=== PATIENT | female | born 1975 | race Caucasian/White ===

== ENCOUNTER 2019-05-02 00:39 | Day surgery (SDC) | payer OTHER, SELFPAY ==
[2019-04-18 10:05] VITALS: BMI 33.3
--- NOTE | 2019-04-30 13:47 | HP_ITS ---
DATE OF SERVICE: 05/02/2019 DIAGNOSIS: Bilateral carpal tunnel syndrome. HISTORY: This patient is 43. She is referred by Dr. Lee. She has had a nerve conduction test by Dr. Mcclain from February of 2017 indicating severe bilateral carpal tunnel syndrome, right worse than left. She says more lately her complaints have been decreased considerably and the left is worse. She has pain in both hands and elbow pain, the radial 4 digits are numb. It rarely involves the little finger. Her back wedger power is diminished. She drops things. She is awakened through the night. Her hands swell and she has cramping in both hands. She understands that surgery for this involves incision in the palm, possible nerve or tendon injury. The possibility of wound infection, bruising, hematoma, and in this case, the anesthetic risks, which can be explained to her by her anesthesia attendant. ALLERGIES: SHE HAS NO ALLERGIES TO MEDICATIONS. MEDICATIONS: Current medicines include 1. Meloxicam. 2. Flexeril. 3. Sertraline. 4. Montelukast. 5. Ranitidine. 6. Losartan. 7. Hydrocodone for back. She gets 60 every month. 8. Gabapentin for her neck. 9. Phentermine. 10. Topiramate. 11. Sumatriptan. PAST SURGICAL HISTORY: Prior surgeries include cholecystectomy in 2009, neck surgery in 2016 and 17 for ruptured disk and she has had laparoscopic surgeries. She is a smoker. REVIEW OF SYSTEMS: Indicates the high blood pressure, emphysema, gastric reflux, history of pancreatitis with fatty liver disease, arthritis with joint replacement, history of peeling sunburns. FAMILY HISTORY: Noncontributory. SOCIAL HISTORY: She lives in [place]. She works for [employer]. Patient of Dr. Lee. PHYSICAL EXAMINATION: GENERAL: She is 5 feet 5 inches, 203 pounds. She is alert, cooperative, and informative. HEENT: Unremarkable. CHEST: Clear to auscultation. HEART: Regular rate and rhythm by palpation. ABDOMEN: Soft, nontender. EXTREMITIES: Reveal findings on both sides consistent with compression neuropathy and on the left, specifically difficulty flexing the thumb across the palm, provocative pain in the forearm, and Tinel's at the elbow. ASSESSMENT: Bilateral carpal tunnel syndrome. PLAN: Left open carpal tunnel release under MAC anesthetic. Incidentally she receives hydrocodone 10/325, 60 each month. She had her last fill date on April 15, 2019. D I MT: Karina
--- NOTE | 2019-05-02 07:27 | WPDHPUPDATE1 ---
History and Physical Update Update Date/Time: 05/02/19 07:27 History and Physical has been reviewed, including an updated exam of the patient. There are NO changes in the patient's condition. Risks, benefits, and alternatives have been discussed and questions answered. Patient agrees to proceed with procedure.
[2019-05-02] MEDS: LACTATED RINGERS 1,000 ML 30 ML IV CONT (07:54)
[2019-05-02 08:13] VITALS: BP 109/60; PULSE 73; RESP 20; TEMP 36.3; O2SAT 96
--- NOTE | 2019-05-02 08:53 | WPDANESEPPF ---
Anes - Initial Pre Proc Eval Procedure: Operation Date: 05/02/19 09:00 Proposed Procedures p Left Open Carpal Tunnel Release - Abdullahi Mckenzie MD Date/Time: 05/02/19 08:53 Surgeon: Abdullahi Mckenzie MD Pre Op Diagnosis: Left Carpal Tunnel Syndrome Patient Data Age: 43 Gender: F Height: 5 ft 5 in Weight: 97.1 kg Last Vital Signs Temp 36.3 C L 05/02/19 08:13 Pulse 73 05/02/19 08:13 Resp 20 05/02/19 08:13 BP 109/60 05/02/19 08:13 Pulse Ox 96 05/02/19 08:13 Allergies Allergy/AdvReac Type Severity Reaction Status Date / Time No Known Allergies Allergy Verified 05/02/19 08:43 Home Medications Medication Instructions Recorded Confirmed Type albuterol sulfate 2 - 3 puff INHALATION QID 04/18/19 05/02/19 History cetirizine 10 mg PO DAILY 04/18/19 05/02/19 History cyclobenzaprine 10 mg PO TID 04/18/19 05/02/19 History gabapentin 600 mg PO TID 04/18/19 05/02/19 History hydrochlorothiazide 12.5 mg PO DAILY 04/18/19 05/02/19 History hydrocodone-acetaminophen 1 tablet PO Q4-6H PRN 04/18/19 05/02/19 History losartan 50 mg PO DAILY 04/18/19 05/02/19 History meloxicam 7.5 mg PO BID 04/18/19 05/02/19 History montelukast 10 mg PO DAILY 04/18/19 05/02/19 History phentermine 37.5 mg PO DAILY 04/18/19 05/02/19 History ranitidine HCl 150 mg PO BID 04/18/19 05/02/19 History sertraline 200 mg PO DAILY 04/18/19 05/02/19 History sumatriptan succinate 100 mg PO DIRECTED PRN 04/18/19 05/02/19 History topiramate 50 mg PO HS 04/18/19 05/02/19 History Patient hx anesthesia problems: none Family hx anesthesia problems: none PMFSH Past Medical History Medical History Anxiety Obesity Smoker Tobacco abuse Family History Family History Father Hypertension Family history of type 2 diabetes mellitus Grandparent Hypertension Family history of type 2 diabetes mellitus Mother Hypertension Sibling Family history of type 2 diabetes mellitus Other Family history of congenital heart disease Social History Social History Smoking status: Light tobacco smoker Second hand tobacco smoke exposure: Yes Alcohol intake: current Anes - Eval Final PreProcedure Day of Procedure 05/02/19 08:53 Patient weight: obese Heart: regular rate and rhythm Lungs: decreased breath sounds Airway: Mallampati scale class II Neurological: alert and oriented Last oral intake: >/= 8 hours ASA classification: III Emergent: no Anesthetic plan: proceed Anesthesia type and monitoring: general GIVS and standard monitoring Informed Consent: The patient's anesthetic plan and its attendant risks and benefits were discussed with the patient/family/POA. Questions were solicited and answers provided to the satisfaction of the patient/family/POA.
[2019-05-02] MEDS: LIDO 1%/EPINEPHRINE 1:100,000 20 ML VIAL 7 ML INFILTRATE (09:23)
--- NOTE | 2019-05-02 09:24 | PM.OP ---
Procedure Note - Brief Procedure Note - Brief Date of procedure: 05/02/19 Pre-op diagnosis: Left Carpal Tunnel Syndrome Post-op diagnosis: same Procedure performed: L OCTR Anesthesia: MAC Surgeon: Abdullahi Mckenzie MD Estimated blood loss (mL): 0 Complications: No immediate complications Condition: stable Disposition: same day
[2019-05-02 09:28] VITALS: BP 127/76; PULSE 68; RESP 16; O2SAT 97
[2019-05-02 09:55] VITALS: BP 109/69; PULSE 68
[2019-05-02 10:15] VITALS: BP 118/72; PULSE 66
[2019-05-02 10:45] VITALS: BP 114/64; PULSE 60
--- NOTE | 2019-05-02 14:29 | PM.PROC ---
Procedure Note - Detailed Date of procedure: 05/02/19 Pre-op diagnosis: Left Carpal Tunnel Syndrome Post-op diagnosis: same Procedure performed: Left open carpal tunnel release Description of procedure: The site over the left carpal tunnel was marked with the patient in preop period. She was then taken to the operating room and placed supine on the operating table. A time-out was held and confirmed. She was given IV sedation. The extremity was prepped and draped in usual fashion. The marking was reconfirmed and the site locally infiltrated with 1% lidocaine with epinephrine. The tourniquet was inflated to 250 mmHg the incision was made as marked in the palm. Dissection was carried bluntly through the subcutaneous tissue to the palmar fascia. This and the carpal ligament were incised with a 15. blade. Under 3 point retraction the ligament was divided distally and proximally to completely release it. No unusual anatomy was noted. The skin wound was closed with interrupted 5 0 nylon suture. The usual bandage with Amandeep wrap was applied the tourniquet was released. Estimated blood loss was 0 milliliter. The patient was discharged with instructions in wound care and follow-up. She has hydrocodone 01/03/2025 at home and was instructed that she could take additional ibuprofen if she normally tolerates that. Surgeon: Abdullahi Mckenzie MD
== END 2019-05-02 10:49 | disposition home or self-care (01) ==
PROVIDERS: PCP Internal Medicine; Visit Provider Plastic Surgery
PROC: (CPT 64721; principal; 2019-05-02 09:00)
DX: G56.02 Carpal tunnel syndrome, left upper limb (principal); F41.9 Anxiety disorder, unspecified; F17.210 Nicotine dependence, cigarettes, uncomplicated; E66.9 Obesity, unspecified; Z68.35 Body mass index [BMI] 35.0-35.9, adult
CPT/HCPCS: 64721; A9270; J2250; J2704; J3010; J7120

== ENCOUNTER 2019-07-01 10:51 | Outpatient (RCR) | payer OTHER, SELFPAY ==
--- NOTE | 2019-07-01 13:44 | OTOPEVAL ---
Thank you for referring this patient to [facility] Please review, sign, date and return this plan of care AMAURY. I agree with and certify that the following plan of care is medically necessary. Referring Physician Date Admitting Provider: Attending Provider: PHYSICIAN NOT ON STAFF Referring Provider: *OT Outpatient Evaluation Start: 07/01/19 10:25 Freq: Status: Active Protocol: Document 07/01/19 10:52 MBS (Rec: 07/01/19 11:50 MBS [id number]) Therapy Assessment Status Assessment Status Assessment Status Evaluation Outpatient Past Medical History Neurological History Hx Migraine Yes Cardiovascular History Hx Hypertension Yes Respiratory History Hx Chronic Obstructive Pulmonary Disease Yes (COPD) Gastrointestinal History Hx Cholecystectomy Yes Genitourinary History Hx Genitourinary Disorders No Significant History Musculoskeletal History Hx Arthritis Yes Hx Back Pain Yes Hx Spinal Surgery Yes: NECK SURGERY WITH HARDWARE Hematological History Hx Hematological Disorders No Significant History Endocrine History Hx Endocrine Disorders No Significant History HEENT History Hx Sinus Problems Yes Integumentary History Hx Other Skin Disorders Yes: RASH ON ARMS Reproductive History Hx Endometriosis Yes Psychosocial History Hx Anxiety Yes Hx Depression Yes Pain History Has Past Pain Affected Your Daily Life Yes: BACK/NECK PAIN History of Long-Term Prescription Pain Yes Medication Use (Opiates) Anesthesia History Hx Anesthesia Reactions No Significant History Evaluation Information Problem Diagnosis wrist pain and hand weakness Onset 05/02/19 Cause L carpal tunnel release Subjective Information Patient reports that since her Query Text:As Reported By Patient/ surgery in April her thumb, Family middle, and index fingers dont work and feel like they should. The tingling and numbness has been better. Scar is sensitive to touch and reports wrist pain. Patient reports that she is not able to lift a gallon of milk secondary to pain. Patient works at [employer] and is required to do lifting and using her hands quite a bit. Patient reports that she
== END 2019-08-20 13:30 | disposition home or self-care (01) ==
LOC: CHSOT 10:51
PROVIDERS: PCP Internal Medicine
DX: Z98.890 Other specified postprocedural states (principal)
CPT/HCPCS: 97035; 97110; 97140; 97165

== ENCOUNTER 2019-09-06 14:16 | Emergency (ER) | payer OTHER, SELFPAY ==
[2019-09-06 14:45] VITALS: BP 152/86; PULSE 69; RESP 20; TEMP 37.1; O2SAT 97
[2019-09-06 14:52] LABS: Add Urine Microscopic? YES; Appearance Urine Sl Cloudy (Clear); Bilirubin Urine Negative (Negative); Blood Urine Negative (Negative); Color Urine Yellow (Yellow); Glucose Urine UA Negative (Negative); Ketones Urine Negative (Negative); Leukocyte Esterase Ur Negative LEU/UL (Negative); Nitrate Urine Negative (Negative); Protein Urine Negative (Negative); Specific Grav Ur >= 1.030 (1.010-1.020); pH Urine 5.5 (5.0-8.0)
[2019-09-06 14:52] LABS: Basophils Absolute Auto 0.03 K/mm3 (0.00-0.10); Basophils Percent Auto 0.3 % (0.0-1.0); Eosinophils Absolute Auto 0.09 K/mm3 (0.02-0.50); Hematocrit 40.9 % (35.0-49.0); Hemoglobin 13.4 g/dL (12.0-15.0); Immature Granulocyte Absolute 0.01 K/mm3 (0.00-0.00); Immature Granulocyte Percent A 0.1 % (0.0-0.0); Lymphocytes Absolute Auto 3.48 K/mm3 (1.10-4.50); Lymphocytes Percent Auto 38.3 % (18.0-42.0); Mean Corpuscular HGB Conc 32.8 g/dL (32.0-36.0); Mean Corpuscular Hemoglobin 29.5 pg (27.0-31.0); Mean Corpuscular Volume 90.1 fL (78.0-102.0); Mean Platelet Volume 8.9 fl (9.2-11.8); Monocytes Absolute Auto 0.81 K/mm3 (0.10-0.90); Monocytes Percent Auto 8.9 % (2.0-11.0); Neutrophils Absolute Auto 4.7 K/mm3 (1.7-7.2); Neutrophils Percent Auto 51.4 % (50.0-70.0); Platelet Count Result 349 K/mm3 (150-420); Red Blood Count 4.54 M/mm3 (4.20-5.40); Red Cell Distribution Width 13.9 % (11.6-14.4); White Blood Count 9.1 K/mm3 (4.8-10.8)
--- NOTE | 2019-09-06 14:57 | ED.ABDPAIN ---
HPI - Abdominal Pain General Chief Complaint: Nausea/Vomiting/Diarrhea Stated Complaint: Vomiting,Hot cold chills,Headache Source: patient Mode of arrival: ambulatory History of Present Illness HPI narrative: This 44-year-old female began feeling ill 2 days ago with persistent epigastric pain, nausea and vomiting. The vomiting finally subsided this morning about the time she started having diarrhea x 7 episodes. The stool is mucousy. She has persistent nausea. She has no new onset of back pain. There has been no recent antibiotic use. She has no appetite. Nothing makes the pain better or worse. Yesterday she developed a bitemporal headache rated 8/10 associated with photophobia. This resembles her typical migraine headaches which are normally treated with sumatriptan. She had chills yesterday, no known fever. She has a history of cholecystectomy , denies history of peptic ulcer disease.. She has had 1 episode of pancreatitis. No melena. Related Data Home Medications Medication Instructions Recorded Confirmed albuterol sulfate 2 - 3 puff INHALATION QID 04/18/19 09/06/19 cetirizine 10 mg PO DAILY 04/18/19 09/06/19 cyclobenzaprine 10 mg PO TID 04/18/19 09/06/19 gabapentin 600 mg PO TID 04/18/19 09/06/19 hydrochlorothiazide 12.5 mg PO DAILY 04/18/19 09/06/19 hydrocodone-acetaminophen 1 tablet PO Q4-6H PRN 04/18/19 09/06/19 losartan 50 mg PO DAILY 04/18/19 09/06/19 meloxicam 7.5 mg PO BID 04/18/19 09/06/19 montelukast 10 mg PO DAILY 04/18/19 09/06/19 phentermine 37.5 mg PO DAILY 04/18/19 09/06/19 ranitidine HCl 150 mg PO BID 04/18/19 09/06/19 sertraline 200 mg PO DAILY 04/18/19 09/06/19 sumatriptan succinate 100 mg PO DIRECTED PRN 04/18/19 09/06/19 topiramate 50 mg PO HS 04/18/19 09/06/19 Allergies Allergy/AdvReac Type Severity Reaction Status Date / Time No Known Allergies Allergy Verified 05/02/19 08:43 Review of Systems Constitutional: Constitutional: Reports no additional constitutional complaints Cardiovascular: Cardiovascular: Denies chest pain Respiratory: Respiratory: Reports cough (chronic low grade cough, no recent change. ) Gastrointestinal: Comments: Heartburn after she started vomiting yesterday Genitourinary: Genitourinary: Denies dysuria Musculoskeletal: Musculoskeletal: Reports back pain (chronic low back pain) Comments: myalgia Neurologic: Denies focal weakness and Denies numbness PMFSH Past Medical History Medical History (Updated 09/06/19 @ 22:39 by Gerry Gtz MD) Anxiety Obesity Smoker Tobacco abuse Surgical History Surgical History (Updated 09/06/19 @ 15:04 by Gerry Gtz MD) Hx of cholecystectomy Social History Social History (Updated 09/06/19 @ 15:27 by Gerry Gtz MD) Smoking status: Current some day smoker Second hand tobacco smoke exposure: Yes Alcohol intake: former Exam Narrative: Exam Narrative: Sitting semi-upright in bed. No obvious distress. No photophobia. Const: Orientation/consciousness: patient oriented x3 HENMT: Mouth: Yes moist mucous membranes Eyes: Pupils: Equal, round and reactive pupils present EOM: EOMs intact bilaterally Neck: Neck: no lymphadenopathy Chest: Chest palpation & inspection: normal inspection of the chest Resp: Effort & Inspection: normal respiratory effort Cardio: Rate: regular rate Rhythm: regular rhythm GI: GI Palp: Yes Soft to palpation and Yes Tenderness to palpation present (GI) (epigastrium) : General: Yes no CVA tenderness Skin: General skin exam: normal color Neuro: General: patient oriented x3 Course Course Emergency Course: Pt's headache and abdominal pain went from 8/10 to 10 after Reglan 10 mg and Benadryl 25 mg. She has no nausea. She is hungry. She wants to go home. Dx. of pancreatitis discussed. She is aware of the importance of hydration and that her symptoms could worsen but agrees to come back if she is unable to drink fluids or pain is not controlled
[2019-09-06 14:59] LABS: Bacteria Urine 3+ /hpf; RBC Urine 0-2 /hpf (0-2); Squamous Epithelial Cell Urine Few /hpf (Few); WBC Urine 0-3 /hpf (0-3)
[2019-09-06 15:00] LABS: Mucus Urine Moderate /lpf
[2019-09-06] MEDS: SODIUM CHLORIDE 0.9% IV 500 ML 999 ML IV CONT (15:00)
[2019-09-06] MEDS: METOCLOPRAMIDE HCL INJ 10 MG/2 ML VIAL IV PUSH (15:00)
[2019-09-06 15:27] LABS: Alanine Aminotransferase 36 U/L (14-59); Albumin Level 3.8 g/dL (3.4-5.0); Alkaline Phosphatase 126 U/L (46-116); Anion Gap 13.7 mmol/L (7-16); Aspartate Amino Transferase 19 U/L (15-37); Bilirubin,Total 0.3 mg/dL (0.00-1.00); Blood Urea Nitrogen 12 mg/dL (7-18); Calcium 8.6 mg/dL (8.5-10.1); Carbon Dioxide 23 mmol/L (21-32); Chloride 102 mmol/L (98-108); Estimated Glomerular Filt Rate > 60; Glucose 115 mg/dL (70-99); Osmolality Calculated 280 mOsm/kg (285-295); Potassium 3.7 mmol/L (3.5-5.1); Sodium 135 mmol/L (136-145); Total Protein 7.7 g/dL (6.4-8.2)
[2019-09-06 15:28] LABS: Beta HCG Quantitative < 1.00 mIU/mL (0-6); Lipase 558 U/L (73-393)
[2019-09-06] MEDS: SODIUM CHLORIDE 0.9% IV 1,000 ML 999 ML IV CONT (15:30)
[2019-09-06 16:07] VITALS: BP 139/84
== END 2019-09-06 16:10 | disposition home or self-care (01) ==
PROVIDERS: Emergency Provider Family Medicine; PCP Internal Medicine
DX: K85.90 Acute pancreatitis without necrosis or infection, unspecified (principal)
CPT/HCPCS: 36415; 80053; 81001; 83690; 84702; 85025; 96361; 96374; 96375; 99282; 99284; J1200; J2765; J7030; J7040

== ENCOUNTER 2019-09-24 09:31 | Outpatient (CLI) | payer OTHER, SELFPAY ==
--- NOTE | ~2019-09-24 | US_ITS ---
EXAMINATION: US right upper quadrant EXAM DATE: 09/24/2019 09:55 INDICATION: Epigastric pain, nausea. Cholecystectomy. Pancreatitis. TECHNIQUE: Multiple grayscale and Doppler images of the abdomen right upper quadrant were obtained (b y a technologist who performed the scan) and subsequently reviewed. Comparison is made to prior exami nation from 07/06/2006. FINDINGS: The pancreatic head and body are normal in appearance. The pancreatic tail is not visualized. The l iver has normal echogenicity and contour. There are no focal liver lesions identified. There is no evidence of intrahepatic biliary duct dilation. Portal venous flow was seen in the hepatopedal, nor mal direction and has normal Doppler waveform. No right-sided hydronephrosis. Common bile duct measures 3 mm, which is normal. The gallbladder fossa is unremarkable. IMPRESSION: 1. Unremarkable abdominal ultrasound exam. Reviewed, dictated and finalized at location B.
== END 2019-09-24 09:32 | disposition home or self-care (01) ==
PROVIDERS: PCP Internal Medicine; Visit Provider Internal Medicine
DX: K85.90 Acute pancreatitis without necrosis or infection, unspecified (principal)
CPT/HCPCS: 76705

== ENCOUNTER 2019-10-18 15:24 | Emergency (ER) | payer OTHER, SELFPAY ==
[2019-10-18 15:35] VITALS: BP 127/88; PULSE 92; RESP 16; TEMP 37; O2SAT 99
--- NOTE | 2019-10-18 16:15 | ED.SKABFB ---
HPI - Skin/Abscess/Foreign Bdy General Chief complaint: Skin/Abscess/Foreign Body Stated complaint: splinter under fingernail Time Seen by Provider: 10/18/19 16:05 Source: patient Mode of arrival: ambulatory Limitations: no limitations History of Present Illness HPI narrative: 44-year-old female patient is here with the splinter from old food paneling under the nail bed of her left index finger. The patient states that she was vacuuming and suddenly brittani hand went along the paddling and she tried to remove the splinter at home unsuccessfully. She is not sure of her tetanus status . patient denies being diabetic. Related Data Home Medications Medication Instructions Recorded Confirmed albuterol sulfate 2 - 3 puff INHALATION QID 04/18/19 10/18/19 cetirizine 10 mg PO DAILY 04/18/19 10/18/19 cyclobenzaprine 10 mg PO TID 04/18/19 10/18/19 gabapentin 600 mg PO TID 04/18/19 10/18/19 hydrochlorothiazide 12.5 mg PO DAILY 04/18/19 10/18/19 hydrocodone-acetaminophen 1 tablet PO Q4-6H PRN 04/18/19 10/18/19 losartan 50 mg PO DAILY 04/18/19 10/18/19 meloxicam 7.5 mg PO BID 04/18/19 10/18/19 montelukast 10 mg PO DAILY 04/18/19 10/18/19 ranitidine HCl 150 mg PO BID 04/18/19 10/18/19 sertraline 200 mg PO DAILY 04/18/19 10/18/19 sumatriptan succinate 100 mg PO DIRECTED PRN 04/18/19 10/18/19 topiramate 50 mg PO HS 04/18/19 10/18/19 Allergies Allergy/AdvReac Type Severity Reaction Status Date / Time No Known Allergies Allergy Verified 10/18/19 15:50 Review of Systems Review of Systems: All systems reviewed & are unremarkable except as noted in HPI and below PMFSH Past Medical History Medical History Anxiety Obesity Smoker Tobacco abuse Surgical History Surgical History Hx of cholecystectomy Family History Family History Father Hypertension Family history of type 2 diabetes mellitus Grandparent Hypertension Family history of type 2 diabetes mellitus Mother Hypertension Sibling Family history of type 2 diabetes mellitus Other Family history of congenital heart disease Social History Social History (Updated 09/06/19 @ 15:27 by Gerry Gtz MD) Smoking status: Current some day smoker Second hand tobacco smoke exposure: Yes Alcohol intake: former Exam Const: General: no acute distress Resp: Effort & Inspection: normal respiratory effort Skin: Other: A linear splinter is noted in the subungual area on the left index finger nail. No active bleeding is noted. No other injuries to the finger are noted. Neuro: General: patient oriented x3 and moves all extremities Psych: Affect: Anxious affect present Course Course Emergency Course: Patient's condition has been stable splint has been removed. She will be updated on her tetanus status and discharged home Procedures Foreign Body Removal Foreign Body #1: Foreign Body Removal Date: 10/18/19 Foreign Body Removal Time: 16:07 Time Out Performed: yes Site: left and hand ( Left index finger nail) Foreign Body Removal Narrative: a digital block was given to the left index finger with 1% lidocaine and the linear wooden splinter was removed with forceps without any difficulty. No bleeding is encountered. Discharge Plan Discharge Prescriptions: No Action cyclobenzaprine 10 mg tablet 10 mg PO TID RF: 0 cetirizine 10 mg tablet 10 mg PO DAILY RF: 0 sertraline 100 mg tablet 200 mg PO DAILY RF: 0 hydrocodone-acetaminophen 10-325 mg tablet 1 tablet PO Q4-6H PRN (Reason: Pain) RF: 0 meloxicam 7.5 mg tablet 7.5 mg PO BID RF: 0 ranitidine HCl 150 mg tablet 150 mg PO BID RF: 0 gabapentin 300 mg capsule 600 mg PO TID RF: 0 montelukast 10 mg tablet 10 mg PO DAILY RF: 0 hydrochlorothiazide 25 mg tablet 12.5 mg
[2019-10-18] MEDS: TETANUS,DIPHTHERIA,AC PERTUSSIS ADULT 0.5 ML (ADACEL) IM (16:36)
[2019-10-18] MEDS: IBUPROFEN 400 MG TABLET 800 MG PO (16:38)
== END 2019-10-18 16:40 | disposition home or self-care (01) ==
PROVIDERS: Emergency Provider Emergency Medicine; PCP Internal Medicine
DX: S60.451A Superficial foreign body of left index finger, initial encounter (principal)
CPT/HCPCS: 90471; 90715; 99282; A9270

== ENCOUNTER 2019-11-30 10:13 | Outpatient (CLI) | payer OTHER, SELFPAY ==
[2019-11-30 10:38] LABS: Add Urine Microscopic? YES; Appearance Urine Cloudy (Clear); Bilirubin Urine Negative (Negative); Blood Urine 3+ (Negative); Color Urine Yellow (Yellow); Glucose Urine UA Negative (Negative); Ketones Urine Negative (Negative); Leukocyte Esterase Ur Negative (Negative); Nitrate Urine Negative (Negative); Protein Urine Negative (Negative); Specific Grav Ur >= 1.030 (1.010-1.020); Urobilinogen Urine 0.2 mg/dL (0.2-1.0); pH Urine 5.5 (5.0-8.0)
[2019-11-30 10:42] LABS: Bacteria Urine Trace /hpf; RBC Urine >75 /hpf (0-2); Squamous Epithelial Cell Urine Few /hpf (Few); WBC Urine None seen /hpf (0-3)
[2019-11-30 11:28] LABS: Alanine Aminotransferase 37 U/L (14-59); Albumin Level 3.6 g/dL (3.4-5.0); Alkaline Phosphatase 131 U/L (46-116); Anion Gap 6 mmol/L (8-16); Aspartate Amino Transferase 22 U/L (15-37); Bilirubin,Total 0.1 mg/dL (0.00-1.00); Blood Urea Nitrogen 13 mg/dL (7-18); Calcium 8.5 mg/dL (8.5-10.1); Carbon Dioxide 29 mmol/L (21-32); Chloride 105 mmol/L (98-108); Cholesterol 205 mg/dL (0-200); Estimated Glomerular Filt Rate > 60; Glucose 95 mg/dL (70-99); HDL Direct 30 mg/dL (40-60); LDL Cholesterol Calculated 144 mg/dL (<130); Osmolality Calculated 290 mOsm/kg (285-295); Potassium 4.2 mmol/L (3.5-5.1); Sodium 140 mmol/L (136-145); Triglycerides 156 mg/dL (0-150)
== END 2019-11-30 10:14 | disposition home or self-care (01) ==
LOC: CHSLAB 10:15
PROVIDERS: PCP Internal Medicine; Visit Provider Internal Medicine
DX: E78.2 Mixed hyperlipidemia (principal); I10 Essential (primary) hypertension
CPT/HCPCS: 36415; 80053; 80061; 81001

== ENCOUNTER 2019-12-03 13:00 | Outpatient (CLI) | payer OTHER, SELFPAY ==
--- NOTE | ~2019-12-03 | MM_ITS ---
EXAMINATION: MM screening lucy BI w carolyn HISTORY: Screening TECHNIQUE: Craniocaudal and mediolateral oblique 3-D tomosynthesis images were obtained and synthetic 2-D images were generated. CAD analysis was submitted and interpreted. COMPARISON: Comparison to multiple prior studies sequentially, with oldest reviewed study dated 04/2013. BREAST PARENCHYMAL COMPOSITION: There are scattered areas of fibroglandular density. FINDINGS: There is no evidence of suspicious mass, calcification, or architectural distortion to sugg est malignancy in either breast. There has been no suspicious interval change. IMPRESSION: 1. No mammographic evidence of malignancy. 2. Recommend routine screening mammography in one year. BI-RADS Category 1: Negative Reviewed, dictated and finalized at location A.
== END 2019-12-03 13:01 | disposition home or self-care (01) ==
LOC: CHSIMG 13:02
PROVIDERS: PCP Internal Medicine; Visit Provider Internal Medicine
DX: Z12.31 Encounter for screening mammogram for malignant neoplasm of breast (principal)
CPT/HCPCS: 77063; 77067

== ENCOUNTER 2019-12-31 14:50 | Outpatient (CLI) | payer OTHER, SELFPAY ==
[2019-12-31 14:59] LABS: Basophils Absolute Auto 0.03 K/mm3 (0.00-0.10); Basophils Percent Auto 0.3 % (0.0-1.0); Hematocrit 35.3 % (35.0-49.0); Hemoglobin 11.3 g/dL (12.0-15.0); Immature Granulocyte Absolute 0.04 K/mm3 (0.00-0.00); Immature Granulocyte Percent A 0.4 % (0.0-0.0); Lymphocytes Absolute Auto 3.43 K/mm3 (1.10-4.50); Lymphocytes Percent Auto 34.8 % (18.0-42.0); Mean Corpuscular Hemoglobin 29.2 pg (27.0-31.0); Mean Corpuscular Volume 91.2 fL (78.0-102.0); Mean Platelet Volume 8.5 fl (9.2-11.8); Monocytes Absolute Auto 0.83 K/mm3 (0.10-0.90); Monocytes Percent Auto 8.4 % (2.0-11.0); Neutrophils Absolute Auto 5.3 K/mm3 (1.7-7.2); Neutrophils Percent Auto 54.1 % (50.0-70.0); Platelet Count Result 369 K/mm3 (150-420); Red Blood Count 3.87 M/mm3 (4.20-5.40); Red Cell Distribution Width 13.8 % (11.6-14.4); White Blood Count 9.9 K/mm3 (4.8-10.8)
[2019-12-31 15:02] LABS: Add Urine Microscopic? YES; Appearance Urine Clear (Clear); Bilirubin Urine Negative (Negative); Blood Urine 3+ (Negative); Color Urine Yellow (Yellow); Glucose Urine UA Negative (Negative); Ketones Urine Negative (Negative); Leukocyte Esterase Ur Negative LEU/UL (Negative); Nitrate Urine Negative (Negative); Protein Urine Negative (Negative); Specific Grav Ur >= 1.030 (1.010-1.020); Urobilinogen Urine 0.2 mg/dL (0.2-1.0)
[2019-12-31 15:08] LABS: RBC Urine 21-50 /hpf (0-2); WBC Urine 0-3 /hpf (0-3)
[2019-12-31 15:09] LABS: Amorphous Sediment Urine Few; Bacteria Urine Trace /hpf; Squamous Epithelial Cell Urine Few /hpf (Few)
[2019-12-31 15:28] LABS: Alanine Aminotransferase 42 U/L (14-59); Albumin Level 3.6 g/dL (3.4-5.0); Alkaline Phosphatase 140 U/L (46-116); Amylase 47 U/L (25-115); Anion Gap 7 mmol/L (8-16); Aspartate Amino Transferase 23 U/L (15-37); Bilirubin,Total 0.1 mg/dL (0.00-1.00); Blood Urea Nitrogen 16 mg/dL (7-18); Calcium 8.9 mg/dL (8.5-10.1); Carbon Dioxide 28 mmol/L (21-32); Chloride 105 mmol/L (98-108); Estimated Glomerular Filt Rate > 60; Glucose 86 mg/dL (70-99); Lipase 146 U/L (73-393); Osmolality Calculated 290 mOsm/kg (285-295); Potassium 3.9 mmol/L (3.5-5.1); Sodium 140 mmol/L (136-145); Total Protein 6.9 g/dL (6.4-8.2)
== END 2019-12-31 14:51 | disposition home or self-care (01) ==
LOC: CHSLAB 14:51
PROVIDERS: PCP Internal Medicine; Visit Provider Internal Medicine
DX: R10.9 Unspecified abdominal pain (principal)
CPT/HCPCS: 36415; 80053; 81001; 82150; 83690; 85025

== ENCOUNTER 2020-01-14 10:46 | Outpatient (CLI) | payer OTHER, SELFPAY ==
--- NOTE | ~2020-01-14 | US_ITS ---
EXAMINATION: US pelvic complete DATE: 01/14/2020 11:31 INDICATION: Diffuse abdominal pain, hematuria TECHNIQUE: Multiple transabdominal sonographic images of the pelvis were obtained. COMPARISON: 10/23/2017 FINDINGS: The uterus measures 6.7 x 3.5 x 5.0 cm. The endometrial complex measures 8 mm. The right ov peter measures 3.0 x 1.8 x 2.1 cm. The left ovary measures 2.4 x 2.1 x 1.9 cm. A 2.3 cm cyst of the lef t ovary previously measured 3.3 cm. There is normal vascular flow in the ovaries. There is no free fl uid in the pelvis. IMPRESSION: 1. No sonographic correlate for the patient's symptoms. Reviewed, dictated and finalized at location A.
--- NOTE | ~2020-01-14 | US_ITS ---
EXAMINATION: US abdomen complete DATE: 01/14/2020 11:30 INDICATION: Diffuse abdominal pain TECHNIQUE: Multiple grayscale and Doppler ultrasound images of the abdomen were obtained. COMPARISON: 09/24/2019, 09/25/2017 FINDINGS: The head and and body of the pancreas are normal. The pancreatic tail is obscured by bowel gas. The liver is normal with normal echogenicity and echotexture. No surface nodularity. Normal hepa topetal flow in the main portal vein. The gallbladder is surgically absent. The normal common bile du ct measures 5 mm. The visualized portions of the aorta and inferior vena cava are normal. The right kidney measures 10.8 x 5.3 x 5.1 cm. The left kidney measures 11.7 x 5.5 x 5.2 cm. The kidn eys demonstrate normal parenchymal echogenicity. There is no hydronephrosis. The spleen is normal in appearance and measures 10.4 cm. IMPRESSION: 1. No sonographic correlate for the patient's symptoms. Reviewed, dictated and finalized at location A.
== END 2020-01-14 10:47 | disposition home or self-care (01) ==
LOC: CHSIMG 10:48
PROVIDERS: PCP Internal Medicine; Visit Provider Internal Medicine
DX: R31.9 Hematuria, unspecified (principal); R10.9 Unspecified abdominal pain
CPT/HCPCS: 76700; 76856; 88112

== ENCOUNTER 2020-03-24 11:07 | Outpatient (RCR) | payer OTHER, SELFPAY ==
--- NOTE | 2020-03-24 13:10 | PTOPEVAL ---
Thank you for referring Marcio Torres to [facility] The patient is scheduled to be seen for therapy? ____x/week for ___ weeks. Please review, sign, date and return this plan of care AMAURY. I agree with and certify that the following plan of care is medically necessary. Referring Physician Date Admitting Provider: Attending Provider: Sandra Manley, LEAD FRONT DESK AGENT Referring Provider: *PT Outpatient Evaluation Start: 03/24/20 11:21 Freq: Status: Active Protocol: Document 03/24/20 11:20 [facility] (Rec: 03/24/20 12:39 [facility] [id number]) Therapy Assessment Status Assessment Status Assessment Status Evaluation Outpatient Past Medical History Neurological History Hx Migraine Yes Hx Other Neurological Disorders Yes: NERVE DAMAGE TO NECK/ CHRONIC NERVE PAIN Cardiovascular History Hx Hypertension Yes Respiratory History Hx Bronchitis Yes Hx Chronic Obstructive Pulmonary Disease Yes (COPD) Gastrointestinal History Hx Cholecystectomy Yes Genitourinary History Hx Genitourinary Disorders No Significant History Musculoskeletal History Hx Arthritis Yes Hx Back Pain Yes Hx Spinal Surgery Yes: NECK SURGERY WITH HARDWARE Hematological History Hx Hematological Disorders No Significant History Endocrine History Hx Endocrine Disorders No Significant History HEENT History Hx Sinus Problems Yes Integumentary History Hx Other Skin Disorders Yes: RASH ON ARMS Reproductive History Hx Endometriosis Yes Psychosocial History Hx Anxiety Yes Hx Depression Yes Pain History Has Past Pain Affected Your Daily Life Yes: BACK/NECK PAIN History of Long-Term Prescription Pain Yes Medication Use (Opiates) Anesthesia History Hx Anesthesia Reactions No Significant History Evaluation Information Problem Diagnosis spinal stenosis Onset 03/17/20 Additional Evaluation Detail oswestry = 72% functionally declined Subjective Information patient reports she has been Query Text:As Reported By Patient/ having pain in the back for Family about 5 years. she reports she has had an MRI of the lumbar spine back in April. she reports she has increased pain in the back with work. 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 she reports she has increased pain
== END 2020-04-23 17:40 | disposition home or self-care (01) ==
LOC: CHSPT 11:07
PROVIDERS: PCP Nurse Practitioner Adult Health; Visit Provider Nurse Practitioner Adult Health
DX: M48.07 Spinal stenosis, lumbosacral region (principal)
CPT/HCPCS: 97014; 97110; 97161; G0283

== ENCOUNTER 2020-04-25 09:56 | Outpatient (CLI) | payer OTHER, SELFPAY ==
--- NOTE | ~2020-04-25 | MR_ITS ---
EXAMINATION: MR cervical spine wo con EXAM DATE: 04/25/2020 11:13 INDICATION: Cervical radiculopathy. Left shoulder pain, symptoms 3 weeks. TECHNIQUE: Multi-sequential, multiplanar MR images of the cervical spine were obtained without contra st. Axial T2, axial T2 MERGE sequence. Sagittal T1, T2, T2 fat saturation images also obtained. Com parison is made to prior examination from 11/24/2018. FINDINGS: There is anterior and interbody fusion C5-6. Mild disc disease at C4-5. The vertebral body and disc heights are otherwise well maintained. The vertebral bodies are aligned in the AP dimension . There are no suspicious marrow signal abnormalities. The spinal cord signal intensity and intrinsic morphology is normal. Cervicomedullary junction is normal in appearance. Paraspinal soft tissue is u nremarkable. Level by level evaluation: C2-C3: Disc does not extend beyond the endplate margin. Uncovertebral joint arthropathy: Mild right. Facet joint arthropathy: Mild bilateral. Neural foraminal stenosis: Mild right. Central canal stenosis: No stenosis. C3-C4: Disc does not extend beyond the endplate margin. Uncovertebral joint arthropathy: Mild bilateral. Facet joint arthropathy: Mild bilateral. Neural foraminal stenosis: Mild bilateral. Central canal stenosis: No stenosis. C4-C5: There is a minimal diffuse disc bulge. Uncovertebral joint arthropathy: Mild bilateral. Facet joint arthropathy: Mild bilateral. Neural foraminal stenosis: Mild bilateral. Central canal stenosis: No stenosis. C5-C6: Motion limiting evaluation. This level is fused. Uncovertebral joint arthropathy: Mild bilateral. Facet joint arthropathy: Mild bilateral. Neural foraminal stenosis: No stenosis. Central canal stenosis: No stenosis. C6-C7: Motion limiting evaluation. Small right central protrusion. Uncovertebral joint arthropathy: Mild to moderate right, mild left. Facet joint arthropathy: Mild bilateral. Neural foraminal stenosis: Mild to moderate right. Central canal stenosis: No stenosis. C7-T1: Small left central disc extrusion, inferior migration toward the C8 nerve root in lateral rece ss. Uncovertebral joint arthropathy: None. Facet joint arthropathy: Mild bilateral. Neural foraminal stenosis: No stenosis. Central canal stenosis: No stenosis. Compared to 2019 the C7-T1 left central protrusion has developed. Otherwise difficult to appreciate a ny significant interval change, although there is some motion limiting evaluation of this study. IMPRESSION: 1. C5-6 cervical fusion. 2. C6-7 mild to moderate right neural foraminal stenosis, most narrowed level. 3. C7-T1 new small left central extrusion, potentially could be causing some mass effect on traversi ng C8 nerve root. Reviewed, dictated and finalized at location A. IDER CONTRACTING CONSULTANT IMPRESSION: 1. C5-6 cervical fusion. 2. C6-7 mild to moderate right neural foraminal stenosis, most narrowed level. 3. C7-T1 new small left central extrusion, potentially could be causing some m ass effect on traversing C8 nerve root.
== END 2020-04-25 09:57 | disposition home or self-care (01) ==
PROVIDERS: PCP Internal Medicine; Visit Provider Internal Medicine
DX: M54.12 Radiculopathy, cervical region (principal)
CPT/HCPCS: 72141

== ENCOUNTER 2020-04-27 15:03 | Outpatient (RCR) | payer OTHER, SELFPAY ==
--- NOTE | 2020-04-27 16:00 | PTOPEVAL ---
Thank you for referring Marcio Torres to [facility].? The patient is scheduled to be seen for therapy? ____x/week for ___ weeks. Please review, sign, date and return this plan of care AMAURY. I agree with and certify that the following plan of care is medically necessary. 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/ CHRONIC NERVE PAIN Cardiovascular History Hx Hypertension Yes Respiratory History Hx Bronchitis Yes Hx Chronic Obstructive Pulmonary Disease Yes (COPD) Gastrointestinal History Hx Cholecystectomy Yes Genitourinary History Hx Genitourinary Disorders No Significant History Musculoskeletal History Hx Arthritis Yes Hx Back Pain Yes Hx Spinal Surgery Yes: NECK SURGERY WITH HARDWARE Hematological History Hx Hematological Disorders No Significant History Endocrine History Hx Endocrine Disorders No Significant History HEENT History Hx Sinus Problems Yes Integumentary History Hx Other Skin Disorders Yes: RASH ON ARMS Reproductive History Hx Endometriosis Yes Psychosocial History Hx Anxiety Yes Hx Depression Yes Pain History Has Past Pain Affected Your Daily Life Yes: BACK/NECK PAIN History of Long-Term Prescription Pain Yes Medication Use (Opiates) Anesthesia History Hx Anesthesia Reactions No Significant History Evaluation Information Problem Diagnosis L cervical radiculopathy Onset 04/22/20 Additional Evaluation Detail NDI = 64% functionally declined Subjective Information patient reports she was Query Text:As Reported By Patient/ recently in therapy for pain Family in her lower back. however, now for 2 weeks she is having bad nec pain that radiates down into the L shoulder blade and down the L arm to the elbow. she reports she will occasionally have issues writing (index finger not cooperating). p
--- NOTE | 2020-07-06 07:44 | PCPTNOTE ---
07/06/20 - patient has not been to therapy in over 2 months. as of this date, she will be dc'd from skilled PT services and all progress towards goals be taken from her most recent evaluation/note. ZURDO
== END 2020-05-13 09:57 | disposition home or self-care (01) ==
LOC: CHSPT 15:03
PROVIDERS: PCP Internal Medicine; Visit Provider Internal Medicine
DX: M48.07 Spinal stenosis, lumbosacral region (principal); M54.12 Radiculopathy, cervical region; M54.2 Cervicalgia
CPT/HCPCS: 97014; 97110; 97140; 97161; G0283

== ENCOUNTER 2020-07-08 17:17 | Outpatient (CLI) | payer OTHER, SELFPAY ==
[2020-07-08 18:59] LABS: SARS-CoV-2 RNA PCR Negative (Negative)
== END 2020-07-08 17:18 | disposition home or self-care (01) ==
LOC: CHSLAB 17:28
PROVIDERS: PCP Internal Medicine; Visit Provider Internal Medicine
DX: R09.81 Nasal congestion (principal); Z20.822 Contact with and (suspected) exposure to COVID-19
CPT/HCPCS: C9803; U0003; U0005

== ENCOUNTER 2020-12-22 12:11 | Outpatient (CLI) | payer OTHER, SELFPAY ==
--- NOTE | ~2020-12-22 | XR_ITS ---
EXAMINATION: XR lumbar spine 2-3V EXAM DATE: 12/22/2020 12:34 INDICATION: Lower back pain. No known injury. Chronic pain. TECHNIQUE: Lumber spine frontal, lateral, lateral L5-S1 projections for interpretation. Comparison is made to prior examination from 09/21/2017. FINDINGS: Mild to moderate L3-4 disc disease, mild at L4-5 and L5-S1. There is mild lumbar facet arth ropathy. The vertebral bodies are aligned in the AP dimension. Vertebral body heights are maintained. Sacrum, sacroiliac joints, sacral arcuate lines are intact. Paraspinal soft tissue is unremarkable. There are cholecystectomy clips. IMPRESSION: L3-4 mild to moderate disc disease. Mild lumbar facet arthropathy. Reviewed, dictated and finalized at location B.
== END 2020-12-22 12:12 | disposition home or self-care (01) ==
LOC: CHSIMG 12:15
PROVIDERS: PCP Internal Medicine; Visit Provider Nurse Practitioner Adult Health
DX: M47.816 Spondylosis without myelopathy or radiculopathy, lumbar region (principal)
CPT/HCPCS: 72100

== ENCOUNTER 2020-12-23 16:59 | Outpatient (CLI) | payer OTHER, SELFPAY ==
[2020-12-23 18:17] LABS: SARS-CoV-2 RNA PCR Negative (Negative)
== END 2020-12-23 17:00 | disposition home or self-care (01) ==
LOC: CHSLAB 17:00
PROVIDERS: PCP Internal Medicine; Visit Provider Internal Medicine
DX: Z20.822 Contact with and (suspected) exposure to COVID-19 (principal)
CPT/HCPCS: C9803; U0003; U0005

== ENCOUNTER 2021-03-13 14:06 | Emergency (ER) | payer OTHER, SELFPAY ==
--- NOTE | ~2021-03-13 | XR_ITS ---
EXAMINATION: XR foot LT 2V EXAM DATE: 03/13/2021 14:55 INDICATION: Foot injury TECHNIQUE: Frontal and lateral projections of the left foot Comparison is made to prior examination from 09/09/2014. FINDINGS: Small to moderate size inferior calcaneal spur. Acute closed posttraumatic fracture at the base of the left 5th proximal phalanx, finding indicated. There is a few millimeters of distraction. There is overlying soft tissue swelling. IMPRESSION: 1. Left 5th distal phalangeal base intra-articular fracture. Reviewed, dictated and finalized at location A. MOBILE INSPECTOR
[2021-03-13 14:20] VITALS: BP 146/96; PULSE 91; RESP 16; TEMP 36.4; O2SAT 98
[2021-03-13] MEDS: KETOROLAC (*BKC) 60 MG/2 ML VIAL IM (14:58)
--- NOTE | 2021-03-13 15:09 | ED.LOWEXIN ---
HPI - Extremity Injury (Lower) General Chief Complaint: Extremity Injury, Lower Stated Complaint: foot and toe injury left Source: patient Mode of arrival: ambulatory Limitations: no limitations History of Present Illness HPI Narrative: this is a 45-year-old female that presents with left 5th toe injury after she stubbed it yesterday causing pain some bruising and swelling with decreased range of motion secondary to swelling and pain with a good brisk pedal pulse on the left with no numbness or tingling. complaint: foot injury Onset (ago): day(s) Injury: Left: foot ( 5th toe) Type of Injury: blunt Place: home Severity: moderate Severity scale (1-10): 6 Relieving factors: NSAID Related Data Home Medications Medication Instructions Recorded Confirmed albuterol sulfate 2 - 3 puff INHALATION QID 04/18/19 03/13/21 cetirizine 10 mg PO DAILY 04/18/19 03/13/21 cyclobenzaprine 10 mg PO TID 04/18/19 03/13/21 gabapentin 600 mg PO TID 04/18/19 03/13/21 hydrochlorothiazide 12.5 mg PO DAILY 04/18/19 03/13/21 hydrocodone-acetaminophen 1 tablet PO Q4-6H PRN 04/18/19 03/13/21 losartan 50 mg PO DAILY 04/18/19 03/13/21 meloxicam 7.5 mg PO BID 04/18/19 03/13/21 montelukast 10 mg PO DAILY 04/18/19 03/13/21 ranitidine HCl 150 mg PO BID 04/18/19 03/13/21 sertraline 200 mg PO DAILY 04/18/19 03/13/21 sumatriptan succinate 100 mg PO DIRECTED PRN 04/18/19 03/13/21 topiramate 50 mg PO HS 04/18/19 03/13/21 Allergies Allergy/AdvReac Type Severity Reaction Status Date / Time No Known Allergies Allergy Verified 03/13/21 14:22 Review of Systems Review of Systems: All systems reviewed & are unremarkable except as noted in HPI and below PMFSH Past Medical History Medical History (Updated 03/13/21 @ 15:13 by Rubio Joyce MD) Anxiety Obesity Smoker Tobacco abuse Surgical History Surgical History Hx of cholecystectomy Family History Family History Father Hypertension Family history of type 2 diabetes mellitus Grandparent Hypertension Family history of type 2 diabetes mellitus Mother Hypertension Sibling Family history of type 2 diabetes mellitus Other Family history of congenital heart disease Social History Social History Smoking status: Current some day smoker Second hand tobacco smoke exposure: Yes Alcohol intake: former Exam Const: General: no acute distress Orientation/consciousness: patient oriented x3 HENMT: Head: normal to inspection Eyes: Conjunctivae: conjunctivae normal Pupils: Equal, round and reactive pupils present Neck: Neck: normal visual inspection, no lymphadenopathy and no meningeal signs Chest: Chest palpation & inspection: normal inspection of the chest Resp: Effort & Inspection: normal respiratory effort Cardio: Rate: regular rate Rhythm: regular rhythm GI: GI Palp: Yes Soft to palpation : General: Yes no CVA tenderness Back/Spine/Pelvis: Back: no CVA tenderness Skin: Rashes: no rashes Other: Bruising the lateral aspect of her left foot Neuro: General: patient oriented x3, moves all extremities and no meningeal signs Extrem: General: normal to inspection and no pedal edema Psych: Mental Status: mental status grossly normal Course Course Emergency Course: x-ray reviewed with patient and patient had received IM Toradol. Vital Signs Vital signs: Vital Signs Temperature 36.4 C 03/13/21 14:20 Pulse Rate 91 03/13/21 14:20 Respiratory Rate 16 03/13/21 14:20 Blood Pressure 146/96 H 03/13/21 14:20 Pulse Oximetry 98 03/13/21 14:20 Temperature 36.4 C 03/13/21 14:20 Pulse Rate 91 03/13/21 14:20 Respiratory Rate 16 03/13/21 14:20 Blood Pressure 146/96 H 03/13/21 14:20 Pulse Oximetry 98 03/13/21 14:20 Critical Care Time Critical Care Time Meghann
== END 2021-03-13 15:18 | disposition home or self-care (01) ==
PROVIDERS: Emergency Provider Emergency Medicine; PCP Internal Medicine
DX: S92.515A Nondisplaced fracture of proximal phalanx of left lesser toe(s), initial encounter for closed fracture (principal); W22.8XXA Striking against or struck by other objects, initial encounter
CPT/HCPCS: 73620; 96372; 99283; J1885

== ENCOUNTER 2021-03-23 18:43 | Outpatient (CLI) | payer OTHER, SELFPAY ==
[2021-03-23 20:24] LABS: Influenza A QL RT-PCR Negative (Negative); Influenza B QL RT-PCR Negative (Negative); SARS-CoV-2 RNA PCR Positive (Negative)
== END 2021-03-23 18:44 | disposition home or self-care (01) ==
LOC: CHSLAB 18:47
PROVIDERS: PCP Internal Medicine; Visit Provider Internal Medicine
DX: U07.1 COVID-19 (principal); J06.9 Acute upper respiratory infection, unspecified
CPT/HCPCS: 87081; 87502; 87880; C9803; U0003; U0005

== ENCOUNTER 2021-05-08 15:21 | Emergency (ER) | payer OTHER, SELFPAY ==
--- NOTE | ~2021-05-08 | XR_ITS ---
EXAMINATION: XR chest 1V portable EXAM DATE: 05/08/2021 16:07 INDICATION: chest congestion TECHNIQUE: Portable AP frontal chest x-ray was obtained. Comparison is made to prior examination from 08/29/2018. FINDINGS: The lungs are clear. There are no pleural effusions. The cardiomediastinal silhouette is within normal limits. There is no pneumothorax suspected. The bones and soft tissues are unremarkab le. Cervical fusion hardware. IMPRESSION: No acute cardiopulmonary findings. Reviewed, dictated and finalized at location G. UNT SERVICE REPRESENTATIVE
[2021-05-08 15:25] VITALS: BP 130/80; PULSE 81; RESP 18; TEMP 36.3; O2SAT 97
--- NOTE | 2021-05-08 16:02 | ED.URI ---
HPI - URI/Sore Throat General Chief Complaint: Upper Respiratory Infection Stated Complaint: covid end of dec,coughing Time Seen by Provider: 05/08/21 16:02 Source: patient Mode of arrival: ambulatory Limitations: no limitations History of Present Illness HPI Narrative: This is a 45-year-old female with history of COPD/bronchitis presents with some some mild shortness of breath with cough that is nonproductive with no fever chills no chest pain no nausea or vomiting no abdominal pain. MD elicited complaint: cough and nasal congestion Pertinent past history: COPD Onset (ago): day(s) Consistency: constant Severity: mild Description of mucous: clear and watery Exacerbating factors: nothing Relieving factors: OTC cold medicine Context: sick contacts Related Data Home Medications Medication Instructions Recorded Confirmed albuterol sulfate 2 - 3 puff INHALATION QID 04/18/19 05/08/21 cetirizine 10 mg PO DAILY 04/18/19 05/08/21 cyclobenzaprine 10 mg PO TID 04/18/19 05/08/21 gabapentin 600 mg PO TID 04/18/19 05/08/21 hydrochlorothiazide 12.5 mg PO DAILY 04/18/19 05/08/21 hydrocodone-acetaminophen 1 tablet PO Q4-6H PRN 04/18/19 05/08/21 losartan 50 mg PO DAILY 04/18/19 05/08/21 montelukast 10 mg PO DAILY 04/18/19 05/08/21 sertraline 200 mg PO DAILY 04/18/19 05/08/21 sumatriptan succinate 100 mg PO DIRECTED PRN 04/18/19 05/08/21 topiramate 50 mg PO HS 04/18/19 05/08/21 bupropion HCl 300 mg PO DAILY 05/08/21 05/08/21 celecoxib [Celebrex] 200 mg PO DAILY 05/08/21 05/08/21 pregabalin 200 mg PO DAILY 05/08/21 05/08/21 Allergies Allergy/AdvReac Type Severity Reaction Status Date / Time No Known Allergies Allergy Verified 03/13/21 14:22 Review of Systems Review of Systems: All systems reviewed & are unremarkable except as noted in HPI and below PMFSH Past Medical History Medical History (Updated 05/08/21 @ 17:09 by Rubio Joyce MD) Anxiety Obesity Smoker Tobacco abuse Surgical History Surgical History Hx of cholecystectomy Family History Family History Father Hypertension Family history of type 2 diabetes mellitus Grandparent Hypertension Family history of type 2 diabetes mellitus Mother Hypertension Sibling Family history of type 2 diabetes mellitus Other Family history of congenital heart disease Social History Social History Smoking status: Current some day smoker Second hand tobacco smoke exposure: Yes Alcohol intake: former Exam Const: General: no acute distress Orientation/consciousness: patient oriented x3 HENMT: Head: normal to inspection Eyes: Conjunctivae: conjunctivae normal Pupils: Equal, round and reactive pupils present EOM: EOMs intact bilaterally Neck: Neck: normal visual inspection, no lymphadenopathy and no meningeal signs Chest: Chest palpation & inspection: normal inspection of the chest Resp: Effort & Inspection: normal respiratory effort Auscultation: clear to auscultation bilaterally Cardio: Rate: regular rate Rhythm: regular rhythm GI: GI Palp: Yes Soft to palpation Percussion: Yes normal to percussion : General: Yes no CVA tenderness Urinary Catheter: Urinary Catheter: patent and draining and urine clear Back/Spine/Pelvis: Back: no CVA tenderness Skin: General skin exam: normal color Rashes: no rashes Neuro: General: patient oriented x3, moves all extremities, no meningeal signs and no focal motor deficits Extrem: General: normal to inspection and no pedal edema Psych: Mental Status: mental status grossly normal Course Course Emergency Course: Patient receiving IV fluids, chest x-ray and labs reviewed with patient. Vital Signs Vital signs: Vital Signs Temperature 36.3 C L 05/08/21 15:25 Pulse Rate 81 05/08/21 15:25 Respiratory Rate 18 05/08/21 1
[2021-05-08] MEDS: SODIUM CHLORIDE 0.9% IV 1,000 ML 999 ML IV CONT (16:08)
[2021-05-08 16:25] LABS: Basophils Absolute Auto 0.04 K/mm3 (0.00-0.10); Basophils Percent Auto 0.4 % (0.0-1.0); Eosinophils Absolute Auto 0.11 K/mm3 (0.02-0.50); Eosinophils Percent Auto 1.2 % (1.0-6.0); Hemoglobin 10.9 g/dL (12.0-15.0); Immature Granulocyte Absolute 0.02 K/mm3 (0.00-0.00); Immature Granulocyte Percent A 0.2 % (0.0-0.0); Lymphocytes Absolute Auto 4.01 K/mm3 (1.10-4.50); Lymphocytes Percent Auto 42.2 % (18.0-42.0); Mean Corpuscular HGB Conc 30.3 g/dL (32.0-36.0); Mean Corpuscular Hemoglobin 24.7 pg (27.0-31.0); Mean Corpuscular Volume 81.4 fL (78.0-102.0); Mean Platelet Volume 9.3 fl (9.2-11.8); Monocytes Absolute Auto 0.57 K/mm3 (0.10-0.90); Neutrophils Absolute Auto 4.8 K/mm3 (1.7-7.2); Platelet Count Result 388 K/mm3 (150-420); Red Blood Count 4.42 M/mm3 (4.20-5.40); Red Cell Distribution Width 16.9 % (11.6-14.4); White Blood Count 9.5 K/mm3 (4.8-10.8)
[2021-05-08 16:42] LABS: Alanine Aminotransferase 46 U/L (14-59); Albumin Level 3.6 g/dL (3.4-5.0); Alkaline Phosphatase 137 U/L (46-116); Anion Gap 9 mmol/L (8-16); Aspartate Amino Transferase 22 U/L (15-37); Bilirubin,Total 0.1 mg/dL (0.00-1.00); Blood Urea Nitrogen 12 mg/dL (7-18); Calcium 8.6 mg/dL (8.5-10.1); Carbon Dioxide 25 mmol/L (21-32); Chloride 102 mmol/L (98-108); Estimated CRCL calculation 76 ml/min; Estimated Glomerular Filt Rate > 60; Glucose 92 mg/dL (70-99); Osmolality Calculated 281 mOsm/kg (285-295); Potassium 3.8 mmol/L (3.5-5.1); Sodium 136 mmol/L (136-145); Total Protein 7.5 g/dL (6.4-8.2)
[2021-05-08 17:03] LABS: SARS-CoV-2 RNA PCR Negative (Negative)
--- NOTE | 2021-05-08 17:05 | PC.NURSE ---
Pt resting on stretcher watching tv at this time. Pts IVF almost complete. No acute distress noted. Will continue to monitor.
[2021-05-08 17:30] VITALS: BP 106/94; PULSE 76; RESP 18; TEMP 36.1; O2SAT 98
== END 2021-05-08 17:30 | disposition home or self-care (01) ==
PROVIDERS: Emergency Provider Emergency Medicine; PCP Internal Medicine
DX: J40 Bronchitis, not specified as acute or chronic (principal); Z20.822 Contact with and (suspected) exposure to COVID-19
CPT/HCPCS: 36415; 71045; 80053; 85025; 96360; 99283; C9803; J7030; U0003; U0005

== ENCOUNTER 2021-07-06 12:33 | Outpatient (CLI) | payer OTHER, SELFPAY ==
--- NOTE | ~2021-07-06 | US_ITS ---
EXAMINATION: US pelvic complete DATE: 07/06/2021 12:58 INDICATION: Menorrhagia TECHNIQUE: Multiple transabdominal sonographic images of the pelvis were obtained. COMPARISON: None. FINDINGS: The uterus measures 6.9 x 3.3 x 4.7 cm. The endometrial complex measures 7 mm in thickness. The righ t ovary measures 3.0 x 1.5 x 2.3 cm. The left ovary measures 3.1 x 2.1 x 2.7 cm. Small anechoic cysts /follicles are seen in both ovaries measuring 1.1 cm on the right and 1.6 cm on the left. There is no rmal vascular flow with both arterial and venous waveforms in both ovaries. There is no free fluid in the pelvis. IMPRESSION: 1. Small bilateral ovarian cysts/follicles. Otherwise normal pelvic ultrasound.. Reviewed, dictated and finalized at location B. IMPRESSION: 1. Small bilateral ovarian cysts/follicles. Otherwise normal pelvic ultrasound. .
--- NOTE | ~2021-07-06 | MM_ITS ---
EXAMINATION: MM screening [facility] BI w carolyn HISTORY: Screening TECHNIQUE: Craniocaudal and mediolateral oblique 3-D tomosynthesis images were obtained and synthetic 2-D images were generated. CAD analysis was submitted and interpreted. COMPARISON: Comparison to multiple prior studies sequentially, with oldest reviewed study dated 04/2013. BREAST PARENCHYMAL COMPOSITION: There are scattered areas of fibroglandular density. FINDINGS: There is no evidence of suspicious mass, calcification, or architectural distortion to sugg est malignancy in either breast. There has been no suspicious interval change. IMPRESSION: 1. No mammographic evidence of malignancy. 2. Recommend routine screening mammography in one year. BI-RADS Category 1: Negative Reviewed, dictated and finalized at location A.
== END 2021-07-06 12:34 | disposition home or self-care (01) ==
LOC: CHSIMG 12:36
PROVIDERS: PCP Internal Medicine; Visit Provider Internal Medicine
DX: Z12.31 Encounter for screening mammogram for malignant neoplasm of breast (principal); N92.0 Excessive and frequent menstruation with regular cycle
CPT/HCPCS: 76856; 77063; 77067

== ENCOUNTER 2021-08-16 08:21 | Outpatient (CLI) | payer OTHER, SELFPAY ==
--- NOTE | ~2021-08-16 | CT_ITS ---
EXAMINATION: CT soft tissue neck w con DATE: 08/16/2021 09:23 INDICATION: Cervical lymphadenopathy. TECHNIQUE: Computed tomography (CT) of the neck was performed with 75 mL Omnipaque 300 intravenous co ntrast. Automated exposure control and iterative reconstruction technique were employed. The dose-tosha gth product was 523.17 mGy-cm. COMPARISON: CT cervical spine 01/13/2013 FINDINGS: There is a skin marker at the lateral aspect of the left neck. There are no pathologically enlarged lymph nodes. There is plaque in the proximal internal carotid arteries with 0% stenosis rela tive to normal diameter distal artery lumen diameters. There are changes of anterior fusion procedure at C5-C6. IMPRESSION: 1. No lymphadenopathy. Reviewed, dictated and finalized at location B. IMPRESSION: 1. No lymphadenopathy.
[2021-08-16 09:02] LABS: Estimated Glomerular Filt Rate > 60
== END 2021-08-16 08:22 | disposition home or self-care (01) ==
LOC: CHSIMG 08:22
PROVIDERS: PCP Internal Medicine; Visit Provider Internal Medicine
DX: R59.9 Enlarged lymph nodes, unspecified (principal)
CPT/HCPCS: 36415; 70491; Q9967

== ENCOUNTER 2021-10-15 16:00 | Outpatient (CLI) | payer OTHER, SELFPAY ==
--- NOTE | ~2021-10-15 | XR_ITS ---
XR shoulder RT min 2V DATE: 10/15/2021 16:57 INDICATION: Right shoulder pain TECHNIQUE: 5 views COMPARISON: None FINDINGS: No fracture or dislocation, periosteal reaction or bone destruction or abnormal soft tissue calcification. IMPRESSION: Negative Reviewed, dictated and finalized at location A. IMPRESSION: Negative
--- NOTE | ~2021-10-15 | XR_ITS ---
XR cervical spine 4-5V 10/15/2021 16:57 Indication: Neck pain with limited movement Procedure: 5 views of the cervical spine Comparison: 11/06/2018 Findings: There are surgical changes of anterior fusion at C5-6 was possible fracture of one of the C 6 screws. There is a interbody device at C5-6. Straightening of cervical or no stenosis. Vertebral sandip dy heights are maintained. Odontoid process within normal limits. Mild disc narrowing at C4-5 and C6- 7. Lung apices are normal. Impression: 1: Mild cervical spondylosis. 2: Status post anterior fusion at C5-6 with possible fracture of one of the C6 screws. Reviewed, dictated and finalized at location A. Impression: 1: Mild cervical spondylosis. 2: Status post anterior fusion at C5-6 with possible fracture of one of the C6 screws.
== END 2021-10-15 16:01 | disposition home or self-care (01) ==
LOC: CHSIMG 16:04
PROVIDERS: PCP Internal Medicine; Visit Provider Nurse Practitioner Adult Health
DX: M96.1 Postlaminectomy syndrome, not elsewhere classified (principal); M25.511 Pain in right shoulder
CPT/HCPCS: 72050; 73030

== ENCOUNTER 2021-10-27 17:00 | Outpatient (RCR) | payer OTHER, SELFPAY ==
--- NOTE | 2021-10-27 17:31 | PTOPEVAL ---
Thank you for referring Marcio Torres to [facility].? The patient is scheduled to be seen for therapy? __3__x/week for 12 visits. Please review, sign, date and return this plan of care AMAURY. I agree with and certify that the following plan of care is medically necessary. Referring Physician Date Admitting Provider: Attending Provider: Sandra Manley, DEVELOPMENT DIRECTOR Referring Provider: *PT Outpatient Evaluation Start: 10/27/21 17:03 Freq: Status: Active Protocol: Document 10/27/21 17:03 [facility] (Rec: 10/27/21 17:31 [facility] [id number]) Therapy Assessment Status Assessment Status Assessment Status Evaluation Outpatient Past Medical History Neurological History Hx Migraine Yes Hx Other Neurological Disorders Yes: NERVE DAMAGE TO NECK/ CHRONIC NERVE PAIN Cardiovascular History Hx Hypertension Yes Respiratory History Hx Bronchitis Yes Hx Chronic Obstructive Pulmonary Disease Yes (COPD) Gastrointestinal History Hx Cholecystectomy Yes Genitourinary History Hx Genitourinary Disorders No Significant History Musculoskeletal History Hx Arthritis Yes Hx Back Pain Yes Hx Spinal Surgery Yes: NECK SURGERY WITH HARDWARE Hematological History Hx Hematological Disorders No Significant History Endocrine History Hx Endocrine Disorders No Significant History HEENT History Hx Sinus Problems Yes Integumentary History Hx Other Skin Disorders Yes: RASH ON ARMS Reproductive History Hx Endometriosis Yes Psychosocial History Hx Anxiety Yes Hx Depression Yes Pain History Has Past Pain Affected Your Daily Life Yes: BACK/NECK PAIN History of Long-Term Prescription Pain Yes Medication Use (Opiates) Anesthesia History Hx Anesthesia Reactions No Significant History Evaluation Information Problem Diagnosis lumbar spondylosis Onset 10/13/21 Subjective Information Pt. reports that she has had Query Text:As Reported By Patient/ on/off back pain for awhile. Family she has had injections which did help to reduce her pain. She reports that she was having pain into the l.e., but is no longer having that pain . She describes pain going across both sides of the low back. She reports that pain is worsened with standing or sitting too long. She cannot
--- NOTE | 2021-12-15 15:16 | PTOPEVAL1 ---
Assessment and note entered by Rubio White Evaluation Information Assessment Status Progress Diagnosis lumbar spondylosis Subjective Information Pt. reports that she has not been able to attend therapy due to recently getting Covid. She reports that she was noticing increasing pain following her last session. She continues to note shocking sensation going down the right leg to the knee. She reports that sleep is still difficult. Reported Pain Level Pain Score 7: Self Report Assessment PT Clinical Summary Pt. returns to the clinic to address LBP. She has not been able to attend therapy due to developing Covid. She currently demonstrates little change in pain reports or objective findings, likely due to lack of compliance due to recent illness. At this time we will continue skilled PT focusing on advancing core stabilization to allow for improved comfort with IADL performance. Plan of Care Interventions Electrical Stimulation,Hot Pack/Cold Pack,Manual Therapy,Therapeutic Activities,Therapeutic Exercise PT Services Indicated Yes Treatment Frequency and 2x/week x 6 visits Duration These treatments will address the objective and functional deficits as defined above. The patient will be advanced safely and appropriately in order for the patient to progress towards his/her prior level of function. Additional exercises will be introduced and as well as a comprehensive home exercise program upon discharge, if needed, ?to ensure carryover of functional gains achieved in the clinic. This treatment plan has been reviewed and agreement upon by the patient.
--- NOTE | 2022-03-06 12:38 | PCPTNOTE ---
patient has not been to therapy in over 2 months. as of this date, she will be dc'd from skilled PT services, and all progress towards goals will be taken from her most recent evaluation/note.
== END 2021-12-28 18:00 | disposition home or self-care (01) ==
LOC: CHSPT 17:00
PROVIDERS: PCP Internal Medicine; Visit Provider Nurse Practitioner Adult Health
DX: M47.816 Spondylosis without myelopathy or radiculopathy, lumbar region (principal)
CPT/HCPCS: 97014; 97110; 97140; 97161; 97530; G0283

== ENCOUNTER 2021-12-14 08:37 | Outpatient (CLI) | payer OTHER, SELFPAY ==
--- NOTE | ~2021-12-14 | MR_ITS ---
EXAMINATION: MR lumbar spine wo con DATE: 12/14/2021 10:38 INDICATION: Lumbar spondylosis with radiculopathy TECHNIQUE: Magnetic resonance imaging (MRI) of the lumbar spine was performed without intravenous con trast. Sequences included sagittal T2-weighted FSE, sagittal T2-weighted FS FSE, sagittal T1-weighted FSE, and axial T2-weighted FSE. COMPARISON: None FINDINGS: Alignment is normal. Vertebral body heights are normal. Normal marrow signal. Mild to moderate disc height loss at L3-L4 and mild disc height loss at L4-L5 and L5-S1. There are annular fissures at each of these levels. The conus medullaris terminates at L1-L2. There is normal signal in the caudal spin al cord. Paravertebral soft tissues are unremarkable. The following disc levels are specifically disc ussed: L1-L2: The disc does not extend beyond the endplate margin. There is mild bilateral facet joint osteo arthritis. There is no neural foraminal stenosis. There is no central canal stenosis. L2-L3: Disc is minimally bulging. There is mild bilateral facet joint osteoarthritis. There is mild b ilateral neural foraminal stenosis. There is no central canal stenosis. L3-L4: Disc is bulging with annular fissure. There is hypertrophy of the ligamentum flavum. There is bilateral facet joint osteoarthritis. There is moderate bilateral neural foraminal stenosis. There i s moderate central canal stenosis. L4-L5: Disc is bulging with annular fissure. There is mild right and mild to moderate left facet join t osteoarthritis. There is moderate bilateral neural foraminal stenosis. There is mild central canal stenosis. L5-S1: Disc is mildly bulging with annular fissure and small central disc protrusion. There is mild b ilateral facet joint osteoarthritis. There is mild left and minimal right neural foraminal stenosis. There is mild central canal stenosis. IMPRESSION: 1. Mild to moderate lumbar spondylosis most notable for moderate central canal and bilateral neural f oraminal stenosis at L3-L4. Reviewed, dictated and finalized at location A. IMPRESSION: 1. Mild to moderate lumbar spondylosis most notable for moderate central canal and bilateral neural foraminal stenosis at L3-L4.
== END 2021-12-14 08:38 | disposition home or self-care (01) ==
LOC: CHSIMG 08:39
PROVIDERS: PCP Internal Medicine; Visit Provider Nurse Practitioner Adult Health
DX: M47.26 Other spondylosis with radiculopathy, lumbar region (principal)
CPT/HCPCS: 72148

== ENCOUNTER 2022-03-03 09:11 | Outpatient (CLI) | payer OTHER, SELFPAY ==
--- NOTE | ~2022-03-03 | MR_ITS ---
EXAMINATION: MR cervical spine wo con DATE: 03/03/2022 10:03 INDICATION: Spinal stenosis, cervical region. TECHNIQUE: Magnetic resonance imaging (MRI) of the cervical spine was performed without intravenous c ontrast. COMPARISON: Cervical spine MRI 04/25/2020 FINDINGS: There is 4 degrees levocurvature of cervicothoracic spine. There is hypolordosis of cervica l spine. Vertebral body heights and intervertebral disc heights are normal. There are changes of ante rior fusion procedure at C5-C6 with interbody device and anterior plate and screws. The spinal cord s ignal intensity is normal. The following disc levels are specifically discussed: C2-C3: The disc does not extend beyond the endplate margin. There is no uncovertebral joint osteoarth ritis. There is mild bilateral facet joint osteoarthritis. There is no neural foraminal stenosis. The re is no central canal stenosis. C3-C4: The disc does not extend beyond the endplate margin. There is mild bilateral uncovertebral carmella nt osteoarthritis. There is mild bilateral facet joint osteoarthritis. There is mild left neural fora balaji stenosis. There is no central canal stenosis. C4-C5: The disc does not extend beyond the endplate margin. There is no uncovertebral joint osteoarth ritis. There is mild bilateral facet joint osteoarthritis. There is no neural foraminal stenosis. The re is no central canal stenosis. C5-C6: The disc does not extend beyond the endplate margin. There is mild bilateral uncovertebral carmella nt hypertrophy. There is mild bilateral facet joint osteoarthritis. There is mild bilateral neural fo raminal stenosis. There is no central canal stenosis. C6-C7: The disc does not extend beyond the endplate margin. There is moderate right uncovertebral carmella nt osteoarthritis. There is mild bilateral facet joint osteoarthritis. There is mild right neural for aminal stenosis. There is no central canal stenosis. C7-T1: There is a left central and foraminal zone extrusion. There is mild bilateral uncovertebral svetlana int osteoarthritis. There is mild bilateral facet joint osteoarthritis. There is mild bilateral neura l foraminal stenosis. There is mild central canal stenosis. There is moderate stenosis of left latera l recess. IMPRESSION: 1. Mild cervical spondylosis, stable from 04/25/2020. 2. Anterior fusion procedure at C5-C6. Reviewed, dictated and finalized at location A. 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
== END 2022-03-03 09:12 | disposition home or self-care (01) ==
PROVIDERS: PCP Internal Medicine; Visit Provider Anesthesiology Pain Medicine
DX: M48.02 Spinal stenosis, cervical region (principal)
CPT/HCPCS: 72141

== ENCOUNTER 2022-03-22 09:28 | Outpatient (CLI) | payer OTHER, SELFPAY ==
[2022-03-22 10:25] LABS: Strep Group A RT-PCR NOT DETECTED (Negative)
[2022-03-22 10:50] LABS: Influenza A QL RT-PCR Negative (Negative); Influenza B QL RT-PCR Negative (Negative); SARS-CoV-2 RNA PCR Negative (Negative)
== END 2022-03-22 09:29 | disposition home or self-care (01) ==
LOC: CHSLAB 09:30
PROVIDERS: PCP Internal Medicine; Visit Provider Family Medicine
DX: J06.9 Acute upper respiratory infection, unspecified (principal)
CPT/HCPCS: 87636; 87651

== ENCOUNTER 2022-04-30 14:32 | Emergency (ER) | payer OTHER, SELFPAY ==
[2022-04-30 14:35] VITALS: BP 134/99; PULSE 108; RESP 18; TEMP 36.9; O2SAT 97
--- NOTE | 2022-04-30 14:58 | ED.SKABFB ---
HPI - Skin/Abscess/Foreign Bdy General Chief complaint: Skin/Abscess/Foreign Body Stated complaint: Red spots on both hands hurt and itch Time Seen by Provider: 04/30/22 14:57 Source: patient Mode of arrival: ambulatory Limitations: no limitations History of Present Illness HPI narrative: 46-year-old female, smoker anxiety, GERD, Seasonal allergies, COPD presents to the ER 1 day history of -- bilateral palms have nodular eruptions with severe itching and burning. No rash noted elsewhere. No recent new medications. -- Tongue feels different The patient had a sore throat for which she used a throat spray following which her tongue feels different. No pain. MD complaint: rash Onset (ago): day(s) ( present for the past 2 days) Location: generalized ( exclusively noted on the palms) Severity: moderate Quality: burning and pruritic Relieving factors: none Exacerbating factors: none Associated symptoms: denies other symptoms Treatments prior to arrival: none Related Data Home Medications Medication Instructions Recorded Confirmed albuterol sulfate 90 mcg/actuation 2 - 3 puff inhalation QID 04/18/19 04/30/22 aerosol inhaler cetirizine 10 mg tablet 10 mg PO DAILY 04/18/19 04/30/22 cyclobenzaprine 10 mg tablet 10 mg PO TID 04/18/19 04/30/22 gabapentin 300 mg capsule 600 mg PO TID 04/18/19 04/30/22 hydrochlorothiazide 25 mg tablet 12.5 mg PO DAILY 04/18/19 04/30/22 hydrocodone 10 mg-acetaminophen 1 tablet PO Q4-6H PRN Pain 04/18/19 04/30/22 325 mg tablet losartan 100 mg tablet 50 mg PO DAILY 04/18/19 04/30/22 montelukast 10 mg tablet 10 mg PO DAILY 04/18/19 04/30/22 sertraline 100 mg tablet 200 mg PO DAILY 04/18/19 04/30/22 sumatriptan succinate 100 mg tablet 100 mg PO DIRECTED PRN Migraine 04/18/19 04/30/22 Headache topiramate 50 mg tablet 50 mg PO HS 04/18/19 04/30/22 bupropion HCl 300 mg 24 hr tablet, 300 mg PO DAILY 05/08/21 04/30/22 extended release celecoxib 200 mg capsule (Celebrex) 200 mg PO DAILY 05/08/21 04/30/22 pregabalin 200 mg capsule 200 mg PO DAILY 05/08/21 04/30/22 Allergies Allergy/AdvReac Type Severity Reaction Status Date / Time No Known Allergies Allergy Verified 04/30/22 15:04 Review of Systems Review of Systems: All systems reviewed & are unremarkable except as noted in HPI and below Constitutional: Constitutional: Reports as per HPI and Reports no additional constitutional complaints Eyes: Eyes: Reports as per HPI and Reports no additional eye complaints ENT: Reports system reviewed and no additional complaints, except as documented Comments: tongue feels different. No rash or pain noted. Cardiovascular: Cardiovascular: Reports as per HPI and Reports no additional cardiovascular complaints Respiratory: Respiratory: Reports as per HPI and Reports no additional respiratory complaints Gastrointestinal: Gastrointestinal: Reports as per HPI and Reports no additional gastrointestinal complaints Genitourinary: Genitourinary: Reports no additional female genitourinary complaints and Reports as per HPI Musculoskeletal: Musculoskeletal: Reports no additional musculoskeletal complaints and Reports as per HPI Integumentary/Breasts: Skin/Breast: Reports system reviewed and no additional complaints, except as docu and Reports as per HPI Neurologic: Reports system reviewed and no additional complaints, except as documented and Reports as per HPI Psychiatric: Psychiatric: Reports no additional psychiatric complaints and Reports as per HPI Endocrine: Endocrine: Reports no additional endocrine complaints and Reports as per HPI Hematologic/Lymphatic: Hematologic/Lymphatic: Reports no additional hematologic/lymphatic complaints and Reports as per HPI Allergic/Immunologic: Allergic/Immunologic: Reports no additional allergic/immunologic complaints and Reports as per HPI [facility] Past Medical History Medical History (Updated 04/30/22 @ 15:19 by Jesse Ortega MD) Anxiety Obesity Smok
[2022-04-30] MEDS: methylPREDNISolone SOD SUCC 125 MG VIAL 40 MG IM (15:21)
== END 2022-04-30 15:29 | disposition home or self-care (01) ==
PROVIDERS: Emergency Provider Internal Medicine Critical Care Medicine; PCP Internal Medicine
DX: L25.9 Unspecified contact dermatitis, unspecified cause (principal); J44.9 Chronic obstructive pulmonary disease, unspecified; F41.9 Anxiety disorder, unspecified; F17.200 Nicotine dependence, unspecified, uncomplicated
CPT/HCPCS: 96372; 99283; J2930

== ENCOUNTER 2022-05-01 20:21 | Emergency (ER) | payer OTHER, SELFPAY ==
[2022-05-01 20:29] VITALS: BP 135/82; PULSE 100; RESP 18; TEMP 36.1; O2SAT 98
--- NOTE | 2022-05-01 20:48 | ED.GENADULT ---
HPI - General Adult General Chief complaint: Skin/Abscess/Foreign Body Stated complaint: rash on hands yesterday;now on arms/face/legs Time Seen by Provider: 05/01/22 20:24 History of Present Illness HPI narrative: Marcio is a 46F with a PMH of anxiety, obesity, smoker, tobacco abuse, COPD and chronic pain that presented to the ED with a worsening rash on her hands and face. It started the day before yesterday as an itchy rash on her hands. She presented to the ED and was given prednisone. She denied any recent medication changes in the last few weeks, fevers, chills, new chemical, soap or detergent exposures Since yesterday some spots came up on her face. Related Data Home Medications Medication Instructions Recorded Confirmed albuterol sulfate 90 mcg/actuation 2 - 3 puff inhalation QID 04/18/19 04/30/22 aerosol inhaler cetirizine 10 mg tablet 10 mg PO DAILY 04/18/19 04/30/22 cyclobenzaprine 10 mg tablet 10 mg PO TID 04/18/19 04/30/22 gabapentin 300 mg capsule 600 mg PO TID 04/18/19 04/30/22 hydrochlorothiazide 25 mg tablet 12.5 mg PO DAILY 04/18/19 04/30/22 hydrocodone 10 mg-acetaminophen 1 tablet PO Q4-6H PRN Pain 04/18/19 04/30/22 325 mg tablet losartan 100 mg tablet 50 mg PO DAILY 04/18/19 04/30/22 montelukast 10 mg tablet 10 mg PO DAILY 04/18/19 04/30/22 sertraline 100 mg tablet 200 mg PO DAILY 04/18/19 04/30/22 sumatriptan succinate 100 mg tablet 100 mg PO DIRECTED PRN Migraine 04/18/19 04/30/22 Headache topiramate 50 mg tablet 50 mg PO HS 04/18/19 04/30/22 bupropion HCl 300 mg 24 hr tablet, 300 mg PO DAILY 05/08/21 04/30/22 extended release celecoxib 200 mg capsule (Celebrex) 200 mg PO DAILY 05/08/21 04/30/22 pregabalin 200 mg capsule 200 mg PO DAILY 05/08/21 04/30/22 Allergies Allergy/AdvReac Type Severity Reaction Status Date / Time No Known Allergies Allergy Verified 05/01/22 20:35 Review of Systems Review of Systems: All systems reviewed & are unremarkable except as noted in HPI and below PMFSH Past Medical History Medical History (Updated 05/01/22 @ 20:49 by Kurt López DO) Anxiety Obesity Smoker Tobacco abuse Surgical History Surgical History Hx of cholecystectomy Family History Family History Father Hypertension Family history of type 2 diabetes mellitus Grandparent Hypertension Family history of type 2 diabetes mellitus Mother Hypertension Sibling Family history of type 2 diabetes mellitus Other Family history of congenital heart disease Social History Social History Smoking status: Current some day smoker Second hand tobacco smoke exposure: Yes Alcohol intake: former Exam Const: General: healthy appearing and no acute distress Nutritional Appearance: well nourished Orientation/consciousness: patient oriented x3 Limitations: no limitations HENMT: Head: normal to inspection Ears: external ears normal Eyes: Conjunctivae: conjunctivae normal Pupils: Equal, round and reactive pupils present EOM: EOMs intact bilaterally Chest: Chest palpation & inspection: normal inspection of the chest Resp: Effort & Inspection: normal respiratory effort Cardio: Rate: regular rate GI: Inspection: non-distended GI Palp: Yes Soft to palpation and No Tenderness to palpation present (GI) Skin: Other: palms have an erythematous maculopapular rash with some swelling and some erythematous nodules around her mouth and under her right eye Neuro: General: patient oriented x3 and moves all extremities Course Course Emergency Course: contact dermatitis vs drug reaction vs viral exanthem. Given otherwise benign appearance SJS/TEN and DRESS are very unlikely We discussed continuing the home prednisone as well as finding potential triggers Discharge Plan Discharge Clinical Impression: Con
== END 2022-05-01 21:02 | disposition home or self-care (01) ==
PROVIDERS: Emergency Provider Family Medicine; PCP Internal Medicine
DX: L25.9 Unspecified contact dermatitis, unspecified cause (principal); F41.9 Anxiety disorder, unspecified; J44.9 Chronic obstructive pulmonary disease, unspecified; F17.200 Nicotine dependence, unspecified, uncomplicated; Z79.891 Long term (current) use of opiate analgesic
CPT/HCPCS: 99283

== ENCOUNTER 2022-05-23 07:49 | Outpatient (CLI) | payer OTHER, SELFPAY | END 2022-05-23 07:50 | disposition home or self-care (01) | LOC: CHSAUDIO 07:51 | PROVIDERS: PCP Internal Medicine; Visit Provider Internal Medicine | DX: H90.3 Sensorineural hearing loss, bilateral (principal) | CPT/HCPCS: 92557; 92567 ==

== ENCOUNTER 2022-08-25 12:58 | Emergency (ER) | payer OTHER, SELFPAY ==
--- NOTE | ~2022-08-25 | CT_ITS ---
EXAMINATION: CT cervical spine wo con DATE: 08/25/2022 13:40 INDICATION: Left-sided neck pain with radiation to the left arm one week post injury TECHNIQUE: Computed tomography (CT) of the cervical spine was performed without intravenous contrast. Automated exposure control and iterative reconstruction technique were employed. The dose-length pro duct was 476.65 mGy-cm. COMPARISON: 03/03/2022 and 10/15/2021 FINDINGS: Mild reversal of the normal cervical lordosis which is likely positional. No spondylolisthesis or fac et subluxation. Interbody fusion device and anterior plate-screw fixation for anterior spinal fusion at C5-C6. Vertebral body heights are normal. No fractures. Mild disc height loss at C4-C5. No evident central canal stenosis. Multilevel mild cervical facet and uncovertebral osteoarthritis which contri bute to mild neural foraminal stenosis bilaterally at C5-C6, on the right at C6-C7 and on the left at C7-T1. Small amount of atherosclerotic calcification at the right carotid bulb. Cervical soft tissue s are otherwise unremarkable. IMPRESSION: 1. Mild cervical spondylosis with instrumented C5-C6 anterior spinal fusion. No acute osseous abnorma lity. Reviewed, dictated and finalized at location A. IMPRESSION: 1. Mild cervical spondylosis with instrumented C5-C6 anterior spinal fusion. No acute osseous abnormality.
[2022-08-25 13:10] VITALS: BP 144/74; PULSE 91; RESP 18; TEMP 36.3; O2SAT 99
--- NOTE | 2022-08-25 13:31 | ED.NECK ---
HPI - Neck Pain/Injury General Chief Complaint: Neck Pain/Injury Stated Complaint: neck pain Time Seen by Provider: 08/25/22 13:04 Source: patient and family Mode of arrival: ambulatory Limitations: no limitations History of Present Illness HPI Narrative: this is a 38-year-old female with a history of cervical neck fusion, approximately 1 week ago was messing around with her grandchildren that jumped on her neck causing pain and discomfort with radiation into her left arm currently, does have full range of motion of her neck there is no neck pain or tenderness with palpation although there is some tenderness with some movement. complaint: neck pain Onset (ago): day(s) Place: home Severity: moderate Severity scale (1-10): 6 Related Data Home Medications Medication Instructions Recorded Confirmed albuterol sulfate 90 mcg/actuation 2 - 3 puff inhalation QID 04/18/19 04/30/22 aerosol inhaler cetirizine 10 mg tablet 10 mg PO DAILY 04/18/19 04/30/22 cyclobenzaprine 10 mg tablet 10 mg PO TID 04/18/19 04/30/22 gabapentin 300 mg capsule 600 mg PO TID 04/18/19 04/30/22 hydrochlorothiazide 25 mg tablet 12.5 mg PO DAILY 04/18/19 04/30/22 hydrocodone 10 mg-acetaminophen 1 tablet PO Q4-6H PRN Pain 04/18/19 04/30/22 325 mg tablet losartan 100 mg tablet 50 mg PO DAILY 04/18/19 04/30/22 montelukast 10 mg tablet 10 mg PO DAILY 04/18/19 04/30/22 sertraline 100 mg tablet 200 mg PO DAILY 04/18/19 04/30/22 sumatriptan succinate 100 mg tablet 100 mg PO DIRECTED PRN Migraine 04/18/19 04/30/22 Headache topiramate 50 mg tablet 50 mg PO HS 04/18/19 04/30/22 bupropion HCl 300 mg 24 hr tablet, 300 mg PO DAILY 05/08/21 04/30/22 extended release celecoxib 200 mg capsule (Celebrex) 200 mg PO DAILY 05/08/21 04/30/22 pregabalin 200 mg capsule 200 mg PO DAILY 05/08/21 04/30/22 Allergies Allergy/AdvReac Type Severity Reaction Status Date / Time No Known Allergies Allergy Verified 05/01/22 20:35 Review of Systems Review of Systems: All systems reviewed & are unremarkable except as noted in HPI and below PMFSH Past Medical History Medical History (Updated 08/25/22 @ 13:35 by Rubio Joyce MD) Anxiety Obesity Smoker Tobacco abuse Surgical History Surgical History Hx of cholecystectomy Family History Family History Father Hypertension Family history of type 2 diabetes mellitus Grandparent Hypertension Family history of type 2 diabetes mellitus Mother Hypertension Sibling Family history of type 2 diabetes mellitus Other Family history of congenital heart disease Social History Social History Smoking status: Current some day smoker Second hand tobacco smoke exposure: Yes Alcohol intake: former Exam Const: General: healthy appearing Nutritional Appearance: well nourished Orientation/consciousness: patient oriented x3 Limitations: no limitations HENMT: Head: normal to inspection Eyes: Conjunctivae: conjunctivae normal Pupils: Equal, round and reactive pupils present EOM: EOMs intact bilaterally Neck: Neck: normal visual inspection Chest: Chest palpation & inspection: normal inspection of the chest Resp: Effort & Inspection: normal respiratory effort GI: GI Palp: Yes Soft to palpation : General: Yes bladder normal to palpation External Female Exam: normal external appearance Urinary Catheter: Urinary Catheter: patent and draining Skin: General skin exam: normal color Rashes: no rashes Wounds: no wounds Neuro: General: patient oriented x3 Cranial nerves: Yes Nystagmus not present Speech: normal speech Extrem: General: normal to inspection Psych: Mental Status: mental status grossly normal Affect: normal affect Course Course Emergency Course: CT scan reviewed with patient, patient did receive a dose
[2022-08-25] MEDS: KETOROLAC (*BKC) 60 MG/2 ML VIAL IM (13:55)
[2022-08-25] MEDS: ORPHENADRINE CITRATE 30 MG/ML 2 ML VIAL 60 MG IM (13:56)
[2022-08-25 14:15] VITALS: BP 127/72; PULSE 81; RESP 18; O2SAT 94
== END 2022-08-25 14:20 | disposition home or self-care (01) ==
PROVIDERS: Emergency Provider Emergency Medicine; PCP Internal Medicine
DX: M54.12 Radiculopathy, cervical region (principal); Z98.1 Arthrodesis status; F41.9 Anxiety disorder, unspecified; E66.9 Obesity, unspecified; Z68.37 Body mass index [BMI] 37.0-37.9, adult; F17.200 Nicotine dependence, unspecified, uncomplicated; Z79.51 Long term (current) use of inhaled steroids; Z79.891 Long term (current) use of opiate analgesic
CPT/HCPCS: 72125; 96372; 99284; J1885; J2360

== ENCOUNTER 2022-09-09 08:00 | Outpatient (RCR) | payer OTHER, SELFPAY ==
--- NOTE | 2022-09-09 08:50 | PTOPEVAL1 ---
Assessment and note entered by Gilma Briceño, PT Evaluation Information Assessment Status Evaluation Diagnosis Acute Cervical Radiculopathy Onset 08/31/22 Subjective Information Marcio Torres reports she was playing with her children and one then the other grabbed her neck and pulled her down. She had a small amount of pain at the time but it gradually worsened and the next day it was severe. She reports the pain did not improve after 5-7 days so she went to the ER. She had a CT scan and a toradol injection. She followed up with her PCP a few days later and the CT scan showed her previous fusion at C5-6 looked okay. Her doctor refrred her to PT and a streroid pack. She reports the pain has lessened some. She continues to have pain in the left lower neck that radiates to the back of her arm and forearm. Occasionally she has pain in the left side of the chest and numbness in her left small finger. She has difficulty grabbing items, writing because she is left handed, and lifting. She feels her strength has declined and she has dropped items. She goes to pain management for her lower back and just had an ablation for that. She will see pain management on 09/26/22. Reported Pain Level Pain Score 6: Self Report Assessment PT Clinical Summary Marcio Torres presents with acute cervical pain with radiation into the left UE after an injury in which her children grabbed her neck and pulled her down while playing. She has a history of a C5- 6 fusion. She is reporting difficulty lifting, writing, and gripping with her left UE which is her dominant side. 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 She will benefit from skilled PT to address these limitations and improve her daily function. Plan of Care Interventions Electrical Stimulation,Hot Pack/Cold Pack,Manual Therapy,Neuro Re-education,Patient/Caregiver Educati,Therapeutic Activities,Therapeutic Exercise PT Services Indicated Yes Treatment Frequency and 3 times a week for 12 visits Duration
--- NOTE | 2022-09-09 08:50 | OPREHPOC ---
Outpatient Therapy Plan of Care This is a Multidisciplinary Plan of Care that may contain components documented by all disciplines (PT, OT, and ST.) PT Problem 1 PT Problem #1 Knowledge Deficit PT Goal 1 Goal The patient will demonstrate independence in a home exercise program to continue after discharge from formal PT. Target Visit 12 PT Problem 2 PT Problem #2 Pain PT Goal 1 Goal The patient will report no greater than 4/10 cervical pain with lifting and gripping. Target Visit 12 PT Problem 3 PT Problem #3 Impaired Range of Motion PT Goal 1 Goal The patient will demonstrate cervical flexion AROM of 30 degrees, left lateral flexion of 30 degrees , and left rotation of 50 degrees to improve mobility for ADLs. Target Visit 12 PT Problem 4 PT Problem #4 Impaired Strength PT Goal 1 Goal The patient will demonstrate left cardiovascular technologist strength of at least 60 lbs to improve ability to grasp items with her dominant hand. Target Visit 12
== END 2022-09-13 13:54 | disposition home or self-care (01) ==
LOC: CHSPT 08:00
PROVIDERS: PCP Internal Medicine; Visit Provider Internal Medicine
DX: M54.12 Radiculopathy, cervical region (principal)
CPT/HCPCS: 97014; 97110; 97112; 97140; 97161; G0283

== ENCOUNTER 2022-11-04 13:36 | Outpatient (CLI) | payer OTHER, SELFPAY ==
--- NOTE | ~2022-11-04 | US_ITS ---
US axilla LT DATE: 11/04/2022 14:41 INDICATION: Left axillary small lump TECHNIQUE: Real-time and color flow imaging of left ventricular soft tissues COMPARISON: 11/2022 bilateral screening mammogram FINDINGS: There is a circumscribed approximately 2.3 x 3.7 x 2.5 mm hypoechoic solid lesion with sugg estion of fatty hilum, probably small intramammary lymph node at the area of clinical complaint at th e left axilla. No suspicious mass or shadowing is noted otherwise. IMPRESSION: Probable small left axillary unremarkable lymph node. Reviewed, dictated and finalized at Location [facility]. Reviewed, dictated and finalized at location A.
--- NOTE | ~2022-11-04 | MM_ITS ---
EXAMINATION: MM screening lucy BI w carolyn HISTORY: Screening mammogram TECHNIQUE: Craniocaudal and mediolateral oblique 3-D tomosynthesis images were obtained and synthetic 2-D images were generated. CAD analysis was submitted and interpreted. COMPARISON: July 06, 2021, December 03, 2019, August 29, 2018 lateral screening mammogram examinations BREAST PARENCHYMAL COMPOSITION: The breasts are almost entirely fatty. FINDINGS: There is no evidence of suspicious mass, calcification, or architectural distortion to sugg est malignancy in either breast. There has been no suspicious interval change. IMPRESSION: 1. No mammographic evidence of malignancy. 2. Recommend routine screening mammography in one year. BI-RADS Category 1: Negative Reviewed, dictated and finalized at location A.
== END 2022-11-04 13:37 | disposition home or self-care (01) ==
LOC: CHSIMG 13:37
PROVIDERS: PCP Internal Medicine; Visit Provider Registered Nurse
DX: Z12.31 Encounter for screening mammogram for malignant neoplasm of breast (principal); N63.32 Unspecified lump in axillary tail of the left breast; R22.2 Localized swelling, mass and lump, trunk
CPT/HCPCS: 76882; 77063; 77067

== ENCOUNTER 2023-04-21 11:01 | Inpatient (IN) | payer OTHER, SELFPAY ==
[2023-04-21] VITALS (10 sets, daily range): BP systolic 144–171; BP diastolic 78–100; PULSE 66–99; RESP 17–20; TEMP 36.1–37.1; O2SAT 96–99; BMI 39.0
--- NOTE | ~2023-04-21 | CT_ITS ---
EXAMINATION: CT abdomen pelvis wo con DATE: 04/21/2023 11:38 INDICATION: Left upper quadrant abdominal pain. Diarrhea, nausea, and vomiting. TECHNIQUE: Computed tomography (CT) of the abdomen and pelvis was performed without intravenous contr ast. Automated exposure control and iterative reconstruction technique were employed. The dose-length product was 1331.57 mGy-cm. COMPARISON: CT abdomen and pelvis 09/25/2017 FINDINGS: The visualized portions of the lung bases demonstrate minimal atelectasis. No pleural effus ion. The heart size is normal. No pericardial effusion. There is diffuse hepatic steatosis. There are changes of cholecystectomy. The spleen, pancreas, adrenal glands, and kidneys are normal. There is n o urolithiasis. There are scattered diverticula in the colon. There is fat stranding around a diverti culum of descending colon, consistent with diverticulitis. The appendix is normal. There are no patho logically enlarged lymph nodes. There is no free intraperitoneal fluid. IMPRESSION: 1. Diverticulitis of descending colon. No perforation or abscess. 2. Diffuse hepatic steatosis. 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
--- NOTE | 2023-04-21 11:08 | ED.ABDPAIN ---
HPI - Abdominal Pain General Chief Complaint: Abdominal Pain Stated Complaint: diarreah/abdominal pain/congestion Time Seen by Provider: 04/21/23 11:08 Source: patient Mode of arrival: ambulatory Limitations: no limitations History of Present Illness HPI narrative: 47 years old white female came to the emergency room by private car complaining of nausea, vomiting and diarrhea over the last 3 days. Patient reports watery stools up to 20 times a day, vomiting up to twice a day with any time try to eat. Patient could not take her blood pressure medication over the last 3 days because of vomiting. Patient reports some pain at the left upper abdomen like cramps. She denies any fever or chills. She denies sick contact, does not work, history of hypertension, hyperlipidemia, COPD, tobacco dependence, marijuana use, denies any alcohol use, history of cholecystectomy Related Data Home Medications Medication Instructions Recorded Confirmed albuterol sulfate 90 mcg/actuation 2 - 3 puff inhalation QID 04/18/19 04/04/23 aerosol inhaler cetirizine 10 mg tablet 10 mg PO DAILY 04/18/19 04/04/23 cyclobenzaprine 10 mg tablet 10 mg PO TID 04/18/19 04/04/23 hydrochlorothiazide 25 mg tablet 12.5 mg PO DAILY 04/18/19 04/04/23 hydrocodone 10 mg-acetaminophen 1 tablet PO Q4-6H PRN Pain 04/18/19 04/04/23 325 mg tablet losartan 100 mg tablet 50 mg PO DAILY 04/18/19 04/04/23 montelukast 10 mg tablet 10 mg PO DAILY 04/18/19 04/04/23 sumatriptan succinate 100 mg tablet 100 mg PO DIRECTED PRN Migraine 04/18/19 04/04/23 Headache bupropion HCl 300 mg 24 hr tablet, 300 mg PO DAILY 05/08/21 04/04/23 extended release celecoxib 200 mg capsule (Celebrex) 200 mg PO DAILY 05/08/21 04/04/23 pregabalin 200 mg capsule 200 mg PO DAILY 05/08/21 04/04/23 bupropion HCl 150 mg 24 hr tablet, 150 mg PO QAM 10/10/22 04/04/23 extended release fluticasone propionate 50 1 spray intranasal DAILY 10/10/22 04/04/23 mcg/actuation nasal spray,suspension omeprazole 20 mg capsule,delayed 20 mg PO DAILY 10/10/22 04/04/23 release atorvastatin 20 mg tablet 20 mg PO DAILY 12/15/22 04/04/23 lidocaine 4 % topical patch 1 patch topical DAILY PRN 12/15/22 04/04/23 (Lidocaine Pain Relief) multivitamin 1 tablet PO DAILY 12/15/22 04/04/23 amlodipine 2.5 mg tablet 2.5 mg PO DAILY 03/10/23 04/04/23 Allergies Allergy/AdvReac Type Severity Reaction Status Date / Time No Known Allergies Allergy Verified 03/10/23 09:52 Review of Systems Review of Systems: All systems reviewed & are unremarkable except as noted in HPI and below PMFSH Past Medical History Medical History Acid reflux Allergies Anxiety Back pain COPD (chronic obstructive pulmonary disease) Hypertension Obesity Smoker Surgical History Surgical History H/O LEEP H/O neck surgery History of incision and drainage Incision and drainage of abscess, simple or single on 12/15/22 [facility] Hx of cholecystectomy S/P tonsillectomy and adenoidectomy Family History Family History Father Hypertension Family history of type 2 diabetes mellitus Grandparent Hypertension Family history of type 2 diabetes mellitus Mother Hypertension Sibling Family history of type 2 diabetes mellitus Other Family history of congenital heart disease Social History Social History Smoking status: Current some day smoker Second hand tobacco smoke exposure: Yes Alcohol intake: former Substance use: never Substance use type: does not use Lack of Transportation: No Lack of Food: Never True Current Housing: I Have Housing Concerned About Future Housing: No Difficulty Paying Gas/Electric Bills: No Difficulty Paying for Meds: No Currently Unemployed: No Education: High School Diploma/GED Difficulty w/ Childcare or Family Care: No Living
[2023-04-21 11:25] LABS: Basophils Absolute Auto 0.05 K/mm3 (0.00-0.10); Basophils Percent Auto 0.5 % (0.0-1.0); Eosinophils Absolute Auto 0.08 K/mm3 (0.02-0.50); Eosinophils Percent Auto 0.8 % (1.0-6.0); Hematocrit 43.3 % (35.0-49.0); Hemoglobin 13.9 g/dL (12.0-15.0); Immature Granulocyte Absolute 0.03 K/mm3 (0.00-0.00); Immature Granulocyte Percent A 0.3 % (0.0-0.0); Lymphocytes Absolute Auto 3.22 K/mm3 (1.10-4.50); Lymphocytes Percent Auto 31.9 % (18.0-42.0); Mean Corpuscular HGB Conc 32.1 g/dL (32.0-36.0); Mean Corpuscular Hemoglobin 28.7 pg (27.0-31.0); Mean Corpuscular Volume 89.3 fL (78.0-102.0); Mean Platelet Volume 8.8 fl (9.2-11.8); Monocytes Absolute Auto 0.77 K/mm3 (0.10-0.90); Monocytes Percent Auto 7.6 % (2.0-11.0); Neutrophils Absolute Auto 5.9 K/mm3 (1.7-7.2); Neutrophils Percent Auto 58.9 % (50.0-70.0); Platelet Count Result 339 K/mm3 (150-420); Red Blood Count 4.85 M/mm3 (4.20-5.40); Red Cell Distribution Width 12.9 % (11.6-14.4); White Blood Count 10.1 K/mm3 (4.8-10.8)
[2023-04-21] MEDS: ONDANSETRON INJ 4 MG/2 ML VIAL 8 MG IV PUSH (11:29)
[2023-04-21] MEDS: SODIUM CHLORIDE 0.9% IV 2,000 ML 999 ML IV CONT (11:30)
[2023-04-21 11:43] LABS: Alanine Aminotransferase 62 U/L (14-59); Albumin Level 3.8 g/dL (3.4-5.0); Alkaline Phosphatase 189 U/L (46-116); Anion Gap 13 mmol/L (8-16); Aspartate Amino Transferase 26 U/L (15-37); Bilirubin,Total 0.5 mg/dL (0.00-1.00); Blood Urea Nitrogen 11 mg/dL (7-18); Calcium 8.8 mg/dL (8.5-10.1); Carbon Dioxide 23 mmol/L (21-32); Chloride 99 mmol/L (98-108); Estimated CRCL calculation 86 ml/min; Estimated Glomerular Filt Rate > 60; Glucose 125 mg/dL (70-99); Lipase 189 U/L (16-77); Osmolality Calculated 280 mOsm/kg (285-295); Potassium 3.6 mmol/L (3.5-5.1); Sodium 135 mmol/L (136-145); Total Protein 8.1 g/dL (6.4-8.2)
[2023-04-21 11:46] LABS: SARS-CoV-2 RNA PCR Negative (Negative)
[2023-04-21 11:50] LABS: Influenza A QL RT-PCR Negative (Negative); Influenza B QL RT-PCR Negative (Negative); RSV RNA, RT-PCR Negative (Negative)
[2023-04-21 11:51] LABS: Pregnancy On Board Control Positive; Urine Pregnancy Test Negative
[2023-04-21 11:52] LABS: Bilirubin Urine 2+ (Negative); Blood Urine 1+ (Negative); Color Urine Yellow (Yellow); Glucose Urine UA Negative (Negative); Ketones Urine 2+ (Negative); Leukocyte Esterase Ur Negative LEU/UL (Negative); Nitrate Urine Negative (Negative); Protein Urine 1+ (Negative); Specific Grav Ur >= 1.030 (1.010-1.020); Urobilinogen Urine 0.2 mg/dL (0.2-1.0)
[2023-04-21 12:05] LABS: Add Urine Microscopic? YES; Appearance Urine Slightly Cloudy (Clear); Bacteria Urine 1+ /hpf; Mucus Urine Moderate /lpf; Squamous Epithelial Cell Urine Moderate /hpf (Few); WBC Urine None seen /hpf (0-3)
--- NOTE | 2023-04-21 13:08 | PC.NURSE ---
1307 charge nurse notified pt coming to floor room 210
--- NOTE | 2023-04-21 13:15 | ADMGEN ---
This patient, Marcio Torres, was admitted to 2nd Floor Room 210-2. Patient/family oriented to hospital policies and general routines including ID bracelet, bed and alarms, visiting hours, pain management, procedures, bathroom and other care routines, personal items, smoking policy, room service/diet, and visiting hours. Information on how to activate the Rapid Response Team has been discussed. Patient/Family are encouraged to report perceived risks to care and to ask questions if they do not understand what they are told or what they should do.
[2023-04-21] MEDS: levoFLOXacin 750 MG/D5W 150 ML 750 MG/150 ML BAG 100 MG IVPB (14:01)
[2023-04-21] MEDS: metroNIDAZOLE 500 MG/ISO 100ML 500 MG/100 ML BAG 100 MG IVPB ×2 (14:02→21:11)
--- NOTE | 2023-04-21 15:06 | PM.IMHP ---
H&P: HPI History of Present Illness Date/Time: 04/21/23 15:06 Chief Complaint: Nausea vomiting diarrhea dehydration diverticulitis Narrative: This is a 47 year old female with significant past medical history of GERD, seasonal allergies, anxiety, chronic back pain, COPD, she is an everyday smoker, hypertension, and obesity who presented to the hospital today with complaints of nausea, vomiting, diarrhea, and abdominal pain for last 3 days. She reported 20+ diarrhea stools and has vomited at least 2 x a day. She was unable to keep food or fluids down so she decided to come to the hospital for further evaluation and workup. Workup in the hospital included a CT of the abdomen and pelvis which revealed diverticulitis of the descending colon, no perforation or abscess, diffuse hepatic steatosis. Labs were essentially unremarkable except for an elevated ALT of 62, alkaline phosphate 189, lipase 189, sodium level 135. She also had a UA showed a specific gravity of greater than 1.030, urine protein was 1+, urine ketones was 2+, urine blood 1+, urine bili 2+, urine RBC 3-5, urine squamous epithelial cells were moderate, urine bacteria was 1+, urine mucus was moderate. She also had a respiratory panel done which was negative for influenza, RSV, COVID. On examination patient is alert and oriented x3, lying in the bed. She reports nausea, vomiting, diarrhea, abdominal pain. She denies any fever, cough, chills, shortness of breath or chest pain. She denies any recent sick contacts. She was given 1 L of normal saline and started on IV fluids. She was also started on Flagyl and Levaquin IV. I will switch her to Flagyl and Rocephin considering her UA results. Review of Systems Review of Systems: All systems reviewed & are unremarkable except as noted in HPI and below Constitutional: Constitutional: Reports as per HPI and Reports no additional constitutional complaints Eyes: Eyes: Reports as per HPI and Reports no additional eye complaints ENT: Reports system reviewed and no additional complaints, except as documented and Reports as per HPI Cardiovascular: Cardiovascular: Reports as per HPI and Reports no additional cardiovascular complaints Respiratory: Respiratory: Reports as per HPI and Reports no additional respiratory complaints Gastrointestinal: Gastrointestinal: Reports as per HPI and Reports no additional gastrointestinal complaints Genitourinary: Genitourinary: Reports no additional female genitourinary complaints and Reports as per HPI Musculoskeletal: Musculoskeletal: Reports no additional musculoskeletal complaints and Reports as per HPI Integumentary/Breasts: Skin/Breast: Reports system reviewed and no additional complaints, except as docu and Reports as per HPI Neurologic: Reports system reviewed and no additional complaints, except as documented and Reports as per HPI Psychiatric: Psychiatric: Reports no additional psychiatric complaints and Reports as per HPI PMFSH Past Medical History Medical History Acid reflux Allergies Anxiety Back pain COPD (chronic obstructive pulmonary disease) Hypertension Obesity Smoker Surgical History Surgical History H/O LEEP H/O neck surgery History of incision and drainage Incision and drainage of abscess, simple or single on 12/15/22 [facility] Hx of cholecystectomy S/P tonsillectomy and adenoidectomy Family History Family History Father Hypertension Family history of type 2 diabetes mellitus Grandparent Hypertension Family history of type 2 diabetes mellitus Mother Hypertension Sibling Family history of type 2 diabetes mellitus Other Family history of congenital heart disease Social History Social History Smoking status: Current some day smoker Second hand tobacco smoke exposure: Yes Alcohol intake: former [place]
[2023-04-21] MEDS: MORPHINE SULFATE (*CRX) 2 MG/ML INJ IV PUSH ×2 (15:55→21:33)
[2023-04-21] MEDS: SODIUM CHLORIDE 0.9% IV 1,000 ML 100 ML IV CONT (15:56)
[2023-04-21] MEDS: ALBUTEROL SULFATE (*SP) INHALER INHALATION (21:12)
[2023-04-21] MEDS: ONDANSETRON INJ 4 MG/2 ML VIAL IV PUSH (22:20)
[2023-04-22] MEDS: ONDANSETRON INJ 4 MG/2 ML VIAL IV PUSH ×4 (04:01→20:17)
[2023-04-22] MEDS: MORPHINE SULFATE (*CRX) 2 MG/ML INJ IV PUSH ×4 (04:01→20:17)
[2023-04-22] MEDS: SODIUM CHLORIDE 0.9% IV 1,000 ML 100 ML IV CONT ×2 (04:03→16:23)
[2023-04-22] MEDS: metroNIDAZOLE 500 MG/ISO 100ML 500 MG/100 ML BAG 100 MG IVPB ×3 (05:42→21:38)
[2023-04-22 05:43] LABS: Basophils Absolute Auto 0.04 K/mm3 (0.00-0.10); Basophils Percent Auto 0.4 % (0.0-1.0); Eosinophils Absolute Auto 0.13 K/mm3 (0.02-0.50); Eosinophils Percent Auto 1.3 % (1.0-6.0); Hematocrit 40.2 % (35.0-49.0); Hemoglobin 12.6 g/dL (12.0-15.0); Immature Granulocyte Absolute 0.02 K/mm3 (0.00-0.00); Immature Granulocyte Percent A 0.2 % (0.0-0.0); Lymphocytes Absolute Auto 2.69 K/mm3 (1.10-4.50); Mean Corpuscular HGB Conc 31.3 g/dL (32.0-36.0); Mean Corpuscular Hemoglobin 28.6 pg (27.0-31.0); Mean Corpuscular Volume 91.2 fL (78.0-102.0); Mean Platelet Volume 8.9 fl (9.2-11.8); Monocytes Absolute Auto 1.07 K/mm3 (0.10-0.90); Monocytes Percent Auto 10.7 % (2.0-11.0); Neutrophils Percent Auto 60.4 % (50.0-70.0); Platelet Count Result 290 K/mm3 (150-420); Red Blood Count 4.41 M/mm3 (4.20-5.40); Red Cell Distribution Width 12.9 % (11.6-14.4)
[2023-04-22 06:01] LABS: Alanine Aminotransferase 51 U/L (14-59); Alkaline Phosphatase 159 U/L (46-116); Anion Gap 10 mmol/L (8-16); Aspartate Amino Transferase 21 U/L (15-37); Bilirubin,Total 0.4 mg/dL (0.00-1.00); Blood Urea Nitrogen 9 mg/dL (7-18); Calcium 8.3 mg/dL (8.5-10.1); Carbon Dioxide 24 mmol/L (21-32); Chloride 103 mmol/L (98-108); Estimated CRCL calculation 86 ml/min; Estimated Glomerular Filt Rate > 60; Glucose 109 mg/dL (70-99); Osmolality Calculated 283 mOsm/kg (285-295); Phosphorus 3.4 mg/dL (2.6-4.7); Potassium 3.8 mmol/L (3.5-5.1); Sodium 137 mmol/L (136-145); Total Protein 7.3 g/dL (6.4-8.2)
[2023-04-22 06:15] LABS: Magnesium 1.8 mg/dL (1.8-2.4)
[2023-04-22 08:00] VITALS: BP 132/95; PULSE 88; RESP 20; TEMP 36.1; O2SAT 95
[2023-04-22] MEDS: PANTOPRAZOLE SODIUM IV 40 MG VIAL IV PUSH (10:38)
[2023-04-22] MEDS: NICOTINE (*PBKC) 14 MG PATCH 1 PATCH TRANSDERM (10:38)
--- NOTE | 2023-04-22 11:50 | P.PNIM_ITS ---
Progress Note: A&P Assessment and Plan (1) Acute diverticulitis: Code(s): K57.92 - Diverticulitis of intestine, part unspecified, without perforation or abscess without bleeding Status: Acute Assessment and Plan: 04/21/23: * Ct of the abdomen/pelvis shown diverticulitis of the descending colon, no perforation or abscess seen, diffuse hepatic steatosis. * Patient given 1L NS and started on IVF * Was given a dose of Flagyl and Levaquin, will switch to Flagyl and Rocephin given UA results * Start clear liquid diet 04/22/23: * continue IV fluids for hydration * continue Flagyl and Rocephin * continue with clear liquid diet and advance diet as tolerated. * patient still reporting epigastric and the left lower quadrant pain (2) Dehydration: Code(s): E86.0 - Dehydration Status: Acute Assessment and Plan: 04/21/23: * Started NS @ 100ml/hr for hydration. * She received 1L NS in the ER * see above plan of care 04/22/23: * Continue normal saline at 100ml per hour for hydration (3) Urinary tract infection: Code(s): N39.0 - Urinary tract infection, site not specified Status: Acute Assessment and Plan: 04/21/23: * UA showing 1+ protein, 2+ ketones, 1+ urine blood, 2+ urine bilirubin, urine RBC's 3-5, moderate urine squamous epith. cells, 1+ bacteria, moderate mucous. Could be contamination, will get culture * Levaquin switched to Rocephin for possible UTI coverage. 04/22/23: * continue Rocephin * urine cultures pending * patient denies any symptoms other than nausea and vomiting (4) Vomiting: Code(s): R11.10 - Vomiting, unspecified Status: Acute Assessment and Plan: 04/21/23: * Started Zofran PRN * holding all oral home medications at this time. Will supplement with IV medications as needed. * see above 04/22/23: * continue Zofran as needed for nausea /vomiting * continue to hold oral home medications at this time, will re-evaluate tomorrow if we can restart these. (5) Diarrhea: Code(s): R19.7 - Diarrhea, unspecified Status: Acute Assessment and Plan: 04/21/23: * see above (6) Elevated lipase: Code(s): R74.8 - Abnormal levels of other serum enzymes Status: Acute Assessment and Plan: 04/21/23: * Lipase level slightly elevated at 189 04/22/23: * will recheck lipase level tomorrow with morning labs as it was only slightly elevated. (7) Hypertension: Code(s): I10 - Essential (primary) hypertension Status: Chronic Assessment and Plan: 04/21/23: * B/P ranging 144/88-171/100 * Patient unable to keep medication down due to nausea and vomiting * Hydralazine 10mg ordered q8h * Hold home meds for now. 04/21/23: * Blood pressure ranging 149/78 to 164/95 * Will continue hydralazine 10mg with parameters at this time for blood pressure control * Home medications on hold due to continued N/V (8) Acid reflux: Code(s): K21.9 - Gastro-esophageal reflux disease without esophagitis Status: Chronic Assessment and Plan: 04/21/23: * Protonix ordered daily * omeprazole on hold 04/22/23: * continue with current treatment plan (9) COPD (chronic obstructive pulmonary disease): Code(s): J44.9 - Chronic obstructive pulmonary disease, unspecified Status: Chronic Assessment and Plan: 04/21/23: * Continue albuterol inhaler as needed 04/22/23: * continue with current treatment plan (10) Tobacco abu
--- NOTE | 2023-04-22 11:50 | PM.IMPN ---
Progress Note: A&P Assessment and Plan (1) Acute diverticulitis: Code(s): K57.92 - Diverticulitis of intestine, part unspecified, without perforation or abscess without bleeding Status: Acute Assessment and Plan: 04/21/23: Ct of the abdomen/pelvis shown diverticulitis of the descending colon, no perforation or abscess seen, diffuse hepatic steatosis. Patient given 1L NS and started on IVF Was given a dose of Flagyl and Levaquin, will switch to Flagyl and Rocephin given UA results Start clear liquid diet 04/22/23: continue IV fluids for hydration continue Flagyl and Rocephin continue with clear liquid diet and advance diet as tolerated. patient still reporting epigastric and the left lower quadrant pain (2) Dehydration: Code(s): E86.0 - Dehydration Status: Acute Assessment and Plan: 04/21/23: Started NS @ 100ml/hr for hydration. She received 1L NS in the ER see above plan of care 04/22/23: Continue normal saline at 100ml per hour for hydration (3) Urinary tract infection: Code(s): N39.0 - Urinary tract infection, site not specified Status: Acute Assessment and Plan: 04/21/23: UA showing 1+ protein, 2+ ketones, 1+ urine blood, 2+ urine bilirubin, urine RBC's 3-5, moderate urine squamous epith. cells, 1+ bacteria, moderate mucous. Could be contamination, will get culture Levaquin switched to Rocephin for possible UTI coverage. 04/22/23: continue Rocephin urine cultures pending patient denies any symptoms other than nausea and vomiting (4) Vomiting: Code(s): R11.10 - Vomiting, unspecified Status: Acute Assessment and Plan: 04/21/23: Started Zofran PRN holding all oral home medications at this time. Will supplement with IV medications as needed. see above 04/22/23: continue Zofran as needed for nausea /vomiting continue to hold oral home medications at this time, will re-evaluate tomorrow if we can restart these. (5) Diarrhea: Code(s): R19.7 - Diarrhea, unspecified Status: Acute Assessment and Plan: 04/21/23: see above (6) Elevated lipase: Code(s): R74.8 - Abnormal levels of other serum enzymes Status: Acute Assessment and Plan: 04/21/23: Lipase level slightly elevated at 189 04/22/23: will recheck lipase level tomorrow with morning labs as it was only slightly elevated. (7) Hypertension: Code(s): I10 - Essential (primary) hypertension Status: Chronic Assessment and Plan: 04/21/23: B/P ranging 144/88-171/100 Patient unable to keep medication down due to nausea and vomiting Hydralazine 10mg ordered q8h Hold home meds for now. 04/21/23: Blood pressure ranging 149/78 to 164/95 Will continue hydralazine 10mg with parameters at this time for blood pressure control Home medications on hold due to continued N/V (8) Acid reflux: Code(s): K21.9 - Gastro-esophageal reflux disease without esophagitis Status: Chronic Assessment and Plan: 04/21/23: Protonix ordered daily omeprazole on hold 04/22/23: continue with current treatment plan (9) COPD (chronic obstructive pulmonary disease): Code(s): J44.9 - Chronic obstructive pulmonary disease, unspecified Status: Chronic Assessment and Plan: 04/21/23: Continue albuterol inhaler as needed 04/22/23: continue with current treatment plan (10) Tobacco abuse: Code(s): Z72.0 - Tobacco use Status: Chronic Assessment and Plan: 04/21/23: Current every day smoker Nicotine patch ordered 04/22/23: continue with current treatment plan (11) Obesity: Code(s): E66.9 - Obesity, unspecified Status: Chronic Assessment and Plan: 04/21/23: BMI 37.3kg, 101.6kg Time Spent With Patient Time with patient: 25 - 35 minutes Subjective Date/time seen: 04/22/23 11:50 Interval history: 04/21/23: This is a 47 year old fem
[2023-04-22 16:00] VITALS: BP 128/74; PULSE 86; RESP 16; TEMP 36.7; O2SAT 96
[2023-04-22 20:00] VITALS: PULSE 86; RESP 16; O2SAT 96
[2023-04-22 23:48] VITALS: BP 136/81; PULSE 83; RESP 17; TEMP 36.3; O2SAT 97
[2023-04-23] MEDS: SODIUM CHLORIDE 0.9% IV 1,000 ML 100 ML IV CONT (03:37)
--- NOTE | 2023-04-23 05:31 | PC.NURSE ---
Patient is here for diverticulitis. She remains on a clear liquid diet, due to nausea, vomiting, and diarrhea. Patient states that the symptoms have improved, but remain. Last does of IV zofran and IV morphine were given at 2017. She continues to receive IV flagyl Q6 and ceftriaxone Q24. Patient is independent in her room, and toilets independently. Patient has slept well this evening.
[2023-04-23] MEDS: metroNIDAZOLE 500 MG/ISO 100ML 500 MG/100 ML BAG 100 MG IVPB (05:37)
[2023-04-23 05:42] LABS: Basophils Absolute Auto 0.05 K/mm3 (0.00-0.10); Basophils Percent Auto 0.7 % (0.0-1.0); Eosinophils Absolute Auto 0.17 K/mm3 (0.02-0.50); Eosinophils Percent Auto 2.4 % (1.0-6.0); Hematocrit 38.8 % (35.0-49.0); Hemoglobin 12.1 g/dL (12.0-15.0); Immature Granulocyte Absolute 0.02 K/mm3 (0.00-0.00); Immature Granulocyte Percent A 0.3 % (0.0-0.0); Lymphocytes Absolute Auto 2.25 K/mm3 (1.10-4.50); Lymphocytes Percent Auto 31.2 % (18.0-42.0); Mean Corpuscular HGB Conc 31.2 g/dL (32.0-36.0); Mean Corpuscular Hemoglobin 28.4 pg (27.0-31.0); Mean Corpuscular Volume 91.1 fL (78.0-102.0); Mean Platelet Volume 8.8 fl (9.2-11.8); Monocytes Absolute Auto 0.78 K/mm3 (0.10-0.90); Monocytes Percent Auto 10.8 % (2.0-11.0); Neutrophils Absolute Auto 3.9 K/mm3 (1.7-7.2); Neutrophils Percent Auto 54.6 % (50.0-70.0); Platelet Count Result 279 K/mm3 (150-420); Red Blood Count 4.26 M/mm3 (4.20-5.40); White Blood Count 7.2 K/mm3 (4.8-10.8)
[2023-04-23 06:12] LABS: Alanine Aminotransferase 53 U/L (14-59); Albumin Level 2.9 g/dL (3.4-5.0); Alkaline Phosphatase 151 U/L (46-116); Anion Gap 9 mmol/L (8-16); Aspartate Amino Transferase 25 U/L (15-37); Bilirubin,Total 0.2 mg/dL (0.00-1.00); Blood Urea Nitrogen 6 mg/dL (7-18); Carbon Dioxide 26 mmol/L (21-32); Chloride 104 mmol/L (98-108); Estimated CRCL calculation 93 ml/min; Estimated Glomerular Filt Rate > 60; Glucose 99 mg/dL (70-99); Lipase 49 U/L (16-77); Osmolality Calculated 285 mOsm/kg (285-295); Potassium 3.8 mmol/L (3.5-5.1); Sodium 139 mmol/L (136-145)
[2023-04-23 06:16] LABS: Calcium 8.2 mg/dL (8.5-10.1)
[2023-04-23 08:00] VITALS: BP 146/92; PULSE 90; RESP 18; TEMP 36.6; O2SAT 96
--- NOTE | 2023-04-23 09:41 | PM.DS ---
DS: Admitting Diagnosis Discharge Date 04/23/2023 Admitting Diagnosis acute diverticulitis, dehydration, UTI, Vomiting, Diarrhea, elevated lipase, HTN, acid reflux, COPD, tobacco abuse, obesity DS: Discharge Diagnosis Discharge Diagnosis (1) Acute diverticulitis: Code(s): K57.92 - Diverticulitis of intestine, part unspecified, without perforation or abscess without bleeding Status: Acute (2) Dehydration: Code(s): E86.0 - Dehydration Status: Acute (3) Vomiting: Code(s): R11.10 - Vomiting, unspecified Status: Acute (4) Diarrhea: Code(s): R19.7 - Diarrhea, unspecified Status: Acute (5) Elevated lipase: Code(s): R74.8 - Abnormal levels of other serum enzymes Status: Acute (6) Hypertension: Code(s): I10 - Essential (primary) hypertension Status: Chronic (7) Acid reflux: Code(s): K21.9 - Gastro-esophageal reflux disease without esophagitis Status: Chronic (8) COPD (chronic obstructive pulmonary disease): Code(s): J44.9 - Chronic obstructive pulmonary disease, unspecified Status: Chronic (9) Tobacco abuse: Code(s): Z72.0 - Tobacco use Status: Chronic (10) Obesity: Code(s): E66.9 - Obesity, unspecified Status: Chronic (11) Abnormal urinalysis: Code(s): R82.90 - Unspecified abnormal findings in urine Status: Acute DS: Summary Hospital Course Hospital Course: This is a 47 year old female patient admitted due to nausea/vomiting/diarrhea/abdominal pain and CT findings of acute diverticulitis. Patient also had abnormal UA. She was treated with IV fluids, antiemetics, pantoprazole, IV antibiotics and advancing diet. Yesterday patient remained with nausea/vomiting. Since then patient able to tolerate diet with no return of pain/nausea. Continued diarrhea reported. Patient reports she feels much better and wishes to be discharged today. We will DC with Augmentin, Zofran, pantoprazole and nicotine patches. Time spent discussing smoking cessation with patient: 3 to 10 minutes Status at Discharge Functional status at discharge: independent ambulation Overall status at discharge: patient is progressing back to baseline Time Spent with Patient Time attestation: Total time spent providing and/or coordinating discharge services: 35 mintues Time spent: Greater than 30 minutes Exam Narrative: General: In no acute distress, well nourished Head: atraumatic Eyes: EOMI, PERRLA, sclera clear ENT: moist mucous membranes, nasal passages clear Neck: supple, no JVD, no adenopathy, trachea midline Cardiac: Normal S1 and S2. RRR. No murmur, gallops or friction rubs, peripheral pulses intact. Respiratory: Clear to auscultation Gastrointestinal: soft, non-distended, minimal LUQ tenderness, no LLQ tenderness, normal bowel sounds and no peritoneal signs Extremities: moves all extremities well, no edema, good ROM Skin: clean, dry, intact. No wounds or lesions. Neuro: Alert and oriented x4, cranial nerves intact, no neuro deficits. Psych: normal mood, normal affect, interactive DS: Data Data Completed and Pending Completed studies during hospitalization: abdomen pelvis CT Labs on day of discharge: Labs from last 24 hours 04/23/23 05:35 WBC 7.2 RBC 4.26 Hgb 12.1 Hct 38.8 MCV 91.1 MCH 28.4 MCHC 31.2 L RDW 13.0 Plt Count 279 MPV 8.8 L Immature Gran % (Auto) 0.3 H Neut % (Auto) 54.6 Lymph % (Auto) 31.2 [place] % (Auto) 10.8 Eos % (Auto) 2.4 Baso % (Auto) 0.7 Lymph # (Auto) 2.25 [place] # (Auto) 0.78 Eos # (Auto) 0.17 Baso # (Auto) 0.05 Abs Immat Gran (auto) 0.02 H Absolute Neuts (auto) 3.9 Absolute Nucleated RBC 0.00 Nucleated RBC % 0.0 Sodium 139 Potassium 3.8 Chloride 104 Carbon Dioxide 26 Anion Gap 9 BUN 6 L Creatinine 0.77 Estim Creat Clear Calc 93 Estimated GFR > 60 Glucose 99 Calculated Osmolality 285 Calcium 8.2 L Total Bilirubin 0.2
[2023-04-23] MEDS: NICOTINE (*PBKC) 14 MG PATCH 1 PATCH TRANSDERM (10:21)
[2023-04-23] MEDS: PANTOPRAZOLE SODIUM IV 40 MG VIAL IV PUSH (10:21)
--- NOTE | 2023-04-25 08:27 | PC.NURSE ---
discharge call back completed, doing ok, understood dc instructions, no questions or concerns regarding visit
== END 2023-04-23 11:45 | disposition home or self-care (01) | DRG 244 ==
LOC: CHSED 12:31 → CHS2ND 12:59
PROVIDERS: Nurse Practitioner Acute Care; Admitting Provider Internal Medicine; Emergency Provider Emergency Medicine; PCP Internal Medicine; Visit Provider Internal Medicine
DX: K57.32 Diverticulitis of large intestine without perforation or abscess without bleeding (principal); E86.0 Dehydration; I10 Essential (primary) hypertension; K21.9 Gastro-esophageal reflux disease without esophagitis; J44.9 Chronic obstructive pulmonary disease, unspecified; E66.9 Obesity, unspecified; R82.90 Unspecified abnormal findings in urine; F17.210 Nicotine dependence, cigarettes, uncomplicated; F41.9 Anxiety disorder, unspecified
CPT/HCPCS: 36415; 74176; 80053; 81001; 81025; 83690; 83735; 84100; 85025; 87086; 87088; 87637; 96361; 96365; 96366; 96367; 96368; 96374; 96375; 96376; 99285; A9270; C9113; G0378; G0379; J0696; J1836; J1956; J2270; J2405; J7030

== ENCOUNTER 2023-06-06 14:52 | Outpatient (CLI) | payer OTHER, SELFPAY ==
--- NOTE | ~2023-06-06 | XR_ITS ---
AP and lateral views of the right hip Clinical history: Pain Findings: No acute fracture or dislocation is seen. Osseous alignment is anatomic. The right hip join t spaces preserved. Soft tissues are unremarkable. Impression: No significant abnormality is seen. Reviewed, dictated and finalized at location . 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
== END 2023-06-06 14:53 | disposition home or self-care (01) ==
LOC: CHSIMG 14:54
PROVIDERS: PCP Internal Medicine; Visit Provider Nurse Practitioner Adult Health
DX: M25.551 Pain in right hip (principal)
CPT/HCPCS: 73502

== ENCOUNTER 2023-06-15 00:36 | Day surgery (SDC) | payer OTHER, SELFPAY ==
[2023-06-06 15:57] VITALS: BMI 37.8
--- NOTE | 2023-06-13 09:21 | SUR.PREOP ---
Patient called regarding upcoming procedure. Reviewed preop instructions, appointment times, and procedure prep.
[2023-06-15 09:06] VITALS: BP 128/75; PULSE 83; RESP 18; TEMP 36.1; O2SAT 98
[2023-06-15] MEDS: LACTATED RINGERS 1,000 ML 150 ML IV CONT (09:18)
--- NOTE | 2023-06-15 09:32 | WPDANESEPPF ---
Anes - Initial Pre Proc Eval Procedure: Operation Date: 06/15/23 10:30 Proposed Procedures p Colonoscopy - Dallas Caba DO Date/Time: 06/15/23 09:32 Surgeon: Dallas Caba DO Pre Op Diagnosis: Diverticulitis Patient Data Age: 47 Gender: F Height: 1.65 m Weight: 106 kg Last Vital Signs Temp 97 F L 06/15/23 09:06 Pulse 83 06/15/23 09:06 Resp 18 06/15/23 09:06 BP 128/75 06/15/23 09:06 Pulse Ox 98 06/15/23 09:06 O2 Del Method Room Air 06/15/23 09:06 Allergies Allergy/AdvReac Type Severity Reaction Status Date / Time No Known Allergies Allergy Verified 06/15/23 08:59 Home Medications Medication Instructions Recorded Confirmed Type albuterol sulfate 90 mcg/actuation 2 - 3 puff inhalation QID PRN 04/18/19 06/06/23 History aerosol inhaler Shortness Of Breath Or Wheezing cetirizine 10 mg tablet 10 mg PO DAILY 04/18/19 06/06/23 History cyclobenzaprine 10 mg tablet 10 mg PO TID 04/18/19 06/06/23 History hydrocodone 10 mg-acetaminophen 1 tablet PO BID PRN Pain 04/18/19 06/06/23 History 325 mg tablet montelukast 10 mg tablet 10 mg PO DAILY 04/18/19 06/06/23 History sumatriptan succinate 100 mg tablet 100 mg PO DIRECTED PRN Migraine 04/18/19 06/06/23 History Headache bupropion HCl 300 mg 24 hr tablet, 300 mg PO DAILY 05/08/21 06/06/23 History extended release celecoxib 200 mg capsule (Celebrex) 200 mg PO DAILY 05/08/21 06/06/23 History pregabalin 200 mg capsule 200 mg PO BID 05/08/21 06/06/23 History atorvastatin 20 mg tablet 20 mg PO DAILY 12/15/22 06/06/23 History coenzyme Q10 200 mg capsule 200 mg PO DAILY 04/21/23 06/06/23 History semaglutide (weight loss) 0.5 0.5 mg subcut WEEKLY 04/21/23 04/21/23 History mg/0.5 mL subcutaneous pen injector (Silvia) semaglutide (weight loss) 0.5 0.5 mg subcut WEEKLY 04/21/23 04/21/23 History mg/0.5 mL subcutaneous pen injector (Silvia) nicotine 14 mg/24 hr daily 1 patch transdermal DAILY #30 ea 04/23/23 06/06/23 Rx transdermal patch pantoprazole 40 mg tablet,delayed 40 mg PO QAM 4 weeks #28 tabs 04/23/23 06/06/23 Rx release Govana Supp. 1 tab-cap PO BID 06/06/23 06/06/23 History amlodipine 5 mg tablet 5 mg PO DAILY 06/06/23 06/06/23 History biotin 5,000 mcg disintegrating 5,000 mcg PO BID 06/06/23 06/06/23 History tablet bupropion HCl 150 mg 24 hr tablet, 150 mg PO DAILY 06/06/23 06/06/23 History extended release cariprazine 1.5 mg capsule 1.5 mg PO DAILY 06/06/23 06/06/23 History (Rafael) elagolix 200 mg tablet (Orilissa) 200 mg PO BID 06/06/23 06/06/23 History escitalopram oxalate 10 mg tablet 10 mg PO DAILY 06/06/23 06/06/23 History fluticasone propionate 115 2 puff inhalation BID 06/06/23 06/06/23 History mcg-salmeterol 21 mcg/actuation HFA inhaler (Advair HFA) losartan 100 1 tablet PO DAILY 06/06/23 06/06/23 History mg-hydrochlorothiazide 12.5 mg tablet [id number] 8 mg-folic 400 1 tablet PO DAILY 06/06/23 06/06/23 History mcg-K 50 mcg-lutein 300 mcg tablet (Centrum Silver Women) Patient hx anesthesia problems: none Family hx anesthesia problems: none Results Review: All pre-operative results and documents have been reviewed as part of the pre-operative evaluation. [facility] Past Medical History Medical History Acid reflux Allergies Anxiety Back pain COPD (chronic obstructive pulmonary disease) Hypertension Obesity Smoker Surgical History Surgical History H/O LEEP H/O neck surgery History of incision and drainage Incision and drainage of abscess, simple or single on 9/14/23 [facility] Hx of cholecystectomy S/P tonsillectomy and adenoidectomy Family History Family History Father Hypertension Family history of type 2 diabetes mellitus Grandparent Hypertension Family history of type 2 diabetes mellitus Mother Hypertension Sibling F
--- NOTE | 2023-06-15 10:39 | PM.IMHP ---
H&P: HPI History of Present Illness Date/Time: 06/15/23 10:39 Chief Complaint: diverticulitis Narrative: this is a 47 year woman who presents for colonoscopy. She had a recent history of diverticulitis about 2 months ago. She has recovered from that episode. This was her 1st episode of diverticulitis. She has never had a colonoscopy before. She denies any hematochezia or melena. She denies any family history of colon cancer. Review of Systems Review of Systems: All systems reviewed & are unremarkable except as noted in HPI and below Constitutional: Constitutional: Denies chills, Denies fever(s), Denies headache(s) and Denies weight loss Eyes: Eyes: Denies change in vision ENT: Denies dizziness, Denies headache(s), Denies neck mass and Denies throat swelling Cardiovascular: Cardiovascular: Denies chest pain, Denies lightheadedness and Denies dyspnea Respiratory: Respiratory: Denies cough, Denies dyspnea and Denies wheezing Gastrointestinal: Gastrointestinal: Denies abdominal pain, Denies change in bowel habits, Denies nausea and Denies vomiting Genitourinary: Genitourinary: Denies hematuria and Denies dysuria Musculoskeletal: Musculoskeletal: Reports as per HPI Integumentary/Breasts: Skin/Breast: Reports as per HPI Neurologic: Denies dizziness and Denies headache(s) Allergic/Immunologic: Allergic/Immunologic: Denies throat swelling and Denies wheezing PMFSH Past Medical History Medical History Acid reflux Allergies Anxiety Back pain COPD (chronic obstructive pulmonary disease) Hypertension Obesity Smoker Surgical History Surgical History H/O LEEP H/O neck surgery History of incision and drainage Incision and drainage of abscess, simple or single on 12/15/22 [facility] Hx of cholecystectomy S/P tonsillectomy and adenoidectomy Family History Family History Father Hypertension Family history of type 2 diabetes mellitus Grandparent Hypertension Family history of type 2 diabetes mellitus Mother Hypertension Sibling Family history of type 2 diabetes mellitus Other Family history of congenital heart disease Social History Social History Smoking packs per day: 0.5 Smoking cigarettes per day: 10.0 Years smoked: 30 Smoking pack-years: 15.00 Smoking status: Current every day smoker Tobacco type: cigarettes Second hand tobacco smoke exposure: Yes Alcohol intake: current Substance use: current Substance use type: marijuana Other substance usage details: 2 TIMES A WEEK Do You Feel Safe in your Home?: Yes Lack of Transportation: No Lack of Food: Never True Current Housing: I Have Housing Concerned About Future Housing: No Difficulty Paying Gas/Electric Bills: No Difficulty Paying for Meds: No Currently Unemployed: No Education: Decline to Answer Difficulty w/ Childcare or Family Care: No Living arrangements: with family Occupation/Education: other Additional occupation/education comments: disability Gender identity (if verbalized by the patient): Female Spiritual care concerns: No Meds Home Medications and Allergies Home Medications Medication Instructions Recorded Confirmed Type albuterol sulfate 90 mcg/actuation 2 - 3 puff inhalation QID PRN 04/18/19 06/06/23 History aerosol inhaler Shortness Of Breath Or Wheezing cetirizine 10 mg tablet 10 mg PO DAILY 04/18/19 06/06/23 History cyclobenzaprine 10 mg tablet 10 mg PO TID 04/18/19 06/06/23 History hydrocodone 10 mg-acetaminophen 1 tablet PO BID PRN Pain 04/18/19 06/06/23 History 325 mg tablet montelukast 10 mg tablet 10 mg PO DAILY 04/18/19 06/06/23 History sumatriptan succinate 100 mg tablet 100 mg PO DIRECTED PRN Migraine 04/18/19 06/06/23 History Headache bupropion HCl 300 mg 24 hr tablet, 300 mg PO DAILY 05/08/21
[2023-06-15 11:09] VITALS: BP 100/75; PULSE 73; RESP 15; O2SAT 96
[2023-06-15 11:19] VITALS: BP 121/82; PULSE 69; RESP 17; O2SAT 96
[2023-06-15 11:29] VITALS: BP 118/74; PULSE 75; RESP 18; O2SAT 98
== END 2023-06-15 11:37 | disposition home or self-care (01) ==
PROVIDERS: PCP Internal Medicine; Visit Provider Surgery
PROC: 0DJD8ZZ Inspection of Lower Intestinal Tract, Via Natural or Artificial Opening Endoscopic (ICD-10-PCS; CPT 45378; principal; 2023-06-15 10:30)
DX: K57.30 Diverticulosis of large intestine without perforation or abscess without bleeding (principal); K63.5 Polyp of colon; I10 Essential (primary) hypertension; F41.9 Anxiety disorder, unspecified; K21.9 Gastro-esophageal reflux disease without esophagitis; J44.9 Chronic obstructive pulmonary disease, unspecified; F17.210 Nicotine dependence, cigarettes, uncomplicated; F12.90 Cannabis use, unspecified, uncomplicated; E66.9 Obesity, unspecified; Z68.38 Body mass index [BMI] 38.0-38.9, adult; Z79.51 Long term (current) use of inhaled steroids; Z79.891 Long term (current) use of opiate analgesic; Z79.1 Long term (current) use of non-steroidal anti-inflammatories (NSAID); Z79.85 Long-term (current) use of injectable non-insulin antidiabetic drugs; Z98.890 Other specified postprocedural states; Z90.49 Acquired absence of other specified parts of digestive tract; Z82.49 Family history of ischemic heart disease and other diseases of the circulatory system
CPT/HCPCS: 45380; 88305; J7120

== ENCOUNTER 2023-11-16 09:56 | Outpatient (CLI) | payer OTHER, SELFPAY ==
--- NOTE | ~2023-11-16 | MR_ITS ---
EXAMINATION: MR thoracic spine wo con DATE: 11/16/2023 10:55 INDICATION: Thoracic pain and bilateral lower limb pain. Assess for neurostimulator placement. TECHNIQUE: Magnetic resonance imaging (MRI) of the thoracic spine was performed without intravenous c ontrast. Sagittal localizer T1-weighted FSE of the cervicothoracic spine was obtained. Thoracic spine sequences included sagittal T2-weighted FSE, sagittal T1-weighted SE, Sagittal T2-weighted FS FSE, a nd axial T2-weighted FSE. COMPARISON: None FINDINGS: Alignment is normal.Vertebral body heights are normal.Moderate disc height loss with fibrovascular de generative endplate changes at T6-T7. Additional moderate disc height loss at T7-T8.Mild to moderate disc height loss at T8-T9 and T9-T10. Mild disc height loss at T2-T3 through T5-T6 and at T10-T11 and T11-T12.There are disc bulges resulting in multilevel mild central canal stenosis from C7-T1 through T8-T9. There is normal spinal cord signal. There is multilevel mild to moderate thoracic facet osteo arthritis with mild neural from stenosis at bilaterally at multiple levels in the upper to midthoraci c spine. Paravertebral soft tissues are unremarkable. IMPRESSION: 1. Moderate thoracic spondylosis. Reviewed, dictated and finalized at location A.
== END 2023-11-16 09:57 | disposition home or self-care (01) ==
LOC: CHSIMG 09:59
PROVIDERS: PCP Internal Medicine; Visit Provider Neurological Surgery
DX: M54.6 Pain in thoracic spine (principal); M43.04 Spondylolysis, thoracic region
CPT/HCPCS: 72146

== ENCOUNTER 2024-01-25 14:18 | Outpatient (CLI) | payer OTHER, SELFPAY ==
--- NOTE | ~2024-01-25 | XR_ITS ---
XR knee LT 3V Ordering provider: Greg Lee MD History: . INJURY LEFT KNEE; 3 DAYS AGO PAIN MEDIAL KNEE . Comparison: None. FINDINGS: BONES: No acute fracture or dislocation. JOINT SPACES: Normal. SOFT TISSUES: Normal. IMPRESSION: No acute osseous abnormality left knee. Reviewed, dictated and finalized at location A.
== END 2024-01-25 14:19 | disposition home or self-care (01) ==
LOC: CHSIMG 14:19
PROVIDERS: PCP Internal Medicine; Visit Provider Internal Medicine
DX: S89.92XA Unspecified injury of left lower leg, initial encounter (principal)
CPT/HCPCS: 73562

== ENCOUNTER 2024-07-25 12:42 | Outpatient (CLI) | payer OTHER, SELFPAY ==
--- NOTE | ~2024-07-25 | US_ITS ---
Limited Abdominal Sonogram: Real-time sonographic imaging of the right upper quadrant was performed. Clinical History: Acute pancreatitis Findings: The liver appears mildly echogenic, with no evidence of mass lesion or bile duct dilatatio n. Main portal vein demonstrates normal direction of flow. The gallbladder is absent, compatible prio r cholecystectomy. The common bile duct measures 3 mm. The visualized pancreas, aorta, and IVC are u nremarkable. Impression: Diffuse fatty infiltration of the liver. Status post cholecystectomy. Reviewed, dictated and finalized at location M. Impression: Diffuse fatty infiltration of the liver. Status post cholecystectomy.
--- OUTSIDE RECORDS SUMMARY | 2024-07-25 13:42 | XMS_ITS | Clinical Summary ---
Author Organization [facility] Address [address] [place] [address] Phone Care Team Providers Care Hooker Up Name Role Phone Greg Lee MD Primary Care Provider Allergies No known active allergies Medications gabapentin (NEURONTIN) 300 MG Capsule Take 2 Caps by mouth 3 times daily. 2 01/02/2019 Active HYDROcodone-acet aminophen (NORCO) 10-325 MG Tablet Take 1 Tab by mouth every 4 hours as needed. 0 01/10/2019 Active losartan-hydroch lorothiazide (HYZAAR) 50-12.5 MG Tablet Take 1 Tab by mouth daily. 01/16/2017 Active meloxicam (MOBIC) 7.5 MG Tablet Take 7.5 mg by mouth 2 times daily. 5 12/29/2018 Active raNITIdine (ZANTAC) 150 MG Tablet Take 150 mg by mouth 2 times daily. 5 12/29/2018 Active sertraline (ZOLOFT) 100 MG Tablet Take 100 mg by mouth daily. 0 12/25/2018 Active SUMAtriptan (IMITREX) 100 MG Tablet Take 1 Tab by mouth as needed for Migraine. 0 01/10/2019 Active Topiramate 50 MG Tablet Take 1 Tab by mouth daily. 2 01/10/2019 Active cyclobenzaprine (FLEXERIL) 10 MG Tablet Take 1 Tab by mouth 3 times daily. 0 01/10/2019 Active montelukast (SINGULAIR) 10 MG Tablet Take 1 Tab by mouth nightly. 4 12/29/2018 Active Active Problems Problem Noted Date Diagnosed Date SI (sacroiliac) joint dysfunction 02/07/2019 Numbness and tingling of both lower extremities 02/07/2019 Thoracic spine pain 02/07/2019 Bilateral carpal tunnel syndrome 02/07/2019 Social History Tobacco Use Types Packs/Day Years Used Date Smoking Tobacco: Never Assessed Comments Unknown Sex and Gender Information Value Date Recorded Sex Assigned at Not on file Legal Sex Female 2:46 PM CDT Gender Identity Not on file Sexual Orientation Not on file Last Filed Vital Signs Vital Sign Reading Time Taken Comments Blood Pressure 144/85 03/14/2019 10:31 AM SHOW CARD WRITER Pulse 74 03/14/2019 10:31 AM SHOW CARD WRITER Temperature 36.7 C (98 F) 03/14/2019 10:31 AM SHOW CARD WRITER Respiratory Rate 18 03/14/2019 10:05 AM SHOW CARD WRITER Oxygen Saturation 99% 03/14/2019 10:31 AM SHOW CARD WRITER Inhaled Oxygen Concentration - - Weight - - Height - - Body Mass Index - - Plan of Treatment Health Maintenance Due Date Last Done Comments Hepatitis C Virus (HCV) Screening 1975 Mammogram 1975 Hepatitis B Immunization (1 of 3 - 19+ 3-dose series) 1992 Pap Smear 1994 Cervical Cancer Screening (CCS) 08/31/2003 HPV/Cotest 08/31/2003 Colonoscopy 2018 Colorectal Cancer Screening 2018 Cologuard 08/31/2023 Immunochemical Fecal Occult Blood 08/31/2023 Pneumococcal Immunization (5 0+ years) (1 of 1 - PCV) 08/31/2023 Zoster Immunization (1 of 2) 08/31/2023 Influenza Immunization (#1) 2023 01/22/2020 SARS-COV-2 Immunization ( - 2023- season) 2023 05/01/2022, 09/28/2020, 09/07/2020 Respiratory Syncytial Virus (RSV) Immunization (Adult) (1 - 1-dose 75+ series) 2048 DTaP/Tdap/Td Immunization Discontinued 10/18/2019 TdaP Immunization Completed 10/18/2019 Meningococcal Immunization (ACWY) Aged Out No longer eligible based on patient's age to complete this topic Rotavirus Immunization Aged Out No lo nger eligible based on patient's age to complete this topic Insurance MEDICAID [employer] Care Teams Hooker Up Relationship Specialty Start Date End Date Greg Lee MD [address] [place] [address] PCP - General Internal Medicine 01/28/19
--- OUTSIDE RECORDS SUMMARY | 2024-07-25 13:42 | XMS_ITS | Clinical Summary ---
Author Organization [facility] Address [address] [place] [address] Care Team Providers Care Manager Hris Name Role Phone Greg Lee MD Primary Care Provider [phone] Source Comments [facility],non-owned Affiliates and Associated Physician Practices is amultiple site organization consisting of ambulatory clinics and hospital sitesin [place], [place], [place] and [place]. This disclosure is being madepursuant to the Care Everywhere program and may not contain all information available regarding this patient. Last updated 17.[facility] Allergies No known active allergies Medications * Be aware that medications may not be up to date on this document. Alwaysverify current medications with the patient. fluticasone propionate (FLONASE) 50 MCG/ACT nasal spray 02/07/20 17 Active topiramate (TOPAMAX) 50 MG tablet 02/06/20 17 Active montelukast (SINGULAIR) 10 MG tablet Take by mouth. 02/07/20 17 Active HYDROcodone-acetaminop hen (NORCO) 10-325 MG tablet 01/22/20 17 Active cyclobenzaprine (FLEXERIL) 5 MG tablet Take by mouth. 09/20 17 Active phentermine (IONAMINE) 15 MG capsule 02/07/20 17 Active losartan - hydroCHLOROthiazide (HYZAAR) 50-12.5 MG tablet 01/17/20 17 Active raNITIdine (ZANTAC) 150 MG tablet 01/05/20 17 Active albuterol HFA (VENTOLIN HFA) 108 (90 BASE) MCG/ACT inhaler 17 Active gabapentin (NEURONTIN) 300 MG capsule 02/06/20 17 Active meloxicam (MOBIC) 7.5 MG tablet 02/06/20 17 Active amLODIPine (Norvasc) 5 MG tablet Take 1 (one) tablet by mouth once daily Active atorvastatin (Lipitor) 20 MG tablet Take 1 (one) tablet by mouth at bedtime 10/29/19 24 Active Blood Glucose Monitoring Suppl (ONE TOUCH ULTRA 2) w/Device KIT as directed 02/05/20 23 Active Vraylar 1.5 MG capsule Take 1 (one) capsule by mouth once daily Active celecoxib (CeleBREX) 200 MG capsule Take 1 (one) capsule by mouth once daily Active cetirizine (ZyrTEC) 10 MG tablet Take 1 (one) tablet by mouth once daily 10/19/19 24 Active buPROPion XL 24hr (Wellbutrin-XL) 150 MG tablet Take 2 (two) tablets by mouth once daily Active escitalopram (Lexapro) 10 MG tablet once daily 05/07/19 24 Active Advair HFA 115-21 MCG/ACT 01/01/20 24 Active nicotine (Nicoderm CQ) 21 MG/24HR patch APPLY 1 PATCH BY TRANSDERMAL ROUTE ONCE DAILY 01/24/20 24 Active pregabalin (Lyrica) 200 MG capsule Pregabalin 200 MG Oral Capsule QTY: 60 capsule Days: 30 Refills: 2 Written: 06/20/23 Patient Instructions: TAKE 1 CAPSULE BY MOUTH TWICE A DAY 06/20/19 24 Active pantoprazole EC (Protonix) 40 MG tablet Take 1 (one) tablet by mouth once daily Active Vraylar 3 MG capsule Take 1 (one) capsule by mouth once daily 04/30/19 25 Active cyclobenzaprine (Flexeril) 10 MG tablet Take 1 (one) tablet by mouth at bedtime 05/04/19 25 Active Active Problems No known active problems Encounters Date Type Department Care Team Description 05/06/2024 9:00 AM EVAPORATOR SUPERVISOR Office Visit [facility] - Neurosurgery [address] [place] [address], [facility] [place] [address] Ignacio Martinez MD S/P insertion of spinal cord stimulator (Primary Dx) 05/06/2024 Travel from Last 3 Months Social History Tobacco Use Types Packs/Day Years Used Date Smoking Tobacco: Every Day Cigarettes Smokeless Tobacco: Never Tobacco Cessation:Ready to Q uit: No; Counseling Given: Yes Alcohol Use Standard Drinks/Week Comments Not Currently 0 (1 standard drink = 0.6 oz pur e alcohol) AUDIT-C Answer Date Recorded Q1: How often do you have a drink containing alc ohol? Monthly or less 02/22/2024 Q2: How many drinks containi ng alcohol do you have on a typical day when you are drinking? 1 or 2 02/22/2024 Q3: How often do you have si x or more drinks on one occasion? Never 02/22/2024 Comments No Sex and Gender Information Value Date Recorded Sex Assigned at Not on file Legal Sex Female 5:20 PM EVAPORATOR SUPERVISOR Gender Identity Not on file Sexual Orientation Not on file Last Filed Vital Signs Vital Sign Reading Time Taken Comments Blood Pressure 118/78 05/06/2024 8:55 AM EVAPORATOR SUPERVISOR Pulse 93 05/06/2024 8:55 AM EVAPORATOR SUPERVISOR Temperature 36.6 C (97.9 F) 05/06/2024 8:55 AM EVAPORATOR SUPERVISOR Respiratory Rate 18 02/22/2024 5:01 PM EVAPORATOR SUPERVISOR Oxygen Saturation 93% 05/06/2024 8:55 AM EVAPORATOR SUPERVISOR Inhaled Oxygen Concentration - - Weight 113.1 kg (249 lb 6.4 oz) 05/06/2024 8:55 AM EVAPORATOR SUPERVISOR Height 165.1 cm (5' 5 ) 05/06/2024 8:55 AM EVAPORATOR SUPERVISOR Body Mass Index 41.5 05/06/2024 8:55 AM EVAPORATOR SUPERVISOR Plan of Treatment Health Maintenance Due Date Last Done Comments COLOGUARD (AGES 45-75) - COL ON CA SCREENING 1973 COLON MONITORING 1973 COLONOSCOPY - COLON CA SCREENING 1973 CT COLONOGRAPHY - COLON CA SCREENING 1973 Colorectal Cancer Screening 1973 FIT - COLON CA SCREENING 1973 FLEX SIG - COLON CA SCREENING 1973 MAMMOGRAM 1973 PAP SMEAR 1973 HIV SCREENING 1988 HEPATITIS C SCREENING 08/26/1991 DTAP/TDAP/TD VACCINES (1 - Tdap) 1992 HEPATITIS B VACCINE (1 of 3 - 19+ 3-dose series) 1992 PNEUMOCOCCAL VACCINE 50+ (1 of 2 - PCV) 1992 ZOSTER VACCINE (1 of 2) 08/31/2023 COVID-19 VACCINE (1 - 4-2 5 season) 2023 DEPRESSION SCREENING 04/03/2024 INFLUENZA VACCINE (Season Ended) 2024 SCREENING FOR DIABETES 02/21/2027 , 02/22/2024 HIB VACCINE Aged Out No longer eligi ble based on patient's age to complete this topic HPV VACCINE Aged Out No longer eligi ble based on patient's age to complete this topic MENINGOCOCCAL (Group B) VACCINE SHARED DECISION-MAKING Aged Out No longer eligible based on patient's age to complete this topic MENINGOCOCCAL GROUPS A/C/Y/W VACCINE Aged Out No longer eligible b ased on patient's age to complete this topic Medical Devices Implanted Type Area Advertising Solicitor Device Identifier Shelf Expiration Date Model / Serial / Lot Slnt Dura Duraseal Pg Trilysine Amine 5 Implanted:Qty: 1 on 02/22/2024 by Ignacio Martinez MD at [facility] [place] Right: Spine Thoracic Integra Genmabciviblast Myke 08/31/2024 [id number] / / [id number] Lead Ns 65cm Spc Surescan 3 Clmn 16 Implanted:Qty: 1 on 02/22/2024 by Ignacio Martinez MD at [facility] [place] Right: Spine Thoracic Med[employer] 10/21/2025 [id number] / / [id number] 6 Kit Acc .133in Injex More Baso4 Biwing Implanted:Qty: 1 on 02/22/2024 by Ignacio Martinez MD at [facility] [place] Right: Spine Thoracic [employer] 02/02/2028 [id number] / / [id number] Env Absb Med 2.7x2.5in Polyarylate Implanted:Qty: 1 on 02/22/2024 by Ignacio Martinez MD at [facility] [place] Right: Spine Thoracic [employer] 10/25/2024 [id number] / / [id number] Nrstm Impl Chrnc Pain Rs2 - [id number] Implanted:Qty: 1 on 02/22/2024 by Ignacio Martinez MD at [facility] [place] Right: Spine Thoracic [employer] 01/14/2025 [id number] / [id number] / Procedures Procedure Name Priority Date/Time Associated Diagnosis Comments GLUCOSE - POINT OF CARE Routine 02/22/2024 10:35 AM EVAPORATOR SUPERVISOR from Last 3 Months or Most Recently Relevant to Health Maintenance Results * GLUCOSE - POINT OF CARE (02/22/2024 10:35 AM EVAPORATOR SUPERVISOR) Pathologist [facility] Glucose WB/POC 90 70 - 99 mg/dL 02/22/2024 10:52 AM EVAPORATOR SUPERVISOR [facility] Specimen Type Venous 02/22/2024 10:52 AM EVAPORATOR SUPERVISOR [facility] Blood BLOOD SPECIMEN / Unknown 02/22/2024 10:35 AM EVAPORATOR SUPERVISOR 02/22/2024 10:52 AM EVAPORATOR SUPERVISOR Ignacio Martinez MD LAB - POINT OF CARE AMINATA JIMENES Final Result Performing Organization Address City/State/[facility] Co de Phone Number [facility] [address] [place] [address] from Last 3 Months or Most Recently Relevant to Health Maintenance Insurance [facility] SELF PAY NO INSURANCE Member Subscriber Plan / Payer (Ef fective for All Dates) Name:Marcio Torres Member ID:Not on file Relation to Subscriber:Not on file Name:MARCIO TORRES Subscriber ID:Not on file Address: [address] [place] [id number] Payer ID:Not on file Group ID:Not on file Type:Self Pay Address: [place], [place] [facility] SELF PAY NO INSURANCE Member Subscriber Plan / Payer (Ef fective for All Dates) Name:Marcio Torres Member ID:Not on file Relation to Subscriber:Not on file Name:MARCIO TORRES Subscriber ID:Not on file Address: [address] [place] [phone] Payer ID:Not on file Group ID:Not on file Type:Self Pay Address: [place], [place] [facility] SELF PAY NO INSURANCE Member Subscriber Plan / Payer (Ef fective for All Dates) Name:Marcio Torres Member ID:Not on file Relation to Subscriber:Not on file Name:MARCIO TORRES Subscriber ID:Not on file Address: [address] [place] [phone] Payer ID:Not on file Group ID:Not on file Type:Self Pay Address: [place], [place] Care Teams Manager Hris Relationship Specialty Start Date End Date Greg Lee MD PCP - General 02/06/17
--- OUTSIDE RECORDS SUMMARY | 2024-07-25 13:42 | XMS_ITS ---
Care Plan - [facility] Created on: July 25, 2024 JENNIFER MARIN : 1975 Sex: Female Author Organization [facility] Address [address] [place] [address] Phone Care Team Providers Care Speaking Unit Assembler Name Role Phone THOM MARI, MICHEL Jiménez Unavailable [phone] DANE CASON, OLIVIA Ha Primary Care Provider [phone]
--- OUTSIDE RECORDS SUMMARY | 2024-07-25 13:43 | XMS_ITS ---
Author Organization [facility] Address [address] [place] [address] Phone Care Team Providers Care Haulage Boss Name Role Phone THOM ANP-BC, MICHLE L Unavailable [phone] DANE CASON, OLIVIA Ha Primary Care Provider [phone] Problems Includes: Active, inactive, and resolved Problems All Visits Onset Date Resolved Date Provider Condition S tatus Chronic Pain Syndrome 06/27/2023 LI BROOKE PMHNP Active Last Documented On 4 3:06PM ; [facility] Carpal Tunnel Syndrome 03/17/2020 MICHEL L BLEV INS ANP-BC Active Last Documented On 0 1:42PM ; [facility] Chronic Obstructive Pulmonary Disease 03/17/2020 MICHEL L THOM ANP-BC Active Last Documented On 0 1:42PM ; [facility] Gerd 03/17/2020 MICHEL L THOM ANP-BC A ctive Last Documented On 0 1:41PM ; [facility] Hypertension Systemic 03/17/2020 MICHEL L BLEVI NS ANP-BC Active Last Documented On 0 1:41PM ; [facility] Radiculopathy 03/17/2020 MICHEL L THOM ANP-B C Active Last Documented On 0 1:42PM ; [facility] Plan of Treatment Pending Tests Order Diagnosis Results Due Ordering Provider Pain Management CPT Neurostimulator Lead test Kit, Implantable Other spondylosis with radiculopathy, lumbar region 07/08/23 KRYSTEN CANNON MD Last Documented On 4 12:26PM ; [facility] Pain Management CPT Electrode placement- nuerostim Other spondylosis with radiculopathy, lumbar region 07/08/23 KRYSTEN CANNON MD Last Documented On 4 12:26PM ; [facility] Referrals To Diagnosis Pain Management [address] [address] - Sacroiliitis, not elsewhere classified Note: consent for bilateral SI joint injections Last Documented On 1 1:49PM ; [facility] Pain Management [address] [address] - Other cervical disc displacement, unsp cervical region Note: Consent for leftward C 7-T1 interlaminar epidural, potentially C6-7 if other level not accessible. Last Documented On 1 11:32AM ; [facility] Pain Management KRYSTEN CANNON MD Sacroiliitis, not elsewhere classified Note: Bilateral SI joint Inj ection with Steroid Undser fluroscopy.No IV/Abx. No blood thinners. Not diabetic. No hold ASA/NSAIDs. Last Documented On 1 11:44AM ; [facility] Pain Management [address] [address] - Spinal stenosis, lumbar region with neurogenic claudication Note: consent for bilateral L5-S1 transforaminal epidural Last Documented On 1 8:45AM ; [facility] Pain Management [address] [address] - Spinal stenosis, lumbar region with neurogenic claudication Note: Consent for bilateral L5-S1 transforaminal epidural Last Documented On 1 1:38PM ; [facility] Pain Management KRYSTEN CANNON MD - [address] [address] - Other spondylosis with radiculopathy, lumbar region Note: Bilateral L3-4 transfo raminal epidural steroid injection with fluorscopy.Not diabetic. No blood thinners. No PIV/Abx. No hold ASA/NSAIDs. Last Documented On 1 11:44AM ; [facility] Pain Management [address] [address] - Spondylosis w/o myelopathy or radiculopathy, lumbar region Note: consent for bilateral L2, L3, L4 medial branch blocks. Last Documented On 2 2:22PM ; [facility] Pain Management [address] [address] - Spondylosis w/o myelopathy or radiculopathy, lumbar region Note: Consent for bilateral L2, L3, L4 medial branch blocks Last Documented On 2 9:12AM ; [facility] Pain Management [address] [address] - Spondylosis w/o myelopathy or radiculopathy, lumbar region Note: consent for #1 right L 2, L3, L4 radiofrequency ablation #2 left L2, L3, L4 radiofrequency ablation Last Documented On 2 9:12AM ; [facility] Pain Management [address] [address] - Sacroiliitis, not elsewhere classified Note: consent for right SI j oint injection Last Documented On 2 4:19PM ; [facility] Pain Management [address] [address] - Spinal stenosis, lumbosacral region Note: consent bilateral L3-4 transforaminal epidural Last Documented On 2 8:45AM ; [facility] Pain Management [address] [address] - Other spondylosis with radiculopathy, lumbar region Note: consent for bilateral L5-S1 transforaminal epidural steroid injection under fluoroscopy Last Documented On 3 1:33PM ; [facility] Pain Management [facility] - [address] [place] [phone] - Spondylosis w/o myelopathy or radiculopathy, lumbar region Note: consent for L2, L3, L4 medial branch blocks Last Documented On 3 2:44PM ; [facility] Psychiatrist LI BROOKE PMHNP - [facility] - [address] [place] [phone] - Chronic pain syndrome Note: Preoperative psycholog ical screening for implantable device therapies (spinal cord stimulation): chronic pain syndrome, lumbosacral radiculopathy, chronic low back pain. Last Documented On 4 3:00PM ; [facility] Neurosurgeon VLADIMIR SANDERSON MD Spinal stenos is, lumbosacral region Note: Referral to neurosurge ry for spinal cord stimulator implant after successful percutaneous trial of 2, 8 contact [employer] leadst. Last Documented On 4 11:52AM ; [facility] Instructions to patient Intervention and counseling on cessation of tobacco use : Patient recieved smoking cessation handout Last Documented On 4 11:42AM ; [facility] Intervention and counseling on cessation of tobacco use : Patient recieved smoking cessation handout Last Documented On 4 1:06PM ; [facility] Intervention and counseling on cessation of tobacco use Last Documented On 4 10:31AM ; [facility] Intervention and counseling on cessation of tobacco use : Patient recieved smoking cessation handout Last Documented On 4 4:34PM ; [facility] Intervention and counseling on cessation of tobacco use : Patient recieved smoking cessation handout Last Documented On 4 10:18AM ; [facility] Intervention and counseling on cessation of tobacco use : Patient recieved smoking cessation handout Last Documented On 4 10:00AM ; [facility] Intervention and counseling on cessation of tobacco use : Patient recieved smoking cessation handout Last Documented On 3 10:22AM ; [facility] Intervention and counseling on cessation of tobacco use : Patient recieved smoking cessation handout Last Documented On 3 1:17PM ; [facility] Intervention and counseling on cessation of tobacco use : Patient recieved smoking cessation handout Last Documented On 1 1:49PM ; [facility] Intervention and counseling on cessation of tobacco use : Patient recieved smoking cessation handout Last Documented On 1 9:51AM ; [facility] Intervention and counseling on cessation of tobacco use : Patient recieved smoking cessation handout Last Documented On 1 3:26PM ; [facility] Intervention and counseling on cessation of tobacco use : Patient recieved smoking cessation handout Last Documented On 1 3:54PM ; [facility] Intervention and counseling on cessation of tobacco use : Patient recieved smoking cessation handout Last Documented On 1 4:30PM ; [facility] Intervention and counseling on cessation of tobacco use : Patient recieved smoking cessation handout Last Documented On 1 4:08PM ; [facility] Intervention and counseling on cessation of tobacco use : Patient recieved smoking cessation handout Last Documented On 0 1:54PM ; [facility] Education and Decision Aids were provided during visit for: Pill Count: 56 HYDROCODONE Last Documented On 4 11:45AM ; [facility] Pill Count: HYDROCODONE Last Documented On 4 1:07PM ; [facility] Patient education about adve rse reactions to medication Last Documented On 4 10:25AM ; [facility] Reviewed side effects and Ri sks/Benefits analysis Last Documented On 4 10:25AM ; [facility] Pill Count: one HYDROCODONE Last Documented On 4 4:34PM ; [facility] Pill Count: one HYDROCODONE Last Documented On 4 10:18AM ; [facility] Pill Count: 51 HYDROCODONE Last Documented On 4 10:12AM ; [facility] Pill Count: 47 HYDROCODONE Last Documented On 3 10:29AM ; [facility] Pill Count: 55 HYDROCODONE Last Documented On 3 1:23PM ; [facility] Pill Count: three HYDROCODON E Last Documented On 3 9:55AM ; [facility] Pill Count: three HYDROCODON E Last Documented On 3 8:53AM ; [facility] Pill Count: 41 HYDROCODONE Last Documented On 3 10:24AM ; [facility] Pill Count: five HYDROCODONE Last Documented On 3 10:51AM ; [facility] Pill Count: 39 HYDROCODONE Last Documented On 3 10:15AM ; [facility] Pill Count: 34 HYDROCODONE Last Documented On 2 9:31AM ; [facility] Pill Count: 13 HYDROCODONE Last Documented On 2 9:15AM ; [facility] Pill Count: five Last Documented On 2 9:55AM ; [facility] Pill Count: 51 Appropriate H YDROCODONE Last Documented On 2 9:07AM ; [facility] Pill Count: 25 HYDROCODONE Last Documented On 2 2:06PM ; [facility] Pill Count: Patient did not bring pain medication to appointment for pill count, per policy. Advised in order to continue to safely prescribe opioids, medication must be brought to each appointment Last Documented On 2 2:06PM ; [facility] Pill Count: 25 HYDROCODONE Last Documented On 2 1:40PM ; [facility] Pill Count: Patient did not bring pain medication to appointment for pill count, per policy. Advised in order to continue to safely prescribe opioids, medication must be brought to each appointment Last Documented On 2 1:22PM ; [facility] Pill Count: HYDROCODONE Last Documented On 2 1:16PM ; [facility] Pill Count: Patient did not bring pain medication to appointment for pill count, per policy. Advised in order to continue to safely prescribe opioids, medication must be brought to each appointment Last Documented On 2 1:16PM ; [facility] Pill Count: 45 HYDROCODONE Last Documented On 2 1:45PM ; [facility] Pill Count: 34 Last Documented On 1 1:37PM ; [facility] Pill Count: 44 Appropriate Last Documented On 1 1:38PM ; [facility] Medication # 1 Quantity: 2 Last Documented On 1 3:25PM ; [facility] Date and time Medication # 1 last taken: THIS MORNING 11AM Last Documented On 1 3:25PM ; [facility] Name of Medication # 1: HYDR OCODONE Last Documented On 1 3:25PM ; [facility] Medication # 1 Pill Descript ion: WHITE OVAL Last Documented On 1 3:25PM ; [facility] Medication # 1 Imprint: [id number] 0 Last Documented On 1 3:25PM ; [facility] Date on medication # 1 bottl e: 01-14-21 Last Documented On 1 3:25PM ; [facility] Pill Counter initials: KMS Last Documented On 1 3:25PM ; [facility] Pill Count: 44 Appropriate Last Documented On 1 1:43PM ; [facility] Pill Count: 14 Appropriate Last Documented On 1 1:55PM ; [facility] Pill Count: two Appropriate Last Documented On 1 7:51AM ; [facility] Pill Count: ten Last Documented On 1 3:34PM ; [facility] Pill Count: four Last Documented On 1 4:01PM ; [facility] Pill Count: two Appropriate Last Documented On 1 4:24PM ; [facility] Assessments Includes: Assessments for all patient encounters Findings Encounter Date Arthralgia of the right pelvis/hip/femur PAIN MANAGEMENT FOLLOW UP with MICHEL FLOWERBC 08/04/2023 Last Documented On 4 4:22PM ; [facility] Cervical radiculopathy PAIN MANAGEMENT F OLLOW UP with MICHEL MANLEY ANP-BC 08/04/2023 Last Documented On 4 4:22PM ; [facility] Cervical spine stenosis PAIN MANAGEMENT FOLLOW UP with MICHEL MANLEY ANP-BC 08/04/2023 Last Documented On 4 4:22PM ; [facility] Cervical spondylosis with radiculopathy PAIN MANAGEMENT FOLLOW UP with MICHEL L THOM ANP-BC 08/04/2023 Last Documented On 4 4:22PM ; [facility] Chronic pain syndrome PAIN MANAGEMENT FO LLOW UP with MICHEL L THOM ANP-BC 08/04/2023 Last Documented On 4 4:22PM ; [facility] watermaster use of opiate analgesic PAIN M ANAGEMENT FOLLOW UP with MICHEL L THOM ANP-BC 08/04/2023 Last Documented On 4 4:22PM ; [facility] Lumbar spondylosis with radiculopathy PA IN MANAGEMENT FOLLOW UP with MICHEL L THOM ANP-BC 08/04/2023 Last Documented On 4 4:22PM ; [facility] Lumbosacral spinal stenosis PAIN MANAGEM ENT FOLLOW UP with MICHEL L THOM ANP-BC 08/04/2023 Last Documented On 4 4:22PM ; [facility] Myalgia PAIN MANAGEMENT FOLLOW UP with T ANNE-MARIE L THOM ANP-BC 08/04/2023 Last Documented On 4 4:22PM ; [facility] Sacroiliitis PAIN MANAGEMENT FOLLOW UP with T ANNE-MARIE L THOM ANP-BC 08/04/2023 Last Documented On 4 4:22PM ; [facility] Arthralgia of the right pelvis/hip/femur PAIN MANAGEMENT FOLLOW UP with KRYSTEN CANNON MD 07/27/2023 Last Documented On 4 1:34PM ; [facility] Cervical radiculopathy PAIN MANAGEMENT FOLLOW UP with KRYSTEN CANNON MD 07/27/2023 Last Documented On 4 1:34PM ; [facility] Cervical spine stenosis PAIN MANAGEMENT FOLLOW U P with KRYSTEN CANNON MD 07/27/2023 Last Documented On 4 1:34PM ; [facility] Cervical spondylosis with radiculopathy PAIN MANAGEMENT FOLLOW UP with KRYSTEN CANNON MD 07/27/2023 Last Documented On 4 1:34PM ; [facility] Chronic pain syndrome PAIN MANAGEMENT FOLLOW UP with KRYSTEN CANNON MD 07/27/2023 Last Documented On 4 1:34PM ; [facility] watermaster use of opiate analgesic PAIN M ANAGEMENT FOLLOW UP with KRYSTEN CANNON MD 07/27/2023 Last Documented On 4 1:34PM ; [facility] Lumbar spondylosis with radiculopathy PA IN MANAGEMENT FOLLOW UP with KRYSTEN CANNON MD 07/27/2023 Last Documented On 4 1:34PM ; [facility] Lumbosacral spinal stenosis PAIN MANAGEM ENT FOLLOW UP with KRYSTEN CANNON MD 07/27/2023 Last Documented On 4 1:34PM ; [facility] Myalgia PAIN MANAGEMENT FOLLOW UP with Opal CANNON MD 07/27/2023 Last Documented On 4 1:34PM ; [facility] Sacroiliitis PAIN MANAGEMENT FOLLOW UP with Opal CANNON MD 07/27/2023 Last Documented On 4 1:34PM ; [facility] [G89.4 - Chronic pain syndro me] chronic pain syndrome PSYCH NEW PATIENT EXAM- ADULT with LI BROOKE PMHNP 06/27/2023 Last Documented On 4 9:21AM ; [facility] Arthralgia of the right pelvis/hip/femur PAIN MANAGEMENT FOLLOW UP with KRYSTEN CANNON MD 06/08/2023 Last Documented On 4 5:21PM ; [facility] Cervical radiculopathy PAIN MANAGEMENT FOLLOW UP with KRYSTEN CANNON MD 06/08/2023 Last Documented On 4 5:21PM ; [facility] Cervical spine stenosis PAIN MANAGEMENT FOLLOW U P with KRYSTEN CANNON MD 06/08/2023 Last Documented On 4 5:21PM ; [facility] Cervical spondylosis with radiculopathy PAIN MANAGEMENT FOLLOW UP with KRYSTEN CANNON MD 06/08/2023 Last Documented On 4 5:21PM ; [facility] Chronic pain syndrome PAIN MANAGEMENT FOLLOW UP with KRYSTEN CANNON MD 06/08/2023 Last Documented On 4 5:21PM ; [facility] nursing home use of opiate analgesic PAIN M ANAGEMENT FOLLOW UP with KRYSTEN CANNON MD 06/08/2023 Last Documented On 4 5:21PM ; [facility] Lumbar spondylosis with radiculopathy PA IN MANAGEMENT FOLLOW UP with KRYSTEN CANNON MD 06/08/2023 Last Documented On 4 5:21PM ; [facility] Lumbosacral spinal stenosis PAIN MANAGEM ENT FOLLOW UP with KRYSTEN CANNON MD 06/08/2023 Last Documented On 4 5:21PM ; [facility] Myalgia PAIN MANAGEMENT FOLLOW UP with Opal CANNON MD 06/08/2023 Last Documented On 4 5:21PM ; [facility] Sacroiliitis PAIN MANAGEMENT FOLLOW UP with Opal CANNON MD 06/08/2023 Last Documented On 4 5:21PM ; [facility] Arthralgia of the right pelvis/hip/femur PAIN MANAGEMENT FOLLOW UP with MICHEL L THOM ANP-BC 06/06/2023 Last Documented On 4 8:38AM ; [facility] Cervical radiculopathy PAIN MANAGEMENT F OLLOW UP with MICHEL L THOM ANP-BC 06/06/2023 Last Documented On 4 8:38AM ; [facility] Cervical spine stenosis PAIN MANAGEMENT FOLLOW UP with MICHEL L THOM ANP-BC 06/06/2023 Last Documented On 4 8:38AM ; [facility] Cervical spondylosis with radiculopathy PAIN MANAGEMENT FOLLOW UP with MICHEL L THOM ANP-BC 06/06/2023 Last Documented On 4 8:38AM ; [facility] Chronic pain syndrome PAIN MANAGEMENT FO LLOW UP with MICHEL L THOM ANP-BC 06/06/2023 Last Documented On 4 8:38AM ; [facility] watermaster use of opiate analgesic PAIN M ANAGEMENT FOLLOW UP with MICHEL L THOM ANP-BC 06/06/2023 Last Documented On 4 8:38AM ; [facility] Lumbar spondylosis with radiculopathy PA IN MANAGEMENT FOLLOW UP with MICHEL L THOM ANP-BC 06/06/2023 Last Documented On 4 8:38AM ; [facility] Lumbosacral spinal stenosis PAIN MANAGEM ENT FOLLOW UP with MICHEL L THOM ANP-BC 06/06/2023 Last Documented On 4 8:38AM ; [facility] Myalgia PAIN MANAGEMENT FOLLOW UP with T ANNE-MARIE L THOM ANP-BC 06/06/2023 Last Documented On 4 8:38AM ; [facility] Sacroiliitis PAIN MANAGEMENT FOLLOW UP with T ANNE-MARIE L THOM ANP-BC 06/06/2023 Last Documented On 4 8:38AM ; [facility] Cervical radiculopathy PAIN MANAGEMENT F OLLOW UP with MICHEL L THOM ANP-BC 04/11/2023 Last Documented On 4 1:17PM ; [facility] Cervical spine stenosis PAIN MANAGEMENT FOLLOW UP with MICHEL L THOM ANP-BC 04/11/2023 Last Documented On 4 1:17PM ; [facility] Cervical spondylosis with radiculopathy PAIN MANAGEMENT FOLLOW UP with MICHEL L THOM ANP-BC 04/11/2023 Last Documented On 4 1:17PM ; [facility] Chronic pain syndrome PAIN MANAGEMENT FO LLOW UP with MICHEL L THOM ANP-BC 04/11/2023 Last Documented On 4 1:17PM ; [facility] watermaster use of opiate analgesic PAIN M ANAGEMENT FOLLOW UP with MICHEL L THOM ANP-BC 04/11/2023 Last Documented On 4 1:17PM ; [facility] Lumbar spondylosis with radiculopathy PA IN MANAGEMENT FOLLOW UP with MICHEL L THOM ANP-BC 04/11/2023 Last Documented On 4 1:17PM ; [facility] Lumbosacral spinal stenosis PAIN MANAGEM ENT FOLLOW UP with MICHEL L THOM ANP-BC 04/11/2023 Last Documented On 4 1:17PM ; [facility] Myalgia PAIN MANAGEMENT FOLLOW UP with T ANNE-MARIE L THOM ANP-BC 04/11/2023 Last Documented On 4 1:17PM ; [facility] Sacroiliitis PAIN MANAGEMENT FOLLOW UP with T ANNE-MARIE L THOM ANP-BC 04/11/2023 Last Documented On 4 1:17PM ; [facility] Cervical radiculopathy PAIN MANAGEMENT F OLLOW UP with MICHEL L THOM ANP-BC 01/11/2023 Last Documented On 3 10:40AM ; [facility] Cervical spine stenosis PAIN MANAGEMENT FOLLOW UP with MICHEL L THOM ANP-BC 01/11/2023 Last Documented On 3 10:40AM ; [facility] Cervical spondylosis with radiculopathy PAIN MANAGEMENT FOLLOW UP with MICHEL L THOM ANP-BC 01/11/2023 Last Documented On 3 10:40AM ; [facility] Chronic pain syndrome PAIN MANAGEMENT FO LLOW UP with MICHEL L THOM ANP-BC 01/11/2023 Last Documented On 3 10:40AM ; [facility] nursing home use of opiate analgesic PAIN M ANAGEMENT FOLLOW UP with MICHEL L THOM ANP-BC 01/11/2023 Last Documented On 3 10:40AM ; [facility] Lumbar spondylosis with radiculopathy PA IN MANAGEMENT FOLLOW UP with MICHEL L THOM ANP-BC 01/11/2023 Last Documented On 3 10:40AM ; [facility] Lumbosacral spinal stenosis PAIN MANAGEM ENT FOLLOW UP with MICHEL L THOM ANP-BC 01/11/2023 Last Documented On 3 10:40AM ; [facility] Myalgia PAIN MANAGEMENT FOLLOW UP with T ANNE-MARIE L THOM ANP-BC 01/11/2023 Last Documented On 3 10:40AM ; [facility] Sacroiliitis PAIN MANAGEMENT FOLLOW UP with T ANNE-MARIE L THOM ANP-BC 01/11/2023 Last Documented On 3 10:40AM ; [facility] Cervical radiculopathy PAIN MANAGEMENT F OLLOW UP with MICHEL L THOM ANP-BC 12/08/2022 Last Documented On 3 2:47PM ; [facility] Cervical spine stenosis PAIN MANAGEMENT FOLLOW UP with MICHEL L THOM ANP-BC 12/08/2022 Last Documented On 3 2:47PM ; [facility] Cervical spondylosis with radiculopathy PAIN MANAGEMENT FOLLOW UP with MCIHEL L THOM ANP-BC 12/08/2022 Last Documented On 3 2:47PM ; [facility] Chronic pain syndrome PAIN MANAGEMENT FO LLOW UP with MICHEL L THOM ANP-BC 12/08/2022 Last Documented On 3 2:47PM ; [facility] watermaster use of opiate analgesic PAIN M ANAGEMENT FOLLOW UP with MICHEL L THOM ANP-BC 12/08/2022 Last Documented On 3 2:47PM ; [facility] Lumbar spondylosis with radiculopathy PA IN MANAGEMENT FOLLOW UP with MICHEL L THOM ANP-BC 12/08/2022 Last Documented On 3 2:47PM ; [facility] Lumbosacral spinal stenosis PAIN MANAGEM ENT FOLLOW UP with MICHEL L THOM ANP-BC 12/08/2022 Last Documented On 3 2:47PM ; [facility] GROUP Myalgia PAIN MANAGEMENT FOLLOW UP with T ANNE-MARIE L THOM ANP-BC 12/08/2022 Last Documented On 3 2:47PM ; [facility] Sacroiliitis PAIN MANAGEMENT FOLLOW UP with T ANNE-MARIE L THOM ANP-BC 12/08/2022 Last Documented On 3 2:47PM ; [facility] Cervical radiculopathy PAIN MANAGEMENT F OLLOW UP with MICHEL L THOM ANP-BC 11/04/2022 Last Documented On 3 8:23AM ; [facility] Cervical spine stenosis PAIN MANAGEMENT FOLLOW UP with MICHEL L THOM ANP-BC 11/04/2022 Last Documented On 3 8:23AM ; [facility] Cervical spondylosis with radiculopathy PAIN MANAGEMENT FOLLOW UP with MICHEL L THOM ANP-BC 11/04/2022 Last Documented On 3 8:23AM ; [facility] Chronic pain syndrome PAIN MANAGEMENT FO LLOW UP with MICHEL L THOM ANP-BC 11/04/2022 Last Documented On 3 8:23AM ; [facility] nursing home use of opiate analgesic PAIN M ANAGEMENT FOLLOW UP with MICHEL L THOM ANP-BC 11/04/2022 Last Documented On 3 8:23AM ; [facility] Lumbar spondylosis with radiculopathy PA IN MANAGEMENT FOLLOW UP with MICHEL L THOM ANP-BC 11/04/2022 Last Documented On 3 8:23AM ; [facility] Lumbosacral spinal stenosis PAIN MANAGEM ENT FOLLOW UP with MICHEL L THOM ANP-BC 11/04/2022 Last Documented On 3 8:23AM ; [facility] Myalgia PAIN MANAGEMENT FOLLOW UP with T ANNE-MARIE L THOM ANP-BC 11/04/2022 Last Documented On 3 8:23AM ; [facility] Sacroiliitis PAIN MANAGEMENT FOLLOW UP with T ANNE-MARIE L THOM ANP-BC 11/04/2022 Last Documented On 3 8:23AM ; [facility] Cervical radiculopathy PAIN MANAGEMENT F OLLOW UP with MICHEL L THOM ANP-BC 10/05/2022 Last Documented On 3 9:22AM ; [facility] Cervical spine stenosis PAIN MANAGEMENT FOLLOW UP with MICHEL L THOM ANP-BC 10/05/2022 Last Documented On 3 9:22AM ; [facility] Cervical spondylosis with radiculopathy PAIN MANAGEMENT FOLLOW UP with MICHEL L THOM ANP-BC 10/05/2022 Last Documented On 3 9:22AM ; [facility] Chronic pain syndrome PAIN MANAGEMENT FO LLOW UP with MICHEL L THOM ANP-BC 10/05/2022 Last Documented On 3 9:22AM ; [facility] nursing home use of opiate analgesic PAIN M ANAGEMENT FOLLOW UP with MICHEL L THOM ANP-BC 10/05/2022 Last Documented On 3 9:22AM ; [facility] Lumbar spondylosis without m yelopathy or radiculopathy PAIN MANAGEMENT FOLLOW UP with MICHEL L THOM ANP-BC 10/05/2022 Last Documented On 3 9:22AM ; [facility] Lumbosacral spinal stenosis PAIN MANAGEM ENT FOLLOW UP with MICHEL L THOM ANP-BC 10/05/2022 Last Documented On 3 9:22AM ; [facility] Myalgia PAIN MANAGEMENT FOLLOW UP with T ANNE-MARIE L THOM ANP-BC 10/05/2022 Last Documented On 3 9:22AM ; [facility] Sacroiliitis PAIN MANAGEMENT FOLLOW UP with T ANNE-MARIE L THOM ANP-BC 10/05/2022 Last Documented On 3 9:22AM ; [facility] [Z01.818 - Encounter for ot er preprocedural examination] Pre-op exam PAIN MANAGEMENT FOLLOW UP with MICHEL L THOM ANP-BC 08/10/2022 Last Documented On 3 10:53AM ; [facility] Chronic pain syndrome PAIN MANAGEMENT FO LLOW UP with MICHEL L THOM ANP-BC 08/10/2022 Last Documented On 3 10:53AM ; [facility] watermaster use of opiate analgesic PAIN M ANAGEMENT FOLLOW UP with MICHEL L THOM ANP-BC 08/10/2022 Last Documented On 3 10:53AM ; [facility] Lumbar spondylosis without m yelopathy or radiculopathy PAIN MANAGEMENT FOLLOW UP with MICHEL L THOM ANP-BC 08/10/2022 Last Documented On 3 10:53AM ; [facility] Lumbosacral spinal stenosis PAIN MANAGEM ENT FOLLOW UP with MICHEL L THOM ANP-BC 08/10/2022 Last Documented On 3 10:53AM ; [facility] Myalgia PAIN MANAGEMENT FOLLOW UP with T AN[facility] L [facility] 08/10/2022 Last Documented On 3 10:53AM ; [facility] Sacroiliitis PAIN MANAGEMENT FOLLOW UP with T ANNE-MARIE Tino THOM ANP-BC 08/10/2022 Last Documented On 3 10:53AM ; [facility] Chronic pain syndrome PAIN MANAGEMENT FO LLOW UP with MICHEL Tino RAMOSS ANP-BC 06/29/2022 Last Documented On 3 11:12AM ; [facility] nursing home use of opiate analgesic PAIN M ANAGEMENT FOLLOW UP with MICHEL Tino REIDTHOM ANP-BC 06/29/2022 Last Documented On 3 11:12AM ; [facility] Lumbar spondylosis without m yelopathy or radiculopathy PAIN MANAGEMENT FOLLOW UP with MICHEL Tino REIDTHOM ANP-BC 06/29/2022 Last Documented On 3 11:12AM ; [facility] Lumbosacral spinal stenosis PAIN MANAGEM ENT FOLLOW UP with MICHEL Tino RAMOSS ANP- 06/29/2022 Last Documented On 3 11:12AM ; [facility] Myalgia PAIN MANAGEMENT FOLLOW UP with T ANNE-MARIE Tino REIDTHOM ANP-BC 06/29/2022 Last Documented On 3 11:12AM ; [facility] Sacroiliitis PAIN MANAGEMENT FOLLOW UP with T ANNE-MARIE Tino THOM ANP- 06/29/2022 Last Documented On 3 11:12AM ; [facility] Cervical postlaminectomy syndrome PAIN M ANAGEMENT FOLLOW UP with DWAINE KOO BALLISTICS EXPERT-FPA, MANDREL CLEANER-BC 04/18/2022 Last Documented On 3 10:58AM ; [facility] Cervical spondylosis PAIN MANAGEMENT FOL LOW UP with DWAINE KOO BALLISTICS EXPERT-FPA, MANDREL CLEANER-BC 04/18/2022 Last Documented On 3 10:58AM ; [facility] Chronic pain syndrome PAIN MANAGEMENT FO LLOW UP with DWAINE KOO BALLISTICS EXPERT-FPA, MANDREL CLEANER-BC 04/18/2022 Last Documented On 3 10:58AM ; [facility] watermaster use of opiate analgesic PAIN M ANAGEMENT FOLLOW UP with DWAINE Wyatt HAYES BALLISTICS EXPERT-FPA, MANDREL CLEANER-BC 04/18/2022 Last Documented On 3 10:58AM ; [facility] Lumbar spondylosis with radiculopathy PA IN MANAGEMENT FOLLOW UP with DWAINE Wyatt HAYES BALLISTICS EXPERT-FPA, MANDREL CLEANER-BC 04/18/2022 Last Documented On 3 10:58AM ; [facility] Lumbosacral spinal stenosis PAIN MANAGEM ENT FOLLOW UP with DWAINE Wyatt HAYES BALLISTICS EXPERT-FPA, MANDREL CLEANER-BC 04/18/2022 Last Documented On 3 10:58AM ; [facility] Myalgia PAIN MANAGEMENT FOLLOW UP with Violette Wyatt HAYES BALLISTICS EXPERT-FPA, MANDREL CLEANER-BC 04/18/2022 Last Documented On 3 10:58AM ; [facility] Sacroiliitis PAIN MANAGEMENT FOLL OW UP with DWAINE Wyatt HAYES BALLISTICS EXPERT-FPA, MANDREL CLEANER-BC 04/18/2022 Last Documented On 3 10:58AM ; [facility] Cervical spine stenosis * PHONE CALL with MICHEL Tino RAMOSS ANP-BC 03/03/2022 Last Documented On 2 8:52AM ; [facility] Cervical postlaminectomy syndrome PAIN M ANAGEMENT FOLLOW UP with MICHEL L THOM ANP-BC 02/16/2022 Last Documented On 2 10:45AM ; [facility] Cervical spine stenosis PAIN MANAGEMENT FOLLOW UP with MICHEL L THOM ANP-BC 02/16/2022 Last Documented On 2 10:45AM ; [facility] Chronic pain syndrome PAIN MANAGEMENT FO LLOW UP with MICHEL L THOM ANP-BC 02/16/2022 Last Documented On 2 10:45AM ; [facility] watermaster use of opiate analgesic PAIN M ANAGEMENT FOLLOW UP with MICHEL L THOM ANP-BC 02/16/2022 Last Documented On 2 10:45AM ; [facility] Lumbar spondylosis with radiculopathy PA IN MANAGEMENT FOLLOW UP with MICHEL L HTOM ANP- 02/16/2022 Last Documented On 2 10:45AM ; [facility] Lumbosacral spinal stenosis PAIN MANAGEM ENT FOLLOW UP with MICHEL L THOM ANP-BC 02/16/2022 Last Documented On 2 10:45AM ; [facility] Myalgia PAIN MANAGEMENT FOLLOW UP with T ANNE-MARIE L THOM ANP-BC 02/16/2022 Last Documented On 2 10:45AM ; [facility] Sacroiliitis PAIN MANAGEMENT FOLLOW UP with T ANNE-MARIE L THOM ANP-BC 02/16/2022 Last Documented On 2 10:45AM ; [facility] Arthralgia of right shoulder region PAIN MANAGEMENT FOLLOW UP with MICHEL L THOM ANP-BC 12/29/2021 Last Documented On 2 1:19PM ; [facility] Cervical postlaminectomy syndrome PAIN M ANAGEMENT FOLLOW UP with MICHEL L THOM ANP- 12/29/2021 Last Documented On 2 1:19PM ; [facility] Chronic pain syndrome PAIN MANAGEMENT FO LLOW UP with MICHEL L THOM ANP-BC 12/29/2021 Last Documented On 2 1:19PM ; [facility] watermaster use of opiate analgesic PAIN M ANAGEMENT FOLLOW UP with MICHEL L THOM ANP- 12/29/2021 Last Documented On 2 1:19PM ; [facility] Lumbar spondylosis with radiculopathy PA IN MANAGEMENT FOLLOW UP with MICHEL L THOM ANP- 12/29/2021 Last Documented On 2 1:19PM ; [facility] Lumbosacral spinal stenosis PAIN MANAGEM ENT FOLLOW UP with MICHEL L THOM ANP-BC 12/29/2021 Last Documented On 2 1:19PM ; [facility] Myalgia PAIN MANAGEMENT FOLLOW UP with T ANNE-MARIE L THOM ANP-BC 12/29/2021 Last Documented On 2 1:19PM ; [facility] Sacroiliitis PAIN MANAGEMENT FOLLOW UP with T ANNE-MARIE L THOM ANP-BC 12/29/2021 Last Documented On 2 1:19PM ; [facility] Arthralgia of right shoulder region PAIN MANAGEMENT FOLLOW UP with MICHEL L THOM ANP-BC 12/03/2021 Last Documented On 2 11:05AM ; [facility] Cervical postlaminectomy syndrome PAIN M ANAGEMENT FOLLOW UP with MICHEL L THOM ANP-BC 12/03/2021 Last Documented On 2 11:05AM ; [facility] Chronic pain syndrome PAIN MANAGEMENT FO LLOW UP with MICHEL L THOM ANP-BC 12/03/2021 Last Documented On 2 11:05AM ; [facility] nursing home use of opiate analgesic PAIN M ANAGEMENT FOLLOW UP with MICHEL L THOM ANP-BC 12/03/2021 Last Documented On 2 11:05AM ; [facility] Lumbar spondylosis with radiculopathy PA IN MANAGEMENT FOLLOW UP with MICHEL L THOM ANP-BC 12/03/2021 Last Documented On 2 11:05AM ; [facility] Lumbosacral spinal stenosis PAIN MANAGEM ENT FOLLOW UP with MICHEL L THOM ANP-BC 12/03/2021 Last Documented On 2 11:05AM ; [facility] Myalgia PAIN MANAGEMENT FOLLOW UP with T ANNE-MARIE L THOM ANP-BC 12/03/2021 Last Documented On 2 11:05AM ; [facility] Sacroiliitis PAIN MANAGEMENT FOLLOW UP with T ANNE-MARIE L THOM ANP-BC 12/03/2021 Last Documented On 2 11:05AM ; [facility] Arthralgia of right shoulder region PAIN MANAGEMENT FOLLOW UP with MICHEL L THOM ANP-BC 10/11/2021 Last Documented On 2 9:38AM ; [facility] Cervical postlaminectomy syndrome PAIN M ANAGEMENT FOLLOW UP with MICHEL L THOM ANP-BC 10/11/2021 Last Documented On 2 9:38AM ; [facility] Chronic pain syndrome PAIN MANAGEMENT FO LLOW UP with MICHEL L THOM ANP-BC 10/11/2021 Last Documented On 2 9:38AM ; [facility] nursing home use of opiate analgesic PAIN M ANAGEMENT FOLLOW UP with MICHEL L THOM ANP-BC 10/11/2021 Last Documented On 2 9:38AM ; [facility] Lumbar spondylosis without m yelopathy or radiculopathy PAIN MANAGEMENT FOLLOW UP with MICHEL L THOM ANP-BC 10/11/2021 Last Documented On 2 9:38AM ; [facility] Myalgia PAIN MANAGEMENT FOLLOW UP with T ANNE-MARIE L THOM ANP-BC 10/11/2021 Last Documented On 2 9:38AM ; [facility] Sacroiliitis PAIN MANAGEMENT FOLLOW UP with T ANNE-MARIE L THOM ANP-BC 10/11/2021 Last Documented On 2 9:38AM ; [facility] SPINAL STENOSIS LUMBAR REGIO N W/O NEUROGENIC CLAUDICATION PAIN MANAGEMENT FOLLOW UP with MICHEL L THOM ANP-BC 10/11/2021 Last Documented On 2 9:38AM ; [facility] Cervical postlaminectomy syndrome PAIN M ANAGEMENT FOLLOW UP with MICHEL L THOM ANP-BC 09/09/2021 Last Documented On 2 3:08PM ; [facility] Chronic pain syndrome PAIN MANAGEMENT FO LLOW UP with MICHEL L THOM ANP-BC 09/09/2021 Last Documented On 2 3:08PM ; [facility] watermaster use of opiate analgesic PAIN M ANAGEMENT FOLLOW UP with MICHEL L THOM ANP-BC 09/09/2021 Last Documented On 2 3:08PM ; [facility] Lumbar spondylosis without m yelopathy or radiculopathy PAIN MANAGEMENT FOLLOW UP with MICHEL L THOM ANP-BC 09/09/2021 Last Documented On 2 3:08PM ; [facility] Myalgia PAIN MANAGEMENT FOLLOW UP with T ANNE-MARIE L THOM ANP-BC 09/09/2021 Last Documented On 2 3:08PM ; [facility] Sacroiliitis PAIN MANAGEMENT FOLLOW UP with T ANNE-MARIE L THOM ANP-BC 09/09/2021 Last Documented On 2 3:08PM ; [facility] SPINAL STENOSIS LUMBAR REGIO N W/O NEUROGENIC CLAUDICATION PAIN MANAGEMENT FOLLOW UP with MICHEL L THOM ANP-BC 09/09/2021 Last Documented On 2 3:08PM ; [facility] Cervical postlaminectomy syndrome PAIN M ANAGEMENT FOLLOW UP with MICHEL L THOM ANP-BC 07/26/2021 Last Documented On 2 1:51PM ; [facility] Chronic pain syndrome PAIN MANAGEMENT FO LLOW UP with MICHEL L THOM ANP-BC 07/26/2021 Last Documented On 2 1:51PM ; [facility] Lumbar spondylosis without m yelopathy or radiculopathy PAIN MANAGEMENT FOLLOW UP with MICHEL L THOM ANP-BC 07/26/2021 Last Documented On 2 1:51PM ; [facility] Myalgia PAIN MANAGEMENT FOLLOW UP with T ANNE-MARIE L THOM ANP-BC 07/26/2021 Last Documented On 2 1:51PM ; [facility] Pre-op exam [Z01.818 - Encou nter for other preprocedural examination] PAIN MANAGEMENT FOLLOW UP with MICHEL L THOM ANP-BC 07/26/2021 Last Documented On 2 1:51PM ; [facility] Sacroiliitis PAIN MANAGEMENT FOLLOW UP with T ANNE-MARIE L THOM ANP-BC 07/26/2021 Last Documented On 2 1:51PM ; [facility] SPINAL STENOSIS LUMBAR REGIO N W/O NEUROGENIC CLAUDICATION PAIN MANAGEMENT FOLLOW UP with MICHEL L THOM ANP-BC 07/26/2021 Last Documented On 2 1:51PM ; [facility] Cervical postlaminectomy syndrome PAIN M ANAGEMENT FOLLOW UP with MICHEL L THOM ANP-BC 06/30/2021 Last Documented On 2 11:06AM ; [facility] Chronic pain syndrome PAIN MANAGEMENT FO LLOW UP with MICHEL L THOM ANP-BC 06/30/2021 Last Documented On 2 11:06AM ; [facility] Lumbar spondylosis without m yelopathy or radiculopathy PAIN MANAGEMENT FOLLOW UP with MICHEL L THOM ANP-BC 06/30/2021 Last Documented On 2 11:06AM ; [facility] Myalgia PAIN MANAGEMENT FOLLOW UP with T ANNE-MARIE L THOM ANP-BC 06/30/2021 Last Documented On 2 11:06AM ; [facility] Sacroiliitis PAIN MANAGEMENT FOLLOW UP with T ANNE-MARIE L THOM ANP-BC 06/30/2021 Last Documented On 2 11:06AM ; [facility] SPINAL STENOSIS LUMBAR REGIO N W/O NEUROGENIC CLAUDICATION PAIN MANAGEMENT FOLLOW UP with MICHEL L THOM ANP-BC 06/30/2021 Last Documented On 2 11:06AM ; [facility] Cervical postlaminectomy syndrome PAIN M ANAGEMENT FOLLOW UP with MICHEL L THOM ANP-BC 05/18/2021 Last Documented On 2 7:24PM ; [facility] Chronic pain syndrome PAIN MANAGEMENT FO LLOW UP with MICHEL L THOM ANP-BC 05/18/2021 Last Documented On 2 7:24PM ; [facility] Lumbar spondylosis without m yelopathy or radiculopathy PAIN MANAGEMENT FOLLOW UP with MICHEL L THOM ANP-BC 05/18/2021 Last Documented On 2 7:24PM ; [facility] Myalgia PAIN MANAGEMENT FOLLOW UP with T ANNE-MARIE L THOM ANP-BC 05/18/2021 Last Documented On 2 7:24PM ; [facility] Sacroiliitis PAIN MANAGEMENT FOLLOW UP with T ANNE-MARIE L THOM ANP-BC 05/18/2021 Last Documented On 2 7:24PM ; [facility] SPINAL STENOSIS LUMBAR REGIO N W/O NEUROGENIC CLAUDICATION PAIN MANAGEMENT FOLLOW UP with MICHEL L THOM ANP-BC 05/18/2021 Last Documented On 2 7:24PM ; [facility] Cervical postlaminectomy syndrome PAIN M ANAGEMENT FOLLOW UP with MICHEL L THOM ANP-BC 02/17/2021 Last Documented On 2 10:09AM ; [facility] Chronic pain syndrome PAIN MANAGEMENT FO LLOW UP with MICHEL L THOM ANP-BC 02/17/2021 Last Documented On 2 10:09AM ; [facility] Lumbar canal stenosis with n eurogenic claudication PAIN MANAGEMENT FOLLOW UP with MICHEL L THOM ANP-BC 02/17/2021 Last Documented On 2 10:09AM ; [facility] Lumbar spondylosis with radiculopathy PA IN MANAGEMENT FOLLOW UP with MICHEL L THOM ANP-BC 02/17/2021 Last Documented On 2 10:09AM ; [facility] Myalgia PAIN MANAGEMENT FOLLOW UP with T ANNE-MARIE L THOM ANP-BC 02/17/2021 Last Documented On 2 10:09AM ; [facility] Sacroiliitis PAIN MANAGEMENT FOLLOW UP with T ANNE-MARIE L THOM ANP-BC 02/17/2021 Last Documented On 2 10:09AM ; [facility] Chronic pain syndrome RX ISSUE/REFILL with TRAN E L THOM ANP-BC 02/02/2021 Last Documented On 2 10:07AM ; [facility] Lumbar canal stenosis with n eurogenic claudication RX ISSUE/REFILL with MICHEL L THOM ANP-BC 02/02/2021 Last Documented On 2 10:07AM ; [facility] Lumbar spondylosis with radiculopathy RX ISSUE/REFILL with MICHEL L THOM ANP-BC 02/02/2021 Last Documented On 2 10:07AM ; [facility] Myalgia RX ISSUE/REFILL with MICHEL L BL EVINS ANP-BC 02/02/2021 Last Documented On 2 10:07AM ; [facility] Sacroiliitis RX ISSUE/REFILL with MICHEL L NILAM HARDEN ANP- 02/02/2021 Last Documented On 2 10:07AM ; [facility] Cervical postlaminectomy syndrome PAIN M ANAGEMENT FOLLOW UP with MICHEL L THOM ANP-BC 12/14/2020 Last Documented On 1 2:26PM ; [facility] Chronic pain syndrome PAIN MANAGEMENT FO LLOW UP with MICHEL L THOM ANP- 12/14/2020 Last Documented On 1 2:26PM ; [facility] Lumbar canal stenosis with n eurogenic claudication PAIN MANAGEMENT FOLLOW UP with MICHEL L THOM ANP-BC 12/14/2020 Last Documented On 1 2:26PM ; [facility] Lumbar spondylosis with radiculopathy PA IN MANAGEMENT FOLLOW UP with MICHEL L THOM [facility]- 12/14/2020 Last Documented On 1 2:26PM ; [facility] Myalgia PAIN MANAGEMENT FOLLOW UP with T ANNE-MARIE L THOM ANP- 12/14/2020 Last Documented On 1 2:26PM ; [facility] Sacroiliitis PAIN MANAGEMENT FOLLOW UP with T ANNE-MARIE L THOM ANP- 12/14/2020 Last Documented On 1 2:26PM ; [facility] Cervical postlaminectomy syndrome RX ISSUE/REFIL L with MINA HEFT MANAGER TITLE 12/04/2020 Last Documented On 1 3:18PM ; [facility] Chronic pain syndrome RX ISSUE/REFILL with RACHE L HEFT MANAGER TITLE 12/04/2020 Last Documented On 1 3:18PM ; [facility] Lumbar canal stenosis with n eurogenic claudication RX ISSUE/REFILL with MINA HEFT MANAGER TITLE 12/04/2020 Last Documented On 1 3:18PM ; [facility] Lumbar spondylosis with radiculopathy RX ISSUE/R EFILL with MINA HEFT MANAGER TITLE 12/04/2020 Last Documented On 1 3:18PM ; [facility] Myalgia RX ISSUE/REFILL with MINA HEFT MANAGER TITLE 12/04/2020 Last Documented On 1 3:18PM ; [facility] Sacroiliitis RX ISSUE/REFILL with MINASINTIA BOBO MANAGER TITLE 12/04/2020 Last Documented On 1 3:18PM ; [facility] Cervical postlaminectomy syndrome PAIN M ANAGEMENT FOLLOW UP with KRYSTEN CANNON MD 10/30/2020 Last Documented On 1 2:24PM ; [facility] Chronic pain syndrome PAIN MANAGEMENT FOLLOW UP with KRYSTEN CANNON MD 10/30/2020 Last Documented On 1 2:24PM ; [facility] Lumbar canal stenosis with n eurogenic claudication PAIN MANAGEMENT FOLLOW UP with KRYSTEN CANNON MD 10/30/2020 Last Documented On 1 2:24PM ; [facility] Lumbar spondylosis with radiculopathy PA IN MANAGEMENT FOLLOW UP with KRYSTEN CANNON MD 10/30/2020 Last Documented On 1 2:24PM ; [facility] Myalgia PAIN MANAGEMENT FOLLOW UP with Opal CANNON MD 10/30/2020 Last Documented On 1 2:24PM ; [facility] Sacroiliitis PAIN MANAGEMENT FOLLOW UP with Opal CANNON MD 10/30/2020 Last Documented On 1 2:24PM ; [facility] Cervical postlaminectomy syndrome PAIN M ANAGEMENT FOLLOW UP with MICHEL Tino RAMOSS ANP-BC 09/03/2020 Last Documented On 1 7:52AM ; [facility] Chronic pain syndrome PAIN MANAGEMENT FO LLOW UP with MICHEL L THOM ANP-BC 09/03/2020 Last Documented On 1 7:52AM ; [facility] Lumbar canal stenosis with n eurogenic claudication PAIN MANAGEMENT FOLLOW UP with MICHEL L THOM ANP-BC 09/03/2020 Last Documented On 1 7:52AM ; [facility] Lumbar spondylosis with radiculopathy PA IN MANAGEMENT FOLLOW UP with MICHEL L THOM ANP-BC 09/03/2020 Last Documented On 1 7:52AM ; [facility] Myalgia PAIN MANAGEMENT FOLLOW UP with T ANNE-MARIE L THOM ANP-BC 09/03/2020 Last Documented On 1 7:52AM ; [facility] Sacroiliitis PAIN MANAGEMENT FOLLOW UP with T ANNE-MARIE L THOM ANP-BC 09/03/2020 Last Documented On 1 7:52AM ; [facility] Cervical postlaminectomy syndrome FOLLOW UP with MICHEL L THOM ANP-BC 07/15/2020 Last Documented On 1 10:19PM ; [facility] Chronic pain syndrome FOLLOW UP with MICHEL L BL EVINS ANP-BC 07/15/2020 Last Documented On 1 10:19PM ; [facility] Lumbar canal stenosis with n eurogenic claudication FOLLOW UP with MICHEL L THOM ANP-BC 07/15/2020 Last Documented On 1 10:19PM ; [facility] Lumbar spondylosis with radiculopathy FO LLOW UP with MICHEL L THOM ANP-BC 07/15/2020 Last Documented On 1 10:19PM ; [facility] Myalgia FOLLOW UP with MICHEL L THOM ANP-BC 07/15/2020 Last Documented On 1 10:19PM ; [facility] Sacroiliitis FOLLOW UP with MICHEL L THOM ANP-BC 07/15/2020 Last Documented On 1 10:19PM ; [facility] Cervical postlaminectomy syndrome PAIN M ANAGEMENT FOLLOW UP with KRYSTEN CANNON MD 05/27/2020 Last Documented On 1 7:44PM ; [facility] Chronic pain syndrome PAIN MANAGEMENT FOLLOW UP with KRYSTEN CANNON MD 05/27/2020 Last Documented On 1 7:44PM ; [facility] Localized lumbar osteoarthritis PAIN MAN AGEMENT FOLLOW UP with KRYSTEN CANNON MD 05/27/2020 Last Documented On 1 7:44PM ; [facility] Lumbosacral spinal stenosis PAIN MANAGEM ENT FOLLOW UP with KRYSTEN CANNON MD 05/27/2020 Last Documented On 1 7:44PM ; [facility] Myalgia PAIN MANAGEMENT FOLLOW UP with Opal CANNON MD 05/27/2020 Last Documented On 1 7:44PM ; [facility] Sacroiliitis PAIN MANAGEMENT FOLLOW UP with Opal CANNON MD 05/27/2020 Last Documented On 1 7:44PM ; [facility] Cervical postlaminectomy syndrome TELEHEALTH wit h MICHEL L THOM ANP-BC 05/05/2020 Last Documented On 1 7:50AM ; [facility] Cervical spine stenosis TELEHEALTH with MICHEL L THOM ANP-BC 05/05/2020 Last Documented On 1 7:50AM ; [facility] Cervical spondylosis with radiculopathy TELEHEALTH with MICHEL L THOM ANP-BC 05/05/2020 Last Documented On 1 7:50AM ; [facility] Chronic pain syndrome TELEHEALTH with MICHEL L B RIGOBERTO ANP-BC 05/05/2020 Last Documented On 1 7:50AM ; [facility] Herniated cervical disc TELEHEALTH with MICHEL L THOM ANP-BC 05/05/2020 Last Documented On 1 7:50AM ; [facility] Localized lumbar osteoarthritis TELEHEALTH with MICHEL L THOM ANP-BC 05/05/2020 Last Documented On 1 7:50AM ; [facility] Lumbosacral spinal stenosis TELEHEALTH with TAMM IE L THOM ANP-BC 05/05/2020 Last Documented On 1 7:50AM ; [facility] Myalgia TELEHEALTH with MICHEL L THOM ANP-BC 05/05/2020 Last Documented On 1 7:50AM ; [facility] Sacroiliitis TELEHEALTH with MICHEL L THOM ANP-BC 05/05/2020 Last Documented On 1 7:50AM ; [facility] Cervical postlaminectomy syndrome PAIN M ANAGEMENT NEW CONSULT with MICHEL L THOM ANP-BC 03/17/2020 Last Documented On 0 1:01PM ; [facility] Chronic pain syndrome PAIN MANAGEMENT NE W CONSULT with MICHEL Tino [facility]OSS [facility] 03/17/2020 Last Documented On 0 1:01PM ; [facility] Localized lumbar osteoarthritis PAIN MAN AGEMENT NEW CONSULT with MICHEL Tino THOM [facility] 03/17/2020 Last Documented On 0 1:01PM ; [facility] Lumbosacral spinal stenosis PAIN MANAGEM ENT NEW CONSULT with MICHEL Tino REIDTHOM [facility] 03/17/2020 Last Documented On 0 1:01PM ; [facility] Myalgia PAIN MANAGEMENT NEW CONSULT with MICHEL Tino THOM [facility] 03/17/2020 Last Documented On 0 1:01PM ; [facility] Sacroiliitis PAIN MANAGEMENT NEW CONSULT with MICHEL Tino RE[facility] 03/17/2020 Last Documented On 0 1:01PM ; [facility] Instructions Includes: Instructions for all patient encounters Instructions to patient Intervention and counseling on cessation of tobacco use : Patient recieved smoking cessation handout Last Documented On 4 11:42AM ; [facility] Intervention and counseling on cessation of tobacco use : Patient recieved smoking cessation handout Last Documented On 4 1:06PM ; [facility] Intervention and counseling on cessation of tobacco use Last Documented On 4 10:31AM ; [facility] Intervention and counseling on cessation of tobacco use : Patient recieved smoking cessation handout Last Documented On 4 4:34PM ; [facility] Intervention and counseling on cessation of tobacco use : Patient recieved smoking cessation handout Last Documented On 4 10:18AM ; [facility] Intervention and counseling on cessation of tobacco use : Patient recieved smoking cessation handout Last Documented On 4 10:00AM ; [facility] Intervention and counseling on cessation of tobacco use : Patient recieved smoking cessation handout Last Documented On 3 10:22AM ; [facility] Intervention and counseling on cessation of tobacco use : Patient recieved smoking cessation handout Last Documented On 3 1:17PM ; [facility] Intervention and counseling on cessation of tobacco use : Patient recieved smoking cessation handout Last Documented On 1 1:49PM ; [facility] Intervention and counseling on cessation of tobacco use : Patient recieved smoking cessation handout Last Documented On 1 9:51AM ; [facility] Intervention and counseling on cessation of tobacco use : Patient recieved smoking cessation handout Last Documented On 1 3:26PM ; [facility] Intervention and counseling on cessation of tobacco use : Patient recieved smoking cessation handout Last Documented On 1 3:54PM ; [facility] Intervention and counseling on cessation of tobacco use : Patient recieved smoking cessation handout Last Documented On 1 4:30PM ; [facility] Intervention and counseling on cessation of tobacco use : Patient recieved smoking cessation handout Last Documented On 1 4:08PM ; [facility] Intervention and counseling on cessation of tobacco use : Patient recieved smoking cessation handout Last Documented On 0 1:54PM ; [facility] Education and Decision Aids were provided during visit for: Pill Count: 56 HYDROCODONE Last Documented On 4 11:45AM ; [facility] Pill Count: HYDROCODONE Last Documented On 4 1:07PM ; [facility] Patient education about adve rse reactions to medication Last Documented On 4 10:25AM ; [facility] Reviewed side effects and Ri sks/Benefits analysis Last Documented On 4 10:25AM ; [facility] Pill Count: one HYDROCODONE Last Documented On 4 4:34PM ; [facility] Pill Count: one HYDROCODONE Last Documented On 4 10:18AM ; [facility] Pill Count: 51 HYDROCODONE Last Documented On 4 10:12AM ; [facility] Pill Count: 47 HYDROCODONE Last Documented On 3 10:29AM ; [facility] Pill Count: 55 HYDROCODONE Last Documented On 3 1:23PM ; [facility] Pill Count: three HYDROCODON E Last Documented On 3 9:55AM ; [facility] Pill Count: three HYDROCODON E Last Documented On 3 8:53AM ; [facility] Pill Count: 41 HYDROCODONE Last Documented On 3 10:24AM ; [facility] Pill Count: five HYDROCODONE Last Documented On 3 10:51AM ; [facility] Pill Count: 39 HYDROCODONE Last Documented On 3 10:15AM ; [facility] Pill Count: 34 HYDROCODONE Last Documented On 2 9:31AM ; [facility] Pill Count: 13 HYDROCODONE Last Documented On 2 9:15AM ; [facility] Pill Count: five Last Documented On 2 9:55AM ; [facility] Pill Count: 51 Appropriate H YDROCODONE Last Documented On 2 9:07AM ; [facility] Pill Count: 25 HYDROCODONE Last Documented On 2 2:06PM ; [facility] Pill Count: Patient did not bring pain medication to appointment for pill count, per policy. Advised in order to continue to safely prescribe opioids, medication must be brought to each appointment Last Documented On 2 2:06PM ; [facility] Pill Count: 25 HYDROCODONE Last Documented On 2 1:40PM ; [facility] Pill Count: Patient did not bring pain medication to appointment for pill count, per policy. Advised in order to continue to safely prescribe opioids, medication must be brought to each appointment Last Documented On 2 1:22PM ; [facility] Pill Count: HYDROCODONE Last Documented On 2 1:16PM ; [facility] Pill Count: Patient did not bring pain medication to appointment for pill count, per policy. Advised in order to continue to safely prescribe opioids, medication must be brought to each appointment Last Documented On 2 1:16PM ; [facility] Pill Count: 45 HYDROCODONE Last Documented On 2 1:45PM ; [facility] Pill Count: 34 Last Documented On 1 1:37PM ; [facility] Pill Count: 44 Appropriate Last Documented On 1 1:38PM ; [facility] Medication # 1 Quantity: 2 Last Documented On 1 3:25PM ; [facility] Date and time Medication # 1 last taken: THIS MORNING 11AM Last Documented On 1 3:25PM ; [facility] Name of Medication # 1: HYDR OCODONE Last Documented On 1 3:25PM ; [facility] Medication # 1 Pill Descript ion: WHITE OVAL Last Documented On 1 3:25PM ; [facility] Medication # 1 Imprint: [id number] Last Documented On 1 3:25PM ; [facility] Date on medication # 1 bottl e: 01-14-21 Last Documented On 1 3:25PM ; [facility] Pill Counter initials: KMS Last Documented On 1 3:25PM ; [facility] Pill Count: 44 Appropriate Last Documented On 1 1:43PM ; [facility] Pill Count: 14 Appropriate Last Documented On 1 1:55PM ; [facility] Pill Count: two Appropriate Last Documented On 1 7:51AM ; [facility] Pill Count: ten Last Documented On 1 3:34PM ; [facility] Pill Count: four Last Documented On 1 4:01PM ; [facility] Pill Count: two Appropriate Last Documented On 1 4:24PM ; [facility] Medical Equipment - Implanted Devices Includes: Current and historical Devices No Medical Equipment Recorded Medications Includes: Current and historical Medications Current Medications (continue as prescribed) HYDROcodone-Acetaminophen 10 -325 MG Oral Tablet 2023 Provider: MICHEL MARI Diagnosis: Spinal stenosis, lumbar region without neurogenic huong 1 po bid prn Last Documented On 4 3:18PM By MICHEL MARI ; [facility] Celecoxib 200 MG Oral Capsule 08/21/2023 Provider: MICHEL MARI Diagnosis: TAKE 1 CAPSULE BY MOUTH EVERY DAY Last Documented On 4 8:21AM By MICHEL MARI ; [facility] Pregabalin 200 MG Oral Capsule 06/20/2023 Provider: MICHEL Mina Diagnosis: Radiculopathy, c ervical region TAKE 1 CAPSULE BY MOUTH TWICE A DAY Last Documented On 4 2:00PM By MICHEL MARI ; [facility] Pantoprazole Sodium 40 MG Or al Tablet Delayed Release 06/15/2023 Provider: OLIVIA VELA MD Diagnosis: Last Documented On 06/27/2023 10:33AM By Ned BRUSH ; [facility] Montelukast Sodium 10 MG Oral Tablet 06/15/2023 Prov ider: OLIVIA VELA MD Diagnosis: Last Documented On 06/27/2023 10:33AM By Ned BRUSH ; [facility] buPROPion HCl ER (XL) 150 MG Oral Tablet Extended Release 24 Hour 05/08/2023 Provider: Diagnosis: Last Documented On 06/27/2023 10:32AM By Ned BRUSH ; [facility] Escitalopram Oxalate 10 MG Oral Tablet 05/07/2023 Pr ovider: Diagnosis: Last Documented On 06/27/2023 10:32AM By Nde BRUSH ; [facility] amLODIPine Besylate 5 MG Oral Tablet 05/04/2023 Prov ider: OLIVIA VELA MD Diagnosis: Last Documented On 06/27/2023 10:31AM By Ned BRUSH ; [facility] Lidocaine 5% External Patch 04/11/2023 Provider: MICHEL FLOWER Diagnosis: Other spondylosi s with radiculopathy, lumbar region apply 1-2 patches to affecte d area for 12 hours and remove for 12 hours Last Documented On 4 10:41AM By MICHEL FLOWER ; [facility] Vraylar 1.5 MG Oral Capsule 01/11/2023 Provider: Diagnosis: PT IS TAKING SAMPLES FROM PSYCH Last Documented On 3 10:28AM By Pattie BRUSH ; [facility] Orilissa 200 MG Oral Tablet 12/08/2022 Provider: Diagnosis: Last Documented On 3 1:23PM By Kori BRUSH ; [facility] buPROPion HCl ER (XL) 150 MG Oral Tablet Extended Release 24 Hour 05/09/2022 Provider: Diagnosis: Last Documented On 3 10:50AM By Pattie BRUSH ; [facility] SUMAtriptan Succinate 100 MG Oral Tablet 04/16/2022 Provider: OLIVIA VELA MD Diagnosis: Last Documented On 3 10:57AM By [facility] ; [facility] buPROPion HCl ER (XL) 300 MG Oral Tablet Extended Release 24 Hour 07/19/2021 Provider: OLIVIA VELA MD Diagnosis: Last Documented On 3 10:57AM By DWAINE LITTLEMAURI ; [facility] Albuterol Sulfate HFA 108 (9 0 Base) MCG/ACT Inhalation Aerosol Solution 06/30/2021 Provider: OLIVIA AYALA MD Diagnosis: Last Documented On 3 10:57AM By DWAINE KOO [facility] ; [facility] Cetirizine HCl 10 MG Oral Tablet 06/30/2021 Provider : OLIVIA VELA MD Diagnosis: Last Documented On 3 10:57AM By DWAINE LITTLEMAURI ; [facility] Cyclobenzaprine HCl 10 MG Oral Tablet 06/26/2021 Pro vider: Diagnosis: Last Documented On 3 10:57AM By DWAINE ABBOTTMAURI ; [facility] Sertraline HCl 100 MG Oral Tablet 03/17/2020 Provide r: Diagnosis: Last Documented On 3 10:57AM By DWAINE LITTLEMAURI ; [facility] Losartan Potassium 50 MG Oral Tablet 03/17/2020 Prov ider: Diagnosis: Last Documented On 3 10:57AM By DWAINE ABBOTTMAURI ; [facility] Montelukast Sodium 10 MG Oral Tablet 03/17/2020 Prov ider: Diagnosis: Last Documented On 3 10:57AM By DWAINE LITTLEMAURI ; [facility] Past Medications on file HYDROcodone-Acetaminophen 10 -325 MG Oral Tablet 08/01/2023 - 2023 Provider: MICHEL MANLEY [facility] Diagnosis: Spinal stenosis, lumbar region without neurogenic huong 1 po bid prn Last Documented On 4 3:17PM By MICHLE MARI ; [facility] HYDROcodone-Acetaminophen 10 -325 MG Oral Tablet 07/03/2023 - 07/31/2023 Provider: MICHEL MARI Diagnosis: Spinal stenosis, lumbar region without neurogenic huong 1 po bid prn4/4 Last Documented On 4 8:07AM By MICHEL MARI ; [facility] HYDROcodone-Acetaminophen 10 -325 MG Oral Tablet 06/06/2023 - 07/03/2023 Provider: MICHEL MARI Diagnosis: Spinal stenosis, lumbar region without neurogenic huong 1 po bid prn Last Documented On 4 2:21PM By MICHEL MARI ; [facility] HYDROcodone-Acetaminophen 10 -325 MG Oral Tablet 06/05/2023 - 06/06/2023 Provider: MICHEL MARI Diagnosis: Spinal stenosis, lumbar region without neurogenic huong 1 po bid prn Last Documented On 4 2:58PM By MICHEL MARI ; [facility] Celecoxib 200 MG Oral Capsule 05/23/2023 - 08/21/2023 Provider: MICHEL MARI Diagnosis: TAKE 1 CAPSULE BY MOUTH EVERY DAY Last Documented On 4 8:09AM By MICHEL MARI ; [facility] HYDROcodone-Acetaminophen 10 -325 MG Oral Tablet 05/04/2023 - 06/05/2023 Provider: MICHEL MARI Diagnosis: Spinal stenosis, lumbar region without neurogenic huong 1 po bid prnstart 2/ Last Documented On 4 3:12PM By MICHEL MARI ; [facility] HYDROcodone-Acetaminophen 10 -325 MG Oral Tablet 04/04/2023 - 05/04/2023 Provider: DWAINE KOO [employer]ALLIST[employer] EXPERT-FPA, [employer] Diagnosis: Spinal stenosis, lumbar region without neurogenic huong 1 po bid prn Last Documented On 4 1:10PM By MICHEL FLOWER ; [facility] Celecoxib 200 MG Oral Capsule 03/16/2023 - 05/23/2023 Provider: MICHEL MARI Diagnosis: TAKE 1 CAPSULE BY MOUTH EVERY DAY Last Documented On 4 3:53PM By MICHEL FLOWER ; [facility] HYDROcodone-Acetaminophen 10 -325 MG Oral Tablet 03/08/2023 - 04/04/2023 Provider: MICHEL MARI Diagnosis: Spinal stenosis, lumbar region without neurogenic huong 1 po bid prnstart 03/09 Last Documented On 4 12:29PM By DWAINE KOO [facility] ; [facility] HYDROcodone-Acetaminophen 10 -325 MG Oral Tablet 03/06/2023 - 03/08/2023 Provider: MICHEL MARI Diagnosis: Spinal stenosis, lumbar region without neurogenic huong 1 po bid prnstart 03/09 Last Documented On 3 11:18AM By MICHEL MARI ; [facility] Pregabalin 200 MG Oral Capsule 02/07/2023 - 06/20/2023 Provider: MICHEL MARI Diagnosis: Radiculopathy, cervical region TAKE 1 CAPSULE BY MOUTH TWICE A DAY Last Documented On 4 1:52PM By MICHEL MARI ; [facility] HYDROcodone-Acetaminophen 10 -325 MG Oral Tablet 02/07/2023 - 03/06/2023 Provider: MICHEL MARI Diagnosis: Spinal stenosis, lumbar region without neurogenic huong 1 po bid prn Last Documented On 3 12:47PM By MICHEL FLOWER ; [facility] HYDROcodone-Acetaminophen 10 -325 MG Oral Tablet 01/31/2023 - 02/06/2023 Provider: MICHEL MARI Diagnosis: Spinal stenosis, lumbar region without neurogenic huong 1 po bid prnstart 02/04 Last Documented On 3 9:08AM By MICHEL MARI ; [facility] HYDROcodone-Acetaminophen 10 -325 MG Oral Tablet 01/04/2023 - 01/31/2023 Provider: MICHEL MARI Diagnosis: Spinal stenosis, lumbar region without neurogenic huong 1 po bid prnstart 01/05 Last Documented On 3 1:54PM By MICHEL MARI ; [facility] Celecoxib 200 MG Oral Capsule 12/27/2022 - 03/16/2023 Provider: MICHEL MARI Diagnosis: TAKE 1 CAPSULE BY MOUTH EVERY DAY Last Documented On 3 11:12AM By MICHEL MARI ; [facility] Lidocaine 5% External Patch 12/08/2022 - 04/11/2023 Provider: MICHEL MARI Diagnosis: Other spondylosi s with radiculopathy, lumbar region as directed apply patch to a ffected area for 12 hours and remove for 12 hours Last Documented On 4 10:30AM By MICHEL MARI ; [facility] HYDROcodone-Acetaminophen 10 -325 MG Oral Tablet 12/06/2022 - 01/04/2023 Provider: DWAINE KOO APRN-FPA, [employer]- Diagnosis: Spinal stenosis, lumbar region without neurogenic huong 1 po bid prn Last Documented On 3 12:35PM By MICHEL MARI ; [facility] HYDROcodone-Acetaminophen 10 -325 MG Oral Tablet 11/04/2022 - 12/06/2022 Provider: MICHEL MRAI Diagnosis: Spinal stenosis, lumbar region without neurogenic huong 1 po bid prn Last Documented On 3 11:59AM By DWAINE KOO [facility] ; [facility] Celecoxib 200 MG Oral Capsule 11/01/2022 - 12/27/2022 Provider: MICHEL MARI Diagnosis: TAKE 1 CAPSULE BY MOUTH EVERY DAY Last Documented On 3 11:21AM By MICHEL MARI ; [facility] HYDROcodone-Acetaminophen 10 -325 MG Oral Tablet 10/06/2022 - 11/04/2022 Provider: MICHEL MARI Diagnosis: Spinal stenosis, lumbar region without neurogenic huong 1 po bid prn Last Documented On 3 1:18PM By MICHEL MARI ; [facility] Omeprazole 20 MG Oral Capsul e Delayed Release 10/06/2022 - 06/27/2023 Provider: OLIVIA VELA MD Diagnosis: Last Documented On 06/27/2023 10:34AM By Ned BRUSH ; [facility] HYDROcodone-Acetaminophen 10 -325 MG Oral Tablet 10/05/2022 - 10/05/2022 Provider: MICHEL MARI Diagnosis: Spinal stenosis, lumbar region without neurogenic huong 1 po bid prn Last Documented On 3 1:35PM By MICHEL MARI ; [facility] Pregabalin 200 MG Oral Capsule 10/05/2022 - 02/07/2023 Provider: MICHEL MARI Diagnosis: Radiculopathy, cervical region TAKE 1 CAPSULE BY MOUTH TWICE A DAY Last Documented On 3 4:09PM By MICHEL MARI ; [facility] HYDROcodone-Acetaminophen 10 -325 MG Oral Tablet 09/29/2022 - 09/26/2022 Provider: MICHEL MARI Diagnosis: Spinal stenosis, lumbar region without neurogenic huong 1 po bid prn Last Documented On 3 4:19PM By MICHEL MARI ; [facility] HYDROcodone-Acetaminophen 10 -325 MG Oral Tablet 09/29/2022 - 10/05/2022 Provider: MICHEL MARI Diagnosis: Spinal stenosis, lumbar region without neurogenic huong 1 po bid prn Last Documented On 3 9:17AM By MICHEL MARI ; [facility] Celecoxib 200 MG Oral Capsule 09/27/2022 - 11/01/2022 Provider: MICHEL MARI Diagnosis: TAKE 1 CAPSULE BY MOUTH EVERY DAY Last Documented On 3 2:04PM By MICHEL MARI ; [facility] HYDROcodone-Acetaminophen 10 -325 MG Oral Tablet 08/31/2022 - 09/26/2022 Provider: MICHEL MARI Diagnosis: Spinal stenosis, lumbar region without neurogenic huong 1 po bid prn Last Documented On 3 8:39AM By MICHEL FLOWER ; [facility] HYDROcodone-Acetaminophen 10 -325 MG Oral Tablet 07/28/2022 - 2022 Provider: MICHEL FLOWER Diagnosis: Spinal stenosis, lumbar region without neurogenic huong 1 po bid prn Last Documented On 3 11:24AM By [facility] ; [facility] Celecoxib 200 MG Oral Capsule 07/26/2022 - 10/05/2022 Provider: MICHEL FLOWER Diagnosis: TAKE 1 CAPSULE BY MOUTH EVERY DAY Last Documented On 10/05/2022 8:51AM By Pattie Ortiz Nini ; [facility] HYDROcodone-Acetaminophen 10 -325 MG Oral Tablet 06/29/2022 - 07/27/2022 Provider: MICHEL FLOWER Diagnosis: Spinal stenosis, lumbar region without neurogenic huong 1 po bid prn Last Documented On 3 2:33PM By [facility] ; [facility] Pregabalin 200 MG Oral Capsule 06/29/2022 - 10/05/2022 Provider: MICHEL FLOWER Diagnosis: Radiculopathy, cervical region TAKE 1 CAPSULE BY MOUTH TWICE A DAY Last Documented On 3 9:17AM By MICHEL FLOWER ; [facility] Celecoxib 200 MG Oral Capsule 06/27/2022 - 07/26/2022 Provider: MICHEL FLOWER Diagnosis: TAKE 1 CAPSULE BY MOUTH EVERY DAY Last Documented On 3 4:09PM By MICHEL FLOWER ; [facility] Pregabalin 200 MG Oral Capsule 06/01/2022 - 06/29/2022 Provider: DWAINE KOO APRN-FPA, [employer] Diagnosis: Radiculopathy, cervical region TAKE 1 CAPSULE BY MOUTH TWICE A DAY Last Documented On 3 11:12AM By MICHEL FLOWER ; [facility] HYDROcodone-Acetaminophen 10 -325 MG Oral Tablet 05/31/2022 - 06/29/2022 [facility] Diagnosis: Spinal stenosis, lumbar region without neurogenic huong 1 po bid prn Last Documented On 3 11:12AM By [facility] ; [facility] Celecoxib 200 MG Oral Capsule 05/27/2022 - 06/27/2022 Provider: DWAINE KOO [facility] Diagnosis: TAKE 1 CAPSULE BY MOUTH EVERY DAY Last Documented On 3 4:53PM By MICHEL [facility] ; [facility] HYDROcodone-Acetaminophen 10 -325 MG Oral Tablet 04/29/2022 - 05/30/2022 Provider: DWAINE AKHTAR [facility] [facility] Diagnosis: Spinal stenosis, lumbar region without neurogenic huong 1 po bid prn Last Documented On 3 10:02AM By DWAINE KOO [facility] ; [facility] Phentermine HCl 15 MG Oral Capsule 04/18/2022 - 2022 Provider: Diagnosis: Last Documented On 3 10:33AM By DWAINE ABBOTTMAURI ; [facility] Pantoprazole Sodium 40 MG Or al Tablet Delayed Release 04/16/2022 - 04/18/2022 Provider: OLIVIA DENNIS MD Diagnosis: Last Documented On 3 10:33AM By DWAINE KOO [facility] ; [facility] Pantoprazole Sodium 40 MG Or al Tablet Delayed Release 04/16/2022 - 11/04/2022 Provider: OLIVIA DENNIS MD Diagnosis: Last Documented On 11/04/2022 9:58AM By Pattie BRUSH ; [facility] ARIPiprazole 5 MG Oral Tablet 04/06/2022 - 06/29/2022 Provider: OLIVIA VELA MD Diagnosis: Last Documented On 3 10:50AM By Pattie BRUSH ; [facility] HYDROcodone-Acetaminophen 10 -325 MG Oral Tablet 04/05/2022 - 04/29/2022 Provider: SIDNEY MAZARIEGOS Diagnosis: Spinal stenosis, lumbar region without neurogenic huong 1 po bid prn Last Documented On 3 2:13PM By DWAINE KOO [facility] ; [facility] HYDROcodone-Acetaminophen 10 -325 MG Oral Tablet 03/31/2022 - 04/05/2022 Provider: DWAINE KOO [employer]-FPA, [facility] Diagnosis: Spinal stenosis, lumbar region without neurogenic huong 1 po bid prn Last Documented On 3 5:34PM By DWAINE KOO [facility] ; [facility] HYDROcodone-Acetaminophen 10 -325 MG Oral Tablet 03/02/2022 - 03/30/2022 Provider: MICHEL RUBI-BC Diagnosis: Spinal stenosis, lumbar region without neurogenic huong 1 po bid prn Last Documented On 2 7:42PM By DWAINE KOO [facility] ; [facility] Celecoxib 200 MG Oral Capsule 03/02/2022 - 05/27/2022 Provider: MICHEL FLOWERBC Diagnosis: TAKE 1 CAPSULE BY MOUTH EVERY DAY Last Documented On 3 1:09PM By DWAINE KOO [facility] ; [facility] Pregabalin 200 MG Oral Capsule 03/02/2022 - 06/01/2022 Provider: MICHEL FLOWERBC Diagnosis: Radiculopathy, cervical region TAKE 1 CAPSULE BY MOUTH TWICE A DAY Last Documented On 3 12:44PM By DWAINE KOO [facility] ; [facility] HYDROcodone-Acetaminophen 10 -325 MG Oral Tablet 01/31/2022 - 03/02/2022 Provider: MICHEL RUBI-BC Diagnosis: Spinal stenosis, lumbar region without neurogenic huong 1 po bid prn Last Documented On 2 2:42PM By MICHEL FLOWERBC ; [facility] HYDROcodone-Acetaminophen 10 -325 MG Oral Tablet 01/03/2022 - 01/31/2022 Provider: MICHEL FLOWERBC Diagnosis: Spinal stenosis, lumbar region without neurogenic huong 1 po bid prn Last Documented On 2 3:46PM By MICHEL RUBI-BC ; [facility] Celecoxib 200 MG Oral Capsule 12/08/2021 - 03/02/2022 Provider: MICHEL MARI Diagnosis: TAKE 1 CAPSULE BY MOUTH EVERY DAY Last Documented On 2 2:15PM By MICHEL MARI ; [facility] Pregabalin 200 MG Oral Capsule 12/03/2021 - 03/02/2022 Provider: MICHEL MARI Diagnosis: Radiculopathy, cervical region TAKE 1 CAPSULE BY MOUTH TWICE A DAY Last Documented On 2 2:15PM By MICHEL FLOWERBC ; [facility] HYDROcodone-Acetaminophen 10 -325 MG Oral Tablet 12/03/2021 - 01/03/2022 Provider: MICHEL MARI Diagnosis: Spinal stenosis, lumbar region without neurogenic huong 1 po bid prn Last Documented On 2 1:10PM By MICHEL MARI ; [facility] HYDROcodone-Acetaminophen 10 -325 MG Oral Tablet 11/04/2021 - 12/03/2021 Provider: MICHEL MARI Diagnosis: 1 po bid prn Last Documented On 2 10:19AM By MICHEL MARI ; [facility] Pregabalin 200 MG Oral Capsule 11/01/2021 - 12/03/2021 Provider: MICHEL MARI Diagnosis: Radiculopathy, cervical region TAKE 1 CAPSULE BY MOUTH TWICE A DAY Last Documented On 2 10:19AM By MICHEL MARI ; [facility] HYDROcodone-Acetaminophen 10 -325 MG Oral Tablet 10/06/2021 - 11/03/2021 Provider: MICHEL MARI Diagnosis: 1 po bid prn Last Documented On 2 11:06AM By MICHEL MARI ; [facility] HYDROcodone-Acetaminophen 10 -325 MG Oral Tablet 09/07/2021 - 10/05/2021 Provider: MICHEL MARI Diagnosis: 1 po bid prn Last Documented On 2 8:21AM By MICHEL MARI ; [facility] Celecoxib 200 MG Oral Capsule 09/06/2021 - 12/08/2021 Provider: MICHEL MARI Diagnosis: TAKE 1 CAPSULE BY MOUTH EVERY DAY Last Documented On 2 8:34AM By MICHEL MARI ; [facility] HYDROcodone-Acetaminophen 10 -325 MG Oral Tablet 08/05/2021 - 09/07/2021 Provider: MICHEL MARI Diagnosis: 1 po bid prn Last Documented On 2 8:52AM By MICHEL MARI ; [facility] Celecoxib 200 MG Oral Capsule 07/07/2021 - 09/06/2021 Provider: MICHEL MARI Diagnosis: TAKE 1 CAPSULE BY MOUTH EVERY DAY Last Documented On 2 12:51PM By MICHEL MARI ; [facility] HYDROcodone-Acetaminophen 10 -325 MG Oral Tablet 07/07/2021 - 08/05/2021 Provider: MICHEL MARI Diagnosis: 1 po bid prn Last Documented On 2 4:49PM By MCIHEL MARI ; [facility] Ferrous Sulfate 325 (65 Fe) MG Oral Tablet 07/02/2021 - 04/18/2022 Provider: OLIVIA VELA MD Diagnosis: Last Documented On 3 10:33AM By DWAINE KOO [facility] ; [facility] Atorvastatin Calcium 20 MG O ral Tablet 06/21/2021 - 06/27/2023 Provider: OLIVIA VELA MD Diagnosis: Last Documented On 06/27/2023 10:35AM By Ned Gray Nini ; [facility] Pregabalin 200 MG Oral Capsule 06/09/2021 - 11/01/2021 Provider: MICHEL MARI Diagnosis: Radiculopathy, cervical region TAKE 1 CAPSULE BY MOUTH TWICE A DAY Last Documented On 2 10:38AM By MICEHL MARI ; [facility] HYDROcodone-Acetaminophen 10 -325 MG Oral Tablet 06/09/2021 - 07/07/2021 Provider: MICHEL FLOWERBC Diagnosis: 1 po bid prn Last Documented On 2 1:39PM By MICHEL RUBI-BC ; [facility] Phentermine HCl 37.5 MG Oral Capsule 06/08/2021 - 01/11/2023 Provider: OLIVIA VELA MD Diagnosis: Last Documented On 3 10:26AM By Pattie BRUSH ; [facility] Celecoxib 200 MG Oral Capsule 05/10/2021 - 07/07/2021 Provider: MICHEL FLOWERBC Diagnosis: TAKE 1 CAPSULE BY MOUTH EVERY DAY Last Documented On 2 9:38AM By MICHEL RUBI-BC ; [facility] HYDROcodone-Acetaminophen 10 -325 MG Oral Tablet 05/10/2021 - 06/08/2021 Provider: MICHEL FLOWERBC Diagnosis: 1 po bid prn Last Documented On 2 12:51PM By MICHEL RUBI-BC ; [facility] HYDROcodone-Acetaminophen 10 -325 MG Oral Tablet 04/09/2021 - 05/10/2021 Provider: MICHEL FLOWERBC Diagnosis: 1 po bid prn Last Documented On 2 2:02PM By MICHEL RUBI-BC ; [facility] Celecoxib 200 MG Oral Capsule 03/10/2021 - 05/10/2021 Provider: MICHEL MARI Diagnosis: TAKE 1 CAPSULE BY MOUTH EVERY DAY Last Documented On 2 2:25PM By MICHEL RUBI-BC ; [facility] Pregabalin 200 MG Oral Capsule 03/05/2021 - 06/09/2021 Provider: MICHEL FLOWERBC Diagnosis: Radiculopathy, cervical region TAKE 1 CAPSULE BY MOUTH TWICE A DAY Last Documented On 2 9:32PM By MICHEL FLOWERBC ; [facility] HYDROcodone-Acetaminophen 10 -325 MG Oral Tablet 03/03/2021 - 04/08/2021 Provider: MICHEL FLOWERBC Diagnosis: 1 po bid prn Last Documented On 2 12:04PM By MICHEL MARI ; [facility] Pregabalin 100 MG Oral Capsule 02/04/2021 - 03/05/2021 Provider: MICHEL MARI Diagnosis: TAKE 1 CAPSULE BY MOUTH TWICE A DAY Last Documented On 1 8:13AM By MICHEL MARI ; [facility] HYDROcodone-Acetaminophen 10 -325 MG Oral Tablet 02/03/2021 - 03/03/2021 Provider: MICHEL MARI 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, lumbar region 1 po bid prn Last Documented On 1 4:29PM By MICHEL MARI ; [facility] Pregabalin 100 MG Oral Capsule 01/14/2021 - 02/04/2021 Provider: MICHEL MARI Diagnosis: 1 CAPSULE TWO TIMES A DAY Last Documented On 1 2:15PM By MICHEL MARI ; [facility] Celecoxib 200 MG Oral Capsule 01/08/2021 - 03/10/2021 Provider: MICHEL MARI Diagnosis: TAKE 1 CAPSULE BY MOUTH EVERY DAY Last Documented On 1 8:32AM By MICHEL MARI ; [facility] HYDROcodone-Acetaminophen 10 -325 MG Oral Tablet 01/04/2021 - 02/02/2021 Provider: MICHEL MARI Diagnosis: 1 po bid prn Last Documented On 1 9:15AM By MICHEL MARI ; [facility] HYDROcodone-Acetaminophen 10 -325 MG Oral Tablet 12/04/2020 - 01/04/2021 Provider: MINA BOBO APN Diagnosis: Postlaminectomy syndrome, not elsewhere classified 1 po bid prn Last Documented On 1 4:48PM By MICHEL MARI ; [facility] Celecoxib 200 MG Oral Capsule 11/30/2020 - 01/08/2021 Provider: MICHEL MARI Diagnosis: TAKE 1 CAPSULE BY MOUTH EVERY DAY Last Documented On 1 12:00PM By MICHEL MARI ; [facility] ALPRAZolam 0.5 MG Oral Tablet 11/24/2020 - 10/11/2021 Provider: MICHEL MARI Diagnosis: as directed 1 po 1 hour prio r to procedure, 1 po 30 minutes prior to procedure Last Documented On 2 9:35AM By MICHEL MARI ; [facility] Pregabalin 200 MG Oral Capsule 11/16/2020 - 03/05/2021 Provider: MICHEL MARI Diagnosis: Radiculopathy, cervical region TAKE 1 CAPSULE BY MOUTH TWICE A DAY Last Documented On 1 8:14AM By MICHEL MARI ; [facility] HYDROcodone-Acetaminophen 10 -325 MG Oral Tablet 11/06/2020 - 12/04/2020 Provider: MICHEL MARI Diagnosis: 1 po bid prn Last Documented On 12/04/2020 3:17PM By Mina Bobo APN ; [facility] ALPRAZolam 0.5 MG Oral Tablet 10/06/2020 - 11/24/2020 Provider: MICHEL MARI Diagnosis: as directed 1 po 1 hour prio r to procedure, 1 po 30 minutes prior to procedure Last Documented On 1 5:23PM By MICHEL MARI ; [facility] HYDROcodone-Acetaminophen 10 -325 MG Oral Tablet 10/06/2020 - 11/05/2020 Provider: MICHEL MARI Diagnosis: 1 po bid prn Last Documented On 1 11:36AM By MICHEL MARI ; [facility] Celecoxib 200 MG Oral Capsule 10/02/2020 - 11/30/2020 Provider: MICHEL MARI Diagnosis: TAKE 1 CAPSULE BY MOUTH EVERY DAY Last Documented On 1 4:53PM By MICHEL MARI ; [facility] Pregabalin 200 MG Oral Capsule 09/07/2020 - 11/16/2020 Provider: MICHEL MARI Diagnosis: Radiculopathy, cervical region TAKE 1 CAPSULE BY MOUTH TWICE A DAY Last Documented On 1 3:46PM By MICHEL MARI ; [facility] HYDROcodone-Acetaminophen 10 -325 MG Oral Tablet 09/03/2020 - 10/06/2020 Provider: MICHEL MARI 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, lumbar region 1 po bid prn Last Documented On 1 2:46PM By MICHEL MARI ; [facility] Celecoxib 200 MG Oral Capsule 09/02/2020 - 10/02/2020 Provider: MICHEL MARI Diagnosis: TAKE 1 CAPSULE BY MOUTH EVERY DAY Last Documented On 1 9:52AM By MICHEL MARI ; [facility] HYDROcodone-Acetaminophen 10 -325 MG Oral Tablet 08/28/2020 - 09/03/2020 Provider: MICHEL MARI 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, lumbar region 1 po bid prn Last Documented On 1 6:00PM By MICHEL MARI ; [facility] Celecoxib 200 MG Oral Capsule 08/12/2020 - 12/04/2020 Provider: MICHEL MARI Diagnosis: Spinal stenosis, lumbosacral region TAKE 1 CAPSULE BY MOUTH EVERY DAY Last Documented On 12/04/2020 3:16PM By Mina Bobo APN ; [facility] HYDROcodone-Acetaminophen 10 -325 MG Oral Tablet 08/04/2020 - 08/28/2020 Provider: MICHEL AMRI 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, lumbar region 1 po bid prn Last Documented On 1 11:44AM By MICHEL MARI ; [facility] ALPRAZolam 0.5 MG Oral Tablet 07/30/2020 - 12/04/2020 Provider: MICHEL MARI Diagnosis: as directed 1 po 1 hour prio r to procedure, 1 po 30 minutes prior to procedure Last Documented On 12/04/2020 3:15PM By Mina Bobo APN ; [facility] Celecoxib 200 MG Oral Capsule 07/16/2020 - 08/12/2020 Provider: MICHEL MARI Diagnosis: Spinal stenosis, lumbosacral region 1 capsule daily Last Documented On 1 4:58PM By MICHEL MARI ; [facility] Celecoxib 100 MG Oral Capsule 07/15/2020 - 07/16/2020 Provider: MICHEL MARI Diagnosis: Spinal stenosis, lumbosacral region One tablet twice a day Last Documented On 1 8:43AM By MICHEL MARI ; [facility] HYDROcodone-Acetaminophen 10 -325 MG Oral Tablet 07/15/2020 - 08/04/2020 Provider: MICHEL MARI 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, lumbar region 1 po bid prnto fill 07/20 Last Documented On 1 6:06PM By MICHEL MARI ; [facility] Pregabalin 200 MG Oral Capsule 07/13/2020 - 09/07/2020 Provider: MICHEL MARI Diagnosis: Radiculopathy, cervical region TAKE 1 CAPSULE BY MOUTH TWICE A DAY Last Documented On 1 6:04PM By MICHEL MARI ; [facility] HYDROcodone-Acetaminophen 10 -325 MG Oral Tablet 07/09/2020 - 07/15/2020 Provider: MICHEL MARI 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, lumbar region 1/2 to 1 po BID prn for severe pain only Last Documented On 1 3:57PM By MICHEL MARI ; [facility] HYDROcodone-Acetaminophen 10 -325 MG Oral Tablet 06/16/2020 - 07/09/2020 Provider: KRYSTEN CANNON MD 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, lumbar region 1/2 to 1 po BID prn Last Documented On 4:48PM By MICHEL MARI ; [facility] HYDROcodone-Acetaminophen 10 -325 MG Oral Tablet 05/27/2020 - 06/15/2020 Provider: KRYSTEN CANNON MD 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, lumbar region 1/2 to 1 BID prn Last Documented On 06/16/2020 5:03PM By Krysten Cannon MD ; [facility] HYDROcodone-Acetaminophen 10 -325 MG Oral Tablet 05/21/2020 - 05/27/2020 Provider: KRYSTEN CANNON MD 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, lumbar region 1/2 to 1 BID prn Last Documented On 05/27/2020 4:41PM By Krysten Cannon MD ; [facility] Xanax 0.5 MG Oral Tablet 05/15/2020 - 07/15/2020 Provider: MICHEL MARI 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, lumbar region as directed 1 po 1 hour prio r to procedure, 1 po 30 minutes prior to procedure Last Documented On 07/15/2020 3:34PM By Ned BRUSH ; [facility] Pregabalin 200 MG Oral Capsule 05/05/2020 - 07/13/2020 Provider: MICHEL MARI Diagnosis: Radiculopathy, cervical region 1 CAPSULE TWO TIMES A DAY Last Documented On 2:22PM By MICHEL MARI ; [facility] HYDROcodone-Acetaminophen 10 -325 MG Oral Tablet 05/05/2020 - 05/21/2020 Provider: MICHEL MARI 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, lumbar region 1/2 to 1 BID prn Last Documented On 05/21/2020 4:24PM By Krysten Cannon MD ; [facility] Lyrica 150 MG Oral Capsule 04/21/2020 - 07/15/2020 Provider: MICHEL MARI Diagnosis: Spinal stenosis, lumbosacral region 1 CAPSULE TWO TIMES A DAY Last Documented On 1 3:49PM By MICHEL MRAI ; [facility] HYDROcodone-Acetaminophen 10 -325 MG Oral Tablet 04/20/2020 - 05/05/2020 Provider: MICHEL MARI Diagnosis: 1/2 to 1 TId prn Last Documented On 1 4:55PM By MICHEL MARI ; [facility] Phentermine HCl 15 MG Oral Capsule 04/14/2020 - 2020 Provider: Diagnosis: Last Documented On 1 1:55PM By MICHEL MARI ; [facility] HYDROcodone-Acetaminophen 10 -325 MG Oral Tablet 04/06/2020 - 04/17/2020 Provider: MICHEL MARI Diagnosis: 12 to 1 TId prn Last Documented On 1 8:34AM By MICHEL MARI ; [facility] Meloxicam 7.5 MG Oral Tablet 03/17/2020 - 12/04/2020 Chirag coxder: Diagnosis: Last Documented On 12/04/2020 3:16PM By Mina Bobo APN ; [facility] Pantoprazole Sodium 40 MG Or al Tablet Delayed Release 03/17/2020 - 10/11/2021 Provider: Diagnosis: Last Documented On 10/11/2021 8:57AM By Ned BRUSH ; [facility] hydroCHLOROthiazide 25 MG Oral Tablet 03/17/2020 - Provider: Diagnosis: Last Documented On 06/27/2023 10:35AM By Ned BRUSH ; [facility] Gabapentin 300 MG Oral Capsule 03/17/2020 - 05/05/2020 Provider: Diagnosis: Last Documented On 1 4:43PM By MICHEL MARI ; [facility] Lyrica 150 MG Oral Capsule 03/17/2020 - 04/21/2020 Provider: MICHEL MARI Diagnosis: Spinal stenosis, lumbosacral region 1 CAPSULE TWO TIMES A DAY Last Documented On 1 5:26PM By MICHEL MARI ; [facility] HYDROcodone-Acetaminophen 10-325 MG Oral Tablet 03/17/2020 - 04/06/2020 Provider: Diagnosis: Last Documented On 1 3:43PM By MICHEL MARI ; [facility] Cyclobenzaprine HCl 10 MG Oral Tablet 03/17/2020 - Provider: Diagnosis: Last Documented On 1 1:55PM By MICHEL FLOWER ; [facility] Topiramate 50 MG Oral Tablet 03/17/2020 - 12/08/2022 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: Diagnosis: Last Documented On 3 1:23PM By Kori Britton Nini ; [facility] HYDROcodone-Acetaminophen 10-325 MG Oral Tablet 03/17/2020 - 03/17/2020 Provider: Diagnosis: Last Documented On 0 1:56PM By Dong Lanza [facility] ; [facility] Medications Administered Includes: Administered Medications in patient's chart Medications Administered Diagnosis Date Pro vider Ketorolac Tromethamine 30 MG/ML IJ SOLN Sacroiliitis, not elsewhere classified 07/15/2020 [facility] Last Documented On 1 4:04PM By Gayathri Morales Nini ; [facility] Ketorolac Tromethamine 30 MG/ML IJ SOLN 0 06/30/2021 MICHELTAISHA MANLEY [facility] Last Documented On 2 1:41PM By Pattie Ortiz Nini ; [facility] Vital Signs Includes: Vital Signs from 07/26/2023 through 07/25/2024 Vital Name 07/27/2023 01:08P Pain Level 6 Oxygen Saturation (%) 96 Blood Pressure Sitting R 130/82 BP Cuff Size Regular Pulse Rate-Sitting (bpm) 96 Pulse Rhythm Regular Respiration Rate (breaths/min) 21 Temp-Tympanic (F) 97.8 Height (in) 65 Weight (lb) 200 Body Mass Index 33.3 Body Surface Area 2 Last Documented: On 07/27/2023 1:09PM ; [facility] Results Includes: Results from 07/26/2023 through 07/25/2024 DRUG MONITORING, PANEL 6 WITH CONFIRMATI ON, URINE [employer] [employer] Ordered by MICHEL MANLEY [facility]- on Collected: 12/19/2023 Reported: 12/21/19 24 22:11 Last Documented On 4 8:55AM ; [facility] Reviewed on 12/26/2023; All test results are final unless otherwise noted. Amphetamines NEGATIVE ng/mL (<500) None Last Documented On 4 10:23PM ; [facility] Barbiturates NEGATIVE ng/mL (<300) None Last Documented On 4 10:23PM ; [facility] Benzodiazepines NEGATIVE ng/mL (<100) None Last Documented On 4 10:23PM ; [facility] Marijuana Metabolite POSITIVE ng/mL (<20) A (Abnormal) Last Documented On 4 10:23PM ; [facility] Marijuana Metabolite 1297 ng/mL (<5) H (High) Last Documented On 4 10:23PM ; [facility] medMATCH Marijuana Metab INCONSISTENT A (Abnormal) Last Documented On 4 10:23PM ; [facility] Cocaine Metabolite NEGATIVE ng/mL (<150) None Last Documented On 4 10:23PM ; [facility] Methadone Metabolite NEGATIVE ng/mL (<100) None Last Documented On 4 10:23PM ; [facility] Opiates POSITIVE ng/mL (<100) A (Abnormal) Last Documented On 4 10:23PM ; [facility] Codeine NEGATIVE ng/mL (<50) None Last Documented On 4 10:23PM ; [facility] Morphine NEGATIVE ng/mL (<50) None Last Documented On 4 10:23PM ; [facility] Hydrocodone 2219 ng/mL (<50) H (High) Last Documented On 4 10:23PM ; [facility] medMATCH Hydrocodone CONSISTENT None Last Documented On 4 10:23PM ; [facility] Hydromorphone NEGATIVE ng/mL (<50) None Last Documented On 4 10:23PM ; [facility] Oxycodone NEGATIVE ng/mL (<100) None Last Documented On 4 10:23PM ; [facility] Phencyclidine NEGATIVE ng/mL (<25) None Last Documented On 4 10:23PM ; [facility] Alcohol Metabolites NEGATIVE ng/mL (<500) None Last Documented On 4 10:23PM ; [facility] 6 Acetylmorphine NEGATIVE ng/mL (<10) None Last Documented On 4 10:23PM ; [facility] pH 5.4 (4.5-9.0) None Last Documented On 4 10:23PM ; [facility] Creatinine 94.7 mg/dL (> or = 20.0) None Last Documented On 4 10:23PM ; [facility] Oxidant NEGATIVE mcg/mL (<200) None Last Documented On 4 10:23PM ; [facility] Norhydrocodone 2510 ng/mL (<50) H (High) Last Documented On 4 10:23PM ; [facility] medMATCH Norhydrocodone CONSISTENT None Last Documented On 4 10:23PM ; [facility] Marijuana Comments See Note None Last Documented On 12/21/2023 10:23PM ; [facility] Note: See Marijuana Notes, LDT Notes Opiates Comments See Note None Last Documented On 12/21/2023 10:23PM ; [facility] Note: See Opiates Notes, LDT Notes DRUG MONITORING TEM[employer] Ordered by MICHEL MANLEY [facility]- on Collected: 12/19/2023 Reported: 12/21/19 24 22:11 Last Documented On 4 8:55AM ; [facility] Reviewed on 12/26/2023; All test results are final unless otherwise noted. Notes and Comments See Note None Last Documented On 12/21/2023 10:23PM ; [facility] Note: This drug testing is for medical treatment only.Analysis was performed as non-forensic testing andthese results should be used only by healthcareproviders to render diagnosis or treatment, or tomonitor progress of medical conditions. Marijuana Notes:Marijuana Metabolite detected is consistent with exposure to Marijuana (THC) and/or hemp derived products. Some jurisdictions do not include hemp within the definition of Marijuana. Opiates Notes:Hydrocodone, Norhydrocodone detected is consistent with the use of the drug Hydrocodone. The metabolite Hydromorphone is not present at or above the cutoff. LDT Notes:Confirmation tests were developed and their analytical performance characteristics have been determined by [employer]. It has not been cleared or approved by the FDA. This assay has been validated pursuant to the CLIA regulations and is used for clinical purposes. medMATCH(R) enables providers to identify if drug useis consistent or inconsistent with a correspondingprescribed medication(s) list. Healthcare Providers needing Interpretation assistance, please contact us at [phone] ( ) M-F, 8am to 10pm EST PRESCRIBED DRUGS, medMATCH(R) [employer]. Ordered by MICHEL MARI on Collected: 12/19/2023 Reported: 12/21/19 22:11 Last Documented On 4 8:55AM ; [facility] Reviewed on 12/26/2023; All test results are final unless otherwise noted. medMATCH Summary See Note None Last Documented On 12/21/2023 10:23PM ; [facility] Note: Prescribed Prescribed Not Prescribed Consistent Inconsistent Inconsistent Hydrocodone Marijuana Metabolite Prescribed Drug 1 Hydrocodone None Last Documented On 4 10:23PM ; [facility] Reported Physicians [facility]. Ordered by MICHEL MARI on Collected: 12/19/2023 Reported: 12/21/19 23:14 Last Documented On 4 8:55AM ; [facility] Reviewed on 12/26/2023; All test results are final unless otherwise noted. Reported Physicians See Note None Last Documented On 12/21/2023 10:23PM ; [facility] Note: Reported Physicians:Ordering: Michel Manlye TEST URINE [facility] L aboratory Ordered by KRYSTEN CANNON MD on 07/28/19 [address] [place], [id number] Collected: 07/28/2023 Report ed: 07/28/2023 07:23 tel: Last Documented On 4 2:34PM ; [facility] Reviewed on 2023; All test results are final unless otherwise noted. $$ HCG LOT # [id number] EX 09-29-2024 None Last Documented On 08/29/2023 8:32PM ; [facility] Note: Responsible Observer: (PARIS) $$ INTERNAL QC ACCEPTABLE None Last Documented On 08/29/2023 8:32PM ; [facility] Note: Responsible Observer: (PARIS) PREG TEST (U) Negative (Reference: Negative) None Last Documented On 08/29/2023 8:32PM ; [facility] Note: Responsible Observer: (PARIS) Reported Physicians [facility] La boratory Ordered by KRYSTEN CANNON MD on 07/28/19 [address] [place], [address] Collected: 07/28/2023 Report ed: 07/28/2023 07:23 tel: Last Documented On 4 2:34PM ; [facility] Reviewed on 2023; All test results are final unless otherwise noted. Reported Physicians See Note None Last Documented On 08/29/2023 8:32PM ; [facility] Note: Reported Physicians:Ordering: KRYSTEN CANNONAttending: KRYSTEN CANNONConsulting: OLIVIA VELA History of Present Illness History of Present Illness not supported for this document type No History of Present Illness Recorded Social History Description Last Updated Using marijuana 06/27/2023 Last Documented On 4 9:21AM ; [facility] No consumption of alcohol 06/27/2023 Last Documented On 4 9:21AM ; [facility] Tobacco use 06/27/2023 Last Documented On 4 9:21AM ; [facility] No family problems 06/27/2023 Last Documented On 4 9:21AM ; [facility] No recent emotional stress 06/27/2023 Last Documented On 4 9:21AM ; [facility] Cigarette smoking: history Half pack Last Documented On 4 9:21AM ; [facility] Current smoker 06/27/2023 Last Documented On 4 9:21AM ; [facility] Currently not in school 06/27/2023 Last Documented On 4 9:21AM ; [facility] Drug use 06/27/2023 Last Documented On 4 9:21AM ; [facility] Not a current nonsmoker 06/27/2023 Last Documented On 4 9:21AM ; [facility] Not smoking a pipe 06/27/2023 Last Documented On 4 9:21AM ; [facility] Single 06/27/2023 Last Documented On 4 9:21AM ; [facility] Smoking cigars 0 06/27/2023 Last Documented On 4 9:21AM ; [facility] No recent change in sleep 06/08/2023 Last Documented On 4 5:21PM ; [facility] Smoker 05/27/2020 Last Documented On 1 7:44PM ; [facility] Smoking Status Unknown Procedures and Surgical History Includes: Procedures from 07/26/2023 through 07/25/2024 Procedures Code Diagnosis Performing Provider Service Location Service Date CLINIC VISIT T1015 Spinal stenosis, lumbosacral region, Other spondylosis with radiculopathy, lumbar region, Chronic pain syndrome, 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 [facility] 08/04/2023 Last Documented On 4 9:22AM ; [facility] Surgical History Last Updated History of tonsillectomy ADNOIDS 024 Last Documented On 4 9:21AM ; [facility] Prior surgery neck 03/17/2020 Last Documented On 0 1:01PM ; [facility] Medical History Includes: Medical History in patient's chart Description Last Updated Depression 06/27/2023 Last Documented On 4 9:21AM ; [facility] History of arthritis 06/27/2023 Last Documented On 4 9:21AM ; [facility] History of chronic obstructive pulmonary disease 06/27/2023 Last Documented On 4 9:21AM ; [facility] History of systemic hypertension 024 Last Documented On 4 9:21AM ; [facility] Surgery galbladder ~neck surgery 024 Last Documented On 4 9:21AM ; [facility] A fall 2 06/27/2023 Last Documented On 4 9:21AM ; [facility] Blood pressure was high 06/08/2023 Last Documented On 4 5:21PM ; [facility] Hypertension 06/08/2023 Last Documented On 4 5:21PM ; [facility] No exposure to a contagious disease 10/2023 Last Documented On 4 5:21PM ; [facility] No previous psychiatric treatment 2023 Last Documented On 4 5:21PM ; [facility] Not taking OTC medications 06/08/2023 Last Documented On 4 5:21PM ; [facility] Taking medication for high blood pressur e 06/08/2023 Last Documented On 4 5:21PM ; [facility] Has a fear of falling. 04/18/2022 Last Documented On 3 10:58AM ; [facility] Has had a fall in the last 12 months. Last Documented On 3 10:58AM ; [facility] 0 miscarriage(s) 03/17/2020 Last Documented On 0 1:01PM ; [facility] Previously 0 time(s) 03/17/2020 Last Documented On 0 1:01PM ; [facility] carpal tunnel 03/17/2020 Last Documented On 0 1:01PM ; [facility] Family History Includes: Family History in patient's chart Description Last Updated Family history of diabetes mellitus 06/02 Last Documented On 4 9:21AM ; [facility] Father 06/27/2023 Last Documented On 4 9:21AM ; [facility] Mother 06/27/2023 Last Documented On 4 9:21AM ; [facility] Sister 1 years old 06/27/2023 Last Documented On 4 9:21AM ; [facility] Family history of cancer maternal grandm a 03/17/2020 Last Documented On 0 1:01PM ; [facility] Family history of heart disease maternal and paternal grandma 03/17/2020 Last Documented On 0 1:01PM ; [facility] Family history unchanged 03/17/2020 Last Documented On 0 1:01PM ; [facility] Review of Systems Review of Systems not supported for this document type No Review of Systems Recorded Mental Status No Mental Status Recorded Functional Status No Functional Status Recorded Physical Exam Physical Exam not supported for this document type No Physical Exam Recorded Allergies Includes: Active, inactive, and resolved Allergies Substance Type Reaction Onset Date Resolved Date Statu s Aspirin Intolerance Nausea 03/17/2020 Active Last Documented On 4 11:45AM ; [facility] Encounters Includes: Encounters from 07/26/2023 through 07/25/2024 Encounter Provider Location Date Check-In Time Check-Out Time Diagnosis RX ISSUE/REFILL MICHEL [facility]BI[facility] 08/30/19 24 08/04/2023 1:28PM 08/04/2023 11:59PM PAIN MANAGEMENT FOLLOW UP [facility] 08/04/19 11:39AM 11:54AM Spinal Stenosis Cervical,Chronic Pain Syndrome,Sacroil iitis,Cervical Radiculopathy,Ar thralgia - Pelvis / Hip / Femur Right,Spondylosi s with Radiculopathy Cervical Region,Spondylos is with Radiculopathy Lumbar Region,Spinal Stenosis Lumbosacral,Penitentiary Use of Opiate Analgesic,Myalgi a , Other Site (M79.18) RX ISSUE/REFILL MICHEL RUBI- 07/31/1907/27/2023 11:29AM 07/27/2023 11:59PM POST PROCEDURE PHONE CALL KRYSTEN CANNON MD 07/31/1907/27/2023 10:42AM 07/27/2023 11:59PM PAIN MANAGEMENT FOLLOW UP KRYSTEN CANNON MD [facility] 07/27/19 1:01PM 1:17PM Spinal Stenosis Cervical,Chronic Pain Syndrome,Sacroil iitis,Cervical Radiculopathy,Ar thralgia - Pelvis / Hip / Femur Right,Spondylosi s with Radiculopathy Cervical Region,Spondylos is with Radiculopathy Lumbar Region,Spinal Stenosis Lumbosacral,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 Use of Opiate Analgesic,Myalgi a , Other Site (M79.18) Insurance Includes: Active Insurance Policies Plan Name Member ID Group # Subscriber Relationship Effect cayetano Dates 1 - [employer] [facility] [id number] JENNIFER MARIN Self Clinical Notes Includes: Signed Clinical Notes starting from 04/22/2022 * Progress note Date Encounter Last Documented by 2023 RX ISSUE/REFILL Last documented on 2023; 3:18 PM, MICHEL RUBI-; [facility] Active Problems & Conditions - Carpal Tunnel Syndrome - Chronic Obstructive Pulmonary Disease - Chronic Pain Syndrome - Gerd - Hypertension Systemic - Radiculopathy Chief Complaint Phone Call - Chief Concern: Reason for call:RX REFILL Patient is requesting a refill on [id number]/325 ~How is medication taken? BID ~How many are left?4 Risk Assessment Score: MOD ~[place]MP:08/01/23 Last Office Visit: 08/04/23 ~ pt phone # for Return call: ~Last Drug Screen:06/27/23 ~Date/Initials:08/30/23 CB. Past Medical/Surgical History Reported: Surgery galbladder neck surgery. Medical: Hypertension. Depression. Surgical / Procedural: Prior surgery neck. Medications: Taking medication for high blood pressure. Tests: Blood pressure was high. Physical Trauma: A fall 2 and Has had a fall in the last 12 months. Has a fear of falling. : Previously 0 time(s) and aborta including 0 miscarriage(s). Diagnoses: Systemic hypertension. Chronic obstructive pulmonary disease. Arthritis Carpal tunnel. Surgical: - Tonsillectomy ADNOIDS Current Medication - Albuterol Sulfate HFA 108 (90 Base) MCG/ACT Inhalation Aerosol Solution as directed 29 days, 0 refills - amLODIPine Besylate 5 MG Oral Tablet 1 capsule daily 30 days, 0 refills - buPROPion HCl ER (XL) 150 MG Oral Tablet Extended Release 24 Hour One tablet daily 30 days, 0 refills - buPROPion HCl ER (XL) 150 MG Oral Tablet Extended Release 24 Hour 1 capsule daily 30 days, 0 refills - buPROPion HCl ER (XL) 300 MG Oral Tablet Extended Release 24 Hour One tablet daily 90 days, 0 refills - Celecoxib 200 MG Oral Capsule TAKE 1 CAPSULE BY MOUTH EVERY DAY, 30 days, 2 refills - Cetirizine HCl 10 MG Oral Tablet One tablet daily 30 days, 0 refills - Cyclobenzaprine HCl 10 MG Oral Tablet One tablet three times a day 30 days, 0 refills - Escitalopram Oxalate 10 MG Oral Tablet 1 capsule daily 30 days, 0 refills - HYDROcodone-Acetaminophen 10-325 MG Oral Tablet 1 po bid prn, 30 days, 0 refills - Lidocaine 5% External Patch apply 1-2 patches to affected area for 12 hours and remove for 12 hours, 30 days, 2 refills - Losartan Potassium 50 MG Oral Tablet 1 capsule daily 0 days, 0 refills - Montelukast Sodium 10 MG Oral Tablet 1 capsule daily 0 days, 0 refills - Montelukast Sodium 10 MG Oral Tablet 1 capsule daily 30 days, 0 refills - Orilissa 200 MG Oral Tablet One tablet daily 0 days, 0 refills - Pantoprazole Sodium 40 MG Oral Tablet Delayed Release 1 capsule daily 30 days, 0 refills - Pregabalin 200 MG Oral Capsule TAKE 1 CAPSULE BY MOUTH TWICE A DAY, 30 days, 2 refills - Sertraline HCl 100 MG Oral Tablet One tablet twice a day 0 days, 0 refills - SUMAtriptan Succinate 100 MG Oral Tablet 30 days, 0 refills - Vraylar 1.5 MG Oral Capsule One tablet daily PT IS TAKING SAMPLES FROM PSYCH, 0 days, 0 refills Social History Tobacco use: Cigarette smoking Half pack, smoking cigars 0, and smoker. Drug Use: Drug use using marijuana. Marital: Single. Allergies - Aspirin (Intolerance) Reaction: Nausea Plan StartCited - Spinal stenosis, lumbar region without neurogenic huong HYDROcodone-Acetaminophen 10-325 MG tablet 1 po bid prn, 30 days, 0 refills EndCited Care Team - KAMALJIT KEY - Pain Management Health Reminders - Assess Tobacco Use satisfied 2023. * Progress note Date Encounter Last Documented by 08/04/2023 PAIN MANAGEMENT FOLLOW UP Last d ocumented on 08/07/2023; 4:22 PM, MICHEL RUBI-; [facility] Active Problems & Conditions - Carpal Tunnel Syndrome - Chronic Obstructive Pulmonary Disease - Chronic Pain Syndrome - Gerd - Hypertension Systemic - Radiculopathy Chief Complaint The Chief Complaint is: FU BL L3-4 TFESI DONE 07/13/23 SCS LEAD PULL. History of Present Illness PHQ-9 Score: 6 Date: SOAPP-R Score: 12 Date: 04/11/23 Oswestry Score: 64% Date: 04/11/23 Pain Location: lower back Quality: sharp, ache (occasional numbness in toes) Radiation: both legs Severity: Timing: years Associated Sx: Aggravating Factors: any activity- standing, walking, lifting Alleviating Factors: leaning forward, lying down Past Tx: TFESI with short-term relief (50 to 60% improvement for 2 to 3 weeks),, Bilateral L2, L3, L4 medial branch/dorsal ramus thermal RFA with short-lived benefit (1 to 2 months), minimal to modest benefit with SI joint injections, short- lived, modest response to opioid analgesics. - Allergy list reviewed - Problem list reviewed - Medication reconciliation performed - Medication list reviewed - Prescription Drug Monitoring Program website checked. 08/01/23 - How much of the medication are you taking a day? BID - Last dose of medication? THIS MORNING - Last drug screen appropriate 06/27/23 Discussion: Patient returns in follow-up following a one week trial of spinal cord stimulation for lumbosacral radiculopathy. She reports 80-90% pain relief with overall improvement in activity tolerance. She is very pleased with results. We discussed moving forward with implantation. This will be done by Dr. Sanderson. We will refer her at this time. Patient describes low back pain greater than 12 months that results in significant activity intolerance, functional incapacity and interruptions to self-care. She has had extensive conservative treatment including physical therapy, home exercises, topical analgesics, opioid and non-opioid analgesics, steroid injections, rest and activity modification. Leads were pulled today successfully with no complication. Questions elicited and answered. Prior visit (DR Cannon) 07/27/23: Patient presents today for preoperative evaluation and planning for intended OR procedure, [spinal cord stimulation trial] for [Chronic low back pain and lumbosacral radiculopathy]. Patient has chronic, disabling pain over the past 6 to 12 months or longer that has resulted in significant activity intolerance, functional incapacity and interruptions in ADLs and self-care activities despite aggressive but unsuccessful efforts at conservative management to include physical therapy and home exercise programs, oral and topical analgesics, opioid and non-opioid analgesics, steroid injections/interventions, rest, time and behavior modification for greater than one year. Patient is a candidate for implantable device therapies and has undergone psychological screen showing no psychological barriers such as untreated or uncontrolled depression, anxiety or somatization disorder. As a result, they meet medical necessity for the planned and upcoming procedure. Appropriate perioperative instructions were discussed in detail with the patient today including the preoperative need for testing to ensure safety for anesthesia/sedation, the need to be NPO from midnight the morning of the procedure except for morning medications with small sip of water, the need to hold aspirin or NSAIDs for 7 days prior to the procedure and any anticoagulants for the prescribed period of time. Patient will need a spike driver the day of the procedure and cannot drive for at least 24 hours following intervention or until cleared by her provider. Appropriate activity restrictions and wound care were discussed the patient as well. Patient will follow-up [6-7] days to [remove temporarily implanted leads,] [assess wound healing] and [evaluate response]. Appropriate goals, procedural outcomes and expectations were discussed with the patient as well today. Questions were elicited, asked and answered the best of our ability and to the patient's satisfaction today. [place] prescription monitoring database was reviewed and found to be appropriate. There's been no interval change the patient's medical history, medications, allergies or diagnoses. She is no new symptoms to complain of today. She denies fevers, chills, night sweats or signs of infection. She denies productive cough, dysuria, shortness of breath/dyspnea on exertion, chest pain, jaw pain or increasing peripheral edema. She denies new neurologic deficit including bowel or bladder comments. She is not on blood thinners. She is borderline diabetic. She hasno implantable devices currently. PRIOR VISIT (06/08/23): Discussed spinal cord stimulation as an option for management of her chronic low back and lower extremity pain. She had short-lived responses to each epidural steroid injections at multiple levels as well as medial branch blocks and RFA at L2, L3 and L4 bilaterally. All these gave some benefit but with limited duration. As a result, her insurance will no longer cover repeat therapies. Given the primary axial nature of her pain, she is not a great candidate for surgical intervention as there is no evidence of lumbar instability and lumbar fusion has a failure rate of close to 50% with multilevel fusion's. Given this, she would like to consider implantable device therapies. She has close experience with these as her significant other has both a pump and the stimulator. She like to consider stimulation for back and lower extremity pain. We discussed this process at length including appropriate expectations and outcomes, timeline, prerequisites and careful discussion of risks, benefits and alternatives. Patient has a patient education information that she has reviewed. She's also discussed this with her mid-level provider, GREYSON Sylvester. Given the patient's chronic symptoms that have failed to respond to aggressive conservative management over the course of the past several years, given her significant pain and disability which is resulted in reduced ADLs, self-care and work-related activities as well as impairment of her sleep and ability to function with routine activities at home, she is an excellent candidate for spinal cord stimulation trial and if successful implant. We obtain psychological screening to rule out any existing psychological barriers although there are none based on my personal knowledge of the patient. Will obtain authorization once is completed through insurance carrier for the trial and will call to schedule the patient at that time. She will need appropriate preoperative labs to ensure fitness for anesthesia. We'll see her back 6 to 7 days after trial for lead pull and to assess her response. Risks, benefits and alternatives to the treatment strategy listed above was discussed in detail the patient who expressed explicit understanding and consent to proceed. Questions were elicited, asked and answered the best of our ability and to her satisfaction today. [place] prescription monitoring database was reviewed and found to be appropriate. PRIOR VISIT (06/06/23): She returns with complaints of ongoing neck and low back pain. Low back pain has worsened and now multidermatomal. She is now experiencing radiating pain to the anterolateral lower extremity in L3/4 dermatomal pattern, predominately right sided. These symptoms started 6-8 weeks ago and have progressively worsened. There is still radiating pain to the posterior thigh bilaterally. Daily activities are limited due to pain and she is having a difficult time sleeping. She notes pain in the right hip, but radicular pain is most severe. MRI indicates moderate central and neuroforaminal stenosis. Recommending a bilateral L3-4 TFESI. She has attempted therapy multiple times in the past with increased pain. She has been unable to do home stretches due to increased pain. If ineffective, recommend spinal cord stimulator trial. She also has cervical symptoms. Pain radiates to the scapula and upper extremities. She has not responded to conservative measures and is under care of neurosurgery. Hydrocodone is used as needed, she is needing a refill. Medication does help to some degree, though less the last several weeks. Prior visit: Patient presents in follow up for low back pain and to review lower extremity ncv/emg. She complains of sharp, shooting pain to the posterior buttock and upper thigh. She was seen in January following a bilateral L5-S1 TFESI which had been done 3 weeks prior. She had reported 80% relief initially and 30% ongoing benefit at time of visit. We had discussed a repeat epidural for a compounding effect, but this was denied. We were unable to appeal without her signature to required insurance documents. She has signed these today. Pain has progressed. I am hopeful this procedure can be approved at this point. Pain limits ability to stand for extended period of time and nearly all aspects of her life. Oswestry disability index is severe at 64%. She continues home exercises, but often stops them due to increased pain. Past note (01/11/23): Patient presents in follow up to bilateral L5-S1 TFESI 3 weeks ago. She reports 80% relief initially with 30% ongoing benefit. The radicular pain is not as sharp, but still present to somewhat lesser degree. There is still some back pain. We discussed repeat epidural for optimal benefit and she is agreeable. She attempts home exercises, but these are often limited by pain. Hydrocodone is used bid with additional relief. She suffers from chronic neck pain and has seen neurosurgery. She reports a scheduled procedure, but not sure what is ordered. She was just seen last week. Past note: Patient is a follow up for chronic back and neck pain. She is awaiting appt. with surgeon on cervical symptoms. She has an upcoming appt. with Dr. Cannon for bilateral L5-S1 TFESI in 2-3 weeks. She reports a fall last week causing increased pain. She feels the right leg is giving out on her causing her to fall. Hydrocodone is used bid and she question if it is helping s much. We discussed use of tylenol up to 3000mg per day and lidocaine patches for additional relief. Past note: Patient presents in follow up on medication. She underwent L3-4, L4-5 facet ablation in with at least 90% pain relief and improved mobility. She presents today with complaints of increased shocking sensation down the back of the legs to the knee. Pain worsens with sitting and with activity. She denies motor or sensory changes. She has been doing home exercises as tolerated, but these are often not tolerated and cause increase pain. Hydrocodone is used twice daily with mild to modest benefit. She has benefited from L5-S1 TFESI for similar symptoms in the past, last done in 06/2022 with resolution of radicular symptoms, and would like to consider this procedure again. She awaits further follow up with surgeon for ongoing cervical complaints. These symptoms remain unchanged. Past note: F/U bilateral RF ablation 5-6 weeks ago. She reports 85-90% pain relief ongoing and is able to stand and walk further with less pain. She reports increased neck pain with pain into the left upper extremity and scapula for the last two months. She is having difficulty with fine motor task involving the fingers on the left, no strength. She continues hydrocodone bid now mainly for the neck pain. She takes this twice daily with pregabalin. She is needing a refill at this time. She has seen the surgeon end of month and had follow up CT and MRI. She has not had a follow up since and this was encouraged today. We will obtain this imaging. Past note: Patient presents in follow up to bilateral L2, L3, L4 medial branch blocks (L3- 4, L4-5 facet joints) 2 weeks ago. She reports 90-100% relief lasting 16 hours of relief with pain returning the next day. She was able to go for a walk and play with her kids during this time, an activity she cannot typically do without severe pain. She was able to stand longer and had improved range of motion. She used same pain medication, but mainly because of cervical complaints. She underwent RF ablation 1 year ago with good relief, see below. She continues home exercises as tolerated. Recommend progression to RF ablation, starting with right side. This will be done under light sedation. She has hypertension and COPD, controlled with medication. No chest pain, shortness of breath. She continues to smoke, is trying to stop. She has tolerated anesthesia well in the past. No med changes, no recent illness. Past note (06/29/22); Patient presents in follow to bilateral L5-S1 TFESI 5 weeks ago. She reports resolution of radicular symptoms, but no relief in low back pain. She does have moderate facet arthropathy and had been doing well following radiofrequency ablation, 80% relief with improved mobility and overall function, when done in 08/2021 until she started experiencing radicular symptoms in December 2021. She feels back pain has progressed the last few months. The RF ablation has likely worn off. She complete 12 sessions of therapy in January 2022 and continues home exercises. The last visit causes increased pain. I recommend repeat medial branch block with progression to RF ablation based on response. There is also tenderness over the SI joint, but more so over the facet joints. Past note: Patient presents with increased low back/buttock pain R>L that sends a shocking sensation down the back of the legs to the knees. She has benefited from TFESI in the past. In Nov 2 months ago she had L3-4 done but she likely needs L5-S1 based on the dermatomal pattern of pain today. Symptoms worsened in the last month. Driving/sitting in one place makes pain worse. She has fallen because of the shooting pains in the legs about 2 weeks ago. Denies new injury, pain is the same as it has been. Physical therapy last for low back pain in October-Nov 2021 for 6 weeks but seemed to make pain worse. Despite this she continues HEP but with recent increase in pain and fall she can not tolerate it. MRI cervical spine results discussed. Hold off on cervical injection with recent increase in lumbar symptoms. She does not need med refills yet today. PRIOR VISIT: Patient presents in follow up to bilateral L3-4 TFESI 2-3 weeks ago. She reports 75-80% overall pain relief. She has some ongoing pain at the thoracolumbar junction. This comes and goes and is worse with activity. She continues home exercises for both the low back and neck, but exercises cause increased neck pain and headaches. Neck pain continues to worsen. Pain will travel into the arms and the is paresthesia in the forearm on both upper extremities. This has been an ongoing problem, but she has been hesitant to have injections. 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 Hydrocodone is not helping as much. She would like to consider injections at this time r/t severe pain. We will need an updated MRI of the cervical spine before proceeding. Past note: Patient presents in follow up to low back pain. She has completed 10 sessions of therapy and feels the last session increased her pain. She is still getting a shocking pain to the posterior thighs. This is worse with standing and walking. She has increased pain with coughing and sneezing. She denies sensory or motor changes. I have recommended a MRI of the lumbar spine at this time. Cervical symptoms remain unchanged and are secondary at this time. Reviewed imaging. Past note: Patient presents in follow-up to a right SI joint injection completed to-3 weeks ago. She reports an additional 60% pain relief overall. At this time she is at least 80-90% improved in her lower back symptoms. She describes a degree of ongoing tightness in the right low back. This is worse with activity. We discussed starting therapy for additional symptom control. She is open to this. She also complains of ongoing cervical symptoms. Pain radiates into the scapula on the right as well as right shoulder pain. Shoulder range of motion is normal. History of cervical fusion in the past. Patient has been hesitant to move forward with further cervical injections due to a vasovagal reaction in the past. She may consider these in the future. For now we will get updated x-rays. She continues hydrocodone as needed for mainly cervical complaints. Medication helps and allows her to maintain function levels. Imaging: All relevant imaging available was personally reviewed with the patient today with the following tests and results noted: MRI cervical spine November 26, 2018: multilevel facet arthropathy with mild right-sided foraminal narrowing at C6-7 and mild foraminal narrowing at C3-4. MRI L spine 06/2019: Spondylosis and degenerative disc disease at L3-4 with annular disc bulge, facet arthropathy and ligamentum flavum hypertrophy causing mild central canal and and mild to moderate bilateral neural foraminal stenosis with contact to exiting bilateral L3 nerve roots. L5-S1 annular disc bulge superimposed central disc protrusion abutting right descending S1 nerve root with bilateral facet arthropathy, ligamentum flavum thickening producing mild right neural foraminal stenosis and contacting the right L5 exiting nerve root X-ray L spine 12/23/20: L3-4 mild to moderate disc disease. Mild lumbar facet arthropathy Xray c spine 10/15/21: mild spondylosis. status post anterior fusion at C5-6 with possible fracture of one of the C6 screws MRI L spine 12/14/21: at L2-3 mild bilateral facet joint arthritis. Mild bilateral neural foraminal stenosis. At L3-4 disc bulging with annular fissure. Hypertrophy of ligamentum flavum. Bilateral facet joint osteoarthritis. Moderate bilateral neural foraminal stenosis. Moderate central canal stenosis. At L4-5 disc bulging with annular fissure. Mild right and mild to moderate left facet joint osteoarthritis. Moderate bilateral neural foraminal stenosis. Mild central canal stenosis. L5-S1 disc bulging with annular fissure and small central disc protrusion. Mild bilateral facet joint osteoarthritis. Mild left and minimal right neural foraminal narrowing. Mild central canal stenosis MRI Cervical Spine 03/03/2022 Mild cervical spondylosis, stable from 04/25/2020. Anterior fusion at C5-6 Imaging: All relevant imaging available was personally reviewed with the patient today with the following tests and results noted: Past Medical/Surgical History Reported: Surgery galbladder neck surgery. Medical: Hypertension. Depression. Surgical / Procedural: Prior surgery neck. Medications: Taking medication for high blood pressure. Tests: Blood pressure was high. Physical Trauma: A fall 2 and Has had a fall in the last 12 months. Has a fear of falling. : Previously 0 time(s) and aborta including 0 miscarriage(s). Diagnoses: Systemic hypertension. Chronic obstructive pulmonary disease. Arthritis Carpal tunnel. Surgical: - Tonsillectomy ADNOIDS Current Medication - Albuterol Sulfate HFA 108 (90 Base) MCG/ACT Inhalation Aerosol Solution as directed 29 days, 0 refills - amLODIPine Besylate 5 MG Oral Tablet 1 capsule daily 30 days, 0 refills - buPROPion HCl ER (XL) 150 MG Oral Tablet Extended Release 24 Hour One tablet daily 30 days, 0 refills - buPROPion HCl ER (XL) 150 MG Oral Tablet Extended Release 24 Hour 1 capsule daily 30 days, 0 refills - buPROPion HCl ER (XL) 300 MG Oral Tablet Extended Release 24 Hour One tablet daily 90 days, 0 refills - Celecoxib 200 MG Oral Capsule TAKE 1 CAPSULE BY MOUTH EVERY DAY, 30 days, 2 refills - Cetirizine HCl 10 MG Oral Tablet One tablet daily 30 days, 0 refills - Cyclobenzaprine HCl 10 MG Oral Tablet One tablet three times a day 30 days, 0 refills - Escitalopram Oxalate 10 MG Oral Tablet 1 capsule daily 30 days, 0 refills - HYDROcodone-Acetaminophen 10-325 MG Oral Tablet 1 po bid prn, 30 days, 0 refills - Lidocaine 5% External Patch apply 1-2 patches to affected area for 12 hours and remove for 12 hours, 30 days, 2 refills - Losartan Potassium 50 MG Oral Tablet 1 capsule daily 0 days, 0 refills - Montelukast Sodium 10 MG Oral Tablet 1 capsule daily 0 days, 0 refills - Montelukast Sodium 10 MG Oral Tablet 1 capsule daily 30 days, 0 refills - Orilissa 200 MG Oral Tablet One tablet daily 0 days, 0 refills - Pantoprazole Sodium 40 MG Oral Tablet Delayed Release 1 capsule daily 30 days, 0 refills - Pregabalin 200 MG Oral Capsule TAKE 1 CAPSULE BY MOUTH TWICE A DAY, 30 days, 2 refills - Sertraline HCl 100 MG Oral Tablet One tablet twice a day 0 days, 0 refills - SUMAtriptan Succinate 100 MG Oral Tablet 30 days, 0 refills - Vraylar 1.5 MG Oral Capsule One tablet daily PT IS TAKING SAMPLES FROM PSYCH, 0 days, 0 refills Social History Tobacco use: Cigarette smoking Half pack, smoking cigars 0, and smoker. Drug Use: Drug use using marijuana. Marital: Single. Allergies - Aspirin (Intolerance) Reaction: Nausea Family History Father Mother Sister 1 years old Cancer maternal grandma Heart disease maternal and paternal grandma Family history unchanged Diabetes mellitus Review Of Systems Systemic: No systemic symptoms other than noted. General overall feeling and feeling tired. No recent weight loss. Head: No head symptoms other then noted. Headache chronic/recurring. Neck: Neck pain. Otolaryngeal: Bleeding gums and mouth sores. Cardiovascular: No chest pain or discomfort. Cold hands or feet. Pulmonary: No dyspnea. Gastrointestinal: No difficulty chewing and no dysphagia. Abdominal pain, diarrhea, and constipation. Genitourinary: Increased urinary frequency and initiating urination requires straining. Endocrine: Muscle weakness. Hematologic: No easy bleeding and no tendency for easy bruising. Musculoskeletal: Back pain, muscle aches, pain localized to one or more joints, and joint swelling localized to one or more joints. Neurological: Dizziness. No fainting passing out with needles or medical procedures. Numbness. Psychological: Feeling nervous, depression, and insomnia. No sleep apnea. Skin: No skin symptoms other than noted. Dry skin and change in skin color. Physical Findings Musculoskeletal System: General/bilateral: Musculoskeletal Scales: Value Lumbar oswestry score 64 Psychiatric: Psychiatric: Value PHQ9 score: 6 HEENT: NC/AT. Anicteric. Clear Conjunctiva. PERRLA. MM's pink/moist. No discharge of EAC. Neck supple. CVS: Peripheral pulses palpable in all extremities. Spine/MSK: Tenderness bilateral lumbar facet joints, mild. Decrease lumbar range of motion and extension and rotation bilaterally. Spurling's maneuver positive on left. Tender SI joints. Positive SLR. Hip exam negative. Gait: Antalgic, shuffling. No steppage gait. Neuro: Awake. Alert. Oriented x3. DTR's decreased throughout lower extremities. No motor weakness Psych: No apparent distress. Mood normal. Affect normal. No pain behaviors. Skin: No rashes. No pigment or temperature abnormalities. Tests Educational Testing: Questionnaires PHQ-9: Value SOAPP-R: total score 12 Assessment - Sacroiliitis [M46.1 - Sacroiliitis, not elsewhere classified] - Arthralgia of the right pelvis/hip/femur [M25.551 - Pain in right hip] - Cervical spondylosis with radiculopathy [M47.22 - Other spondylosis with radiculopathy, cervical region] - Lumbar spondylosis with radiculopathy [M47.26 - Other spondylosis with radiculopathy, lumbar region] - Cervical spine stenosis [M48.02 - Spinal stenosis, cervical region] - Lumbosacral spinal stenosis [M48.07 - Spinal stenosis, lumbosacral region] - Cervical radiculopathy [M54.12 - Radiculopathy, cervical region] - Myalgia [M79.18 - Myalgia, other site] - Chronic pain syndrome [G89.4 - Chronic pain syndrome] - nursing home use of opiate analgesic [Z79.891 - nursing home (current) use of opiate analgesic] Therapy - Intervention and counseling on cessation of tobacco use: Patient recieved smoking cessation handout. - Assessment of suicide risk performed - Clinical summary provided to patient. Counseling/Education - Pill Count: 56 HYDROCODONE Discussed Will continue chronic opioid therapy. Reports improvement in pain. Patient is able to maintain function levels with use of medication management. Reports no adverse side effects. Patient advised of risks and benefits of medication- including tolerance, dependence, addiction, constipation, itching, allergic reactions, sedation, impairment, respiratory depression or failure, development of hyperalgesia Patient was instructed on taking medication correctly; storing medication securely; disposing of medication properly and to never share medication. Plan StartCited - Spinal stenosis, lumbosacral region Referral: Neurosurgeon Instructions: Referral to neurosurgery for spinal cord stimulator implant after successful percutaneous trial of 2, 8 contact [employer] leadst. EndCited Practice Management Use of tobacco assessment performed Review of medications documented; Standardized depression screening: positive for symptoms and for adult impression and score six. Results of this interaction were communicated directly to the patient's referring and/or primary care provider. All imaging studies and test results discussed in the above document were personally reviewed and evaluated by the performing provider. For all patients on acute or chronic opioids, ongoing need for opioid analgesia is assessed at each visit with consideration of discontinuation or wean to lowest effective dose when possible and appropriate. Contents of this document have been edited for correctness, but may be subject to typographical or half backer errors. Verify all diagnoses, medications, dosages, and patient instructions with patient and/or the originator of this document. Care Team - [facility] - Pain Management Health Reminders - Assess Tobacco Use satisfied 08/04/2023. - Depression Screening satisfied 08/04/2023. - Follow up plan for Depression Screening satisfied 08/04/2023. - Smoking & Tobacco Cessation Intervention and Counseling satisfied 08/04/2023. * Progress note Date Encounter Last Documented by 07/31/2023 RX ISSUE/REFILL Last documented on 08/01/2023; 8:07 AM, MICHEL RUBI-; [facility] Active Problems & Conditions - Carpal Tunnel Syndrome - Chronic Obstructive Pulmonary Disease - Chronic Pain Syndrome - Gerd - Hypertension Systemic - Radiculopathy Chief Complaint Phone Call - Chief Concern: Reason for call:RX REFILL Patient is requesting a refill on HYDROCODONE 10/325 ~How is medication taken? BID ~How many are left?5 Risk Assessment Score: MOD ~ILPMP:07/05/23 Last Office Visit: 07/27/23 ~ pt phone # for Return call: ~Last Drug Screen:06/27/23 ~Date/Initials: 07/31/23 CB. Past Medical/Surgical History Reported: Surgery galbladder neck surgery. Medical: Hypertension. Depression. Surgical / Procedural: Prior surgery neck. Medications: Taking medication for high blood pressure. Tests: Blood pressure was high. Physical Trauma: A fall 2 and Has had a fall in the last 12 months. Has a fear of falling. : Previously 0 time(s) and aborta including 0 miscarriage(s). Diagnoses: Systemic hypertension. Chronic obstructive pulmonary disease. Arthritis Carpal tunnel. Surgical: - Tonsillectomy ADNOIDS Current Medication - Albuterol Sulfate HFA 108 (90 Base) MCG/ACT Inhalation Aerosol Solution as directed 29 days, 0 refills - amLODIPine Besylate 5 MG Oral Tablet 1 capsule daily 30 days, 0 refills - buPROPion HCl ER (XL) 150 MG Oral Tablet Extended Release 24 Hour One tablet daily 30 days, 0 refills - buPROPion HCl ER (XL) 150 MG Oral Tablet Extended Release 24 Hour 1 capsule daily 30 days, 0 refills - buPROPion HCl ER (XL) 300 MG Oral Tablet Extended Release 24 Hour One tablet daily 90 days, 0 refills - Celecoxib 200 MG Oral Capsule TAKE 1 CAPSULE BY MOUTH EVERY DAY, 30 days, 2 refills - Cetirizine HCl 10 MG Oral Tablet One tablet daily 30 days, 0 refills - Cyclobenzaprine HCl 10 MG Oral Tablet One tablet three times a day 30 days, 0 refills - Escitalopram Oxalate 10 MG Oral Tablet 1 capsule daily 30 days, 0 refills - Lidocaine 5% External Patch apply 1-2 patches to affected area for 12 hours and remove for 12 hours, 30 days, 2 refills - Losartan Potassium 50 MG Oral Tablet 1 capsule daily 0 days, 0 refills - Montelukast Sodium 10 MG Oral Tablet 1 capsule daily 0 days, 0 refills - Montelukast Sodium 10 MG Oral Tablet 1 capsule daily 30 days, 0 refills - Orilissa 200 MG Oral Tablet One tablet daily 0 days, 0 refills - Pantoprazole Sodium 40 MG Oral Tablet Delayed Release 1 capsule daily 30 days, 0 refills - Pregabalin 200 MG Oral Capsule TAKE 1 CAPSULE BY MOUTH TWICE A DAY, 30 days, 2 refills - Sertraline HCl 100 MG Oral Tablet One tablet twice a day 0 days, 0 refills - SUMAtriptan Succinate 100 MG Oral Tablet 30 days, 0 refills - Vraylar 1.5 MG Oral Capsule One tablet daily PT IS TAKING SAMPLES FROM PSYCH, 0 days, 0 refills Social History Tobacco use: Cigarette smoking Half pack, smoking cigars 0, and smoker. Drug Use: Drug use using marijuana. Marital: Single. Allergies - Aspirin (Intolerance) Reaction: Nausea Plan StartCited - Spinal stenosis, lumbar region without neurogenic huong HYDROcodone-Acetaminophen 10-325 MG tablet 1 po bid prn, 30 days, 0 refills EndCited Care Team - GRE[facility] KEY- - Pain Management Health Reminders - Assess Tobacco Use satisfied 07/31/2023. * Progress note Date Encounter Last Documented by 07/31/2023 POST PROCEDURE PHONE CALL Last d ocumented on 07/31/2023; 10:47 AM, Lorraine Parsons RN; [facility] Top of Document Post-Procedural Patient Screening Questionnaire Date of Procedure: 07/28/23 Procedure: SCS trial 1. How have you felt since your last procedure? Doing much better, normal pain is almost gone. Improved Same Worse 2. Pain level prior to procedure? 7-11/10 3. Pain level currently? 06/10 4. How long after procedure did symptoms begin? Denies Same pain but worse New Symptoms ? If new, describe: Improving Staying the same Getting worse 5. Any post procedure issues with injection? Denies Heat Swelling Soreness Redness Streaking Injection site pain Bleeding Discharge/Drainage 6. Are you experiencing new numbness in the groin or saddle area? Yes No 7.New loss of bowel or bladder control? Yes No 8. Are you having any of the following symptoms? Denies Fever Chills Night Sweats Rigors/Shaking Chills Headaches Neck Stiffness Sensitivity to sound New muscle pain/Stiffness Weakness Nausea Vomiting Diarrhea Dizziness Rash Flushing Mood Irritability Blood Pressure changes Blood sugar changes Completed by Janet Parsons RN by 07/31/23 Active Problems & Conditions - Carpal Tunnel Syndrome - Chronic Obstructive Pulmonary Disease - Chronic Pain Syndrome - Gerd - Hypertension Systemic - Radiculopathy Current Medication - Albuterol Sulfate HFA 108 (90 Base) MCG/ACT Inhalation Aerosol Solution as directed 29 days, 0 refills - amLODIPine Besylate 5 MG Oral Tablet 1 capsule daily 30 days, 0 refills - buPROPion HCl ER (XL) 150 MG Oral Tablet Extended Release 24 Hour One tablet daily 30 days, 0 refills - buPROPion HCl ER (XL) 150 MG Oral Tablet Extended Release 24 Hour 1 capsule daily 30 days, 0 refills - buPROPion HCl ER (XL) 300 MG Oral Tablet Extended Release 24 Hour One tablet daily 90 days, 0 refills - Celecoxib 200 MG Oral Capsule TAKE 1 CAPSULE BY MOUTH EVERY DAY, 30 days, 2 refills - Cetirizine HCl 10 MG Oral Tablet One tablet daily 30 days, 0 refills - Cyclobenzaprine HCl 10 MG Oral Tablet One tablet three times a day 30 days, 0 refills - Escitalopram Oxalate 10 MG Oral Tablet 1 capsule daily 30 days, 0 refills - HYDROcodone-Acetaminophen 10-325 MG Oral Tablet 1 po bid prn4/4, 30 days, 0 refills - Lidocaine 5% External Patch apply 1-2 patches to affected area for 12 hours and remove for 12 hours, 30 days, 2 refills - Losartan Potassium 50 MG Oral Tablet 1 capsule daily 0 days, 0 refills - Montelukast Sodium 10 MG Oral Tablet 1 capsule daily 0 days, 0 refills - Montelukast Sodium 10 MG Oral Tablet 1 capsule daily 30 days, 0 refills - Orilissa 200 MG Oral Tablet One tablet daily 0 days, 0 refills - Pantoprazole Sodium 40 MG Oral Tablet Delayed Release 1 capsule daily 30 days, 0 refills - Pregabalin 200 MG Oral Capsule TAKE 1 CAPSULE BY MOUTH TWICE A DAY, 30 days, 2 refills - Sertraline HCl 100 MG Oral Tablet One tablet twice a day 0 days, 0 refills - SUMAtriptan Succinate 100 MG Oral Tablet 30 days, 0 refills - Vraylar 1.5 MG Oral Capsule One tablet daily PT IS TAKING SAMPLES FROM PSYCH, 0 days, 0 refills Past Medical/Surgical History Reported: Surgery galbladder neck surgery. Medical: No previous psychiatric treatment. Hypertension. Depression. Surgical / Procedural: Prior surgery neck. Medications: Taking medication for high blood pressure. Not taking OTC medications. Tests: Blood pressure was high. Exposure: No exposure to a contagious disease. Physical Trauma: A fall 2 and Has had a fall in the last 12 months. Has a fear of falling. : Previously 0 time(s) and aborta including 0 miscarriage(s). Diagnoses: Systemic hypertension. Chronic obstructive pulmonary disease. Arthritis Carpal tunnel. Surgical: - Tonsillectomy ADNOIDS Social History Personal: No family problems and no recent emotional stress. Tobacco use: Cigarette smoking Half pack and smoking cigars 0. Not smoking a pipe and not a current nonsmoker. Smoker. Alcohol: No consumption of alcohol. Drug Use: Drug use using marijuana. Habits: No recent change in sleep. Education: Currently not in school. Marital: Single. Allergies - Aspirin (Intolerance) Reaction: Nausea Family History Father Mother Sister 1 years old Cancer maternal grandma Heart disease maternal and paternal grandma Family history unchanged Diabetes mellitus Care Team - [facility] KEY- - Pain Management Health Reminders - Assess Tobacco Use satisfied 07/31/2023. * Progress note Date Encounter Last Documented by 07/27/2023 PAIN MANAGEMENT FOLLOW UP Last d ocumented on 07/27/2023; 1:34 PM, KRYSTEN CANNON MD; [facility] Top of Document This document represents the pre-surgical History & Physical for this patient Active Problems & Conditions - Carpal Tunnel Syndrome - Chronic Obstructive Pulmonary Disease - Chronic Pain Syndrome - Gerd - Hypertension Systemic - Radiculopathy History of Present Illness PHQ-9 Score: 6 Date: SOAPP-R Score: 12 Date: 04/11/23 Oswestry Score: 64% Date: 04/11/23 Pain Location: lower back Quality: sharp, ache (occasional numbness in toes) Radiation: both legs Severity: Timing: years Associated Sx: Aggravating Factors: any activity- standing, walking, lifting Alleviating Factors: leaning forward, lying down Past Tx: TFESI with short-term relief (50 to 60% improvement for 2 to 3 weeks),, Bilateral L2, L3, L4 medial branch/dorsal ramus thermal RFA with short-lived benefit (1 to 2 months), minimal to modest benefit with SI joint injections, short- lived, modest response to opioid analgesics. JENNIFER MARIN is a 47 year old female. - Allergy list reviewed - Problem list reviewed - Medication reconciliation performed - Medication list reviewed - Last dose of medication? Discussion: Patient presents today for preoperative evaluation and planning for intended OR procedure, [spinal cord stimulation trial] for [Chronic low back pain and lumbosacral radiculopathy]. Patient has chronic, disabling pain over the past 6 to 12 months or longer that has resulted in significant activity intolerance, functional incapacity and interruptions in ADLs and self-care activities despite aggressive but unsuccessful efforts at conservative management to include physical therapy and home exercise programs, oral and topical analgesics, opioid and non-opioid analgesics, steroid injections/interventions, rest, time and behavior modification for greater than one year. Patient is a candidate for implantable device therapies and has undergone psychological screen showing no psychological barriers such as untreated or uncontrolled depression, anxiety or somatization disorder. As a result, they meet medical necessity for the planned and upcoming procedure. Appropriate perioperative instructions were discussed in detail with the patient today including the preoperative need for testing to ensure safety for anesthesia/sedation, the need to be NPO from midnight the morning of the procedure except for morning medications with small sip of water, the need to hold aspirin or NSAIDs for 7 days prior to the procedure and any anticoagulants for the prescribed period of time. Patient will need a spike driver the day of the procedure and cannot drive for at least 24 hours following intervention or until cleared by her provider. Appropriate activity restrictions and wound care were discussed the patient as well. Patient will follow-up [6-7] days to [remove temporarily implanted leads,] [assess wound healing] and [evaluate response]. Appropriate goals, procedural outcomes and expectations were discussed with the patient as well today. Questions were elicited, asked and answered the best of our ability and to the patient's satisfaction today. [place] prescription monitoring database was reviewed and found to be appropriate. There's been no interval change the patient's medical history, medications, allergies or diagnoses. She is no new symptoms to complain of today. She denies fevers, chills, night sweats or signs of infection. She denies productive cough, dysuria, shortness of breath/dyspnea on exertion, chest pain, jaw pain or increasing peripheral edema. She denies new neurologic deficit including bowel or bladder comments. She is not on blood thinners. She is borderline diabetic. She hasno implantable devices currently. PRIOR VISIT (06/08/23): Discussed spinal cord stimulation as an option for management of her chronic low back and lower extremity pain. She had short-lived responses to each epidural steroid injections at multiple levels as well as medial branch blocks and RFA at L2, L3 and L4 bilaterally. All these gave some benefit but with limited duration. As a result, her insurance will no longer cover repeat therapies. Given the primary axial nature of her pain, she is not a great candidate for surgical intervention as there is no evidence of lumbar instability and lumbar fusion has a failure rate of close to 50% with multilevel fusion's. Given this, she would like to consider implantable device therapies. She has close experience with these as her significant other has both a pump and the stimulator. She like to consider stimulation for back and lower extremity pain. We discussed this process at length including appropriate expectations and outcomes, timeline, prerequisites and careful discussion of risks, benefits and alternatives. Patient has a patient education information that she has reviewed. She's also discussed this with her mid-level provider, GREYSON Sylvester. Given the patient's chronic symptoms that have failed to respond to aggressive conservative management over the course of the past several years, given her significant pain and disability which is resulted in reduced ADLs, self-care and work-related activities as well as impairment of her sleep and ability to function with routine activities at home, she is an excellent candidate for spinal cord stimulation trial and if successful implant. We obtain psychological screening to rule out any existing psychological barriers although there are none based on my personal knowledge of the patient. Will obtain authorization once is completed through insurance carrier for the trial and will call to schedule the patient at that time. She will need appropriate preoperative labs to ensure fitness for anesthesia. We'll see her back 6 to 7 days after trial for lead pull and to assess her response. Risks, benefits and alternatives to the treatment strategy listed above was discussed in detail the patient who expressed explicit understanding and consent to proceed. Questions were elicited, asked and answered the best of our ability and to her satisfaction today. [place] prescription monitoring database was reviewed and found to be appropriate. PRIOR VISIT (06/06/23): She returns with complaints of ongoing neck and low back pain. Low back pain has worsened and now multidermatomal. She is now experiencing radiating pain to the anterolateral lower extremity in L3/4 dermatomal pattern, predominately right sided. These symptoms started 6-8 weeks ago and have progressively worsened. There is still radiating pain to the posterior thigh bilaterally. Daily activities are limited due to pain and she is having a difficult time sleeping. She notes pain in the right hip, but radicular pain is most severe. MRI indicates moderate central and neuroforaminal stenosis. Recommending a bilateral L3-4 TFESI. She has attempted therapy multiple times in the past with increased pain. She has been unable to do home stretches due to increased pain. If ineffective, recommend spinal cord stimulator trial. She also has cervical symptoms. Pain radiates to the scapula and upper extremities. She has not responded to conservative measures and is under care of neurosurgery. Hydrocodone is used as needed, she is needing a refill. Medication does help to some degree, though less the last several weeks. Prior visit: Patient presents in follow up for low back pain and to review lower extremity ncv/emg. She complains of sharp, shooting pain to the posterior buttock and upper thigh. She was seen in January following a bilateral L5-S1 TFESI which had been done 3 weeks prior. She had reported 80% relief initially and 30% ongoing benefit at time of visit. We had discussed a repeat epidural for a compounding effect, but this was denied. We were unable to appeal without her signature to required insurance documents. She has signed these today. Pain has progressed. I am hopeful this procedure can be approved at this point. Pain limits ability to stand for extended period of time and nearly all aspects of her life. Oswestry disability index is severe at 64%. She continues home exercises, but often stops them due to increased pain. Past note (01/11/23): Patient presents in follow up to bilateral L5-S1 TFESI 3 weeks ago. She reports 80% relief initially with 30% ongoing benefit. The radicular pain is not as sharp, but still present to somewhat lesser degree. There is still some back pain. We discussed repeat epidural for optimal benefit and she is agreeable. She attempts home exercises, but these are often limited by pain. Hydrocodone is used bid with additional relief. She suffers from chronic neck pain and has seen neurosurgery. She reports a scheduled procedure, but not sure what is ordered. She was just seen last week. Past note: Patient is a follow up for chronic back and neck pain. She is awaiting appt. with surgeon on cervical symptoms. She has an upcoming appt. with Dr. Cannon for bilateral L5-S1 TFESI in 2-3 weeks. She reports a fall last week causing increased pain. She feels the right leg is giving out on her causing her to fall. Hydrocodone is used bid and she question if it is helping s much. We discussed use of tylenol up to 3000mg per day and lidocaine patches for additional relief. Past note: Patient presents in follow up on medication. She underwent L3-4, L4-5 facet ablation in with at least 90% pain relief and improved mobility. She presents today with complaints of increased shocking sensation down the back of the legs to the knee. Pain worsens with sitting and with activity. She denies motor or sensory changes. She has been doing home exercises as tolerated, but these are often not tolerated and cause increase pain. Hydrocodone is used twice daily with mild to modest benefit. She has benefited from L5-S1 TFESI for similar symptoms in the past, last done in 06/2022 with resolution of radicular symptoms, and would like to consider this procedure again. She awaits further follow up with surgeon for ongoing cervical complaints. These symptoms remain unchanged. Past note: F/U bilateral RF ablation 5-6 weeks ago. She reports 85-90% pain relief ongoing and is able to stand and walk further with less pain. She reports increased neck pain with pain into the left upper extremity and scapula for the last two months. She is having difficulty with fine motor task involving the fingers on the left, no strength. She continues hydrocodone bid now mainly for the neck pain. She takes this twice daily with pregabalin. She is needing a refill at this time. She has seen the surgeon end of month and had follow up CT and MRI. She has not had a follow up since and this was encouraged today. We will obtain this imaging. Past note: Patient presents in follow up to bilateral L2, L3, L4 medial branch blocks (L3- 4, L4-5 facet joints) 2 weeks ago. She reports 90-100% relief lasting 16 hours of relief with pain returning the next day. She was able to go for a walk and play with her kids during this time, an activity she cannot typically do without severe pain. She was able to stand longer and had improved range of motion. She used same pain medication, but mainly because of cervical complaints. She underwent RF ablation 1 year ago with good relief, see below. She continues home exercises as tolerated. Recommend progression to RF ablation, starting with right side. This will be done under light sedation. She has hypertension and COPD, controlled with medication. No chest pain, shortness of breath. She continues to smoke, is trying to stop. She has tolerated anesthesia well in the past. No med changes, no recent illness. Past note (06/29/22); Patient presents in follow to bilateral L5-S1 TFESI 5 weeks ago. She reports resolution of radicular symptoms, but no relief in low back pain. She does have moderate facet arthropathy and had been doing well following radiofrequency ablation, 80% relief with improved mobility and overall function, when done in 08/2021 until she started experiencing radicular symptoms in December 2021. She feels back pain has progressed the last few months. The RF ablation has likely worn off. She complete 12 sessions of therapy in January 2022 and continues home exercises. The last visit causes increased pain. I recommend repeat medial branch block with progression to RF ablation based on response. There is also tenderness over the SI joint, but more so over the facet joints. Past note: Patient presents with increased low back/buttock pain R>L that sends a shocking sensation down the back of the legs to the knees. She has benefited from TFESI in the past. In Nov 2 months ago she had L3-4 done but she likely needs L5-S1 based on the dermatomal pattern of pain today. Symptoms worsened in the last month. Driving/sitting in one place makes pain worse. She has fallen because of the shooting pains in the legs about 2 weeks ago. Denies new injury, pain is the same as it has been. Physical therapy last for low back pain in October-Nov 2021 for 6 weeks but seemed to make pain worse. Despite this she continues HEP but with recent increase in pain and fall she can not tolerate it. MRI cervical spine results discussed. Hold off on cervical injection with recent increase in lumbar symptoms. She does not need med refills yet today. PRIOR VISIT: Patient presents in follow up to bilateral L3-4 TFESI 2-3 weeks ago. She reports 75-80% overall pain relief. She has some ongoing pain at the thoracolumbar junction. This comes and goes and is worse with activity. She continues home exercises for both the low back and neck, but exercises cause increased neck pain and headaches. Neck pain continues to worsen. Pain will travel into the arms and the is paresthesia in the forearm on both upper extremities. This has been an ongoing problem, but she has been hesitant to have injections. 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 Hydrocodone is not helping as much. She would like to consider injections at this time r/t severe pain. We will need an updated MRI of the cervical spine before proceeding. Past note: Patient presents in follow up to low back pain. She has completed 10 sessions of therapy and feels the last session increased her pain. She is still getting a shocking pain to the posterior thighs. This is worse with standing and walking. She has increased pain with coughing and sneezing. She denies sensory or motor changes. I have recommended a MRI of the lumbar spine at this time. Cervical symptoms remain unchanged and are secondary at this time. Reviewed imaging. Past note: Patient presents in follow-up to a right SI joint injection completed to-3 weeks ago. She reports an additional 60% pain relief overall. At this time she is at least 80-90% improved in her lower back symptoms. She describes a degree of ongoing tightness in the right low back. This is worse with activity. We discussed starting therapy for additional symptom control. She is open to this. She also complains of ongoing cervical symptoms. Pain radiates into the scapula on the right as well as right shoulder pain. Shoulder range of motion is normal. History of cervical fusion in the past. Patient has been hesitant to move forward with further cervical injections due to a vasovagal reaction in the past. She may consider these in the future. For now we will get updated x-rays. She continues hydrocodone as needed for mainly cervical complaints. Medication helps and allows her to maintain function levels. Imaging: All relevant imaging available was personally reviewed with the patient today with the following tests and results noted: MRI cervical spine November 26, 2018: multilevel facet arthropathy with mild right-sided foraminal narrowing at C6-7 and mild foraminal narrowing at C3-4. MRI L spine 06/2019: Spondylosis and degenerative disc disease at L3-4 with annular disc bulge, facet arthropathy and ligamentum flavum hypertrophy causing mild central canal and and mild to moderate bilateral neural foraminal stenosis with contact to exiting bilateral L3 nerve roots. L5-S1 annular disc bulge superimposed central disc protrusion abutting right descending S1 nerve root with bilateral facet arthropathy, ligamentum flavum thickening producing mild right neural foraminal stenosis and contacting the right L5 exiting nerve root X-ray L spine 12/23/20: L3-4 mild to moderate disc disease. Mild lumbar facet arthropathy Xray c spine 10/15/21: mild spondylosis. status post anterior fusion at C5-6 with possible fracture of one of the C6 screws MRI L spine 12/14/21: at L2-3 mild bilateral facet joint arthritis. Mild bilateral neural foraminal stenosis. At L3-4 disc bulging with annular fissure. Hypertrophy of ligamentum flavum. Bilateral facet joint osteoarthritis. Moderate bilateral neural foraminal stenosis. Moderate central canal stenosis. At L4-5 disc bulging with annular fissure. Mild right and mild to moderate left facet joint osteoarthritis. Moderate bilateral neural foraminal stenosis. Mild central canal stenosis. L5-S1 disc bulging with annular fissure and small central disc protrusion. Mild bilateral facet joint osteoarthritis. Mild left and minimal right neural foraminal narrowing. Mild central canal stenosis MRI Cervical Spine 03/03/2022 Mild cervical spondylosis, stable from 04/25/2020. Anterior fusion at C5-6 Imaging: All relevant imaging available was personally reviewed with the patient today with the following tests and results noted: Current Medication - Albuterol Sulfate HFA 108 (90 Base) MCG/ACT Inhalation Aerosol Solution as directed 29 days, 0 refills - amLODIPine Besylate 5 MG Oral Tablet 1 capsule daily 30 days, 0 refills - buPROPion HCl ER (XL) 150 MG Oral Tablet Extended Release 24 Hour One tablet daily 30 days, 0 refills - buPROPion HCl ER (XL) 150 MG Oral Tablet Extended Release 24 Hour 1 capsule daily 30 days, 0 refills - buPROPion HCl ER (XL) 300 MG Oral Tablet Extended Release 24 Hour One tablet daily 90 days, 0 refills - Celecoxib 200 MG Oral Capsule TAKE 1 CAPSULE BY MOUTH EVERY DAY, 30 days, 2 refills - Cetirizine HCl 10 MG Oral Tablet One tablet daily 30 days, 0 refills - Cyclobenzaprine HCl 10 MG Oral Tablet One tablet three times a day 30 days, 0 refills - Escitalopram Oxalate 10 MG Oral Tablet 1 capsule daily 30 days, 0 refills - HYDROcodone-Acetaminophen 10-325 MG Oral Tablet 1 po bid prn4/4, 30 days, 0 refills - Lidocaine 5% External Patch apply 1-2 patches to affected area for 12 hours and remove for 12 hours, 30 days, 2 refills - Losartan Potassium 50 MG Oral Tablet 1 capsule daily 0 days, 0 refills - Montelukast Sodium 10 MG Oral Tablet 1 capsule daily 0 days, 0 refills - Montelukast Sodium 10 MG Oral Tablet 1 capsule daily 30 days, 0 refills - Orilissa 200 MG Oral Tablet One tablet daily 0 days, 0 refills - Pantoprazole Sodium 40 MG Oral Tablet Delayed Release 1 capsule daily 30 days, 0 refills - Pregabalin 200 MG Oral Capsule TAKE 1 CAPSULE BY MOUTH TWICE A DAY, 30 days, 2 refills - Sertraline HCl 100 MG Oral Tablet One tablet twice a day 0 days, 0 refills - SUMAtriptan Succinate 100 MG Oral Tablet 30 days, 0 refills - Vraylar 1.5 MG Oral Capsule One tablet daily PT IS TAKING SAMPLES FROM PSYCH, 0 days, 0 refills Past Medical/Surgical History Reported: Surgery galbladder neck surgery. Medical: No previous psychiatric treatment. Hypertension. Depression. Surgical / Procedural: Prior surgery neck. Medications: Taking medication for high blood pressure. Not taking OTC medications. Tests: Blood pressure was high. Exposure: No exposure to a contagious disease. Physical Trauma: A fall 2 and Has had a fall in the last 12 months. Has a fear of falling. : Previously 0 time(s) and aborta including 0 miscarriage(s). Diagnoses: Systemic hypertension. Chronic obstructive pulmonary disease. Arthritis Carpal tunnel. Surgical: - Tonsillectomy ADNOIDS Social History Personal: No family problems and no recent emotional stress. Tobacco use: Cigarette smoking Half pack and smoking cigars 0. Not smoking a pipe and not a current nonsmoker. Smoker. Alcohol: No consumption of alcohol. Drug Use: Drug use using marijuana. Habits: No recent change in sleep. Education: Currently not in school. Marital: Single. Allergies - Aspirin (Intolerance) Reaction: Nausea Family History Father Mother Sister 1 years old Cancer maternal grandma Heart disease maternal and paternal grandma Family history unchanged Diabetes mellitus Review Of Systems Systemic: No systemic symptoms other then noted and no systemic symptoms other than noted. General overall feeling and feeling tired. No recent weight loss. Head: No head symptoms other then noted. Headache chronic/recurring. Neck: Neck pain. No neck pain. Otolaryngeal: No otolaryngeal symptoms other than noted. Hearing loss, bleeding gums, and mouth sores. Cardiovascular: No cardiovascular symptoms other than noted. Cold hands or feet. Pulmonary: No pulmonary symptoms other than noted. Gastrointestinal: No difficulty chewing and no dysphagia. Abdominal pain, diarrhea, and constipation. Genitourinary: No genitourinary symptoms other than noted. Increased urinary frequency and initiating urination requires straining. Endocrine: No endocrine symptoms other than noted. Muscle weakness. Hematologic: No easy bleeding and no tendency for easy bruising. Musculoskeletal: No musculoskeletal symptoms other than noted. Back pain, muscle aches, pain localized to one or more joints, and joint swelling localized to one or more joints. Neurological: No neurological symptoms other than noted. Dizziness. No fainting passing out with needles or medical procedures. Numbness. Psychological: Feeling nervous, depression, and insomnia. No sleep apnea. Skin: No skin symptoms other than noted. Dry skin and change in skin color. Physical Findings - Vitals taken 07/27/2023 01:08 pm BP-Sitting R 130/82 mmHg BP Cuff Size Regular Pulse Rate-Sitting 96 bpm Pulse Rhythm Regular Respiration Rate 21 per min Temp-Tympanic 97.8 F Height 65 in Weight 200 lbs Body Mass Index 33.3 kg/m2 Body Surface Area 2 m2 Pain Level 6 Oxygen Saturation 96 % Musculoskeletal System: General/bilateral: Musculoskeletal Scales: Value Lumbar oswestry score 64 Psychiatric: Psychiatric: Value PHQ9 score: 6 HEENT: NC/AT. Anicteric. Clear Conjunctiva. PERRLA. MM's pink/moist. No discharge of EAC. Neck supple. CVS: Peripheral pulses palpable in all extremities. Spine/MSK: Tenderness bilateral lumbar facet joints, mild. Decrease lumbar range of motion and extension and rotation bilaterally. Spurling's maneuver positive on left. Tender SI joints. Positive SLR. Hip exam negative. Gait: Antalgic, shuffling. No steppage gait. Neuro: Awake. Alert. Oriented x3. DTR's decreased throughout lower extremities. No motor weakness Psych: No apparent distress. Mood normal. Affect normal. No pain behaviors. Skin: No rashes. No pigment or temperature abnormalities. Tests Educational Testing: Questionnaires PHQ-9: Value SOAPP-R: total score 12 Assessment - [M46.1 - Sacroiliitis, not elsewhere classified] Sacroiliitis - [M25.551 - Pain in right hip] Arthralgia of the right pelvis/hip/femur - [M47.22 - Other spondylosis with radiculopathy, cervical region] Cervical spondylosis with radiculopathy - [M47.26 - Other spondylosis with radiculopathy, lumbar region] Lumbar spondylosis with radiculopathy - [M48.02 - Spinal stenosis, cervical region] Cervical spine stenosis - [M48.07 - Spinal stenosis, lumbosacral region] Lumbosacral spinal stenosis - [M54.12 - Radiculopathy, cervical region] Cervical radiculopathy - [M79.18 - Myalgia, other site] Myalgia - [G89.4 - Chronic pain syndrome] Chronic pain syndrome - [Z79.891 - 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] nursing home use of opiate analgesic Therapy - Intervention and counseling on cessation of tobacco use: Patient recieved smoking cessation handout. - Assessment of suicide risk performed - Clinical summary provided to patient. Counseling/Education - Pill Count: HYDROCODONE Discussed The preoperative H & P is done today in the office. No major problems are found. We will proceed with surgical intervention accordingly. Will continue chronic opioid therapy. Reports improvement in pain. Patient is able to maintain function levels with use of medication management. Reports no adverse side effects. Patient advised of risks and benefits of medication- including tolerance, dependence, addiction, constipation, itching, allergic reactions, sedation, impairment, respiratory depression or failure, development of hyperalgesia Patient was instructed on taking medication correctly; storing medication securely; disposing of medication properly and to never share medication. Plan Based on patient preference and on appropriate authorization, we can proceed with 2 lead spinal cord stimulation trial under fluoroscopic guidance. Psychological assessment has been completed and is appropriate. Patient will follow-up in 6 to 7 days for lead pull and assessment. If successful, patient can proceed to permanent implantation.. Practice Management Use of tobacco assessment performed Review of medications documented; Standardized depression screening: positive for symptoms and for adult impression and score six. Results of this interaction were communicated directly to the patient's referring and/or primary care provider. All imaging studies and test results discussed in the above document were personally reviewed and evaluated by the performing provider. For all patients on acute or chronic opioids, ongoing need for opioid analgesia is assessed at each visit with consideration of discontinuation or wean to lowest effective dose when possible and appropriate. Contents of this document have been edited for correctness, but may be subject to typographical or half backer errors. Verify all diagnoses, medications, dosages, and patient instructions with patient and/or the originator of this document. Care Team - GREYSON KEY- - Pain Management Health Reminders - Assess Blood Pressure satisfied 07/27/2023. - Assess BMI satisfied 07/27/2023. - Assess Tobacco Use satisfied 07/27/2023. - Depression Screening satisfied 07/27/2023. - Follow up plan for Depression Screening satisfied 07/27/2023. - Smoking & Tobacco Cessation Intervention and Counseling satisfied 07/27/2023.
--- OUTSIDE RECORDS SUMMARY | 2024-07-25 13:43 | XMS_ITS | Clinical Summary ---
Author Organization [facility] Address [address] [place] [address] Phone Care Team Providers Care Junior Media Buyer Name Role Phone THOM ANP-BC, MICHEL L Unavailable [phone] DANE CASON, OLIVIA Ha Primary Care Provider [phone] Reason for Visit and Chief Complaint RX ISSUE/REFILL Problems Includes: Problems addressed during this encounter and other active Problems All Visits Onset Date Resolved Date Provider Condition S tatus Chronic Pain Syndrome 06/27/2023 LI BROOKE PMHNP Active Last Documented On 4 3:06PM ; [facility] Carpal Tunnel Syndrome 03/17/2020 MICHEL L BLEV INS ANP-BC Active Last Documented On 0 1:42PM ; [facility] Chronic Obstructive Pulmonary Disease 03/17/2020 MICHEL L THOM ANP-BC Active Last Documented On 0 1:42PM ; [facility] Gerd 03/17/2020 MICHEL L THOM ANP-BC A ctive Last Documented On 0 1:41PM ; [facility] Hypertension Systemic 03/17/2020 MICHEL L BLEVI NS ANP-BC Active Last Documented On 0 1:41PM ; [facility] Radiculopathy 03/17/2020 MICHEL L THOM ANP-B C Active Last Documented On 0 1:42PM ; [facility] Plan of Treatment No Plan of Treatment Recorded Assessments Includes: Assessments from this encounter No Assessments Recorded Medical Equipment - Implanted Devices Includes: Current Devices No Medical Equipment Recorded Medications Includes: Medications discussed during this encounter and other current Medications New / Renewed during this visit MICHEL MARI on 2023 HYDROcodone-Acetaminophen 10 -325 MG Oral Tablet Provider: MICHEL MARI 30 day supply: 60 tablet, 0 refills Diagnosis: Spinal stenosis, lumbar region without neurogenic huong 1 po bid prn Pharmacy: [facility]/pharmacy #[id number] [facility] - [address] [place] [address], [id number] - Last Documented On 4 3:18PM By MICHEL MARI ; [facility] Current Medications (continue as prescribed) Celecoxib 200 MG Oral Capsule 08/21/2023 Provider: MICHEL MARI Diagnosis: TAKE 1 CAPSULE BY MOUTH EVERY DAY Last Documented On 4 8:21AM By MICHEL MARI ; [facility] Pregabalin 200 MG Oral Capsule 06/20/2023 Provider: MICHEL ALFORD Diagnosis: Radiculopathy, c ervical region TAKE 1 CAPSULE BY MOUTH TWICE A DAY Last Documented On 4 2:00PM By MICHEL MARI ; [facility] Pantoprazole Sodium 40 MG Or al Tablet Delayed Release 06/15/2023 Provider: OLIVIA VELA MD Diagnosis: Last Documented On 06/27/2023 10:33AM By Ned BRUSH ; [facility] Montelukast Sodium 10 MG Oral Tablet 06/15/2023 Prov ider: OLIVIA VELA MD Diagnosis: Last Documented On 06/27/2023 10:33AM By Ned BRUSH ; [facility] buPROPion HCl ER (XL) 150 MG Oral Tablet Extended Release 24 Hour 05/08/2023 Provider: Diagnosis: Last Documented On 06/27/2023 10:32AM By Ned BRUSH ; [facility] Escitalopram Oxalate 10 MG Oral Tablet 05/07/2023 Pr ovider: Diagnosis: Last Documented On 06/27/2023 10:32AM By Ned BRUSH ; [facility] amLODIPine Besylate 5 MG Oral Tablet 05/04/2023 Prov ider: OLIVIA VELA MD Diagnosis: Last Documented On 06/27/2023 10:31AM By Ned Gray Nini ; [facility] Lidocaine 5% External Patch 04/11/2023 Provider: MICHEL FLOWERBC Diagnosis: Other spondylosi s with radiculopathy, lumbar region apply 1-2 patches to affecte d area for 12 hours and remove for 12 hours Last Documented On 4 10:41AM By MICHEL RUBI- ; [facility] Vraylar 1.5 MG Oral Capsule 01/11/2023 Provider: Diagnosis: PT IS TAKING SAMPLES FROM PSYCH Last Documented On 3 10:28AM By Pattie BRUSH ; [facility] Orilissa 200 MG Oral Tablet 12/08/2022 Provider: Diagnosis: Last Documented On 3 1:23PM By Kori BRUSH ; [facility] buPROPion HCl ER (XL) 150 MG Oral Tablet Extended Release 24 Hour 05/09/2022 Provider: Diagnosis: Last Documented On 3 10:50AM By Pattie BRUSH ; [facility] SUMAtriptan Succinate 100 MG Oral Tablet 04/16/2022 Provider: OLIVIA VELA MD Diagnosis: Last Documented On 3 10:57AM By DWAINE ARREAGA ; [facility] buPROPion HCl ER (XL) 300 MG Oral Tablet Extended Release 24 Hour 07/19/2021 Provider: OLIVIA VELA MD Diagnosis: Last Documented On 3 10:57AM By DWAINE ARREAGA ; [facility] Albuterol Sulfate HFA 108 (9 0 Base) MCG/ACT Inhalation Aerosol Solution 06/30/2021 Provider: OLIVIA AYALA MD Diagnosis: Last Documented On 3 10:57AM By DWAINE ARREAGA ; [facility] Cetirizine HCl 10 MG Oral Tablet 06/30/2021 Provider : OLIVIA VELA MD Diagnosis: Last Documented On 3 10:57AM By DWAINE LITTLEMAURI ; [facility] Cyclobenzaprine HCl 10 MG Oral Tablet 06/26/2021 Pro vider: Diagnosis: Last Documented On 3 10:57AM By DWAINE ABBOTTMAURI ; [facility] Sertraline HCl 100 MG Oral Tablet 03/17/2020 Provide r: Diagnosis: Last Documented On 3 10:57AM [facility] ; [facility] Losartan Potassium 50 MG Oral Tablet 03/17/2020 Prov ider: Diagnosis: Last Documented On 3 10:57AM By DWAINE KOO [facility] ; [facility] Montelukast Sodium 10 MG Oral Tablet 03/17/2020 Prov ider: Diagnosis: Last Documented On 3 10:57AM [facility] ; [facility] Medications Administered Includes: Administered Medications from this encounter No Administered Medications Recorded Results Includes: Results discussed during this encounter No Results Recorded For Specified Dates History of Present Illness Includes: History of Present Illness from this encounter No History of Present Illness Recorded Social History Description Last Updated Using marijuana 06/27/2023 Last Documented On 4 1:28PM ; [facility] Tobacco use 06/27/2023 Last Documented On 4 1:28PM ; [facility] Cigarette smoking: history Half pack Last Documented On 4 1:28PM ; [facility] Current smoker 06/27/2023 Last Documented On 4 1:28PM ; [facility] Drug use 06/27/2023 Last Documented On 4 1:28PM ; [facility] Single 06/27/2023 Last Documented On 4 1:28PM ; [facility] Smoking cigars 0 06/27/2023 Last Documented On 4 1:28PM ; [facility] Smoker 05/27/2020 Last Documented On 4 1:28PM ; [facility] Smoking Status Unknown Procedures and Surgical History Surgical History Last Updated History of tonsillectomy ADNOIDS 024 Last Documented On 4 1:28PM ; [facility] Prior surgery neck 03/17/2020 Last Documented On 4 1:28PM ; [facility] Medical History Includes: Medical History addressed during this encounter Description Last Updated Depression 06/27/2023 Last Documented On 4 1:28PM ; [facility] History of arthritis 06/27/2023 Last Documented On 4 1:28PM ; [facility] History of chronic obstructive pulmonary disease 06/27/2023 Last Documented On 4 1:28PM ; [facility] History of systemic hypertension 024 Last Documented On 4 1:28PM ; [facility] Surgery galbladder ~neck surgery 024 Last Documented On 4 1:28PM ; [facility] A fall 2 06/27/2023 Last Documented On 4 1:28PM ; [facility] Blood pressure was high 06/08/2023 Last Documented On 4 1:28PM ; [facility] Hypertension 06/08/2023 Last Documented On 4 1:28PM ; [facility] Taking medication for high blood pressur e 06/08/2023 Last Documented On 4 1:28PM ; [facility] Has a fear of falling. 04/18/2022 Last Documented On 4 1:28PM ; [facility] Has had a fall in the last 12 months. Last Documented On 4 1:28PM ; [facility] 0 miscarriage(s) 03/17/2020 Last Documented On 4 1:28PM ; [facility] Previously 0 time(s) 03/17/2020 Last Documented On 4 1:28PM ; [facility] carpal tunnel 03/17/2020 Last Documented On 4 1:28PM ; [facility] Family History Includes: Family History addressed during this encounter No Family History Recorded Review of Systems Includes: Review of Systems from this encounter No Review of Systems Recorded Mental Status Includes: Mental Status from this encounter No Mental Status Recorded Functional Status Includes: Functional Status from this encounter No Functional Status Recorded Physical Exam Includes: Physical Exam from this encounter No Physical Exam Recorded Allergies Includes: Active Allergies Substance Type Reaction Onset Date Resolved Date Statu s Aspirin Intolerance Nausea 03/17/2020 Active Last Documented On 11:45AM ; [facility] Encounters Encounter Provider Location Date Check-In Time Check-Out Time Diagnosis RX ISSUE/REFILL MICHEL RUBI-MAURI 2023 1:28PM 11:59PM Insurance Includes: Active Insurance Policies Plan Name Member ID Group # Subscriber Relationship Effect cayetano Dates 1 - [facility] [id number] JENNIFER Oakes TOMAS Vergara Clinical Notes Includes: Clinical Notes from this encounter * Progress note Date Encounter Last Documented by 2023 RX ISSUE/REFILL Last documented on 2023; 3:18 PM, MICHEL RUBI-; [facility] Active Problems & Conditions - Carpal Tunnel Syndrome - Chronic Obstructive Pulmonary Disease - Chronic Pain Syndrome - Gerd - Hypertension Systemic - Radiculopathy Chief Complaint Phone Call - Chief Concern: Reason for call:RX REFILL Patient is requesting a refill on [id number]/325 ~How is medication taken? BID ~How many [...]
--- OUTSIDE RECORDS SUMMARY | 2024-07-25 13:43 | XMS_ITS | Clinical Summary ---
Author Organization [facility] Address [address] [place] [address] Phone Care Team Providers Care Apron Man Name Role Phone THOM ANP-BC, MICHEL L Unavailable [phone] DANE CASON, OLIVIA Ha Primary Care Provider [phone] Reason for Visit and Chief Complaint The Chief Complaint is: FU BL L3-4 TFESI DONE 07/13/23 ~[facility] LEAD PULL Problems Includes: Problems addressed during this encounter and other active Problems Current Visit Onset Date Resolved Date Provider Conditio n Status Chronic Pain Syndrome 06/27/2023 LI BROOKE PMHNP Active Last Documented On 4 3:06PM ; [facility] Past Visits Onset Date Resolved Date Provider Condition Status Carpal Tunnel Syndrome 03/17/2020 TRAN E L THOM ANP-BC Active Last Documented On 0 1:42PM ; [facility] Chronic Obstructive Pulmonary Disease 03/17/2020 MICHEL L THOM ANP-BC Active Last Documented On 0 1:42PM ; [facility] Gerd 03/17/2020 MICHEL L THOM ANP-BC A ctive Last Documented On 0 1:41PM ; [facility] Hypertension Systemic 03/17/2020 MICHEL L BLEVI NS ANP-BC Active Last Documented On 0 1:41PM ; [facility] Radiculopathy 03/17/2020 MICHEL L THOM ANP-B C Active Last Documented On 0 1:42PM ; [facility] Plan of Treatment Referrals To Diagnosis Neurosurgeon VLADIMIR SANDERSON MD Spinal stenos is, lumbosacral region Note: Referral to neurosurge ry for spinal cord stimulator implant after successful percutaneous trial of 2, 8 contact [employer] leadst. Last Documented On 4 11:52AM ; [facility] Instructions to patient Intervention and counseling on cessation of tobacco use : Patient recieved smoking cessation handout Last Documented On 4 11:42AM ; [facility] Education and Decision Aids were provided during visit for: Pill Count: 56 HYDROCODONE Last Documented On 4 11:45AM ; [facility] Assessments Includes: Assessments from this encounter Findings - Sacroiliitis [M46.1 - Sacroiliitis, not elsewhere classified] - Last Documented On 08/07/2023 4:22PM ; [facility] - Arthralgia of the right pelvis/hip/femur [M25.551 - Pain in right hip] - Last Documented On 08/07/2023 4:22PM ; [facility] - Cervical spondylosis with radiculopathy [M47.22 - Other spondylosis with radiculopathy, cervical region] - Last Documented On 08/07/2023 4:22PM ; [facility] - Lumbar spondylosis with radiculopathy [M47.26 - Other spondylosis with radiculopathy, lumbar region] - Last Documented On 08/07/2023 4:22PM ; [facility] - Cervical spine stenosis [M48.02 - Spinal stenosis, cervical region] - Last Documented On 08/07/2023 4:22PM ; [facility] - Lumbosacral spinal stenosis [M48.07 - Spinal stenosis, lumbosacral region] - Last Documented On 08/07/2023 4:22PM ; [facility] - Cervical radiculopathy [M54.12 - Radiculopathy, cervical region] - Last Documented On 08/07/2023 4:22PM ; [facility] - Myalgia [M79.18 - Myalgia, other site] - Last Documented On 08/07/2023 4:22PM ; [facility] - Chronic pain syndrome [G89.4 - Chronic pain syndrome] - Last Documented On 08/07/2023 4:22PM ; [facility] - 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 [Z79.891 - bed bug exterminator (current) use of opiate analgesic] - Last Documented On 08/07/2023 4:22PM ; [facility] Instructions Includes: Instructions from this encounter Instructions to patient Intervention and counseling on cessation of tobacco use : Patient recieved smoking cessation handout Last Documented On 11:42AM ; [facility] Education and Decision Aids were provided during visit for: Pill Count: 56 HYDROCODONE Last Documented On 11:45AM ; [facility] Medical Equipment - Implanted Devices Includes: Current Devices No Medical Equipment Recorded Medications Includes: Medications discussed during this encounter and other current Medications Current Medications (continue as prescribed) HYDROcodone-Acetaminophen 10 -325 MG Oral Tablet 2023 Provider: MICHEL MARI Diagnosis: Spinal stenosis, lumbar region without neurogenic huong 1 po bid prn Last Documented On 4 3:18PM By MICHEL MARI ; [facility] Celecoxib 200 MG Oral Capsule 08/21/2023 Provider: MICHEL MARI Diagnosis: TAKE 1 CAPSULE BY MOUTH EVERY DAY Last Documented On 4 8:21AM By MICHEL MARI ; [facility] Pregabalin 200 MG Oral Capsule 06/20/2023 Provider: MICHEL ALFORD Diagnosis: Radiculopathy, c ervical region TAKE 1 CAPSULE BY MOUTH TWICE A DAY Last Documented On 4 2:00PM By MICHEL MARI ; [facility] Pantoprazole Sodium 40 MG Or al Tablet Delayed Release 06/15/2023 Provider: OLIVIA VELA MD Diagnosis: Last Documented On 06/27/2023 10:33AM By Ned BRUSH ; [facility] Montelukast Sodium 10 MG Oral Tablet 06/15/2023 Prov ider: OLIVIA VELA MD Diagnosis: Last Documented On 06/27/2023 10:33AM By Ned BRUSH ; [facility] buPROPion HCl ER (XL) 150 MG Oral Tablet Extended Release 24 Hour 05/08/2023 Provider: Diagnosis: Last Documented On 06/27/2023 10:32AM By Ned BRUSH ; [facility] Escitalopram Oxalate 10 MG Oral Tablet 05/07/2023 Pr ovider: Diagnosis: Last Documented On 06/27/2023 10:32AM By Ned BRUSH ; [facility] amLODIPine Besylate 5 MG Oral Tablet 05/04/2023 Prov ider: OLIVIA VELA MD Diagnosis: Last Documented On 06/27/2023 10:31AM By Ned BRUSH ; [facility] Lidocaine 5% External Patch 04/11/2023 Provider: MICHEL RUBI-BC Diagnosis: Other spondylosi s with radiculopathy, lumbar region apply 1-2 patches to affecte d area for 12 hours and remove for 12 hours Last Documented On 4 10:41AM By MICHEL RUBI- ; [facility] Vraylar 1.5 MG Oral Capsule 01/11/2023 Provider: Diagnosis: PT IS TAKING SAMPLES FROM PSYCH Last Documented On 3 10:28AM By Pattie BRUSH ; [facility] Orilissa 200 MG Oral Tablet 12/08/2022 Provider: Diagnosis: Last Documented On 3 1:23PM By Kori BRUSH ; [facility] buPROPion HCl ER (XL) 150 MG Oral Tablet Extended Release 24 Hour 05/09/2022 Provider: Diagnosis: Last Documented On 3 10:50AM By Pattie BRUSH ; [facility] SUMAtriptan Succinate 100 MG Oral Tablet 04/16/2022 Provider: OLIVIA VELA MD Diagnosis: Last Documented On 3 10:57AM By DWAINE ARREAGA ; [facility] buPROPion HCl ER (XL) 300 MG Oral Tablet Extended Release 24 Hour 07/19/2021 Provider: OLIVIA VELA MD Diagnosis: Last Documented On 3 10:57AM By DWAINE ARREAGA ; [facility] Albuterol Sulfate HFA 108 (9 0 Base) MCG/ACT Inhalation Aerosol Solution 06/30/2021 Provider: OLIVIA AYALA MD Diagnosis: Last Documented On 3 10:57AM By [facility] ; [facility] Cetirizine HCl 10 MG Oral Tablet 06/30/2021 Provider : OLIVIA VELA MD Diagnosis: Last Documented On 3 10:57AM By [facility] ; [facility] Cyclobenzaprine HCl 10 MG Oral Tablet 06/26/2021 Pro vider: Diagnosis: Last Documented On 3 10:57AM By [facility] ; [facility] Sertraline HCl 100 MG Oral Tablet 03/17/2020 Provide r: Diagnosis: Last Documented On 3 10:57AM By [facility] ; [facility] Losartan Potassium 50 MG Oral Tablet 03/17/2020 Prov ider: Diagnosis: Last Documented On 3 10:57AM By [facility] ; [facility] Montelukast Sodium 10 MG Oral Tablet 03/17/2020 Prov ider: Diagnosis: Last Documented On 3 10:57AM By [facility] ; [facility] Medications Administered Includes: Administered Medications from this encounter No Administered Medications Recorded Results Includes: Results discussed during this encounter No Results Recorded For Specified Dates History of Present Illness Includes: History of Present Illness from this encounter HPI PHQ-9 Score: 6 Date: SOAPP-R Score: 12 [...] Questions elicited and answered. Prior visit (DR Castorena) 07/27/23: Patient presents today for preoperative evaluation [...] period of time. Patient will need a intermodal owner operator truck driver the day of the procedure and [...] ability and to the patient's satisfaction today. [place] prescription monitoring database was reviewed and found [...] our ability and to her satisfaction today. [place] prescription monitoring database was reviewed and found [...] She has an upcoming appt. with Dr. Castorena for bilateral L5-S1 TFESI in 2-3 weeks. 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 Hydrocodone is [...] with the following tests and results noted: Social History Description Last Updated Using marijuana 06/27/2023 Last Documented On 4 11:41AM ; [facility] Tobacco use 06/27/2023 Last Documented On 4 11:41AM ; [facility] Cigarette smoking: history Half pack Last Documented On 4 11:41AM ; [facility] Current smoker 06/27/2023 Last Documented On 4 11:41AM ; [facility] Drug use 06/27/2023 Last Documented On 4 11:41AM ; [facility] Single 06/27/2023 Last Documented On 4 11:41AM ; [facility] Smoking cigars 0 06/27/2023 Last Documented On 4 11:41AM ; [facility] Smoker 05/27/2020 Last Documented On 4 11:41AM ; [facility] Smoking Status Unknown Procedures and Surgical History Includes: Procedures from this encounter Procedures Code Diagnosis Performing Provider Service Location Service Date CLINIC VISIT T1015 Spinal stenosis, lumbosacral region, Other spondylosis with radiculopathy, lumbar region, Chronic pain syndrome, bed bug exterminator (current) use of opiate analgesic MICHEL RUBI-[facility] 08/04/2023 Last Documented On 4 9:22AM ; [facility] intervention and counseling on cessation of tobacco use : Patient recieved smoking cessation handout 4000F Last Documented On 4 11:42AM ; [facility] use of tobacco assessment performed 1000F Last Documented On 4 11:42AM ; [facility] review of medications documented 1160F Last Documented On 4 11:42AM ; [facility] assessment of suicide risk performed Last Documented On 4 11:42AM ; [facility] screening for adult depression: impressi on and score six Last Documented On 4 11:42AM ; [facility] standardized depression screening: posit cayetano for symptoms Last Documented On 4 11:42AM ; [facility] Clinical summary provided to patient Last Documented On 4 11:42AM ; [facility] SOAPP-R: total score 12 Last Documented On 4 11:42AM ; [facility] Surgical History Last Updated History of tonsillectomy ADNOIDS Last Documented On 4 11:41AM ; [facility] Prior surgery neck 03/17/2020 Last Documented On 4 11:41AM ; [facility] Medical History Includes: Medical History addressed during this encounter Description Last Updated Depression 06/27/2023 Last Documented On 4 11:41AM ; [facility] History of arthritis 06/27/2023 Last Documented On 4 11:41AM ; [facility] History of chronic obstructive pulmonary disease 06/27/2023 Last Documented On 4 11:41AM ; [facility] History of systemic hypertension Last Documented On 4 11:41AM ; [facility] Surgery galbladder ~neck surgery Last Documented On 4 11:41AM ; [facility] A fall 2 06/27/2023 Last Documented On 4 11:41AM ; [facility] Blood pressure was high 06/08/2023 Last Documented On 4 11:41AM ; [facility] Hypertension 06/08/2023 Last Documented On 4 11:41AM ; [facility] Taking medication for high blood pressur e 06/08/2023 Last Documented On 4 11:41AM ; [facility] Has a fear of falling. 04/18/2022 Last Documented On 4 11:41AM ; [facility] Has had a fall in the last 12 months. Last Documented On 4 11:41AM ; [facility] 0 miscarriage(s) 03/17/2020 Last Documented On 4 11:41AM ; [facility] Previously 0 time(s) 03/17/2020 Last Documented On 4 11:41AM ; [facility] carpal tunnel 03/17/2020 Last Documented On 4 11:41AM ; [facility] Family History Includes: Family History addressed during this encounter Description Last Updated Family history of diabetes mellitus 06/02 Last Documented On 4 11:42AM ; [facility] Father 06/27/2023 Last Documented On 4 11:42AM ; [facility] Mother 06/27/2023 Last Documented On 4 11:42AM ; [facility] Sister 1 years old 06/27/2023 Last Documented On 4 11:42AM ; [facility] Family history of cancer maternal grandm a 03/17/2020 Last Documented On 4 11:42AM ; [facility] Family history of heart disease maternal and paternal grandma 03/17/2020 Last Documented On 4 11:42AM ; [facility] Family history unchanged 03/17/2020 Last Documented On 4 11:42AM ; [facility] Review of Systems Includes: Review of Systems from this encounter Systemic: No systemic symptoms other than noted. [...] Dry skin and change in skin color. Mental Status Includes: Mental Status from this encounter No Mental Status Recorded Functional Status Includes: Functional Status from this encounter No Functional Status Recorded Physical Exam Includes: Physical Exam from this encounter Allergies Includes: Active Allergies Substance Type Reaction Onset Date Resolved Date Statu s Aspirin Intolerance Nausea 03/17/2020 Active Last Documented On 4 11:45AM ; [facility] Encounters Encounter Provider Location Date Check-In Time Check-Out Time Diagnosis PAIN MANAGEMENT FOLLOW UP MICHEL MARI [facility] 08/04/19 24 11:39AM 11:54AM Spinal Stenosis Cervical,Chronic Pain Syndrome,Sacroil iitis,Cervical Radiculopathy,Ar thralgia - Pelvis / Hip / Femur Right,Spondylosi s with Radiculopathy Cervical Region,Spondylos is with Radiculopathy Lumbar Region,Spinal Stenosis Lumbosacral,Snf Use of Opiate Analgesic,Myalgi a , Other Site (M79.18) Insurance Includes: Active Insurance Policies Plan Name Member ID Group # Subscriber Relationship Effect cayetano Dates 1 - Un[employer]That [facility] [id number] JENNIFER Vergara Clinical Notes Includes: Clinical Notes from this encounter * Progress note Date Encounter Last Documented by 08/04/2023 PAIN MANAGEMENT FOLLOW UP Last d ocumented on 08/07/2023; 4:22 PM, MICHEL MARI; [facility] Active Problems & Conditions - [...] Questions elicited and answered. Prior visit (DR Castorena) 07/27/23: Patient presents today for preoperative evaluation [...] period of time. Patient will need a intermodal owner operator truck driver the day of the procedure and [...] ability and to the patient's satisfaction today. [place] prescription monitoring database was reviewed and found [...] our ability and to her satisfaction today. [place] prescription monitoring database was reviewed and found [...] them due to increased pain. Past note (10/11/23): Patient presents in follow up to bilateral [...] She has an upcoming appt. with Dr. Castorena for bilateral L5-S1 TFESI in 2-3 weeks. 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 Hydrocodone is [...] syndrome [G89.4 - Chronic pain syndrome] - correction use of opiate analgesic [Z79.891 - correction (current) use of opiate analgesic] Therapy - [...] but may be subject to typographical or ostrich farmer errors. Verify all diagnoses, medications, dosages, and [...]
--- OUTSIDE RECORDS SUMMARY | 2024-07-25 13:43 | XMS_ITS | Clinical Summary ---
Author Organization [facility] Address [address] [place] [address] Phone Care Team Providers Care Tobacco Feeder Catcher Name Role Phone THOM ANP-BC, MICHEL L Unavailable [phone] DANE CASON, OLIVIA Ha Primary Care Provider [phone] Reason for Visit and Chief Complaint PAIN MANAGEMENT FOLLOW UP Problems Includes: Problems addressed during this encounter [...] ; [facility] Plan of Treatment Based on patient preference and on appropriate authorization, we can proceed with 2 lead spinal cord stimulation trial under fluoroscopic guidance. Psychological assessment has been completed and is appropriate. Patient will follow-up in 6 to 7 days for lead pull and assessment. If successful, patient can proceed to permanent implantation.. - Last Documented On 07/27/2023 1:34PM ; [facility] Pending Tests Order Diagnosis Results Due Ordering Provider Pain Management CPT Neurostimulator Lead test Kit, Implantable Other spondylosis with radiculopathy, lumbar region 07/08/23 KRYSTEN CASTORENA MD Last Documented On 12:26PM ; [facility] Pain Management CPT Electrode placement- nuerostim Other spondylosis with radiculopathy, lumbar region 07/08/23 KRYSTEN CASTORENA MD Last Documented On 12:26PM ; [facility] Instructions to patient Intervention and counseling on cessation of tobacco use : Patient recieved smoking cessation handout Last Documented On 1:06PM ; [facility] Education and Decision Aids were provided during visit for: Pill Count: HYDROCODONE Last Documented On 1:07PM ; [facility] Assessments Includes: Assessments from this encounter Findings - [M46.1 - Sacroiliitis, not elsewhere classified] Sacroiliitis - Last Documented On 07/27/2023 1:34PM ; [facility] - [M25.551 - Pain in right hip] Arthralgia of the right pelvis/hip/femur - Last Documented On 07/27/2023 1:34PM ; [facility] - [M47.22 - Other spondylosis with radiculopathy, cervical region] Cervical spondylosis with radiculopathy - Last Documented On 07/27/2023 1:34PM ; [facility] - [M47.26 - Other spondylosis with radiculopathy, lumbar region] Lumbar spondylosis with radiculopathy - Last Documented On 07/27/2023 1:34PM ; [facility] - [M48.02 - Spinal stenosis, cervical region] Cervical spine stenosis - Last Documented On 07/27/2023 1:34PM ; [facility] - [M48.07 - Spinal stenosis, lumbosacral region] Lumbosacral spinal stenosis - Last Documented On 07/27/2023 1:34PM ; [facility] - [M54.12 - Radiculopathy, cervical region] Cervical radiculopathy - Last Documented On 07/27/2023 1:34PM ; [facility] - [M79.18 - Myalgia, other site] Myalgia - Last Documented On 07/27/2023 1:34PM ; [facility] - [G89.4 - Chronic pain syndrome] Chronic pain syndrome - Last Documented On 07/27/2023 1:34PM ; [facility] - [Z79.891 - prison (current) use of opiate analgesic] 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 - Last Documented On 07/27/2023 1:34PM ; [facility] Instructions Includes: Instructions from this encounter Instructions to patient Intervention and counseling on cessation of tobacco use : Patient recieved smoking cessation handout Last Documented On 1:06PM ; [facility] Education and Decision Aids were provided during visit for: Pill Count: HYDROCODONE Last Documented On 1:07PM ; [facility] Medical Equipment - Implanted Devices Includes: Current [...] ; [facility] Celecoxib 200 MG Oral Capsule 08/21/2023 Provider: MICHEL MARI Diagnosis: TAKE 1 CAPSULE BY MOUTH EVERY DAY Last Documented On 4 8:21AM By MICHEL MARI ; [facility] Pregabalin 200 MG Oral Capsule [...] On 06/27/2023 10:33AM By Ned BRUSH ; [facility] buPROPion HCl ER (XL) 150 MG Oral Tablet Extended Release 24 Hour 05/08/2023 Provider: Diagnosis: Last Documented On 06/27/2023 10:32AM By Ned BRUSH ; [facility] Escitalopram Oxalate 10 MG Oral Tablet 05/07/2023 Pr ovider: Diagnosis: Last Documented On 06/27/2023 10:32AM By Ned BRUSH ; [facility] amLODIPine Besylate 5 MG Oral Tablet 05/04/2023 Prov ider: OLIVIA VELA MD Diagnosis: Last Documented On 06/27/2023 10:31AM By Ned BRUSH ; [facility] Lidocaine 5% External Patch 04/11/2023 Provider: MICHEL RUBI-BC Diagnosis: Other spondylosi s with radiculopathy, lumbar region apply 1-2 patches to affecte d area for 12 hours and remove for 12 hours Last Documented On 4 10:41AM By MICHEL RUBI-BC ; [facility] Vraylar 1.5 MG Oral Capsule [...] On 3 10:57AM By DWAINE ARREAGA ; [facility] buPROPion HCl ER (XL) 300 MG Oral [...] ARREAGA ; [facility] Cetirizine HCl 10 MG Oral Tablet 06/30/2021 Provider : OLIVIA VELA MD Diagnosis: Last Documented On 3 10:57AM By DWAINE ARREAGA ; [facility] Cyclobenzaprine HCl 10 MG Oral Tablet 06/26/2021 Pro vider: Diagnosis: Last Documented On 3 10:57AM By DWAINE ARREAGA ; [facility] Sertraline HCl 100 MG Oral Tablet 03/17/2020 Provide r: Diagnosis: Last Documented On 3 10:57AM By DWAINE KOO [employer] OF DIVERSITY [employer]RUSTY ; [facility] Losartan Potassium 50 MG Oral Tablet 03/17/2020 Prov ider: Diagnosis: Last Documented On 3 10:57AM By DWAINE KOO [facility] ; [facility] Montelukast Sodium 10 MG Oral Tablet 03/17/2020 Prov ider: Diagnosis: Last Documented On 3 10:57AM By [facility]INE [facility] ; [facility] Medications Administered Includes: Administered Medications from this encounter No Administered Medications Recorded Vital Signs Includes: Vital Signs from this encounter Vital Name 07/27/2023 01:08P Blood Pressure Sitting R 130/82 BP Cuff Size Regular Pulse Rate-Sitting (bpm) 96 Pulse Rhythm Regular Respiration Rate (breaths/min) 21 Temp-Tympanic (F) 97.8 Height (in) 65 Weight (lb) 200 Body Mass Index 33.3 Body Surface Area 2 Pain Level 6 Oxygen Saturation (%) 96 Last Documented: On 07/27/2023 1:09PM ; [facility] Results Includes: Results discussed during this encounter [...] period of time. Patient will need a lunch truck driver the day of the procedure [...] ability and to the patient's satisfaction today. [place] prescription monitoring database was reviewed and found [...] our ability and to her satisfaction today. [place] prescription monitoring database was reviewed and found [...] benefited from TFESI in the past. 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 Hydrocodone [...] Using marijuana 06/27/2023 Last Documented On 4 1:06PM ; [facility] No consumption of alcohol 06/27/2023 Last Documented On 4 1:06PM ; [facility] Tobacco use 06/27/2023 Last Documented On 4 1:06PM ; [facility] No family problems 06/27/2023 Last Documented On 4 1:06PM ; [facility] No recent emotional stress 06/27/2023 Last Documented On 4 1:06PM ; [facility] Cigarette smoking: history Half pack Last Documented On 4 1:06PM ; [facility] Current smoker 06/27/2023 Last Documented On 4 1:06PM ; [facility] Currently not in school 06/27/2023 Last Documented On 4 1:06PM ; [facility] Drug use 06/27/2023 Last Documented On 4 1:06PM ; [facility] Not a current nonsmoker 06/27/2023 Last Documented On 4 1:06PM ; [facility] Not smoking a pipe 06/27/2023 Last Documented On 4 1:06PM ; [facility] Single 06/27/2023 Last Documented On 4 1:06PM ; [facility] Smoking cigars 0 06/27/2023 Last Documented On 4 1:06PM ; [facility] No recent change in sleep 06/08/2023 Last Documented On 4 1:06PM ; [facility] Smoker 05/27/2020 Last Documented On 4 1:06PM ; [facility] Smoking Status Unknown Procedures and Surgical History Includes: Procedures from this encounter Procedures Code Diagnosis Performing Provider Service L ocation Service Date intervention and counseling on cessation of tobacco use : Patient recieved smoking cessation handout 4000F Last Documented On 4 1:06PM ; [facility] use of tobacco assessment performed 1000F Last Documented On 4 1:06PM ; [facility] review of medications documented 1160F Last Documented On 4 1:06PM ; [facility] assessment of suicide risk performed Last Documented On 4 1:06PM ; [facility] screening for adult depression: impressi on and score six Last Documented On 4 1:06PM ; [facility] standardized depression screening: posit cayetano for symptoms Last Documented On 4 1:06PM ; [facility] Clinical summary provided to patient Last Documented On 4 1:06PM ; [facility] SOAPP-R: total score 12 Last Documented On 4 1:06PM ; [facility] Surgical History Last Updated History of tonsillectomy ADNOIDS 024 Last Documented On 4 1:06PM ; [facility] Prior surgery neck 03/17/2020 Last Documented On 4 1:06PM ; [facility] Medical History Includes: Medical History addressed during this encounter Description Last Updated Depression 06/27/2023 Last Documented On 4 1:06PM ; [facility] History of arthritis 06/27/2023 Last Documented On 4 1:06PM ; [facility] History of chronic obstructive pulmonary disease 06/27/2023 Last Documented On 4 1:06PM ; [facility] History of systemic hypertension 024 Last Documented On 4 1:06PM ; [facility] Surgery galbladder ~neck surgery 024 Last Documented On 4 1:06PM ; [facility] A fall 2 06/27/2023 Last Documented On 4 1:06PM ; [facility] Blood pressure was high 06/08/2023 Last Documented On 4 1:06PM ; [facility] Hypertension 06/08/2023 Last Documented On 4 1:06PM ; [facility] No exposure to a contagious disease 10/2023 Last Documented On 4 1:06PM ; [facility] No previous psychiatric treatment 2023 Last Documented On 4 1:06PM ; [facility] Not taking OTC medications 06/08/2023 Last Documented On 4 1:06PM ; [facility] Taking medication for high blood pressur e 06/08/2023 Last Documented On 4 1:06PM ; [facility] Has a fear of falling. 04/18/2022 Last Documented On 4 1:06PM ; [facility] Has had a fall in the last 12 months. Last Documented On 4 1:06PM ; [facility] 0 miscarriage(s) 03/17/2020 Last Documented On 4 1:06PM ; [facility] Previously 0 time(s) 03/17/2020 Last Documented On 4 1:06PM ; [facility] carpal tunnel 03/17/2020 Last Documented On 4 1:06PM ; [facility] Family History Includes: Family History addressed during this encounter Description Last Updated Family history of diabetes mellitus 06/02 Last Documented On 4 1:06PM ; [facility] Father 06/27/2023 Last Documented On 4 1:06PM ; [facility] Mother 06/27/2023 Last Documented On 4 1:06PM ; [facility] Sister 1 years old 06/27/2023 Last Documented On 4 1:06PM ; [facility] Family history of cancer maternal grandm a 03/17/2020 Last Documented On 4 1:06PM ; [facility] Family history of heart disease maternal and paternal grandma 03/17/2020 Last Documented On 4 1:06PM ; [facility] Family history unchanged 03/17/2020 Last Documented On 4 1:06PM ; [facility] Review of Systems Includes: Review of Systems from this encounter Systemic: No systemic symptoms other then noted [...] Active Last Documented On 4 11:45AM ; [facility] Encounters Encounter Provider Location Date Check-In Time Check-Out Time Diagnosis PAIN MANAGEMENT FOLLOW UP KRYSTEN CASTORENA MD [facility]-T 07/27/19 24 1:01PM 1:17PM Spinal Stenosis Cervical,Chronic Pain Syndrome,Sacroil iitis,Cervical Radiculopathy,Ar thralgia - Pelvis / Hip / Femur Right,Spondylosi s with Radiculopathy Cervical Region,Spondylos is with Radiculopathy Lumbar Region,Spinal Stenosis Lumbosacral,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 Patient will need a lunch truck driver the day of the procedure [...] ability and to the patient's satisfaction today. [place] prescription monitoring database was reviewed and found [...] our ability and to her satisfaction today. [place] prescription monitoring database was reviewed and found [...] benefited from TFESI in the past. 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 Verify all diagnoses, medications, dosages, and [...]
--- OUTSIDE RECORDS SUMMARY | 2024-07-25 13:44 | XMS_ITS | Clinical Summary ---
Author Organization [facility] Address [address] [place] [address] Phone Care Team Providers Care Electric Fork Operator Name Role Phone THOM ANP-BC, MICHEL L Unavailable [phone] DANE CASON, OLIVIA Ha Primary Care Provider [phone] Reason for Visit and Chief Complaint POST PROCEDURE PHONE CALL Problems Includes: Problems addressed during this encounter and other active Problems All Visits Onset Date Resolved Date Provider Condition S tatus Chronic Pain Syndrome 06/27/2023 LI BROOKE PMHNP Active Last Documented On 4 3:06PM ; [facility] Carpal Tunnel Syndrome 03/17/2020 MICHEL L BLEV INS ANP-BC Active Last Documented On 0 1:42PM ; [facility] Chronic Obstructive Pulmonary Disease 03/17/2020 MICHEL L THOM ANP-BC Active Last Documented On 0 1:42PM ; [facility] Gerd 03/17/2020 MICHEL L THOM ANP-BC A ctive Last Documented On 0 1:41PM ; [facility] Hypertension Systemic 03/17/2020 MICHEL L BLEVI NS ANP-BC Active Last Documented On 0 1:41PM ; [facility] Radiculopathy 03/17/2020 MICHEL L THOM ANP-B C Active Last Documented On 0 1:42PM ; [facility] Plan of Treatment Pending Tests Order Diagnosis Results Due Ordering Provider Pain Management CPT Neurostimulator Lead test Kit, Implantable Other spondylosis with radiculopathy, lumbar region 07/08/23 KRYSTEN CANNON MD Last Documented On 4 12:26PM ; [facility] Pain Management CPT Electrode placement- nuerostim Other spondylosis with radiculopathy, lumbar region 07/08/23 KRYSTEN CANNON MD Last Documented On 4 12:26PM ; [facility] Assessments Includes: Assessments from this encounter No Assessments Recorded Medical Equipment - Implanted Devices Includes: Current Devices No Medical Equipment Recorded Medications Includes: Medications discussed during this encounter and other current Medications Discontinued / Stopped on this date MICHEL MARI on 07/03/2023 HYDROcodone-Acetaminophen 10 -325 MG Oral Tablet Provider: MICHEL MARI Diagnosis: Spinal stenosis, lumbar region without neurogenic huong Last Documented On 4 8:07AM By MICHEL MARI ; [facility] Current Medications (continue as prescribed) HYDROcodone-Acetaminophen 10 -325 MG Oral Tablet 2023 Provider: MICHEL MARI Diagnosis: Spinal stenosis, lumbar region without neurogenic huong 1 po bid prn Last Documented On 4 3:18PM By MICHEL MARI ; [facility] Celecoxib 200 MG Oral Capsule 08/21/2023 Provider: MICHEL MARI Diagnosis: TAKE 1 CAPSULE BY MOUTH EVERY DAY Last Documented On 4 8:21AM By MICHEL MARI ; [facility] Pregabalin 200 MG Oral Capsule 06/20/2023 Provider: MICHEL ALFORD Diagnosis: Radiculopathy, c ervical region TAKE 1 CAPSULE BY MOUTH TWICE A DAY Last Documented On 4 2:00PM By MICHEL MARI ; [facility] Pantoprazole Sodium 40 MG Or al Tablet Delayed Release 06/15/2023 Provider: OLIVIA VELA MD Diagnosis: Last Documented On 06/27/2023 10:33AM By Ned BRUSH ; [facility] Montelukast Sodium 10 MG Oral Tablet 06/15/2023 Prov ider: OLIVIA VELA MD Diagnosis: Last Documented On 06/27/2023 10:33AM By Ned BRUSH ; [facility] buPROPion HCl ER (XL) 150 MG Oral Tablet Extended Release 24 Hour 05/08/2023 Provider: Diagnosis: Last Documented On 06/27/2023 10:32AM By Ned BRUSH ; [facility] Escitalopram Oxalate 10 MG Oral Tablet 05/07/2023 Pr ovider: Diagnosis: Last Documented On 06/27/2023 10:32AM By Ned BRUSH ; [facility] amLODIPine Besylate 5 MG Oral Tablet 05/04/2023 Prov ider: OLIVIA VELA MD Diagnosis: Last Documented On 06/27/2023 10:31AM By Ned BRUSH ; [facility] Lidocaine 5% External Patch 04/11/2023 Provider: MICHEL TOMAS ANP-BC Diagnosis: Other spondylosi s with radiculopathy, lumbar region apply 1-2 patches to affecte d area for 12 hours and remove for 12 hours Last Documented On 4 10:41AM By MICHEL TOMAS ANP-BC ; [facility] Vraylar 1.5 MG Oral Capsule 01/11/2023 Provider: Diagnosis: PT IS TAKING SAMPLES FROM PSYCH Last Documented On 3 10:28AM By Patite BRUSH ; [facility] Orilissa 200 MG Oral Tablet 12/08/2022 Provider: Diagnosis: Last Documented On 3 1:23PM By Kori BRUSH ; [facility] buPROPion HCl ER (XL) 150 MG Oral Tablet Extended Release 24 Hour 05/09/2022 Provider: Diagnosis: Last Documented On 3 10:50AM By Pattie BRUSH ; [facility] SUMAtriptan Succinate 100 MG Oral Tablet 04/16/2022 Provider: OLIVIA VELA MD Diagnosis: Last Documented On 3 10:57AM By DWAINE KOO ORE SAMPLER-BC ; [facility] buPROPion HCl ER (XL) 300 MG Oral Tablet Extended Release 24 Hour 07/19/2021 Provider: OLIVIA VELA MD Diagnosis: Last Documented On 3 10:57AM [facility] Albuterol Sulfate HFA 108 (9 0 Base) MCG/ACT Inhalation Aerosol Solution 06/30/2021 Provider: OLIVIA AYALA MD Diagnosis: Last Documented On 3 10:57AM By DWAINE HAYES [facility] ; [facility] Cetirizine HCl 10 MG Oral Tablet 06/30/2021 Provider : OLIVIA VELA MD Diagnosis: Last Documented On 3 10:57AM By DWAINE HAYES [facility] ; [facility] Cyclobenzaprine HCl 10 MG Oral Tablet 06/26/2021 Pro vider: Diagnosis: Last Documented On 3 10:57AM By DWAINE HAYES [facility] ; [facility] Sertraline HCl 100 MG Oral Tablet 03/17/2020 Provide r: Diagnosis: Last Documented On 3 10:57AM By DWAINE [facility] ; [facility] Losartan Potassium 50 MG Oral Tablet 03/17/2020 Prov ider: Diagnosis: Last Documented On 3 10:57AM By DWAINE [facility] ; [facility] Montelukast Sodium 10 MG Oral Tablet 03/17/2020 Prov ider: Diagnosis: Last Documented On 3 10:57AM By DWAINE HAYES [facility] ; [facility] Medications Administered Includes: Administered Medications from this encounter No Administered Medications Recorded Results Includes: Results discussed during this encounter No Results Recorded For Specified Dates History of Present Illness Includes: History of Present Illness from this encounter No History of Present Illness Recorded Social History Description Last Updated Using marijuana 06/27/2023 Last Documented On 4 10:43AM ; [facility] No consumption of alcohol 06/27/2023 Last Documented On 4 10:43AM ; [facility] Tobacco use 06/27/2023 Last Documented On 4 10:43AM ; [facility] No family problems 06/27/2023 Last Documented On 4 10:43AM ; [facility] No recent emotional stress 06/27/2023 Last Documented On 4 10:43AM ; [facility] Cigarette smoking: history Half pack Last Documented On 4 10:43AM ; [facility] Current smoker 06/27/2023 Last Documented On 4 10:43AM ; [facility] Currently not in school 06/27/2023 Last Documented On 4 10:43AM ; [facility] Drug use 06/27/2023 Last Documented On 4 10:43AM ; [facility] Not a current nonsmoker 06/27/2023 Last Documented On 4 10:43AM ; [facility] Not smoking a pipe 06/27/2023 Last Documented On 4 10:43AM ; [facility] Single 06/27/2023 Last Documented On 4 10:43AM ; [facility] Smoking cigars 0 06/27/2023 Last Documented On 4 10:43AM ; [facility] No recent change in sleep 06/08/2023 Last Documented On 4 10:43AM ; [facility] Smoker 05/27/2020 Last Documented On 4 10:43AM ; [facility] Smoking Status Unknown Procedures and Surgical History Surgical History Last Updated History of tonsillectomy ADNOIDS Last Documented On 4 10:43AM ; [facility] Prior surgery neck 03/17/2020 Last Documented On 4 10:43AM ; [facility] Medical History Includes: Medical History addressed during this encounter Description Last Updated Depression 06/27/2023 Last Documented On 4 10:43AM ; [facility] History of arthritis 06/27/2023 Last Documented On 4 10:43AM ; [facility] History of chronic obstructive pulmonary disease 06/27/2023 Last Documented On 4 10:43AM ; [facility] History of systemic hypertension Last Documented On 4 10:43AM ; [facility] Surgery galbladder ~neck surgery Last Documented On 4 10:43AM ; [facility] A fall 2 06/27/2023 Last Documented On 4 10:43AM ; [facility] Blood pressure was high 06/08/2023 Last Documented On 4 10:43AM ; [facility] Hypertension 06/08/2023 Last Documented On 4 10:43AM ; [facility] No exposure to a contagious disease 10/2023 Last Documented On 4 10:43AM ; [facility] No previous psychiatric treatment 2023 Last Documented On 4 10:43AM ; [facility] Not taking OTC medications 06/08/2023 Last Documented On 4 10:43AM ; [facility] Taking medication for high blood pressur e 06/08/2023 Last Documented On 4 10:43AM ; [facility] Has a fear of falling. 04/18/2022 Last Documented On 4 10:43AM ; [facility] Has had a fall in the last 12 months. Last Documented On 4 10:43AM ; [facility] 0 miscarriage(s) 03/17/2020 Last Documented On 4 10:43AM ; [facility] Previously 0 time(s) 03/17/2020 Last Documented On 4 10:43AM ; [facility] carpal tunnel 03/17/2020 Last Documented On 4 10:43AM ; [facility] Family History Includes: Family History addressed during this encounter Description Last Updated Family history of diabetes mellitus 06/02 Last Documented On 4 10:43AM ; [facility] Father 06/27/2023 Last Documented On 4 10:43AM ; [facility] Mother 06/27/2023 Last Documented On 4 10:43AM ; [facility] Sister 1 years old 06/27/2023 Last Documented On 4 10:43AM ; [facility] Family history of cancer maternal grandm a 03/17/2020 Last Documented On 4 10:43AM ; [facility] Family history of heart disease maternal and paternal grandma 03/17/2020 Last Documented On 4 10:43AM ; [facility] Family history unchanged 03/17/2020 Last Documented On 4 10:43AM ; [facility] Review of Systems Includes: Review of Systems [...] Active Last Documented On 4 11:45AM ; [facility] Encounters Encounter Provider Location Date Check-In Time Check-Out Time Diagnosis POST PROCEDURE PHONE CALL KRYSTNE CANNON MD 07/31/2023 10:42AM 11:59PM Insurance Includes: Active Insurance Policies Plan Name Member ID Group # Subscriber Relationship Effect cayetano Dates - [facility] [id number] JENNIFER MARIN Self Clinical Notes Includes: Clinical Notes from this encounter * Progress note Date Encounter Last Documented by 07/31/2023 POST PROCEDURE PHONE CALL Last d ocumented on 07/31/2023; 10:47 AM, Lorraine Parsons RN; [facility] Top of Document Post-Procedural Patient Screening Questionnaire Date of Procedure: 07/28/23 Procedure: SCS trial 1. How have you felt since your last procedure? Doing much better, normal pain is almost gone. Improved Same Worse 2. Pain level prior to procedure? 7-11/10 3. Pain level currently? 10 4. How long after procedure did symptoms [...]
--- OUTSIDE RECORDS SUMMARY | 2024-07-25 13:44 | XMS_ITS | Clinical Summary ---
Author Organization [facility] Address [address] [place] [address] Phone Care Team Providers Care Microscopist Name Role Phone THOM ANP-BC, MICHEL L Unavailable [phone] DANE CASON, OLIVIA Ha Primary Care Provider [phone] Reason for Visit and Chief Complaint RX ISSUE/REFILL Problems Includes: Problems addressed during this encounter and other active Problems All Visits Onset Date Resolved Date Provider Condition S tatus Chronic Pain Syndrome 06/27/2023 LI BROOKE PMHNP Active Last Documented On 4 3:06PM ; [facility] Carpal Tunnel Syndrome 03/17/2020 MICHEL L BLEV INS ANP-BC Active Last Documented On 0 1:42PM ; [facility] Chronic Obstructive Pulmonary Disease 03/17/2020 MICHEL L THOM ANP-BC Active Last Documented On 0 1:42PM ; [facility] Gerd 03/17/2020 MICHEL L THOM ANP-BC A ctive Last Documented On 0 1:41PM ; [facility] Hypertension Systemic 03/17/2020 MICHEL L BLEVI NS ANP-BC Active Last Documented On 0 1:41PM ; [facility] Radiculopathy 03/17/2020 MICHEL L THOM ANP-B C Active Last Documented On 0 1:42PM ; [facility] Plan of Treatment No [...] On 4 8:07AM By MICHEL MARI ; [facility] Current Medications (continue as prescribed) HYDROcodone-Acetaminophen 10 -325 MG Oral Tablet 2023 Provider: MICHEL MARI Diagnosis: Spinal stenosis, lumbar region without neurogenic huong 1 po bid prn Last Documented On 4 3:18PM By MICHEL MARI ; [facility] Celecoxib 200 MG Oral Capsule 08/21/2023 Provider: MICHEL MARI Diagnosis: TAKE 1 CAPSULE BY MOUTH EVERY DAY Last Documented On 4 8:21AM By MICHEL MARI ; [facility] Pregabalin 200 MG Oral Capsule 06/20/2023 Provider: MICHEL ALFORD Diagnosis: Radiculopathy, c ervical region TAKE 1 CAPSULE BY MOUTH TWICE A DAY Last Documented On 4 2:00PM By MICHEL MARI ; [facility] Pantoprazole Sodium 40 MG Or al Tablet Delayed Release 06/15/2023 Provider: OLIVIA VELA MD Diagnosis: Last Documented On 06/27/2023 10:33AM By Ned BRUSH ; [facility] Montelukast Sodium 10 MG Oral Tablet 06/15/2023 Prov ider: OLIVIA VELA MD Diagnosis: Last Documented On 06/27/2023 10:33AM By Ned BRUSH ; [facility] buPROPion HCl ER (XL) 150 MG Oral Tablet Extended Release 24 Hour 05/08/2023 Provider: Diagnosis: Last Documented On 06/27/2023 10:32AM By Ned BRUSH ; [facility] Escitalopram Oxalate 10 MG Oral Tablet 05/07/2023 Pr ovider: Diagnosis: Last Documented On 06/27/2023 10:32AM By Ned RBUSH ; [facility] amLODIPine Besylate 5 MG Oral Tablet 05/04/2023 Prov ider: OLIVIA VELA MD Diagnosis: Last Documented On 06/27/2023 10:31AM By Ned BRUSH ; [facility] Lidocaine 5% External Patch 04/11/2023 Provider: MICHEL RUBI- Diagnosis: Other spondylosi s with radiculopathy, lumbar region apply 1-2 patches to affecte d area for 12 hours and remove for 12 hours Last Documented On 4 10:41AM By MICHEL TOMAS [facility] ; [facility] Vraylar 1.5 MG Oral Capsule 01/11/2023 Provider: Diagnosis: PT IS TAKING SAMPLES FROM PSYCH Last Documented On 3 10:28AM By Pattei BRUSH ; [facility] Orilissa 200 MG Oral Tablet 12/08/2022 Provider: Diagnosis: Last Documented On 3 1:23PM By Kori BRUSH ; [facility] buPROPion HCl ER (XL) 150 MG Oral Tablet Extended Release 24 Hour 05/09/2022 Provider: Diagnosis: Last Documented On 3 10:50AM By Pattie BRUSH ; [facility] SUMAtriptan Succinate 100 MG Oral Tablet 04/16/2022 Provider: OLIVIA VELA MD Diagnosis: Last Documented On 3 10:57AM By DWAINE LITTLE- ; [facility] buPROPion HCl ER (XL) 300 MG Oral Tablet Extended Release 24 Hour 07/19/2021 Provider: OLIVIA VELA MD Diagnosis: Last Documented On 3 10:57AM By DWAINE ARREAGA ; [facility] Albuterol Sulfate HFA 108 (9 0 Base) MCG/ACT Inhalation Aerosol Solution 06/30/2021 Provider: OLIVIA AYALA MD Diagnosis: Last Documented On 3 10:57AM By DWAINE ARREAGA ; [facility] Cetirizine HCl 10 MG Oral Tablet 06/30/2021 Provider : OLIVIA VELA MD Diagnosis: Last Documented On 3 10:57AM By DWAINE KOO [facility] ; [facility] Cyclobenzaprine HCl 10 MG Oral Tablet 06/26/2021 Pro vider: Diagnosis: Last Documented On 3 10:57AM By DWAINE HAYES [facility] ; [facility] Sertraline HCl 100 MG Oral Tablet 03/17/2020 Provide r: Diagnosis: Last Documented On 3 10:57AM By DWAINE HAYES [facility] ; [facility] Losartan Potassium 50 MG Oral Tablet 03/17/2020 Prov ider: Diagnosis: Last Documented On 3 10:57AM By DWAINE HAYES [facility] ; [facility] Montelukast Sodium 10 MG Oral Tablet 03/17/2020 Prov ider: Diagnosis: Last Documented On 3 10:57AM By DWAINE HAYES [facility] ; [facility] Medications Administered Includes: Administered Medications from this encounter No Administered Medications Recorded Results Includes: Results discussed during this encounter No Results Recorded For Specified Dates History of Present Illness Includes: History of Present Illness from this encounter No History of Present Illness Recorded Social History Description Last Updated Using marijuana 06/27/2023 Last Documented On 4 11:28AM ; [facility] Tobacco use 06/27/2023 Last Documented On 4 11:28AM ; [facility] Cigarette smoking: history Half pack Last Documented On 4 11:28AM ; [facility] Current smoker 06/27/2023 Last Documented On 4 11:28AM ; [facility] Drug use 06/27/2023 Last Documented On 4 11:28AM ; [facility] Single 06/27/2023 Last Documented On 4 11:28AM ; [facility] Smoking cigars 0 06/27/2023 Last Documented On 4 11:28AM ; [facility] Smoker 05/27/2020 Last Documented On 4 11:28AM ; [facility] Smoking Status Unknown Procedures and Surgical History Surgical History Last Updated History of tonsillectomy ADNOIDS 024 Last Documented On 4 11:28AM ; [facility] Prior surgery neck 03/17/2020 Last Documented On 4 11:28AM ; [facility] Medical History Includes: Medical History addressed during this encounter Description Last Updated Depression 06/27/2023 Last Documented On 4 11:28AM ; [facility] History of arthritis 06/27/2023 Last Documented On 4 11:28AM ; [facility] History of chronic obstructive pulmonary disease 06/27/2023 Last Documented On 4 11:28AM ; [facility] History of systemic hypertension Last Documented On 4 11:28AM ; [facility] Surgery galbladder ~neck surgery Last Documented On 4 11:28AM ; [facility] A fall 2 06/27/2023 Last Documented On 4 11:28AM ; [facility] Blood pressure was high 06/08/2023 Last Documented On 4 11:28AM ; [facility] Hypertension 06/08/2023 Last Documented On 4 11:28AM ; [facility] Taking medication for high blood pressur e 06/08/2023 Last Documented On 4 11:28AM ; [facility] Has a fear of falling. 04/18/2022 Last Documented On 4 11:28AM ; [facility] Has had a fall in the last 12 months. Last Documented On 4 11:28AM ; [facility] 0 miscarriage(s) 03/17/2020 Last Documented On 4 11:28AM ; [facility] Previously 0 time(s) 03/17/2020 Last Documented On 4 11:28AM ; [facility] carpal tunnel 03/17/2020 Last Documented On 4 11:28AM ; [facility] Family History Includes: Family History [...] 03/17/2020 Active Last Documented On 11:45AM ; [facility] Encounters Encounter Provider Location Date Check-In Time Check-Out Time Diagnosis RX ISSUE/REFILL MICHEL RUBI-MAURI 07/31/2023 11:29AM 11:59PM Insurance Includes: Active Insurance Policies Plan Name Member ID Group # Subscriber Relationship Effect cayetano Dates 1 - [employer] [facility] [id number] JENNIFER Oakes TOMAS Self Clinical Notes Includes: Clinical Notes from this encounter * Progress note Date Encounter Last Documented by 07/31/2023 RX ISSUE/REFILL Last documented on 08/01/2023; 8:07 AM, MICHEL RUBI-MAURI; [facility] Active Problems & Conditions [...]
== END 2024-07-25 12:43 | disposition home or self-care (01) ==
PROVIDERS: PCP Internal Medicine; Visit Provider Internal Medicine
DX: K85.90 Acute pancreatitis without necrosis or infection, unspecified (principal); K76.0 Fatty (change of) liver, not elsewhere classified; Z90.49 Acquired absence of other specified parts of digestive tract
CPT/HCPCS: 76705

== ENCOUNTER 2024-09-06 14:21 | Outpatient (CLI) | payer OTHER, SELFPAY ==
--- NOTE | ~2024-09-06 | CT_ITS ---
EXAMINATION: CT cervical spine wo con DATE: 09/06/2024 14:50 INDICATION: Fall, Headache/ cervical pain x1 week; worsening TECHNIQUE: Computed tomography (CT) of the cervical spine was performed without intravenous contrast. Automated exposure control and iterative reconstruction technique were employed. The dose-length pro duct was 445.52 mGy-cm. COMPARISON: 08/25/2022. FINDINGS: Vertebral Body Alignment: Intact. Mild reversal of the cervical lordosis. Craniocervical and atlantoaxial alignment: Mild degenerative change. Alignment intact. Osseous structures/fracture: No evidence of a lytic or blastic process in the visualized spine. No e vidence of acute fracture. Uncomplicated appearing ACDF hardware at C5-6. Cervical soft tissues: The paraspinal soft tissues planes are maintained. Degenerative changes: Mild degenerative changes, without severe neural foraminal or central canal mishel rowing, noting the central canal is obscured at C6 due to metal artifact. IMPRESSION: No acute fracture or traumatic malalignment in the cervical spine. Reviewed, dictated and finalized at location K.
--- NOTE | ~2024-09-06 | CT_ITS ---
EXAMINATION: CT brain wo con DATE: 09/06/2024 14:51 INDICATION: Fall with headache and cervical pain TECHNIQUE: Computed tomography (CT) of the head was performed without intravenous contrast. Sagittal and coronal reconstructions were performed. The mA was adjusted according to patient size. Iterative reconstruction technique was employed. The dose-length product was 605.33 mGy-cm. COMPARISON: head CT dated 06/06/2005 FINDINGS: No fracture. No acute intracranial hemorrhage, acute infarction or abnormal extra axial fluid collect ion. Ventricles are normal and symmetric. No mass/mass effect. The orbits, paranasal sinuses and mast oid air cells are normal. IMPRESSION: 1. Normal head CT. No fracture or acute intracranial process. Reviewed, dictated and finalized at location A.
--- OUTSIDE RECORDS SUMMARY | 2024-09-06 14:26 | XMS_ITS | Clinical Summary ---
Author Organization [facility] [employer] Address [address] [place] [address] Care Team Providers Care Fur Dry Cleaner Name Role Phone Greg Lee MD Primary Care Provider [phone] Source Comments [facility] [employer],non-owned Affiliates and Associated Physician Practices is amultiple site organization consisting of ambulatory clinics and hospital sitesin [place], [place], [place] and [place]. This disclosure is being madepursuant to the Care Everywhere program and may not contain all information available regarding this patient. Last updated 17.[facility] [employer] Allergies No known active allergies Medications * [...] Active Active Problems No known active problems Social History Tobacco Use Types Packs/Day Years [...] on file Legal Sex Female 5:20 PM MANAGER FUNCTIONAL Gender Identity Not on file Sexual Orientation Not on file Last Filed Vital Signs Vital Sign Reading Time Taken Comments Blood Pressure 118/78 05/06/2024 8:55 AM MANAGER FUNCTIONAL Pulse 93 05/06/2024 8:55 AM MANAGER FUNCTIONAL Temperature 36.6 C (97.9 F) 05/06/2024 8:55 AM MANAGER FUNCTIONAL Respiratory Rate 18 02/22/2024 5:01 PM MANAGER FUNCTIONAL Oxygen Saturation 93% 05/06/2024 8:55 AM MANAGER FUNCTIONAL Inhaled Oxygen Concentration - - Weight 113.1 kg (249 lb 6.4 oz) 05/06/2024 8:55 AM MANAGER FUNCTIONAL Height 165.1 cm (5' 5) 05/06/2024 8:55 AM MANAGER FUNCTIONAL Body Mass Index 41.5 05/06/2024 8:55 AM MANAGER FUNCTIONAL Plan of Treatment Health Maintenance Due Date [...] VACCINE (1 of 2) 08/31/2023 COVID-19 VACCINE ( - 2023-2 5 season) 2023 DEPRESSION SCREENING 04/03/2024 INFLUENZA [...] this topic Medical Devices Implanted Type Area Conference Services Manager Device Identifier Shelf Expiration Date Model / Serial / Lot Slnt Dura Duraseal Pg Trilysine Amine 5 Implanted:Qty: 1 on 02/22/2024 by Ignacio Martinez MD at [facility] Right: Spine Thoracic Integra [employer] Myke 08/31/2024 [id number] / / [id number] Lead Ns 65cm Spc Surescan 3 Clmn 16 Implanted:Qty: 1 on 02/22/2024 by Ignacio Martinez MD at [facility] Right: Spine Thoracic [employer] 10/21/2025 [id number] / / [id number] 6 Kit Acc .133in Injex More Baso4 Biwing Implanted:Qty: 1 on 02/22/2024 by Ignacio Martinez MD at [facility] Right: Spine Thoracic [employer] 02/02/2028 [id number] / / [id number] Absb Med 2.7x2.5in Polyarylate Implanted:Qty: 1 on 02/22/2024 by Ignacio Martinez MD at [facility] Right: Spine Thoracic [employer] 10/25/2024 [id number] / / [id number] Nrstm Impl Chrnc Pain Rs2 - [id number] Implanted:Qty: 1 on 02/22/2024 by Ignacio Martinez MD at [facility] Right: Spine Thoracic [employer] 01/14/2025 [id number] / [id number] / Procedures Procedure Name Priority Date/Time Associated Diagnosis Comments GLUCOSE - POINT OF CARE Routine 02/22/2024 10:35 AM MANAGER FUNCTIONAL from Last 3 Months or Most Recently Relevant to Health Maintenance Results * GLUCOSE - POINT OF CARE (02/22/2024 10:35 AM MANAGER FUNCTIONAL) Glucose WB/POC 90 70 - 99 mg/dL 02/22/2024 10:52 AM MANAGER FUNCTIONAL [facility] Specimen Type Venous 02/22/2024 10:52 AM MANAGER FUNCTIONAL [facility] Blood BLOOD SPECIMEN / Unknown 02/22/2024 10:35 AM MANAGER FUNCTIONAL 02/22/2024 10:52 AM MANAGER FUNCTIONAL Ignacio Martinez MD LAB - POINT OF CARE AMINATA JIMENES Final Result Performing Organization Address City/State/[facility] Co de Phone Number [facility] [address] [place] [address] from Last 3 Months or Most Recently Relevant to Health Maintenance Insurance [facility] SELF PAY NO INSURANCE Member Subscriber Plan / Payer (Ef fective for All Dates) Name:Marcio Torres Member ID:Not on file Relation to Subscriber:Not on file Name:MARCIO TORRES Subscriber ID:Not on file Address: [address] [place] [phone] Payer ID:Not on file Group ID:Not on file Type:Self Pay Address: [place], [place] [facility] SELF PAY NO INSURANCE Member Subscriber Plan / Payer (Ef fective for All Dates) Name:Marcio Torres Member ID:Not on file Relation to Subscriber:Not on file Name:MARCIO TORRES Subscriber ID:Not on file Address: [address] [place] [phone] Payer ID:Not on file Group ID:Not on file Type:Self Pay Address: [place], [place] [facility] SELF PAY NO INSURANCE Member Subscriber Plan / Payer (Ef fective for All Dates) Name:Marcio Torres Member ID:Not on file Relation to Subscriber:Not on file Name:MARCIO TORRES Subscriber ID:Not on file Address: [address] [place] [phone] Payer ID:Not on file Group ID:Not on file Type:Self Pay Address: [place], [place] Care Teams Fur Dry Cleaner Relationship Specialty Start Date End Date Greg Lee MD PCP - General 11/6/17
--- OUTSIDE RECORDS SUMMARY | 2024-09-06 14:26 | XMS_ITS | Clinical Summary ---
Author Organization [facility] Address [address] [place] [address] Phone Care Team Providers Care Systems Consultant Name Role Phone Greg Lee MD Primary Care Provider [phone] Allergies No known active allergies Medications gabapentin [...] Comments Blood Pressure 144/85 03/14/2019 10:31 AM SPECIAL FORCES COMMUNICATIONS SERGEANT Pulse 74 03/14/2019 10:31 AM SPECIAL FORCES COMMUNICATIONS SERGEANT Temperature 36.7 C (98 F) 03/14/2019 10:31 AM SPECIAL FORCES COMMUNICATIONS SERGEANT Respiratory Rate 18 03/14/2019 10:05 AM SPECIAL FORCES COMMUNICATIONS SERGEANT Oxygen Saturation 99% 03/14/2019 10:31 AM SPECIAL FORCES COMMUNICATIONS SERGEANT Inhaled Oxygen Concentration - - Weight - [...] 08/31/2023 Zoster Immunization (1 of 2) 08/31/2023 SARS-COV-2 Immunization ( - season) 2023 05/01/2022, 09/28/2020, 09/07/2020 Influenza Immunization (Seas on Ended) 2024 01/22/2020 Respiratory Syncytial Virus (RSV) Immunization (Adult) (1 - 1-dose 75+ series) 2048 DTaP/Tdap/Td Immunization Discontinued 10/18/2019 TdaP Immunization Completed 10/18/2019 Human Papillomavirus (HPV) Immunization Aged Out No longer eligible based on patient's age to complete this topic Meningococcal Immunization (ACWY) Aged Out No longer eligible based on patient's age to complete this topic Rotavirus Immunization Aged Out No lo nger eligible based on patient's age to complete this topic Insurance MEDICAID [employer] Care Teams Systems Consultant Relationship Specialty Start Date End Date Greg Lee MD [address] [place], [place] [id number] PCP - General Internal Medicine 01/28/19
== END 2024-09-06 14:22 | disposition home or self-care (01) ==
PROVIDERS: PCP Internal Medicine; Visit Provider Internal Medicine
DX: R51.9 Headache, unspecified (principal); M54.2 Cervicalgia; Z98.890 Other specified postprocedural states
CPT/HCPCS: 70450; 72125

== ENCOUNTER 2024-11-05 16:41 | Outpatient (CLI) | payer OTHER, SELFPAY ==
--- NOTE | ~2024-11-05 | XR_ITS ---
CHEST RADIOGRAPH, PA AND LATERAL CLINICAL HISTORY: Pneumonia, COPD, SOB, COUGH . COMPARISON: 05/08/2021 TECHNIQUE: PA and lateral views of the chest. FINDINGS Fixation hardware within the lower cervical spine Dorsal column stimulator device is noted. The remainder of the cardiomediastinal silhouette is otherwise unremarkable. The lungs are clear. Prominence of the bilateral pulmonary arteries, unchanged from 05/08/2021. IMPRESSION: No focal infiltrate or effusion. If clinical suspicion persists, cross-sectional imaging (noncontrast enhanced CT examination of the c hest) is suggested for further evaluation. Reviewed, dictated and finalized at location A. IMPRESSION: No focal infiltrate or effusion. If clinical suspicion persists, cross-sectional imaging (noncontrast enhanced C T examination of the chest) is suggested for further evaluation.
--- OUTSIDE RECORDS SUMMARY | 2024-11-05 16:45 | XMS_ITS | Clinical Summary ---
Author Organization [facility] Address [address] [place] [address] Care Team Providers Care Direct Care Counselor Name Role Phone Greg Lee MD Primary Care Provider [phone] Source Comments [facility],non-owned Affiliates and Associated Physician Practices is amultiple site organization consisting of ambulatory clinics and hospital sitesin [place], [place], [place] and [place]. This disclosure is being madepursuant to the Care Everywhere program and may not contain all information available regarding this patient. Last updated 17.[facility] Allergies No known active allergies Medications * [...] on file Legal Sex Female 5:20 PM ASSISTANT CORPORATE SECRETARY Gender Identity Not on file Sexual Orientation Not on file Last Filed Vital Signs Vital Sign Reading Time Taken Comments Blood Pressure 118/78 05/06/2024 8:55 AM ASSISTANT CORPORATE SECRETARY Pulse 93 05/06/2024 8:55 AM ASSISTANT CORPORATE SECRETARY Temperature 36.6 C (97.9 F) 05/06/2024 8:55 AM ASSISTANT CORPORATE SECRETARY Respiratory Rate 18 02/22/2024 5:01 PM ASSISTANT CORPORATE SECRETARY Oxygen Saturation 93% 05/06/2024 8:55 AM ASSISTANT CORPORATE SECRETARY Inhaled Oxygen Concentration - - Weight 113.1 kg (249 lb 6.4 oz) 05/06/2024 8:55 AM ASSISTANT CORPORATE SECRETARY Height 165.1 cm (5' 5) 05/06/2024 8:55 AM ASSISTANT CORPORATE SECRETARY Body Mass Index 41.5 05/06/2024 8:55 AM ASSISTANT CORPORATE SECRETARY Plan of Treatment Health Maintenance Due Date Last Done Comments COLOGUARD (AGES 45-75) - COL ON CA SCREENING 1973 COLON MONITORING 1973 COLONOSCOPY - COLON CA SCREENING 1973 CT COLONOGRAPHY - COLON CA SCREENING 1973 Colorectal Cancer Screening 1973 FIT - COLON CA SCREENING 1973 FLEX SIG - COLON CA SCREENING 1973 MAMMOGRAM 1973 HIV SCREENING 1988 HEPATITIS C SCREENING 08/26/1991 DTAP/TDAP/TD VACCINES (1 - Tdap) 1992 HEPATITIS B VACCINE (1 of 3 - 19+ 3-dose series) 1992 PNEUMOCOCCAL VACCINE 50+ (1 of 2 - PCV) 1992 PAP SMEAR 1994 ZOSTER VACCINE (1 of 2) 08/31/2023 COVID-19 VACCINE ( - 2023-2 5 season) 2023 DEPRESSION SCREENING 04/03/2024 INFLUENZA VACCINE (#1) 2024 SCREENING FOR DIABETES 02/21/2027 , 02/22/2024 [...] this topic Medical Devices Implanted Type Area Bulb Sorter Device Identifier Shelf Expiration Date Model / Serial / Lot Slnt Dura Duraseal Pg Trilysine Amine 5 Implanted:Qty: 1 on 02/22/2024 by Ignacio Martinez MD at [facility] Right: Spine Thoracic Integra [employer] Myke 08/31/2024 [id number] / / [id number] Lead Ns 65cm Spc Surescan 3 Clmn 16 Implanted:Qty: 1 on 02/22/2024 by Ignacio Martinez MD at [facility] Right: Spine Thoracic [employer] Inc 10/21/2025 [id number] / / [id number] 6 Kit Acc .133in Injex More Baso4 Biwing Implanted:Qty: 1 on 02/22/2024 by Ignacio Martinez MD at [facility] Right: Spine Thoracic [employer] 02/02/2028 [id number] / / [id number] Env Absb Med 2.7x2.5in Polyarylate Implanted:Qty: 1 on 02/22/2024 by Ignacio Martinez MD at [facility] Right: Spine Thoracic [employer] 10/25/2024 [id number] / / [id number] Nrstm Impl Chrnc Pain Rs2 - [id number] Implanted:Qty: 1 on 02/22/2024 by Ignacio Martinez MD at [facility] Right: Spine Thoracic [employer] 01/14/2025 [id number] / [id number] / Procedures Procedure Name Priority Date/Time Associated Diagnosis Comments GLUCOSE - POINT OF CARE Routine 02/22/2024 10:35 AM ASSISTANT CORPORATE SECRETARY from Last 3 Months or Most Recently Relevant to Health Maintenance Results * GLUCOSE - POINT OF CARE (02/22/2024 10:35 AM ASSISTANT CORPORATE SECRETARY) Glucose WB/POC 90 70 - 99 mg/dL 02/22/2024 10:52 AM ASSISTANT CORPORATE SECRETARY [facility] Specimen Type Venous 02/22/2024 10:52 AM ASSISTANT CORPORATE SECRETARY [facility] Blood BLOOD SPECIMEN / Unknown 02/22/2024 10:35 AM ASSISTANT CORPORATE SECRETARY 02/22/2024 10:52 AM ASSISTANT CORPORATE SECRETARY Ignacio Martinez MD LAB - POINT OF CARE AMINATA JIMENES Final Result Performing Organization Address City/State/[facility] Co de Phone Number [facility] [address] [place] [address] from Last 3 Months or Most Recently Relevant to Health Maintenance Insurance [facility] SELF PAY NO INSURANCE Member Subscriber Plan / Payer (Ef fective for All Dates) Name:Marcio Torres Member ID:Not on file Relation to Subscriber:Not on file Name:MARCIO TORRES Subscriber ID:Not on file Address: [address] [place] [phone] Payer ID:Not on file Group ID:Not on file Type:Self Pay Address: [place], [place] [facility] SELF PAY NO INSURANCE Member Subscriber Plan / Payer (Ef fective for All Dates) Name:Marcio Torres Member ID:Not on file Relation to Subscriber:Not on file Name:MARCIO TORRES Subscriber ID:Not on file Address: [address] [place] [phone] Payer ID:Not on file Group ID:Not on file Type:Self Pay Address: [place], [place] [facility] SELF PAY NO INSURANCE Member Subscriber Plan / Payer (Ef fective for All Dates) Name:Marcio Torres Member ID:Not on file Relation to Subscriber:Not on file Name:MARCIO TORRES Subscriber ID:Not on file Address: [address] [place] [phone] Payer ID:Not on file Group ID:Not on file Type:Self Pay Address: [place], [place] Care Teams Direct Care Counselor Relationship Specialty Start Date End Date Greg Lee MD PCP - General 11/6/17
--- OUTSIDE RECORDS SUMMARY | 2024-11-05 16:45 | XMS_ITS | Clinical Summary ---
Author Organization [facility] Address [address] [place] [id number] Care Team Providers Care Cloth Shrinking Supervisor Name Role Phone Unavailable Primary Care Provider Unavailabl e Social History Tobacco Use Types Packs/Day Years Used Date Smoking Tobacco: Never Assessed Comments Unknown Sex and Gender Information Value Date Recorded Sex Assigned at Not on file Legal Sex Female 5:37 PM CDT Gender Identity Not on file Sexual Orientation Not on file Plan of Treatment Health Maintenance Due Date Last Done Comments Cervical Cancer Screening Pa p Smear (Age 30 to 64) Every 3 Years 1973 Colorectal Cancer Screening Colonoscopy (10 Years) 1973 Annual Physical 1976 Hepatitis C 08/31/1991 DTaP, Tdap and Td Vaccines ( 1 - Tdap) 1992 Hepatitis B Vaccines (1 of 3 - 19+ 3-dose series) 1992 Cervical Cancer Screening Pa p with HPV Testing (Age 30 to 64) Every 5 Years 08/31/2003 Cervical Cancer Screening with HPV 08/31/2003 Mammogram Screening 2013 Pneumococcal Vaccine: 50+ Ye ars (1 of 1 - PCV) 08/31/2023 Zoster Vaccines (1 of 2) 08/31/2023 COVID-19 Vaccine ( - 2023-2 5 season) 2023 Meningococcal B Vaccine Aged Out No l onger eligible based on patient's age to complete this topic Meningococcal Vaccine Aged Out No shauna varsha eligible based on patient's age to complete this topic RSV Immunizations Under 20 Months Aged Out No longer eligible based on patient's age to complete this topic
--- OUTSIDE RECORDS SUMMARY | 2024-11-05 16:45 | XMS_ITS | Clinical Summary ---
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 SUPERVISOR Inhaled Oxygen Concentration - - Weight - - Height - - Body Mass Index - - Plan of Treatment Health Maintenance Due Date Last Done Comments Hepatitis C Virus (HCV) Screening 1973 Mammogram 1973 Hepatitis B Immunization (1 of 3 - 19+ 3-dose series) 1992 Pap Smear 1994 Cervical Cancer Screening (CCS) 08/31/2003 HPV/Cotest 08/31/2003 Cologuard 2018 Colonoscopy 2018 Colorectal Cancer Screening 2018 Immunochemical Fecal Occult Blood 2018 Pneumococcal Immunization (5 0+ years) (1 of 1 - PCV) 08/31/2023 Zoster Immunization (1 of 2) 08/31/2023 SARS-COV-2 Immunization ( season) 2023 05/01/2022, 09/28/2020, 09/07/2020 Influenza Immunization (#1) 2024 01/22/2020 Respiratory Syncytial Virus (RSV) Immunization [...] Insurance MED[employer]ID [employer] Care Teams Plastic Bubble Packer Relationship Specialty Start Date End Date Greg Lee MD [address] [place], [place] [phone] PCP - General Internal Medicine 01/28/19
[2024-11-05 17:56] LABS: Hematocrit 39.4 % (35.0-49.0); Hemoglobin 12.4 g/dL (12.0-15.0); Immature Granulocyte Percent A 0.6 % (0.0-0.0); Lymphocytes Absolute Auto 2.62 K/mm3 (1.10-4.50); Mean Corpuscular HGB Conc 31.5 g/dL (32-36); Mean Corpuscular Hemoglobin 26.4 pg (27.0-31.0); Mean Corpuscular Volume 84.0 fL (78.0-102.0); Nucleated Red Blood Cells Absolute Auto 0.00 K/mm3 (0.00-0.00); Nucleated Red Blood Cells Perc 0.0 % (0-0.0); Platelet Count Result 457 K/mm3 (150-420); Red Blood Count 4.69 M/mm3 (4.20-5.40); White Blood Count 8.5 K/mm3 (4.8-10.8)
== END 2024-11-05 16:42 | disposition home or self-care (01) ==
LOC: CHSLAB 16:42
PROVIDERS: PCP Internal Medicine; Visit Provider Internal Medicine
DX: J44.1 Chronic obstructive pulmonary disease with (acute) exacerbation (principal)
CPT/HCPCS: 36415; 71046; 85025